=== PATIENT | female | born 1960 | race Caucasian/White ===

== ENCOUNTER 2017-01-16 09:45 | Inpatient (IN) | payer OTHER ==
[~2017-01-16] VITALS: Ht 160 cm; Wt 68.2 kg
[2017-01-16] VITALS (13 sets, daily range): BP systolic 138–181; BP diastolic 67–110; PULSE 78–123; RESP 16–32; TEMP 98–98.7; O2SAT 92–99
[2017-01-16] MEDS ORDERED: IOHEXOL 350 MG/ML 10 ML VIAL (for RAD DIAG) IVCONTRAST ONE (09:46)
[2017-01-16] MEDS ORDERED: ALPR.25 PO (10:05)
[2017-01-16] MEDS ORDERED: PROZ20CA11 PO (10:05)
[2017-01-16] MEDS ORDERED: SODIUM CHLORIDE 0.9% FLUSH 10 ML FLUSH IVF PRN (10:45)
[2017-01-16 11:10] LABS: AUTOMATED NEUTROPHIL # 10.7 TH/MM3 (1.8-7.7); BASOPHIL # 0.1 TH/MM3 (0-0.2); BASOPHIL % 0.5 % (0.0-2.0); EOSINOPHIL # 0.6 TH/MM3 (0-0.4); EOSINOPHIL % 4.8 % (0.0-4.0); HEMATOCRIT 38.1 % (35.0-46.0); HEMO FLAGS DIFF FINAL; LYMPH % 5.9 % (9.0-44.0); LYMPHOCYTE # 0.8 TH/MM3 (1.0-4.8); MEAN CELL VOLUME 83.9 FL (80.0-100.0); MEAN CORPUSCULAR HEMOGLOBIN 28.1 PG (27.0-34.0); MEAN CORPUSCULAR HGB CONC 33.4 % (32.0-36.0); MONO % 7.2 % (0.0-8.0); NEUT % 81.6 % (16.0-70.0); PLATELET COUNT 312 TH/MM3 (150-450); RED BLOOD COUNT 4.53 MIL/MM3 (4.00-5.30); RED CELL DISTRIBUTION WIDTH 12.6 % (11.6-17.2); WHITE BLOOD COUNT 13.2 TH/MM3 (4.0-11.0)
[2017-01-16 11:16] LABS: APTT (PATIENT) 27.7 SEC (24.3-30.1); PROTHROMBIN TIME - PATIENT 10.8 SEC (9.8-11.6)
[2017-01-16 11:32] LABS: ANION GAP 9 MEQ/L (5-15); AST (GOT) 14 U/L (15-37); BICARBONATE 26.3 MEQ/L (21.0-32.0); BLOOD UREA NITROGEN 9 MG/DL (7-18); CHLORIDE 103 MEQ/L (98-107); GLOMERULAR FILTRATION RATE 105 ML/MIN (>89); POTASSIUM 3.6 MEQ/L (3.5-5.1); SODIUM (NA) 138 MEQ/L (136-145)
[2017-01-16 11:37] LABS: ALKALINE PHOSPHATASE 89 U/L (45-117); ALT (GPT) 37 U/L (10-53); TOTAL BILIRUBIN ADULT 0.4 MG/DL (0.2-1.0)
--- NOTE | 2017-01-16 12:30 | RADRPT ---
EXAM DATE/TIME: 01/16/2017 11:46 [facility] COMPARISON: No previous studies available for comparison. INDICATIONS : Shortness of breath with exertion. IV CONTRAST: 71 cc Omnipaque 350 (iohexol) IV RADIATION DOSE: 5.22 CTDIvol (mGy) MEDICAL HISTORY : None SURGICAL HISTORY : None. ENCOUNTER: Initial ACUITY: 3 weeks PAIN SCALE: 0/10 LOCATION: Bilateral chest TECHNIQUE: Volumetric scanning of the chest was performed. Using automated exposure control and adjustment of t he mA and/or kV according to patient size, radiation dose was kept as low as reasonably achievable to obtain optimal diagnostic quality images. DICOM format image data is available electronically for review and comparison. Follow-up recommendations for detected pulmonary nodules are based at a minimum on nodule size and pa tient risk factors according to Fleischner Society Guidelines. FINDINGS: LUNGS: Heterogeneous, 4.5 x 5.4 x 5.7 cm mass lesion in the anteromedial aspect of the left upper hemithorax with extension to the superior perihilar region. Large left-sided effusion with complete collapse of the left lung and rightward shift of the heart and mediastinal structures. Right lung remains clear. PLEURA: Very large left-sided effusion with rightward shift of the heart and mediastinal structures. MEDIASTINUM: Heart and mediastinal structures are shifted rightward and large left-sided pleural effusion. Complet e collapse of the left lung with a heterogeneous mass lesion in the right superior hilar distribution extending into the apex of the right hemithorax.. AXILLAE: Within normal limits. No lymphadenopathy. SKELETAL: Within normal limits for patient age. MISCELLANEOUS: The visualized upper abdominal organs demonstrate no acute abnormality. CONCLUSION: 1. Large left pleural effusion would be amenable to percutaneous drainage. Recommend leaving a drain and send fluid for cell count as the lesion in the left lung apex is concerning for a malignant proce ss. 2. 4.5 x 5.4 x 5.7 cm heterogeneous soft tissue density in the anteromedial aspect of the left lung a pex concerning for malignancy. 3. Resulting dextroposition of the heart and mediastinal structures due to the large left effusion. R ight lung is clear. Nahun Frank MD on January 16, 2017 at 12:20 Board Certified Radiologist. This report was verified electronically.
[2017-01-16] MEDS ORDERED: LORazepam 0.5 MG TAB PO ONE (13:00)
--- NOTE | 2017-01-16 13:19 | PD ---
HPI Chief Complaint: Respiratory Symptoms Time Seen by Provider: 10:36 Travel History International Travel<30 days: No Contact w/Intl Traveler<30days: No Traveled to known affect area: No History of Present Illness HPI Patient is a 56 year old female who comes in from urgent care due to SOB. She says she has been feeling short of breath for the past 3 weeks. She says it started with laryngitis and she continues to feel short of breath. She says she feels some chest tightness and occasionally has some pain on her left side. She says she thought she was feeling better this morning, but then started gasping for breath on the way to [facility]. She denies leg swelling or pain. She denies any recent weight loss or night sweats. She has no history of smoking. [facility] Past Medical History Anxiety: Yes Influenza Vaccination: No ?: Not Menopausal: Yes Past Surgical History Oral Surgery: Yes Social History Alcohol Use: No Tobacco Use: No Substance Use: No Allergies-Medications (Allergen,Severity, Reaction): Coded Allergies: No Known Allergies (Unverified , 01/16/17) Reported Meds & Prescriptions Reported Meds & Active Scripts Active Reported Xanax (Alprazolam) 0.25 Mg Tab 0.25 Mg PO Q4H PRN Prozac (Fluoxetine HCl) 20 Mg Cap 20 Mg PO DAILY Review of Systems Except as stated in HPI: all other systems reviewed are Neg General / Constitutional: No: Fever, Chills HENT: No: Headaches, Lightheadedness Cardiovascular: Positive: Chest Pain or Discomfort Respiratory: Positive: Cough, Shortness of Breath Gastrointestinal: No: Nausea, Vomiting Musculoskeletal: No: Myalgias, Edema Skin: No Rash, No Change in Pigmentation Neurologic: No: Weakness, Dizziness Physical Exam Narrative GENERAL: Awake and alert, in no acute distress. SKIN: Focused skin assessment warm/dry. HEAD: Atraumatic. Normocephalic. EYES: Pupils equal and round. No scleral icterus. No injection or drainage. ENT: No nasal bleeding or discharge. Mucous membranes pink and moist. NECK: Trachea midline. No JVD. CARDIOVASCULAR: Tachycardia. No murmur appreciated. RESPIRATORY: No accessory muscle use. Near absent breath sounds on the left. GASTROINTESTINAL: Abdomen soft, non-tender, nondistended. Hepatic and splenic margins not palpable. MUSCULOSKELETAL: No obvious deformities. No clubbing. No cyanosis. No edema. NEUROLOGICAL: Awake and alert. No obvious cranial nerve deficits. Motor grossly within normal limits. Normal speech. PSYCHIATRIC: Appropriate mood and affect; insight and judgment normal. Data Data Last Documented VS Vital Signs Date Time Temp Pulse Resp B/P (MAP) Pulse Ox O2 Delivery O2 Flow Rate FiO2 01/16/17 12:59 117 20 178/96 (123) 96 Nasal Cannula 2.00 01/16/17 09:55 98.3 Orders Orders Complete Blood Count With Diff (01/16/17 10:42) Comprehensive Metabolic Panel (01/16/17 10:42) B-Type Natriuretic Peptide (01/16/17 10:42) Act Partial Throm Time (Ptt) (01/16/17 10:42) Prothrombin Time / Inr (Pt) (01/16/17 10:42) Troponin I (01/16/17 10:42) Iv Access Insert/Monitor (01/16/17 10:42) Ecg Monitoring (01/16/17 10:42) Oximetry (01/16/17 10:42) Oxygen Administration (01/16/17 10:42) Sodium Chloride 0.9% Flush (Ns Flush) (01/16/17 10:45) Ct Thorax/ Chest W Iv Contrast (01/16/17 ) Iohexol 350 Inj (Omnipaque 350 Inj) (01/16/17 09:46) Electrocardiogram (01/16/17 09:59) Lorazepam (Ativan) (01/16/17 13:00) Labs Laboratory Tests Test 01/16/17 10:47 White Blood Count 13.2 TH/MM3 Red Blood Count 4.53 MIL/MM3 Hemoglobin 12.7 GM/DL Hematocrit 38.1 % Mean Corpuscular Volume 83.9 FL Mean Corpuscular Hemoglobin 28.1 PG Mean Corpuscular Hemoglobin Concent 33.4 % Red Cell Distribution Width 12.6 % Platelet Count 312 TH/MM3 Mean Platelet Volume 7.5 FL Neutrophils (%) (Auto) 81.6 % Lymphocytes (%) (Auto) 5.9 % Monocytes (%) (Auto) 7.2 % Eosinophils (%) (Auto) 4.8 % Basophils (%) (Auto) 0.5 % Neutrophils # (Auto) 10.7 TH/MM3 Lymphocytes # (Auto) 0.8 TH/MM3 Monocytes # (Auto) 0.9 TH/MM3 Eosinophils # (Auto) 0.6 TH/MM3 Basophils # (Auto) 0.1 TH/MM3 CBC Comment DIFF FINAL Differential Comment Prothrombin Time 10.8 SEC Prothromb Time International Ratio 1.0 RATIO Activated Partial Thromboplast Time 27.7 SEC Blood Urea Nitrogen 9 MG/DL Creatinine 0.59 MG/DL Random Glucose 133 MG/DL Total Protein 7.6 GM/DL Albumin 3.4 GM/DL Calcium Level 9.0 MG/DL Alkaline Phosphatase 89 U/L Aspartate Amino Transf (AST/SGOT) 14 U/L Alanine Aminotransferase (ALT/SGPT) 37 U/L Total Bilirubin 0.4 MG/DL Sodium Level 138 MEQ/L Potassium Level 3.6 MEQ/L Chloride Level 103 MEQ/L Carbon Dioxide Level 26.3 MEQ/L Anion Gap 9 MEQ/L Estimat Glomerular Filtration Rate 105 ML/MIN Troponin I LESS THAN 0.02 NG/ML B-Type Natriuretic Peptide 24 PG/ML MDM Medical Decision Making Medical Screen Exam Complete: Yes Emergency Medical Condition: Yes Interpretation(s) ECg shows sinus tachycardia at 119. No ST elevation or depression Differential Diagnosis Pneumonia versus pleural effusion versus pneumothorax Narrative Course Patient is a 56-year-old female comes in complaining of shortness of breath. Exam shows near absent breath sounds on the left. IV established, labs sent. Labs show slight elevation in white blood cell count. CT of the chest ordered shows large pleural effusion on the left with a lung mass. Patient informed of these results. She was given Ativan due to nerves. She is also placed on oxygen for comfort. Patient's oxygen saturation remained in the high 90s on room air. The oxygen did help her feel little bit better. She'll be admitted for further management. Diagnosis Primary Impression: Lung mass Additional Impression: Pleural effusion Admitting Information Admitting Physician Requests: Admit Shama Aparicio MD Jan 16, 2017 13:19
[2017-01-16] MEDS ORDERED: ONDANSETRON HCL 4 MG/2 ML VIAL IVP PRN (14:00)
[2017-01-16] MEDS ORDERED: NALOXONE HCL 0.4 MG/ML AMP IV PUSH PRN (14:00)
[2017-01-16] MEDS ORDERED: SODIUM CHLORIDE 0.9% FLUSH 10 ML FLUSH IV FLUSH PRN (14:00)
[2017-01-16] MEDS ORDERED: ACETAMINOPHEN/HYDROcodone 325 MG/5 MG TAB PO PRN (14:15)
[2017-01-16] MEDS ORDERED: MORPHINE SULFATE 4 MG/ML INJ IV PUSH PRN ×2 (14:15)
[2017-01-16] MEDS ORDERED: ACETAMINOPHEN/HYDROcodone 325 MG/7.5 MG TAB PO PRN (14:15)
--- NOTE | 2017-01-16 14:29 | HHI.HP ---
[facility] mAe Vizcarra MD Admission Diagnosis lung mass, pleural effusion Diagnoses: Chief Complaint: Short of breath Travel History International Travel<30 Days: No Contact w/Intl Traveler <30 Da: No Traveled to Known Affected Are: No History of Present Illness 56 years old female presented to the ED complaining of worsening short of breath over the last 2-3 weeks, patient stated she had sore throat with what it looks like bronchitis about 2 weeks ago which got better however she continued to have short of breath," I feel I'm on a treadmill all the time " Patient denied any history of chronic smoking, she smoked 2 packs in her whole life when she was 19 years old, she mentioned occasional night sweat, but she denied weight loss on the opposite she put on some weight, however patient and her they mentioned he started on a newly diet with more vegetables and less meat, she mentioned loose stool recently but she blinked it to her new diet. No phlegm production, no hemoptysis. In ED CT of the chest showed large left pleural effusion with left apical large mass very suspicious for malignancy, also patient had a blood pressure of 180/ 90 and a heart rate in the 120, she was very anxious she was given a dose of benzodiazepine which helped her, she seems to have Xanax every 4 hours at home Review of Systems All systems reviewed and was positive for what is mentioned in history of present illness otherwise negative Past Family Social History Past Medical History Anxiety Allergies: Coded Allergies: No Known Allergies (Unverified , 01/16/17) Family History Her aunts and uncles had history of cancer, one of her paternal aunt had lung cancer she did not know if she was a smoker Social History Patient smoked 2 pack in her life when she was 19 years old denied alcohol or illicit drug abuse Physical Exam Vital Signs Vital Signs Date Time Temp Pulse Resp B/P (MAP) Pulse Ox O2 Delivery O2 Flow Rate FiO2 01/16/17 12:59 117 20 178/96 (123) 96 Nasal Cannula 2.00 01/16/17 11:33 118 16 174/93 (120) 99 Nasal Cannula 2.00 01/16/17 11:30 99 Nasal Cannula 2.00 01/16/17 10:01 118 26 170/102 (124) 97 Room Air 01/16/17 09:55 98.3 121 32 170/102 (124) 97 01/16/17 09:46 98.7 123 18 153/75 (101) 96 Room Air Physical Exam GENERAL: This is a well-nourished, well-developed patient, in no apparent distress. SKIN: No rashes, warm and dry HEAD: Atraumatic. Normocephalic. EYES: Pupils equal round and reactive. Extraocular motions intact. No scleral icterus. ENT: Nose without bleeding, or drainage, Airway patent. NECK: Trachea midline. Supple CARDIOVASCULAR: Regular tachycardic without murmurs, gallops, or rubs. RESPIRATORY: No breath sounds on the left side with decreased tactile fremitus GASTROINTESTINAL: Abdomen soft, non-tender, nondistended. Positive bowel sounds MUSCULOSKELETAL: Extremities without clubbing, cyanosis, or edema. Pedal pulses appreciated NEUROLOGICAL: Awake and alert. Moves all extremity. Normal speech.no focal neurological deficit Laboratory Laboratory Tests Test 01/16/17 10:47 White Blood Count 13.2 Red Blood Count 4.53 Hemoglobin 12.7 Hematocrit 38.1 Mean Corpuscular Volume 83.9 Mean Corpuscular Hemoglobin 28.1 Mean Corpuscular Hemoglobin Concent 33.4 Red Cell Distribution Width 12.6 Platelet Count 312 Mean Platelet Volume 7.5 Neutrophils (%) (Auto) 81.6 Lymphocytes (%) (Auto) 5.9 Monocytes (%) (Auto) 7.2 Eosinophils (%) (Auto) 4.8 Basophils (%) (Auto) 0.5 Neutrophils # (Auto) 10.7 Lymphocytes # (Auto) 0.8 Monocytes # (Auto) 0.9 Eosinophils # (Auto) 0.6 Basophils # (Auto) 0.1 CBC Comment DIFF FINAL Differential Comment Prothrombin Time 10.8 Prothromb Time International Ratio 1.0 Activated Partial Thromboplast Time 27.7 Blood Urea Nitrogen 9 Creatinine 0.59 Random Glucose 133 Total Protein 7.6 Albumin 3.4 Calcium Level 9.0 Alkaline Phosphatase 89 Aspartate Amino Transf (AST/SGOT) 14 Alanine Aminotransferase (ALT/SGPT) 37 Total Bilirubin 0.4 Sodium Level 138 Potassium Level 3.6 Chloride Level 103 Carbon Dioxide Level 26.3 Anion Gap 9 Estimat Glomerular Filtration Rate 105 Troponin I LESS THAN 0.02 B-Type Natriuretic Peptide 24 Result Diagram: 01/16/17 1047 01/16/17 1047 Imaging Last Impressions Chest CT 01/16/17 0000 Signed Impressions: Service Date/Time: January 11:46 - CONCLUSION: 1. Large left pleural effusion would be amenable to percutaneous drainage. Recommend leaving a drain and send fluid for cell count as the lesion in the left lung apex is concerning for a malignant process. 2. 4.5 x 5.4 x 5.7 cm heterogeneous soft tissue density in the anteromedial aspect of the left lung apex concerning for malignancy. 3. Resulting dextroposition of the heart and mediastinal structures due to the large left effusion. Right lung is clear. MD Andrade Arteaga VTE Risk Assessment Andrade VTE Risk Assessment: Mod/High Risk (score >= 2) Caprini Risk Assessment Model Point Value = 1 Point Value = 2 Point Value = 3 Point Value = 5 Age 41-60 Minor surgery BMI > 25 kg/m2 Swollen legs Varicose veins or History of unexplained or recurrent spontaneous Oral contraceptives or hormone replacement Sepsis (< 1 month) Serious lung disease, including pneumonia (< 1 month) Abnormal pulmonary function Acute myocardial infarction Congestive heart failure (< 1 month) History of inflammatory bowel disease Medical patient at bed rest Age 61-74 Arthroscopic surgery Major open surgery (> 45 min) Laparoscopic surgery (> 45 min) Malignancy Confined to bed (> 72 hours) Immobilizing plaster cast Central venous access Age >= 75 History of VTE Family history of VTE Factor V Leiden Prothrombin [id number] Lupus anticoagulant Anticardiolipin antibodies Elevated serum homocysteine Heparin-induced thrombocytopenia Other congenital or acquired thrombophilia Stroke (< 1 month) Elective arthroplasty Hip, pelvis, or leg fracture Acute spinal cord injury (< 1 month) Prophylaxis Regimen Total Risk Factor Score Risk Level Prophylaxis Regimen 0-1 Low Early ambulation 2 Moderate Order ONE of the following: *Sequential Compression Device (SCD) *Heparin 5000 units SQ BID 3-4 Higher Order ONE of the following medications: *Heparin 5000 units SQ TID *Enoxaparin/Lovenox 40 mg SQ daily (WT < 150 kg, CrCl > 30 mL/min) *Enoxaparin/Lovenox 30 mg SQ daily (WT < 150 kg, CrCl > 10-29 mL/min) *Enoxaparin/Lovenox 30 mg SQ BID (WT < 150 kg, CrCl > 30 mL/min) AND/OR *Sequential Compression Device (SCD) 5 or more Highest Order ONE of the following medications: *Heparin 5000 units SQ TID (Preferred with Epidurals) *Enoxaparin/Lovenox 40 mg SQ daily (WT < 150 kg, CrCl > 30 mL/min) *Enoxaparin/Lovenox 30 mg SQ daily (WT < 150 kg, CrCl > 10-29 mL/min) *Enoxaparin/Lovenox 30 mg SQ BID (WT < 150 kg, CrCl > 30 mL/min) AND *Sequential Compression Device (SCD) Assessment and Plan Assessment and Plan 56 years old female came with Symptomatic dyspnea due to left apical mass and large pleural effusion Leukocytosis with left shift possibly due to recent URI Hypertension with tachycardia, in part possibly due to anxiety DVT prophylaxis Plan: O2, admit to ICU for close monitoring Consult pulmonary Consult invasive radiology for left thoracentesis and possible need for temporary Drainer Clonidine and Vasotec when necessary for high blood pressure I will resume her home Xanax to avoid withdrawal To start Lovenox for DVT prophylaxis tomorrow after thoracentesis Discussed Condition With ED physician, patient and her Marguerite Poon MD Jan 16, 2017 14:29
[2017-01-16] MEDS ORDERED: ENALAPRILAT 1.25 MG/ML VIAL IV PUSH PRN (14:30)
[2017-01-16] MEDS ORDERED: cloNIDine HCL 0.1 MG TAB PO PRN (14:30)
[2017-01-16] MEDS ORDERED: LIDOCAINE HCL 1% 50 ML VIAL ONE (19:59)
[2017-01-16] MEDS: RESP: ALBUTEROL 2.5 MG/IPRATROPIUM 0.5 MG NEB (SCH) NEB (20:27)
[2017-01-16 20:42] LABS: BLOOD GAS BASE EXCESS 3.5 mmol/L (-2-2); BLOOD GAS CARBOXYHEMOGLOBIN 1.4 % (0-4); BLOOD GAS HCO3 27 mmol/L (22-26); BLOOD GAS METHEMOGLOBIN 0.6 % (0-2); BLOOD GAS O2 HGB SATURATION 91 % (90-100); BLOOD GAS OXYGEN CONTENT 16.3 Vol % (12.0-20.0); BLOOD GAS PCO2 38 mmHg (38-42); BLOOD GAS PO2 63 mmHG (61-120); BLOOD GAS TOTAL HGB 12.7 G/DL (12.0-16.0); CRITICAL VALUE NO; TEMP CORR TO 98.6
[2017-01-16 20:43] LABS: DRAW SITE RT RADIAL; LITER FLOW 2.5 L/M; NUMBER OF ARTERIAL PUNCTURES 1; OXYGEN DEVICE NASAL CANNULA; STAT NO; ULNAR PULSE PRESENT
[2017-01-16] MEDS ORDERED: HEPARIN SODIUM - IV 2,000 UNITS/2 ML VIAL OTHER ONE (20:45)
--- NOTE | 2017-01-16 20:47 | RADRPT ---
EXAM DATE/TIME: 01/16/2017 20:18 [facility] COMPARISON: CT THORAX W CONTRAST, January 16, 2017, 11:46. INDICATIONS : Post thoracentesis. MEDICAL HISTORY : None. SURGICAL HISTORY : None. ENCOUNTER: Initial ACUITY: 1 day PAIN SCORE: 0/10 LOCATION: Left chest FINDINGS: There is a moderate to large left pleural effusion. There is a mass in the superior-medial left lung. The right lung is clear. A pneumothorax is not seen. CONCLUSION: Moderate to large left pleural effusion and a left upper lung mass more fully described in the CT of the chest report. Anup Anthony MD on January 16, 2017 at 20:43 Board Certified Radiologist. This report was verified electronically.
--- NOTE | 2017-01-16 21:35 | MB ---
cc: Beckie TAMAYO M.D. DATE OF CONSULTATION 01/16/17 REASON FOR CONSULTATION Pleural effusion and lung mass HISTORY OF PRESENT ILLNESS This is a 56-year-old lady who presented to the emergency room with progressive shortness of breath, difficulty in lying down, and a history of sore throat with cough. It started [id number] weeks ago. The patient could not catch her breath and thus was seen in the walk-in center where a chest x-ray demonstrated a large left pleural effusion and she thus was sent to the ER and now admitted. A CT chest was done which showed a large left effusion as well as a left apical lung mass suspicious for malignancy. The patient was also hypertensive and she is now admitted and started on oxygen at three liters. The patient had been on some Xanax for anxiety. PAST HISTORY Anxiety attacks, but no significant surgery or medical illness. Denies lung disease in the past. ALLERGIES None listed. FAMILY HISTORY Significant for lung cancer in one aunt. HABITS The patient smoked very briefly when she was 19 years old but she has only been exposed to secondhand smoke from her parents. No significant alcohol. Lives with her locally. REVIEW OF SYSTEMS The patient has had weight gain. She has shortness of breath and hoarseness. Denies abdominal pains. No nausea, vomiting, no urinary symptoms. No leg or calf muscle pains. She has no joint pains or skin lesions. PHYSICAL EXAMINATION GENERAL: This is an averagely built middle-aged white female who is alert, pale and mildly dyspneic, sitting upright. VITAL SIGNS: Blood pressure 170/80, pulse 110, respirations 24, temperature 98.2. HEENT: Head normocephalic. Pupils are reactive. Tongue moist. Throat is mildly injected. Ears no inflammation. NECK: No bruits or thyroid enlargement or lymphadenopathy. CHEST: Decreased breath sounds over the left mid and lower chest and occasional wheezes throughout both lung chapa. A few crackles heard at the bases. HEART: Sounds are irregular S1 and S2. No definite murmur. No S3. ABDOMEN: Soft, protuberant. No masses. No organomegaly. Bowel sounds are active. EXTREMITIES: No lesions or edema. NEUROLOGIC: Reflexes are 1+ with no gross motor deficits. Cranial nerves grossly intact. RECTAL: Exam is deferred. SKIN: No lesions. IMPRESSION 1. Large left pleural effusion with atelectasis in left lung. 2. Left upper lobe lung mass, rule out malignancy 3. Anxiety. PLAN The patient will need a thoracentesis. The risks, potential complications including pneumothorax, bleeding, respiratory failure were all explained to her and she is in agreement. We will hold the Lovenox at this time. The patient may also need a CT-guided needle biopsy of the lung mass. Oxygen supplementation at two liters nasal cannula and bedside PFT will be obtained. Follow up chest x-ray to be done in the a.m. and nebulized albuterol solution given t.i.d. and p.r.n. Thank you, Dr. Everett, for this consultation. MD BAUTISTA Cramer/ /7:46 PM /9:27 PM
[2017-01-16] MEDS: SODIUM CHLORIDE 0.9% FLUSH 10 ML FLUSH IV FLUSH SCH (22:57)
[2017-01-16 23:36] LABS: TOTAL PROTEIN,PLEURAL FLUID 4.1 GM/DL
[2017-01-17] VITALS (9 sets, daily range): BP systolic 126–143; BP diastolic 63–96; PULSE 88–119; RESP 16–20; TEMP 98–99.3; O2SAT 92–96
[2017-01-17 01:10] LABS: PLEURAL FLUID LYMPHS 72 %
[2017-01-17] MEDS: RESP: ALBUTEROL 2.5 MG/IPRATROPIUM 0.5 MG NEB (SCH) NEB ×4 (07:37→19:51)
[2017-01-17 07:46] LABS: AUTOMATED NEUTROPHIL # 9.2 TH/MM3 (1.8-7.7); BASOPHIL # 0.1 TH/MM3 (0-0.2); BASOPHIL % 0.6 % (0.0-2.0); EOSINOPHIL # 0.8 TH/MM3 (0-0.4); EOSINOPHIL % 6.7 % (0.0-4.0); HEMATOCRIT 34.3 % (35.0-46.0); HEMO FLAGS DIFF FINAL; LYMPH % 8.1 % (9.0-44.0); MEAN CELL VOLUME 82.9 FL (80.0-100.0); MEAN CORPUSCULAR HEMOGLOBIN 28.1 PG (27.0-34.0); MEAN CORPUSCULAR HGB CONC 33.9 % (32.0-36.0); MONO % 7.1 % (0.0-8.0); NEUT % 77.5 % (16.0-70.0); PLATELET COUNT 269 TH/MM3 (150-450); RED BLOOD COUNT 4.14 MIL/MM3 (4.00-5.30); RED CELL DISTRIBUTION WIDTH 12.6 % (11.6-17.2); WHITE BLOOD COUNT 11.8 TH/MM3 (4.0-11.0)
[2017-01-17 08:07] LABS: BICARBONATE 28.9 MEQ/L (21.0-32.0); POTASSIUM 3.6 MEQ/L (3.5-5.1)
[2017-01-17] MEDS: SODIUM CHLORIDE 0.9% FLUSH 10 ML FLUSH IV FLUSH SCH ×2 (10:03→21:00)
--- NOTE | 2017-01-17 12:57 | HHI.PR ---
Subjective Remarks Feels better. CXR improved effusion. Needs biopsy of mass and Chest tube. Objective Vital Signs Date Time Temp Pulse Resp B/P (MAP) Pulse Ox O2 Delivery O2 Flow Rate FiO2 01/17/17 10:42 99.3 88 18 134/63 (86) 94 01/17/17 08:00 Nasal Cannula 2.00 01/17/17 07:42 98.0 88 20 134/70 (91) 96 01/17/17 07:39 93 Nasal Cannula 2.00 01/17/17 04:43 98.3 101 18 126/75 (92) 92 01/17/17 00:29 92 Nasal Cannula 3.00 01/16/17 23:54 98.6 105 18 138/72 (94) 92 01/16/17 20:30 94 Nasal Cannula 2.50 01/16/17 20:03 115 16 141/67 (91) 95 01/16/17 19:50 121 18 146/110 (122) 97 01/16/17 19:50 95 Nasal Cannula 2.00 01/16/17 18:00 98.0 78 20 144/68 (93) 96 01/16/17 17:38 154/68 (96) 01/16/17 17:21 96 Nasal Cannula 2.00 01/16/17 16:15 01/16/17 15:36 108 24 144/83 (103) 98 Nasal Cannula 2.00 01/16/17 14:12 116 22 181/78 (112) 97 Nasal Cannula 2.00 01/16/17 12:59 117 20 178/96 (123) 96 Nasal Cannula 2.00 I/O 01/16/17 01/16/17 01/16/17 01/17/17 01/17/17 01/17/17 07:00 15:00 23:00 07:00 15:00 23:00 Intake Total 2250 ml Balance 2250 ml Intake Oral 250 ml Other 2000 ml # Voids 2 1 Result Diagram: 01/17/1761901/17/17619 Objective Remarks GENERAL: This is an averagely built middle-aged white female who is alert, pale and mildly dyspneic, sitting upright. HEENT: Head normocephalic. Pupils are reactive. Tongue moist. Throat is mildly injected. Ears no inflammation. NECK: No bruits or thyroid enlargement or lymphadenopathy. CHEST: Decreased breath sounds over the left mid and lower chest and occasional wheezes over both lung chapa. A few crackles heard at the bases. HEART: Sounds are irregular S1 and S2. No definite murmur. No S3. ABDOMEN: Soft, protuberant. No masses. No organomegaly. Bowel sounds are active. EXTREMITIES: No lesions or edema. NEUROLOGIC: Reflexes are 1+ with no gross motor deficits. Cranial nerves grossly intact. RECTAL: Exam is deferred. SKIN: No lesions. Assessment and Plan Assessment and Plan IMPRESSION 1. Large left pleural effusion with atelectasis in left lung. 2. Left upper lobe lung mass, rule out malignancy 3. Anxiety. Plan ; 1. Will get CT guided biopsy of lung mass and chest catheter for fluid 2. Continue O2 and nebs . 3. Oncology Evaluation. 4. PFT with Broncho. 5. CBC,BMP in am Beckie Sahu MD Jan 17, 2017 12:57
--- NOTE | 2017-01-17 16:02 | HHI.PR ---
Subjective Remarks Patient seems to be happy today, feeling much better after the thoracentesis Repeated chest x-ray still showing pleural effusion but less than before Discussed with Dr. Barnes he want to do CT-guided biopsy by of discharge I discussed that with the patient and her family today in the room at the bedside she is in agreement with Objective Vitals Vital Signs Date Time Temp Pulse Resp B/P (MAP) Pulse Ox O2 Delivery O2 Flow Rate FiO2 01/17/17 15:44 98.3 110 16 143/96 (112) 93 01/17/17 10:42 99.3 88 18 134/63 (86) 94 01/17/17 08:00 Nasal Cannula 2.00 01/17/17 07:42 98.0 88 20 134/70 (91) 96 01/17/17 07:39 93 Nasal Cannula 2.00 01/17/17 04:43 98.3 101 18 126/75 (92) 92 01/17/17 00:29 92 Nasal Cannula 3.00 01/16/17 23:54 98.6 105 18 138/72 (94) 92 01/16/17 20:30 94 Nasal Cannula 2.50 01/16/17 20:03 115 16 141/67 (91) 95 01/16/17 19:50 121 18 146/110 (122) 97 01/16/17 19:50 95 Nasal Cannula 2.00 01/16/17 18:00 98.0 78 20 144/68 (93) 96 01/16/17 17:38 154/68 (96) 01/16/17 17:21 96 Nasal Cannula 2.00 01/16/17 16:15 I/O 01/16/17 01/16/17 01/16/17 01/17/17 01/17/17 01/17/17 07:00 15:00 23:00 07:00 15:00 23:00 Intake Total 2250 ml Balance 2250 ml Intake Oral 250 ml Other 2000 ml # Voids 2 1 Result Diagram: 01/17/1761901/17/17619 Objective Remarks GENERAL: This is a well-nourished, well-developed patient, in no apparent distress. SKIN: No rashes, warm and dry HEAD: Atraumatic. Normocephalic. EYES: Pupils equal round and reactive. Extraocular motions intact. No scleral icterus. ENT: Nose without bleeding, or drainage, Airway patent. NECK: Trachea midline. Supple CARDIOVASCULAR: Regular rate and rhythm without murmurs, gallops, or rubs. RESPIRATORY: Decreased breath sounds on the left lung GASTROINTESTINAL: Abdomen soft, non-tender, nondistended. Positive bowel sounds MUSCULOSKELETAL: Extremities without clubbing, cyanosis, or edema. Pedal pulses appreciated NEUROLOGICAL: Awake and alert. Moves all extremity. Normal speech.no focal neurological deficit A/P Assessment and Plan GENERAL: This is a well-nourished, well-developed patient, in no apparent distress. SKIN: No rashes, warm and dry HEAD: Atraumatic. Normocephalic. EYES: Pupils equal round and reactive. Extraocular motions intact. No scleral icterus. ENT: Nose without bleeding, or drainage, Airway patent. NECK: Trachea midline. Supple CARDIOVASCULAR: Regular tachycardic without murmurs, gallops, or rubs. RESPIRATORY: No breath sounds on the left side with decreased tactile fremitus GASTROINTESTINAL: Abdomen soft, non-tender, nondistended. Positive bowel sounds MUSCULOSKELETAL: Extremities without clubbing, cyanosis, or edema. Pedal pulses appreciated NEUROLOGICAL: Awake and alert. Moves all extremity. Normal speech.no focal neurological deficit Laboratory Laboratory Tests Test 01/16/17 10:47 White Blood Count 13.2 Red Blood Count 4.53 Hemoglobin 12.7 Hematocrit 38.1 Mean Corpuscular Volume 83.9 Mean Corpuscular Hemoglobin 28.1 Mean Corpuscular Hemoglobin Concent 33.4 Red Cell Distribution Width 12.6 Platelet Count 312 Mean Platelet Volume 7.5 Neutrophils (%) (Auto) 81.6 Lymphocytes (%) (Auto) 5.9 Monocytes (%) (Auto) 7.2 Eosinophils (%) (Auto) 4.8 Basophils (%) (Auto) 0.5 Neutrophils # (Auto) 10.7 Lymphocytes # (Auto) 0.8 Monocytes # (Auto) 0.9 Eosinophils # (Auto) 0.6 Basophils # (Auto) 0.1 CBC Comment DIFF FINAL Differential Comment Prothrombin Time 10.8 Prothromb Time International Ratio 1.0 Activated Partial Thromboplast Time 27.7 Blood Urea Nitrogen 9 Creatinine 0.59 Random Glucose 133 Total Protein 7.6 Albumin 3.4 Calcium Level 9.0 Alkaline Phosphatase 89 Aspartate Amino Transf (AST/SGOT) 14 Alanine Aminotransferase (ALT/SGPT) 37 Total Bilirubin 0.4 Sodium Level 138 Potassium Level 3.6 Chloride Level 103 Carbon Dioxide Level 26.3 Anion Gap 9 Estimat Glomerular Filtration Rate 105 Troponin I LESS THAN 0.02 B-Type Natriuretic Peptide 24 Result Diagram: 01/16/17 1047 01/16/17 1047 [Image 1] Imaging Last Impressions Chest CT 01/16/17 0000 Signed Impressions: Service Date/Time: January 11:46 - CONCLUSION: 1. Large left pleural effusion would be amenable to percutaneous drainage. Recommend leaving a drain and send fluid for cell count as the lesion in the left lung apex is concerning for a malignant process. 2. 4.5 x 5.4 x 5.7 cm heterogeneous soft tissue density in the anteromedial aspect of the left lung apex concerning for malignancy. 3. Resulting dextroposition of the heart and mediastinal structures due to the large left effusion. Right lung is clear. Nahun Frank MD Septic Shock Reassessment Septic Shock Reassessment Caprini VTE Risk Assessment Caprini VTE Risk Assessment Caprini VTE Risk Assessment: Mod/High Risk (score >= 2) Caprini Risk Assessment Model Point Value = 1 Point Value = 2 Point Value = 3 Point Value = 5 Age 41-60 Minor surgery BMI > 25 kg/m2 Swollen legs Varicose veins or History of unexplained or recurrent spontaneous Oral contraceptives or hormone replacement Sepsis (< 1 month) Serious lung disease, including pneumonia (< 1 month) Abnormal pulmonary function Acute myocardial infarction Congestive heart failure (< 1 month) History of inflammatory bowel disease Medical patient at bed rest Age 61-74 Arthroscopic surgery Major open surgery (> 45 min) Laparoscopic surgery (> 45 min) Malignancy Confined to bed (> 72 hours) Immobilizing plaster cast Central venous access Age >= 75 History of VTE Family history of VTE Factor V Leiden Prothrombin [id number] Lupus anticoagulant Anticardiolipin antibodies Elevated serum homocysteine Heparin-induced thrombocytopenia Other congenital or acquired thrombophilia Stroke (< 1 month) Elective arthroplasty Hip, pelvis, or leg fracture Acute spinal cord injury (< 1 month) Prophylaxis Regimen Total Risk Factor Score Risk Level Prophylaxis Regimen 0-1 Low Early ambulation 2 Moderate Order ONE of the following: *Sequential Compression Device (SCD) *Heparin 5000 units SQ BID 3-4 Higher Order ONE of the following medications: *Heparin 5000 units SQ TID *Enoxaparin/Lovenox 40 mg SQ daily (WT < 150 kg, CrCl > 30 mL/min) *Enoxaparin/Lovenox 30 mg SQ daily (WT < 150 kg, CrCl > 10-29 mL/min) *Enoxaparin/Lovenox 30 mg SQ BID (WT < 150 kg, CrCl > 30 mL/min) AND/OR *Sequential Compression Device (SCD) 5 or more Highest Order ONE of the following medications: *Heparin 5000 units SQ TID (Preferred with Epidurals) *Enoxaparin/Lovenox 40 mg SQ daily (WT < 150 kg, CrCl > 30 mL/min) *Enoxaparin/Lovenox 30 mg SQ daily (WT < 150 kg, CrCl > 10-29 mL/min) *Enoxaparin/Lovenox 30 mg SQ BID (WT < 150 kg, CrCl > 30 mL/min) AND *Sequential Compression Device (SCD) Assessment and Plan Assessment and Plan Assessment and Plan 56 years old female came with Symptomatic dyspnea due to left apical mass and large pleural effusion Leukocytosis with left shift possibly due to recent URI Hypertension with tachycardia, in part possibly due to anxiety DVT prophylaxis Plan: Appreciate pulmonary consultation status post thoracentesis 01/16, repeated chest x-ray with still pleural effusion, however patient had clinical improvement, plan for CT guided biopsy in a.m. Clonidine and Vasotec when necessary for high blood pressure resume her home Xanax to avoid withdrawal Hold Lovenox for now until done with procedure Discussed with patient and her family Marguerite Poon MD Jan 17, 2017 16:02
--- NOTE | 2017-01-17 16:16 | EKG ---
Date Performed: 01/16/2017 Time Performed: 09:59:38 PTAGE: 56 years EKG: SINUS TACHYCARDIA WITH SHORT OK INTERVAL NONSPECIFIC T-WAVE ABNORMALITY ABNORMAL RHYTHM ECG NO PREVIOUS TRACING DOCTOR: Danielito Alarcon Interpretating Date/Time 01/17/2017 16:15:19
--- NOTE | 2017-01-17 16:29 | MR ---
cc: ERIN SAHU DATE: 01/16/2017. PROCEDURE PERFORMED: Left thoracentesis. PREOPERATIVE DIAGNOSIS: Left pleural effusion. POSTOPERATIVE DIAGNOSIS: Left pleural effusion. ANESTHESIA: 1% Xylocaine local. SURGEON: Erin Sahu MD. DESCRIPTION OF THE PROCEDURE IN DETAIL AND FINDINGS: The patient's left posterior back was prepped with chlorhexidine solution following which sterile drapes were applied. 1% Xylocaine was then injected into the intercostal space in the posterior axillary line after which a small incision was made with a scalpel blade. Following this, a 14-gauge catheter was inserted into the pleural space. This was connected to a vacuum bottle and approximately 2100 cc of serosanguineous fluid was aspirated at which time the flow stopped. The patient tolerated the procedure well. A post thoracentesis chest x-ray will be obtained. Erin Sahu MD JREENA/BHARAT /8:20 PM /4:28 PM
[2017-01-17] MEDS ORDERED: ENOXAPARIN SODIUM 40 MG/0.4 ML SYRINGE SQ SCH (20:00)
[2017-01-17] MEDS: ALPRAZolam 0.25 MG TAB PO PRN (23:44)
[2017-01-18] VITALS (11 sets, daily range): BP systolic 118–129; BP diastolic 62–83; PULSE 79–112; RESP 16–24; TEMP 97.3–98.3; O2SAT 92–97
[2017-01-18] MEDS: RESP: ALBUTEROL 2.5 MG/IPRATROPIUM 0.5 MG NEB (SCH) NEB ×4 (07:43→21:09)
[2017-01-18] MEDS: SODIUM CHLORIDE 0.9% FLUSH 10 ML FLUSH IV FLUSH SCH ×2 (10:47→19:53)
--- NOTE | 2017-01-18 13:04 | HHI.PR ---
Subjective Remarks Patient reports her breathing is better. She is ambulating. Overall feeling better. Objective Vitals Vital Signs Date Time Temp Pulse Resp B/P (MAP) Pulse Ox O2 Delivery O2 Flow Rate FiO2 01/18/17 12:14 97.3 102 24 125/69 (87) 96 01/18/17 08:44 97.5 95 22 127/72 (90) 96 01/18/17 07:43 92 21 01/18/17 04:31 97.4 110 16 129/83 (98) 93 01/18/17 04:00 84 01/18/17 00:16 97.5 96 17 123/83 (96) 92 01/18/17 00:00 102 01/17/17 20:51 98.3 119 18 129/69 (89) 94 01/17/17 20:30 94 Nasal Cannula 3.00 01/17/17 20:00 108 01/17/17 19:52 94 Nasal Cannula 3.00 01/17/17 15:44 98.3 110 16 143/96 (112) 93 I/O 01/17/17 01/17/17 01/17/17 01/18/17 01/18/17 01/18/17 07:00 15:00 23:00 07:00 15:00 23:00 Intake Total 2250 ml Balance 2250 ml Intake Oral 250 ml Other 2000 ml # Voids 2 1 Result Diagram: 01/17/1761901/17/17619 Objective Remarks GENERAL: No acute distress CARDIOVASCULAR: Regular rate and rhythm. RESPIRATORY: No accessory muscle use. Clear to auscultation. Diminished breath sounds left base GASTROINTESTINAL: Abdomen soft, non-tender, nondistended. MUSCULOSKELETAL: Extremities without clubbing, cyanosis, or edema. No obvious deformities. NEUROLOGICAL: Awake and alert. Normal speech. PSYCHIATRIC: Appropriate mood and affect; insight and judgment normal. Procedures Thoracentesis A/P Assessment and Plan 56 years old female came with Symptomatic dyspnea due to left apical mass and large pleural effusion Leukocytosis with left shift possibly due to recent URI Hypertension with tachycardia, in part possibly due to anxiety Appreciate pulmonary consultation status post thoracentesis 01/16, repeated chest x-ray with still pleural effusion, however patient had clinical improvement, plan for CT guided biopsy and drain on Friday Clonidine and Vasotec when necessary for high blood pressure resume her home Xanax to avoid withdrawal Hold Lovenox for now until done with procedure Discussed with patient and her family at bedside Braden Calloway MD Jan 18, 2017 13:04
[2017-01-19] VITALS (10 sets, daily range): BP systolic 116–152; BP diastolic 71–76; PULSE 74–105; RESP 17–18; TEMP 97.2–98.1; O2SAT 93–97
[2017-01-19] MEDS: RESP: ALBUTEROL 2.5 MG/IPRATROPIUM 0.5 MG NEB (SCH) NEB ×4 (08:14→20:32)
[2017-01-19] MEDS: SODIUM CHLORIDE 0.9% FLUSH 10 ML FLUSH IV FLUSH SCH ×2 (08:33→20:24)
[2017-01-19] MEDS: ALPRAZolam 0.25 MG TAB PO PRN ×2 (09:22→23:32)
--- NOTE | 2017-01-19 15:52 | HHI.PR ---
Subjective Remarks Patient reports she is feeling ok today. On 2 L NC. Objective Vitals Vital Signs Date Time Temp Pulse Resp B/P (MAP) Pulse Ox O2 Delivery O2 Flow Rate FiO2 01/19/17 12:00 98.1 86 17 132/75 (94) 95 01/19/17 08:15 97 01/19/17 08:00 97.5 93 18 135/76 (95) 93 01/19/17 04:00 97.7 88 18 137/73 (94) 96 01/19/17 00:32 97.4 74 18 152/71 (98) 94 01/18/17 21:11 97 Nasal Cannula 2.00 01/18/17 20:20 112 01/18/17 19:30 97.7 79 18 120/76 (91) 92 01/18/17 16:25 98.3 101 24 118/62 (80) 96 I/O 01/18/17 01/18/17 01/18/17 01/19/17 01/19/17 01/19/17 07:00 15:00 23:00 07:00 15:00 23:00 Intake Total 360 ml 360 ml Balance 360 ml 360 ml Intake Oral 360 ml 360 ml # Voids 3 2 # Bowel Movements 0 1 Result Diagram: 01/17/1761901/17/17619 Objective Remarks GENERAL: No acute distress CARDIOVASCULAR: Regular rate and rhythm. RESPIRATORY: No accessory muscle use. Clear to auscultation. Diminished breath sounds left base GASTROINTESTINAL: Abdomen soft, non-tender, nondistended. MUSCULOSKELETAL: Extremities without clubbing, cyanosis, or edema. No obvious deformities. NEUROLOGICAL: Awake and alert. Normal speech. PSYCHIATRIC: Appropriate mood and affect; insight and judgment normal. Procedures Thoracentesis A/P Assessment and Plan 56 years old female came with Symptomatic dyspnea due to left apical mass and large pleural effusion Leukocytosis with left shift possibly due to recent URI Hypertension with tachycardia, in part possibly due to anxiety Appreciate pulmonary consultation status post thoracentesis 01/16, repeated chest x-ray with still pleural effusion, however patient had clinical improvement, plan for CT guided biopsy and drain tomorrow. Clonidine and Vasotec when necessary for high blood pressure resume her home Xanax to avoid withdrawal Hold Lovenox for now until done with procedure Discussed with patient and her family at bedside Braden Calloway MD Jan 19, 2017 15:52
[2017-01-20] VITALS (11 sets, daily range): BP systolic 102–139; BP diastolic 56–81; PULSE 78–98; RESP 16–20; TEMP 96.3–98.6; O2SAT 94–97
[2017-01-20] MEDS: RESP: ALBUTEROL 2.5 MG/IPRATROPIUM 0.5 MG NEB (SCH) NEB ×3 (07:43→16:00)
[2017-01-20] MEDS: SODIUM CHLORIDE 0.9% FLUSH 10 ML FLUSH IV FLUSH SCH ×2 (08:31→21:19)
--- NOTE | 2017-01-20 09:29 | HHI.PR ---
Subjective Remarks Patient reports she is feeling okay today. Stable on nasal cannula. Objective Vitals Vital Signs Date Time Temp Pulse Resp B/P (MAP) Pulse Ox O2 Delivery O2 Flow Rate FiO2 01/20/17 08:32 Nasal Cannula 3.00 01/20/17 07:48 96.3 92 16 139/78 (98) 94 01/20/17 03:42 96.7 89 17 129/81 (97) 95 01/19/17 23:27 97.2 86 17 136/73 (94) 96 01/19/17 20:33 94 01/19/17 20:15 101 01/19/17 19:00 98.1 105 18 116/75 (89) 95 01/19/17 16:00 98.1 80 18 131/72 (91) 95 01/19/17 12:00 98.1 86 17 132/75 (94) 95 I/O 01/19/17 01/19/17 01/19/17 01/20/17 01/20/17 01/20/17 07:00 15:00 23:00 07:00 15:00 23:00 Intake Total 360 ml 720 ml 480 ml Balance 360 ml 720 ml 480 ml Intake Oral 360 ml 720 ml 480 ml # Voids 2 4 4 1 # Bowel Movements 1 1 0 Result Diagram: 01/17/1761901/17/17619 Objective Remarks GENERAL: No acute distress CARDIOVASCULAR: Regular rate and rhythm. RESPIRATORY: No accessory muscle use. Clear to auscultation. Diminished breath sounds left base GASTROINTESTINAL: Abdomen soft, non-tender, nondistended. MUSCULOSKELETAL: Extremities without clubbing, cyanosis, or edema. No obvious deformities. NEUROLOGICAL: Awake and alert. Normal speech. PSYCHIATRIC: Appropriate mood and affect; insight and judgment normal. Procedures Thoracentesis A/P Assessment and Plan 56 years old female came with Symptomatic dyspnea due to left apical mass and large pleural effusion Leukocytosis with left shift possibly due to recent URI Hypertension with tachycardia, in part possibly due to anxiety Appreciate pulmonary consultation status post thoracentesis 01/16, repeated chest x-ray with still pleural effusion, however patient had clinical improvement, plan for CT guided biopsy and drain placement today. Clonidine and Vasotec when necessary for high blood pressure Continue her home Xanax to avoid withdrawal Hold Lovenox for now until done with procedure Discussed with patient and her family at bedside Discharge Planning Pending CT-guided biopsy and clearance from pulmonology. Probably DC in 1-2 days. Braden Calloway MD Jan 20, 2017 09:29
[2017-01-20] MEDS ORDERED: MIDAZOLAM HCL 2 MG/2 ML VIAL ONE (13:26)
[2017-01-20] MEDS ORDERED: LIDOCAINE 1%/EPINEPHrine 1:100,000 SOLN 20 ML VIAL ONE (13:41)
--- NOTE | 2017-01-20 15:09 | PD.RAD ---
Post CT Procedure Prog Note Pre Procedure Diagnosis: (1) Lung mass (2) Pleural effusion Post Procedure Diagnosis: (1) Lung mass (2) Pleural effusion Procedure Date: Jan 20, 2017 Supervising Radiologist: Soham Chaney Anesthesia: Conscious Sedation Plan of Activity Patient to Unit: Nursing Unit Patient Condition: Good See PACS Report for procedural detail/treatment Soham Chaney MD Jan 20, 2017 15:09
--- NOTE | 2017-01-20 15:41 | RADRPT ---
EXAM DATE/TIME: 01/20/2017 14:17 [facility] COMPARISON: No previous studies available for comparison. INDICATIONS : Left lung mass SEDATION TIME: 30 minutes BIOPSY SITE: Left lung MEDICATION(S): 1.) 4 mg midazolam (Versed) IV 2.) 200 mcg fentanyl (Sublimaze) IV DEVICE(S): 1.) 17 gauge introducer 2.) 18 gauge Temno core biopsy needle MEDICAL HISTORY : None. SURGICAL HISTORY : None. ENCOUNTER: Initial ACUITY: 1 day PAIN SCORE: 0/10 LOCATION: Left chest A total of four core specimen(s) were obtained and sent to the laboratory for pathologic evaluation. PROCEDURE: 1. CT guided lung biopsy. 2. Conscious sedation with continuous EKG and oximetry monitoring. 3. EKG and oximetry remained stable throughout the procedure. Prior to the procedure informed consent was obtained. Any appropriate prior imaging studies were rev iewed. Using automated exposure control and adjustment of the mA and/or kV according to patient size, radiation dose was kept as low as reasonably achievable to obtain optimal diagnostic quality images. DICOM format image data is available electronically for review and comparison. The site was prepped in a sterile fashion. Full sterile technique was used, including cap, mask, peggy rile gloves and gown and a large sterile sheet. Hand hygiene and 2% chlorhexidine and/or betadine/al cohol prep was utilized per protocol for cutaneous antisepsis. The skin and subcutaneous tissues wer e infiltrated with local anesthetic solution. With CT guidance the previously identified target was localized. Biopsy was performed using the presc ribed needle as above. In total, four 18 gauge core biopsy were obtained. Adequate hemostasis was ob tained with compression at the puncture site. Follow-up CT scan reveals no pneumothorax. Conscious sedation was performed with the prescribed dosages and duration as above in the presence of an independent trained radiology nurse to assist in the monitoring of the patient. EKG and oximetry remained stable throughout the procedure. The patient tolerated the procedure well and there were no complications. The patient was sent to Radiology Outpatient Unit in stable condition. CONCLUSION: 1. Uncomplicated CT guided 18 gauge core biopsies of left upper lobe lung mass. Soham Chaney MD on January 20, 2017 at 15:38 Board Certified Radiologist. This report was verified electronically.
--- NOTE | 2017-01-20 15:42 | RADRPT ---
EXAM DATE/TIME: 01/20/2017 14:17 INDICATIONS : Large recurrent symptomatic suspected malignant pleural effusion. SEDATION TIME: 1.) 4 mg midazolam (Versed) IV 2.) 200 mcg fentanyl (Sublimaze) IV DEVICE(S): 1.) 16 Fr Skater Total volume of 725 cc of cloudy, red fluid was removed. MEDICAL HISTORY : None. SURGICAL HISTORY : None. ENCOUNTER: Initial ACUITY: 1 day PAIN SCORE: 0/10 LOCATION: Left chest PROCEDURE: 1. CT guided Left thoracentesis with chest tube placement. 2. Conscious sedation with continuous EKG and oximetry monitoring. 3. EKG and oximetry remained stable throughout the procedure. The site was prepped in sterile fashion. Full sterile technique was used, including cap, mask, steri le gloves and gown and a large sterile sheet. Hand hygiene and 2% chlorhexidine and/or betadine/alco hol prep was utilized per protocol for cutaneous antisepsis. The skin and subcutaneous tissues were infiltrated with local anesthetic solution. Using automated exposure control and adjustment of the m A and/or kV according to patient size, radiation dose was kept as low as reasonably achievable to obt ain optimal diagnostic quality images. DICOM format image data is available electronically for revie w and comparison. Under CT guidance a 16 Emirati skater catheter was placed in the inferior left pleural space. 750 mL o f serosanguineous fluid were gently aspirated out of the chest. Chest tube was inserted. Post proced ural scan show reduction in the amount of fluid with no evidence of pneumothorax. The patient tolerated the procedure well and there were no complications. EKG and oximetry remained s table throughout the procedure. The patient was sent to recovery in stable condition. CONCLUSION: Uncomplicated CT-guided placement of 16 Emirati pigtail chest tube for treatment of symptomatic recurr ent suspected malignant pleural effusion. Soham Chaney MD on January 20, 2017 at 15:39 Board Certified Radiologist. This report was verified electronically.
--- NOTE | 2017-01-20 18:58 | HHI.PR ---
Subjective Remarks Feels better. CXR improved effusion. Had biopsy of lung mass and Chest tube.on left . Seems in better spirits. Objective Vital Signs Date Time Temp Pulse Resp B/P (MAP) Pulse Ox O2 Delivery O2 Flow Rate FiO2 01/20/17 16:40 86 20 115/62 (79) 94 01/20/17 16:10 78 16 112/56 (74) 94 01/20/17 16:00 96.3 98 18 119/56 (77) 96 01/20/17 15:40 81 18 104/62 (76) 95 01/20/17 15:25 98.6 89 18 102/64 (77) 95 01/20/17 15:20 93 01/20/17 12:00 97.3 92 18 131/79 (96) 97 01/20/17 08:32 Nasal Cannula 3.00 01/20/17 07:48 96.3 92 16 139/78 (98) 94 01/20/17 03:42 96.7 89 17 129/81 (97) 95 01/19/17 23:27 97.2 86 17 136/73 (94) 96 01/19/17 20:33 94 01/19/17 20:15 101 01/19/17 19:00 98.1 105 18 116/75 (89) 95 I/O 01/19/17 01/19/17 01/19/17 01/20/17 01/20/17 01/20/17 07:00 15:00 23:00 07:00 15:00 23:00 Intake Total 360 ml 720 ml 480 ml Output Total 975 ml Balance 360 ml 720 ml 480 ml -975 ml Intake Oral 360 ml 720 ml 480 ml Output Chest Tube Drainage Total 975 ml # Voids 2 4 4 1 4 # Bowel Movements 1 1 0 1 Result Diagram: 01/17/1761901/17/17619 Objective Remarks GENERAL: This is an averagely built middle-aged white female who is alert, pale and mildly dyspneic, sitting upright. HEENT: Head normocephalic. Pupils are reactive. Tongue moist. Throat is clear. Ears no inflammation. NECK: No bruits or thyroid enlargement or lymphadenopathy. CHEST: Decreased breath sounds over the left mid and lower chest and occasional wheezes over both lung chapa. HEART: Sounds are irregular S1 and S2. No definite murmur. No S3. ABDOMEN: Soft, protuberant. No masses. No organomegaly. Bowel sounds are active. EXTREMITIES: No lesions or edema. NEUROLOGIC: Reflexes are 1+ with no gross motor deficits. Cranial nerves grossly intact. RECTAL: Exam is deferred. SKIN: No lesions. Assessment and Plan Assessment and Plan IMPRESSION 1. Large left pleural effusion with atelectasis in left lung. 2. Left upper lobe lung mass, rule out malignancy 3. Anxiety. Plan ; 1. Will get Chest Xray in am 2. Continue O2 and nebs . 3. Oncology Evaluation. 4. PFT with Broncho. 5. CBC,BMP in am 6. Add levaquin 500 mg daily X 7 Beckie Sahu MD Jan 20, 2017 18:58
[2017-01-21] VITALS (8 sets, daily range): BP systolic 107–139; BP diastolic 55–70; PULSE 76–100; RESP 16–18; TEMP 95.9–98.7; O2SAT 92–97
--- NOTE | 2017-01-21 06:31 | RADRPT ---
EXAM DATE/TIME: 01/21/2017 05:47 [facility] COMPARISON: CT THORACENTESIS WITH INSERTION, LEFT, January 20, 2017, 14:17. CHEST SINGLE AP, January 16, 2017, 20:18. INDICATIONS : Short of breath, evaluate left chest tube and pneumothorax MEDICAL HISTORY : pleural effusion SURGICAL HISTORY : thoracentesis ENCOUNTER: Subsequent ACUITY: 2 days PAIN SCORE: 0/10 LOCATION: Left chest FINDINGS: Medial left base. Moderate left pleural effusion persists, appears to have some considerable loculati on laterally. There is persistent left midlung and basilar consolidation, slightly improved. Left sup erhilar masslike area again seen. Right lung remains clear. No pneumothorax. Heart size stable, within normal limits. CONCLUSION: A left base chest tube is now present. Only slightly decreased left pleural effusion, appears to have some loculation laterally. No pneumothorax demonstrated. Anup Serrano MD on January 21, 2017 at 6:27 Board Certified Radiologist. This report was verified electronically.
--- NOTE | 2017-01-21 08:43 | PD.PN.STU ---
Subjective Remarks Patient states that she feels much improved today. Some soreness yesterday after placement of chest tube but only slight soreness with movement now. Shortness of breath much improved. No problems post-CT guided biopsy of lung nodule yesterday. Patient states she continues to do incentive spirometry at bedside with improvement. Objective Vitals Vital Signs Date Time Temp Pulse Resp B/P (MAP) Pulse Ox O2 Delivery O2 Flow Rate FiO2 01/21/17 04:20 98.0 86 16 121/65 (83) 94 01/21/17 00:20 97.7 85 16 136/62 (86) 97 01/20/17 20:15 96.3 98 16 113/67 (82) 95 01/20/17 20:12 96 Nasal Cannula 2.00 01/20/17 19:36 Nasal Cannula 2.00 01/20/17 16:40 86 20 115/62 (79) 94 01/20/17 16:10 78 16 112/56 (74) 94 01/20/17 16:00 96.3 98 18 119/56 (77) 96 01/20/17 15:40 81 18 104/62 (76) 95 01/20/17 15:25 98.6 89 18 102/64 (77) 95 01/20/17 15:20 93 01/20/17 12:00 97.3 92 18 131/79 (96) 97 01/20/17 08:32 Nasal Cannula 3.00 I/O 01/20/17 01/20/17 01/20/17 01/21/17 01/21/17 01/21/17 07:00 15:00 23:00 07:00 15:00 23:00 Intake Total 480 ml 360 ml 240 ml Output Total 975 ml 160 ml Balance 480 ml -615 ml 80 ml Intake Oral 480 ml 360 ml 240 ml Output Chest Tube Drainage Total 975 ml 160 ml # Voids 1 4 1 1 # Bowel Movements 0 1 0 0 Result Diagram: 01/17/1761901/17/17619 Imaging Last 24 hours Impressions Chest X-Ray 01/21/17 0000 Signed Impressions: Service Date/Time: Saturday, January 21, 2017 05:47 - CONCLUSION: A left base chest tube is now present. Only slightly decreased left pleural effusion, appears to have some loculation laterally. No pneumothorax demonstrated. Anup Serrano MD Chest Tube Insertion 01/20/17 1333 Signed Impressions: Service Date/Time: Friday, January 20, 2017 14:17 - CONCLUSION: Uncomplicated CT-guided placement of 16 [place] pigtail chest tube for treatment of symptomatic recurrent suspected malignant pleural effusion. Soham Chaney MD Lung Biopsy CT 01/20/17 1329 Signed Impressions: Service Date/Time: Friday, January 20, 2017 14:17 - CONCLUSION: 1. Uncomplicated CT guided 18 gauge core biopsies of left upper lobe lung mass. Soham Chaney MD Objective Remarks GENERAL: 56 year old female sitting up in bed, pleasant, smiling, in no acute distress. Chest tube in place in left inferior lateral chest, draining serosanguinous fluid. SKIN: Warm and dry. HEAD: Normocephalic. EYES: No scleral icterus. No injection or drainage. NECK: Supple, trachea midline. No JVD or lymphadenopathy. CARDIOVASCULAR: Regular rate and rhythm without murmurs, gallops, or rubs. RESPIRATORY: Breath sounds present bilaterally, decreased but audible on the left lung base. No crackles or wheezes. No accessory muscle use. GASTROINTESTINAL: Abdomen soft, non-tender, nondistended. MUSCULOSKELETAL: No cyanosis, or edema. BACK: Nontender without obvious deformity. Medications and IVs Current Medications Sodium Chloride (NS Flush) 2 ml UNSCH PRN IVF FLUSH AFTER USING IV ACCESS; Start 01/16/17 at 10:45; Stop 01/16/17 at 14:00; Status DC Iohexol (Omnipaque 350 Inj) 71 ml STK-MED ONCE IVCONTRAST Last administered on 01/16/17 09:46; Start 01/16/17 at 09:46; Stop 01/16/17 at 12:14; Status DC Lorazepam (Ativan) 0.5 mg ONCE ONCE PO Last administered on 01/16/17 12:59; Start 01/16/17 at 13:00; Stop 01/16/17 at 13:01; Status DC Sodium Chloride (NS Flush) 2 ml UNSCH PRN IV FLUSH FLUSH AFTER USING IV ACCESS ; Start 01/16/17 at 14:00 Sodium Chloride (NS Flush) 2 ml BID IV FLUSH Last administered on 01/20/17 21 :19; Start 01/16/17 at 21:00 Ondansetron HCl (Zofran Inj) 4 mg Q6H PRN IVP NAUSEA OR VOMITING; Start at 14:00 Enoxaparin Sodium (Lovenox Inj) 40 mg Q24H SQ ; Start 01/17/17 at 20:00; Stop 01/17/17 at 20:00; Status DC Naloxone HCl (Narcan Inj) 0.4 mg UNSCH PRN IV PUSH SEE LABEL COMMENTS; Start 01/16/17 at 14:00 Acetaminophen/ Hydrocodone Bitart ([place] 7.5-325 Mg) 1 tab Q4H PRN PO pain 3-5 ; Start 01/16/17 at 14:15 Acetaminophen/ Hydrocodone Bitart ([place] 5-325 Mg) 1 tab Q4H PRN PO pain 6-10 Last administered on 01/20/17 17:06; Start 01/16/17 at 14:15 Morphine Sulfate (Morphine Inj) 1 mg Q4H PRN IV PUSH pain 3-5; Start 01/16/17 at 14:15 Morphine Sulfate (Morphine Inj) 2 mg Q4H PRN IV PUSH pain 6-10 Last administered on 01/16/17 20:16; Start 01/16/17 at 14:15 Clonidine (Catapres) 0.1 mg Q6H PRN PO bp>160/90; Start 01/16/17 at 14:30 Enalaprilat (Vasotec Inj) 1.25 mg Q6H PRN IV PUSH bp>160/90 Last administered on 01/16/17 14:42; Start 01/16/17 at 14:30 Alprazolam (Xanax) 0.25 mg Q8H PRN PO anxiety Last administered on 01/19/17 23:32; Start 01/16/17 at 14:30 Albuterol/ Ipratropium (Duoneb Neb) 1 ampule QID NEB NEB Last administered on 01/19/17 20:32; Start 01/16/17 at 20:00; Stop 01/20/17 at 19:59; Status DC Lidocaine HCl (Xylocaine 1% Inj (50 ml)) 50 ml STK-MED ONCE .ROUTE ; Start at 19:59; Stop 01/16/17 at 20:00; Status DC Heparin Sodium (Porcine) (Heparin Inj) 2,000 units NOW ONCE OTHER Last administered on 01/16/17 20:45; Start 01/16/17 at 20:45; Stop 01/16/17 at 20 :46; Status DC Fentanyl Citrate (fentaNYL INJ) 200 mcg STK-MED ONCE .ROUTE Last administered on 01/20/17 14:15; Start 01/20/17 at 13:26; Stop 01/20/17 at 13:27; Status DC Midazolam HCl (Versed Inj) 4 mg STK-MED ONCE .ROUTE Last administered on 14:15; Start 01/20/17 at 13:26; Stop 01/20/17 at 13:27; Status DC Lidocaine/ Epinephrine (Xylocaine-Epi 1%-1:100,000 Inj) 20 ml STK-MED ONCE .ROUTE ; Start 01/20/17 at 13:41; Stop 01/20/17 at 13:42; Status DC Levofloxacin (Levaquin) 500 mg DAILY PO ; Start 01/21/17 at 09:00 A/P Assessment and Plan 56 year old female post chest tube placement and CT-guided biopsy of lung nodule yesterday. Left pleural effusion -Clinical status much improved from admission. No acute dyspnea. -CXR 01/20 shows pleural effusion only slightly decreased from previous imaging. -Continue to follow with pulmonology. Left apical lung nodule -CT guided biopsy yesterday. Awaiting path results. Clonidine and Vasotec when necessary for high blood pressure Continue her home Xanax to avoid withdrawal Consider adding back Lovenox for DVT prophylaxis with procedures over Discussed with patient and her at bedside Tru Gomez Jan 21, 2017 08:43
[2017-01-21] MEDS: LEVOFLOXACIN 500 MG TAB PO SCH (09:57)
[2017-01-21] MEDS: SODIUM CHLORIDE 0.9% FLUSH 10 ML FLUSH IV FLUSH SCH ×2 (10:00→21:00)
--- NOTE | 2017-01-21 10:13 | HHI.PR ---
Subjective Remarks Patient reports feeling ok today. S/P chest tube placement yesterday. Chest tube output >1100 CC, serosanguineous. Objective Vitals Vital Signs Date Time Temp Pulse Resp B/P (MAP) Pulse Ox O2 Delivery O2 Flow Rate FiO2 01/21/17 08:00 98.6 76 18 118/70 (86) 92 01/21/17 04:20 98.0 86 16 121/65 (83) 94 01/21/17 00:20 97.7 85 16 136/62 (86) 97 01/20/17 20:15 96.3 98 16 113/67 (82) 95 01/20/17 20:12 96 Nasal Cannula 2.00 01/20/17 19:36 Nasal Cannula 2.00 01/20/17 16:40 86 20 115/62 (79) 94 01/20/17 16:10 78 16 112/56 (74) 94 01/20/17 16:00 96.3 98 18 119/56 (77) 96 01/20/17 15:40 81 18 104/62 (76) 95 01/20/17 15:25 98.6 89 18 102/64 (77) 95 01/20/17 15:20 93 01/20/17 12:00 97.3 92 18 131/79 (96) 97 I/O 01/20/17 01/20/17 01/20/17 01/21/17 01/21/17 01/21/17 06:59 14:59 22:59 06:59 14:59 22:59 Intake Total 480 ml 360 ml 240 ml Output Total 975 ml 160 ml Balance 480 ml -615 ml 80 ml Intake Oral 480 ml 360 ml 240 ml Output Chest Tube Drainage Total 975 ml 160 ml # Voids 1 5 1 # Bowel Movements 0 1 0 Result Diagram: 01/17/1761901/17/17619 Objective Remarks GENERAL: No acute distress CARDIOVASCULAR: Regular rate and rhythm. RESPIRATORY: No accessory muscle use. Clear to auscultation. Diminished breath sounds left base. Chest tube in place on suction. No air leak GASTROINTESTINAL: Abdomen soft, non-tender, nondistended. MUSCULOSKELETAL: Extremities without clubbing, cyanosis, or edema. No obvious deformities. NEUROLOGICAL: Awake and alert. Normal speech. PSYCHIATRIC: Appropriate mood and affect; insight and judgment normal. Procedures Thoracentesis A/P Assessment and Plan 56 years old female came with Symptomatic dyspnea due to left apical mass and large pleural effusion Leukocytosis with left shift possibly due to recent URI Hypertension with tachycardia, in part possibly due to anxiety Appreciate pulmonary consultation status post thoracentesis 01/16, repeated chest x-ray with still pleural effusion, Patient underwent CT of the biopsy and chest tube placement on 01/20/17. Still having significant output from the chest tube. Clonidine and Vasotec when necessary for high blood pressure Continue her home Xanax to avoid withdrawal Hold Lovenox for now until done with procedure Discussed with patient and her at bedside Discharge Planning Pending clinical improvement. Status post CT-guided biopsy and chest tube placement. Still significant output from the chest. Pulmonology following. Braden Calloway MD Jan 21, 2017 10:13
--- NOTE | 2017-01-21 12:46 | HHI.PR ---
Subjective Remarks Feels better. CXR improved effusion. Had biopsy of lung mass and Chest tube.on left . The path reports pending and may suggest Malignancy. Objective Vital Signs Date Time Temp Pulse Resp B/P (MAP) Pulse Ox O2 Delivery O2 Flow Rate FiO2 01/21/17 12:41 94 21 01/21/17 08:00 98.6 76 18 118/70 (86) 92 01/21/17 04:20 98.0 86 16 121/65 (83) 94 01/21/17 00:20 97.7 85 16 136/62 (86) 97 01/20/17 20:15 96.3 98 16 113/67 (82) 95 01/20/17 20:12 96 Nasal Cannula 2.00 01/20/17 19:36 Nasal Cannula 2.00 01/20/17 16:40 86 20 115/62 (79) 94 01/20/17 16:10 78 16 112/56 (74) 94 01/20/17 16:00 96.3 98 18 119/56 (77) 96 01/20/17 15:40 81 18 104/62 (76) 95 01/20/17 15:25 98.6 89 18 102/64 (77) 95 01/20/17 15:20 93 I/O 01/20/17 01/20/17 01/20/17 01/21/17 01/21/17 01/21/17 07:00 15:00 23:00 07:00 15:00 23:00 Intake Total 480 ml 360 ml 240 ml Output Total 975 ml 160 ml Balance 480 ml -615 ml 80 ml Intake Oral 480 ml 360 ml 240 ml Output Chest Tube Drainage Total 975 ml 160 ml # Voids 1 4 1 1 # Bowel Movements 0 1 0 0 Result Diagram: 01/17/1720 01/17/17 0620 Objective Remarks GENERAL: This is an averagely built middle-aged white female who is alert, pale and not dyspneic, sitting upright. HEENT: Head normocephalic. Pupils are reactive. Tongue moist. Throat is clear. NECK: No bruits or thyroid enlargement or lymphadenopathy. CHEST: Decreased breath sounds over the left mid and lower chest . HEART: Sounds are irregular S1 and S2. No definite murmur. No S3. ABDOMEN: Soft, protuberant. No masses. No organomegaly. Bowel sounds are active. EXTREMITIES: No lesions or edema. NEUROLOGIC: Reflexes are 1+ with no gross motor deficits. Cranial nerves grossly intact. RECTAL: Exam is deferred. SKIN: No lesions. Assessment and Plan Assessment and Plan IMPRESSION 1. Large left pleural effusion with atelectasis in left lung. 2. Left upper lobe lung mass, rule out malignancy 3. Anxiety. Plan ; 1. Will get Chest X ray in am 2. Continue O2 and nebs . 3. Oncology Evaluation. 4. May Need pleurodesis if fluid drains persistently 5. CBC,BMP in am 6. levaquin 500 mg daily X 7 Beckie Sahu MD Jan 21, 2017 12:46
[2017-01-21] MEDS: FLUoxetine HCL 20 MG CAP PO SCH (15:39)
[2017-01-21] MEDS: ALPRAZolam 0.25 MG TAB PO PRN (18:08)
--- NOTE | 2017-01-21 22:52 | MB ---
cc: CHECO GABRIEL MD DATE OF CONSULTATION: 01/21/2017 REASON FOR CONSULTATION: A 56-year-old female with a left lung mass and large left pleural effusion. PATIENT PROFILE The patient is a 56-year white female who is x1. She was born [place] and has lived in [place] for 20 years. She has one son age 24. 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 Her is retired. He had worked for a warehouse as a spring assembler supervisor. The patient does not and has never smoked. She does not drink alcohol. HISTORY OF PRESENT ILLNESS The patient is a 56-year-old female who has enjoyed excellent health. In the past she had a minor elevation of cholesterol and has struggled with anxiety, particularly regarding seeing medical personal. She was well until four weeks ago when she noted hoarseness. She then developed a cough and shortness of breath which was progressive to the point that she felt that she was gasping for air. She went to the emergency room. A chest x-ray on 01/16/2017 showed a moderate to large left pleural effusion and left upper lung mass. This was followed by a CT scan of the thorax on 01/16/2017 showing a heterogeneous 4.5 x 5.4 x 5.7 cm mass lesion in the anterior medial aspect of the left upper hemithorax with extension to the superior perihilar region. There is a large left-sided effusion with complete collapse of the left lung with shift of the heart and mediastinal structures towards the right. The right lung was clear. The patient had a thoracentesis on 01/16/2017 and the pleural fluid was negative for malignant cells. On 01/20/2017 the patient underwent chest tube placement with removal of 725 cc of fluids. At the same time the patient had a needle biopsy of the left lung with an 18-gauge core biopsy. At the same time she had a chest tube in placed. Her most recent chest x-ray is dated 01/21/2017 and shows the presence of the chest tube and only a slightly decreased left pleural effusion with some loculation laterally. Her breathing is better. The patient has been well except for the increasing shortness of breath over the past four weeks. There has been no weight loss. She has had mild discomfort in the anterior chest during the past several weeks. She has had no headaches, focal weakness or bone pain. No fever, night sweats or chills. PAST SURGICAL HISTORY Oral surgery with extraction of a tooth. PAST MEDICAL HISTORY 1. Elevated cholesterol. 2. Chronic anxiety. In June 2016 the patient started Prozac 20 mg a day. MEDICATIONS 1. Prozac 20 mg a day. 2. Xanax 0.25 milligrams p.o. p.r.n. ALLERGIES: No true allergies. The patient had nausea and vomiting with Tramadol. FAMILY HISTORY: Mother age 57 of a staphylococcal infection which occurred in association with cardiac surgery. Father is living. The patient has a brother and sister who are living. There is no family history of cancer. REVIEW OF SYSTEMS Constitutional: There has been no change in general health except for the shortness of breath. Vision: She has glasses. 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 Cardiovascular: Sensation of chest discomfort primarily left side with exertional shortness of breath. Respiratory: Short of breath. GI: No melena, hematochezia, hematemesis or weight loss. : Last menstrual period four years ago. Musculoskeletal: No bone pain. Skin: No unusual problems. Neurologic: No headaches, focal weakness. LABORATORY STUDIES: Hemoglobin 11.6, white count 11,000, platelets 269,000. Differential unremarkable. Lytes, BUN, creatinine, liver function tests unremarkable. PHYSICAL EXAMINATION: The physical exam reveals a pleasant female. She has a left chest tube in place. She does not appear ill. VITAL SIGNS: Blood pressure is 110/60, respiratory rate 17, pulse 90 afebrile. O2 sat 95%. Head: Normocephalic. Sclerae and conjunctivae are normal. Oropharynx unremarkable. Breasts: Without masses. There is no cervical, supraclavicular, axillary or inguinal adenopathy. Heart: Regular rhythm. Lungs: The left lung reveals decreased breath sounds three-quarters of the way up, the right lung is clear. Left chest tube in place. Abdomen: Without splenomegaly, masses or tenderness. Extremities: No edema. Musculoskeletal: No bone pain. Neurologic: No weakness. Cognition, affect normal. Skin: Normal. ASSESSMENT The patient is a 56-year-old female with a large left pleural effusion and a 5.7 cm mass in the left upper hemithorax. This is most consistent with a diagnosis of lung cancer. The patient is a nonsmoker and therefore one must consider other possibilities such as lymphoma. Nonsmokers do develop lung cancer and this is usually an adenocarcinoma that often contains a mutation such as ALK or EGFR. RECOMMENDATIONS 1. Await path report. 2. Once the path report is available and the chest tube is out, the patient will require further staging. 3. I cannot make recommendations regarding treatment until the pathology has returned. She may also require molecular studies if this turns out to be a lung cancer. The situation was discussed with the patient and . I reviewed with both of them the CT scan showing them the images of the mass in the lung and the large left pleural effusion. MD ROGER Vargas/ENIO /10:23 PM /10:40 PM LATASHA
[2017-01-22] VITALS (8 sets, daily range): BP systolic 113–148; BP diastolic 56–72; PULSE 74–104; RESP 16–18; TEMP 96.7–97.7; O2SAT 94–98
[2017-01-22 05:33] LABS: HEMATOCRIT 39.8 % (35.0-46.0); MEAN CELL VOLUME 82.6 FL (80.0-100.0); MEAN CORPUSCULAR HEMOGLOBIN 27.6 PG (27.0-34.0); MEAN CORPUSCULAR HGB CONC 33.4 % (32.0-36.0); PLATELET COUNT 297 TH/MM3 (150-450); RED BLOOD COUNT 4.81 MIL/MM3 (4.00-5.30); REVIEW FLAG FINAL; WHITE BLOOD COUNT 11.4 TH/MM3 (4.0-11.0)
--- NOTE | 2017-01-22 06:52 | RADRPT ---
EXAM DATE/TIME: 01/22/2017 06:33 [facility] COMPARISON: CHEST EXPIRATION ONLY, January 21, 2017, 5:47. INDICATIONS : Pleural effusion. Left side chest tube. MEDICAL HISTORY : None. SURGICAL HISTORY : None. ENCOUNTER: Initial ACUITY: 3 days PAIN SCORE: 0/10 LOCATION: Left chest FINDINGS: Moderate size and partly loculated left pleural effusion again noted. Chest tube remains in place at the base. There is left mid and lower lung consolidation again seen. No pneumothorax. Right lung remains clear. Stable, normal heart size. CONCLUSION: No significant change consolidation and moderate pleural effusion on the left. Left chest tube remain s in place. No pneumothorax. nAup Serrano MD on January 22, 2017 at 6:50 Board Certified Radiologist. This report was verified electronically.
[2017-01-22] MEDS: LEVOFLOXACIN 500 MG TAB PO SCH (08:05)
[2017-01-22] MEDS: FLUoxetine HCL 20 MG CAP PO SCH (08:05)
[2017-01-22] MEDS: SODIUM CHLORIDE 0.9% FLUSH 10 ML FLUSH IV FLUSH SCH ×2 (08:06→20:18)
--- NOTE | 2017-01-22 08:46 | PD.PN.STU ---
Subjective Remarks Patient states she is still feeling good despite having discussed probable lung cancer diagnosis with oncology and pulmonology. Still awaiting path report. Patient states she has been up walking the halls with no shortness of breath. Continues to do incentive spirometry at bedside. Continues on O2 nasal canula intermittently. Chest tube in place with intermittent suction, shows level of drainage only slightly increased from yesterday: ~1300 mL total. Objective Vitals Vital Signs Date Time Temp Pulse Resp B/P (MAP) Pulse Ox O2 Delivery O2 Flow Rate FiO2 01/22/17 07:58 96.7 74 18 113/56 (75) 95 01/22/17 04:20 96.8 81 16 113/65 (81) 95 01/22/17 00:25 97.5 81 16 115/65 (82) 98 01/21/17 21:40 96 01/21/17 21:00 85 01/21/17 21:00 95 Nasal Cannula 2.00 01/21/17 19:30 98.7 100 17 107/55 (72) 95 01/21/17 15:09 95.9 99 18 139/57 (84) 96 01/21/17 12:41 94 21 I/O 01/21/17 01/21/17 01/21/17 01/22/17 01/22/17 01/22/17 07:00 15:00 23:00 07:00 15:00 23:00 Intake Total 240 ml 600 ml 480 ml 240 ml Output Total 160 ml 50 ml 30 ml Balance 80 ml 600 ml 430 ml 210 ml Intake Oral 240 ml 600 ml 480 ml 240 ml Output Chest Tube Drainage Total 160 ml 50 ml 30 ml # Voids 1 3 2 1 # Bowel Movements 0 1 0 0 Result Diagram: 01/22/17 0421 Other Results Laboratory Tests Test 01/22/17 04:21 White Blood Count 11.4 TH/MM3 Red Blood Count 4.81 MIL/MM3 Hemoglobin 13.3 GM/DL Hematocrit 39.8 % Mean Corpuscular Volume 82.6 FL Mean Corpuscular Hemoglobin 27.6 PG Mean Corpuscular Hemoglobin Concent 33.4 % Red Cell Distribution Width 13.0 % Platelet Count 297 TH/MM3 Mean Platelet Volume 7.3 FL Lactate Dehydrogenase 180 U/L Carcinoembryonic Antigen 1.0 NG/ML Imaging Last 24 hours Impressions Chest X-Ray 01/22/17 0600 Signed Impressions: Service Date/Time: Sunday, January 22, 2017 06:33 - CONCLUSION: No significant change consolidation and moderate pleural effusion on the left. Left chest tube remains in place. No pneumothorax. Anup Serrano MD Objective Remarks GENERAL: 56 year old female sitting up in bed, pleasant, smiling, in no acute distress. Chest tube in place in left inferior lateral chest, draining serosanguinous fluid. SKIN: Warm and dry. HEAD: Normocephalic. EYES: No scleral icterus. No injection or drainage. NECK: Supple, trachea midline. No JVD or lymphadenopathy. CARDIOVASCULAR: Regular rate and rhythm without murmurs, gallops, or rubs. RESPIRATORY: Breath sounds present bilaterally, decreased but audible over the left lung base. No crackles or wheezes. No accessory muscle use. On O2 nasal canula. GASTROINTESTINAL: Abdomen soft, non-tender, nondistended. MUSCULOSKELETAL: No cyanosis, or edema. BACK: Nontender without obvious deformity. Medications and IVs Current Medications Sodium Chloride (NS Flush) 2 ml UNSCH PRN IVF FLUSH AFTER USING IV ACCESS; Start 01/16/17 at 10:45; Stop 01/16/17 at 14:00; Status DC Iohexol (Omnipaque 350 Inj) 71 ml STK-MED ONCE IVCONTRAST Last administered on 01/16/17 09:46; Start 01/16/17 at 09:46; Stop 01/16/17 at 12:14; Status DC Lorazepam (Ativan) 0.5 mg ONCE ONCE PO Last administered on 01/16/17 12:59; Start 01/16/17 at 13:00; Stop 01/16/17 at 13:01; Status DC Sodium Chloride (NS Flush) 2 ml UNSCH PRN IV FLUSH FLUSH AFTER USING IV ACCESS ; Start 01/16/17 at 14:00 Sodium Chloride (NS Flush) 2 ml BID IV FLUSH Last administered on 01/22/17 08 :06; Start 01/16/17 at 21:00 Ondansetron HCl (Zofran Inj) 4 mg Q6H PRN IVP NAUSEA OR VOMITING; Start at 14:00 Enoxaparin Sodium (Lovenox Inj) 40 mg Q24H SQ ; Start 01/17/17 at 20:00; Stop 01/17/17 at 20:00; Status DC Naloxone HCl (Narcan Inj) 0.4 mg UNSCH PRN IV PUSH SEE LABEL COMMENTS; Start 01/16/17 at 14:00 Acetaminophen/ Hydrocodone Bitart ([place] 7.5-325 Mg) 1 tab Q4H PRN PO pain 3-5 ; Start 01/16/17 at 14:15 Acetaminophen/ Hydrocodone Bitart ([place] 5-325 Mg) 1 tab Q4H PRN PO pain 6-10 Last administered on 01/20/17 17:06; Start 01/16/17 at 14:15 Morphine Sulfate (Morphine Inj) 1 mg Q4H PRN IV PUSH pain 3-5; Start 01/16/17 at 14:15 Morphine Sulfate (Morphine Inj) 2 mg Q4H PRN IV PUSH pain 6-10 Last administered on 01/16/17 20:16; Start 01/16/17 at 14:15 Clonidine (Catapres) 0.1 mg Q6H PRN PO bp>160/90; Start 01/16/17 at 14:30 Enalaprilat (Vasotec Inj) 1.25 mg Q6H PRN IV PUSH bp>160/90 Last administered on 01/16/17 14:42; Start 01/16/17 at 14:30 Alprazolam (Xanax) 0.25 mg Q8H PRN PO anxiety Last administered on 01/21/17 18:08; Start 01/16/17 at 14:30 Albuterol/ Ipratropium (Duoneb Neb) 1 ampule QID NEB NEB Last administered on 01/19/17 20:32; Start 01/16/17 at 20:00; Stop 01/20/17 at 19:59; Status DC Lidocaine HCl (Xylocaine 1% Inj (50 ml)) 50 ml STK-MED ONCE .ROUTE ; Start at 19:59; Stop 01/16/17 at 20:00; Status DC Heparin Sodium (Porcine) (Heparin Inj) 2,000 units NOW ONCE OTHER Last administered on 01/16/17 20:45; Start 01/16/17 at 20:45; Stop 01/16/17 at 20 :46; Status DC Fentanyl Citrate (fentaNYL INJ) 200 mcg STK-MED ONCE .ROUTE Last administered on 01/20/17 14:15; Start 01/20/17 at 13:26; Stop 01/20/17 at 13:27; Status DC Midazolam HCl (Versed Inj) 4 mg STK-MED ONCE .ROUTE Last administered on 14:15; Start 01/20/17 at 13:26; Stop 01/20/17 at 13:27; Status DC Lidocaine/ Epinephrine (Xylocaine-Epi 1%-1:100,000 Inj) 20 ml STK-MED ONCE .ROUTE ; Start 01/20/17 at 13:41; Stop 01/20/17 at 13:42; Status DC Levofloxacin (Levaquin) 500 mg DAILY PO Last administered on 01/22/17 08:05; Start 01/21/17 at 09:00 Fluoxetine HCl (PROzac) 20 mg DAILY PO Last administered on 01/22/17 08:05; Start 01/21/17 at 11:15 A/P Assessment and Plan 56 year old female 2 days s/p chest tube placement and CT-guided biopsy of lung nodule. Left pleural effusion -Clinical status much improved from admission. No acute dyspnea. -CXR 01/22 shows pleural effusion consistent in size with 01/21. D/w patient and . -Continue to follow with pulmonology. Left apical lung nodule -CT guided biopsy 2 days ago. Awaiting path results. -Following with oncology. Clonidine and Vasotec when necessary for high blood pressure Continue her home Xanax to avoid withdrawal along with home Xanax Encourage continued ambulation for DVT prophylaxis Discussed with patient and her at bedside Tru Gomez Jan 22, 2017 08:46
--- NOTE | 2017-01-22 08:57 | HHI.PR ---
Subjective Remarks Chest tube draining much less. 80 cc over the past 24 hrs. Patient reports she is feeling great. On room air. Ambulating well. Objective Vitals Vital Signs Date Time Temp Pulse Resp B/P (MAP) Pulse Ox O2 Delivery O2 Flow Rate FiO2 01/22/17 07:58 96.7 74 18 113/56 (75) 95 01/22/17 04:20 96.8 81 16 113/65 (81) 95 01/22/17 00:25 97.5 81 16 115/65 (82) 98 01/21/17 21:40 96 01/21/17 21:00 85 01/21/17 21:00 95 Nasal Cannula 2.00 01/21/17 19:30 98.7 100 17 107/55 (72) 95 01/21/17 15:09 95.9 99 18 139/57 (84) 96 01/21/17 12:41 94 21 I/O 01/21/17 01/21/17 01/21/17 01/22/17 01/22/17 01/22/17 07:00 15:00 23:00 07:00 15:00 23:00 Intake Total 240 ml 600 ml 480 ml 240 ml Output Total 160 ml 50 ml 30 ml Balance 80 ml 600 ml 430 ml 210 ml Intake Oral 240 ml 600 ml 480 ml 240 ml Output Chest Tube Drainage Total 160 ml 50 ml 30 ml # Voids 1 3 2 1 # Bowel Movements 0 1 0 0 Result Diagram: 01/22/17 0421 Objective Remarks GENERAL: No acute distress CARDIOVASCULAR: Regular rate and rhythm. RESPIRATORY: No accessory muscle use. Clear to auscultation. Diminished breath sounds left base. Chest tube in place. No air leak GASTROINTESTINAL: Abdomen soft, non-tender, nondistended. MUSCULOSKELETAL: Extremities without clubbing, cyanosis, or edema. No obvious deformities. NEUROLOGICAL: Awake and alert. Normal speech. PSYCHIATRIC: Appropriate mood and affect; insight and judgment normal. Procedures Thoracentesis A/P Assessment and Plan 56 years old female who presented to the hospital with significant dyspnea. Patient found to have a left apical lung mass and a large pleural effusion. Left lung mass/pleural effusion: - Appreciate pulmonary consultation status post thoracentesis 01/16, repeated chest x-ray with still pleural effusion, Patient underwent CT of the biopsy and chest tube placement on 01/20/17. Chest tube output significantly less. On Suction. Will dw Pulmonology. - Pathology pending - Appreciate Oncology Dr. Lobo following. Further plans based on Pathology. Anxiety Continue her home Xanax and Prozac Discussed with patient and her at bedside Discharge Planning Pending further discussion with Pulmonology about the chest tube. If tube will stay for drainage, patient will benefit from teaching on how to drain. Braden Calloway MD Jan 22, 2017 08:57
--- NOTE | 2017-01-22 12:38 | HHI.PR ---
Subjective Remarks Feels better. CXR improved effusion. Chest tube drains less. Had biopsy of lung mass and Chest tube.on left . The path reports pending and may suggest Malignancy. Objective Vital Signs Date Time Temp Pulse Resp B/P (MAP) Pulse Ox O2 Delivery O2 Flow Rate FiO2 01/22/17 07:58 96.7 74 18 113/56 (75) 95 01/22/17 04:20 96.8 81 16 113/65 (81) 95 01/22/17 00:25 97.5 81 16 115/65 (82) 98 01/21/17 21:40 96 01/21/17 21:00 85 01/21/17 21:00 95 Nasal Cannula 2.00 01/21/17 19:30 98.7 100 17 107/55 (72) 95 01/21/17 15:09 95.9 99 18 139/57 (84) 96 01/21/17 12:41 94 21 I/O 01/21/17 01/21/17 01/21/17 01/22/17 01/22/17 01/22/17 07:00 15:00 23:00 07:00 15:00 23:00 Intake Total 240 ml 600 ml 480 ml 240 ml Output Total 160 ml 50 ml 30 ml Balance 80 ml 600 ml 430 ml 210 ml Intake Oral 240 ml 600 ml 480 ml 240 ml Output Chest Tube Drainage Total 160 ml 50 ml 30 ml # Voids 1 3 2 1 # Bowel Movements 0 1 0 0 Result Diagram: 01/22/17 0421 Objective Remarks GENERAL: This is an averagely built middle-aged white female who is alert, pale and not dyspneic, sitting upright. HEENT: Head normocephalic. Pupils are reactive. Tongue moist. Throat is clear. NECK: No bruits or thyroid enlargement or lymphadenopathy. CHEST: Decreased breath sounds over the left mid and lower chest .Occ Wheeze. HEART: Sounds are irregular S1 and S2. No definite murmur. No S3. ABDOMEN: Soft, protuberant. No masses. No organomegaly. Bowel sounds are active. EXTREMITIES: No lesions or edema. NEUROLOGIC: Reflexes are 1+ with no gross motor deficits. Cranial nerves grossly intact. RECTAL: Exam is deferred. SKIN: No lesions. Assessment and Plan Assessment and Plan IMPRESSION 1. Large left pleural effusion with atelectasis in left lung. 2. Left upper lobe lung mass, rule out malignancy 3. Anxiety. Plan ; 1. CXR in am 2. Continue O2 and nebs . 3. Oncology Evaluation. 4. Cont Chest tube drainage 5. CBC, in am 6. levaquin 500 mg daily X 5 Beckie Sahu MD Jan 22, 2017 12:37
[2017-01-23] VITALS (9 sets, daily range): BP systolic 114–141; BP diastolic 55–72; PULSE 74–97; RESP 18; TEMP 96.5–98.9; O2SAT 93–98
[2017-01-23 06:13] LABS: AUTOMATED NEUTROPHIL # 8.6 TH/MM3 (1.8-7.7); BASOPHIL # 0.1 TH/MM3 (0-0.2); BASOPHIL % 0.5 % (0.0-2.0); EOSINOPHIL # 1.2 TH/MM3 (0-0.4); HEMATOCRIT 40.5 % (35.0-46.0); HEMO FLAGS DIFF FINAL; LYMPH % 9.6 % (9.0-44.0); LYMPHOCYTE # 1.1 TH/MM3 (1.0-4.8); MEAN CORPUSCULAR HEMOGLOBIN 26.7 PG (27.0-34.0); MEAN CORPUSCULAR HGB CONC 32.6 % (32.0-36.0); MONO % 7.5 % (0.0-8.0); NEUT % 72.4 % (16.0-70.0); PLATELET COUNT 306 TH/MM3 (150-450); RED BLOOD COUNT 4.94 MIL/MM3 (4.00-5.30); RED CELL DISTRIBUTION WIDTH 12.9 % (11.6-17.2); WHITE BLOOD COUNT 11.8 TH/MM3 (4.0-11.0)
[2017-01-23] MEDS: SODIUM CHLORIDE 0.9% FLUSH 10 ML FLUSH IV FLUSH SCH ×2 (08:10→20:25)
[2017-01-23] MEDS: LEVOFLOXACIN 500 MG TAB PO SCH (08:10)
[2017-01-23] MEDS: FLUoxetine HCL 20 MG CAP PO SCH (08:10)
--- NOTE | 2017-01-23 09:41 | HHI.PR ---
Subjective Remarks Patient is anxious regarding pathology report. She wants to know about the next step. Doing well from respiratory standpoint. Chest tube drained about 190 over the past 24 hrs. Objective Vitals Vital Signs Date Time Temp Pulse Resp B/P (MAP) Pulse Ox O2 Delivery O2 Flow Rate FiO2 01/23/17 08:18 97 01/23/17 08:18 Room Air 01/23/17 04:18 97.6 74 18 123/72 (89) 95 01/22/17 23:35 96.9 89 18 123/71 (88) 95 01/22/17 20:10 96 01/22/17 20:00 96.7 100 18 125/72 (89) 94 01/22/17 16:00 97.7 96 18 148/60 (89) 95 01/22/17 12:00 96.8 104 18 113/64 (80) 96 01/22/17 12:00 96 I/O 01/22/17 01/22/17 01/22/17 01/23/17 01/23/17 01/23/17 07:00 15:00 23:00 07:00 15:00 23:00 Intake Total 240 ml 720 ml 360 ml 360 ml Output Total 30 ml 90 ml 50 ml 50 ml Balance 210 ml 630 ml 310 ml 310 ml Intake Oral 240 ml 720 ml 360 ml 360 ml Output Chest Tube Drainage Total 30 ml 90 ml 50 ml 50 ml # Voids 1 2 3 1 # Bowel Movements 0 1 1 0 1 Result Diagram: 01/23/17 0510 Objective Remarks GENERAL: No acute distress CARDIOVASCULAR: Regular rate and rhythm. RESPIRATORY: No accessory muscle use. Clear to auscultation. Diminished breath sounds left base. Chest tube in place. No air leak GASTROINTESTINAL: Abdomen soft, non-tender, nondistended. MUSCULOSKELETAL: Extremities without clubbing, cyanosis, or edema. No obvious deformities. NEUROLOGICAL: Awake and alert. Normal speech. PSYCHIATRIC: Appropriate mood and affect; insight and judgment normal. Procedures Thoracentesis A/P Assessment and Plan 56 years old female who presented to the hospital with significant dyspnea. Patient found to have a left apical lung mass and a large pleural effusion. She is status post biopsy and chest tube placement. Biopsy consistent with adenocarcinoma. She still has a chest tube in place. Pulmonology following. Can be discharged once cleared by Pulmonology/oncology. Left lung mass/pleural effusion: - Appreciate pulmonary consultation status post thoracentesis 01/16, repeated chest x-ray with still pleural effusion, Patient underwent CT of the biopsy and chest tube placement on 01/20/17. Chest tube output significantly less. On Suction. Will dw Pulmonology. 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 Discussed pathology findings with the patient. - Appreciate Oncology Dr. Lobo following. Further plans per Oncology. Patient anxious for the next step of treatment. - On Levaquin per pulmonology. Anxiety Continue her home Xanax and Prozac Discussed with patient and her at bedside Discharge Planning Pending further further plans from Pulmonology about the chest tube. If tube will stay for drainage, patient will benefit from teaching on how to drain. ?[facility] Braden Calloway MD Jan 23, 2017 09:41
--- NOTE | 2017-01-23 11:02 | PD.ONC.PN ---
Subjective Subjective Remarks patient frightened Objective Data Date Time Temp Pulse Resp B/P (MAP) Pulse Ox O2 Delivery O2 Flow Rate FiO2 01/23/17 08:57 96 21 01/23/17 08:18 97 01/23/17 08:18 Room Air 01/23/17 08:00 98.4 80 18 138/62 (87) 95 01/23/17 04:18 97.6 74 18 123/72 (89) 95 01/22/17 23:35 96.9 89 18 123/71 (88) 95 01/22/17 20:10 96 01/22/17 20:00 96.7 100 18 125/72 (89) 94 01/22/17 16:00 97.7 96 18 148/60 (89) 95 01/22/17 12:00 96.8 104 18 113/64 (80) 96 01/22/17 12:00 96 01/23/17 01/23/17 01/23/17 07:00 15:00 23:00 Intake Total 360 ml Output Total 50 ml Balance 310 ml Result Diagram: 01/23/17 0510 Laboratory Results Laboratory Tests Test 01/23/17 05:10 White Blood Count 11.8 TH/MM3 Red Blood Count 4.94 MIL/MM3 Hemoglobin 13.2 GM/DL Hematocrit 40.5 % Mean Corpuscular Volume 82.0 FL Mean Corpuscular Hemoglobin 26.7 PG Mean Corpuscular Hemoglobin Concent 32.6 % Red Cell Distribution Width 12.9 % Platelet Count 306 TH/MM3 Mean Platelet Volume 6.9 FL Neutrophils (%) (Auto) 72.4 % Lymphocytes (%) (Auto) 9.6 % Monocytes (%) (Auto) 7.5 % Eosinophils (%) (Auto) 10.0 % Basophils (%) (Auto) 0.5 % Neutrophils # (Auto) 8.6 TH/MM3 Lymphocytes # (Auto) 1.1 TH/MM3 Monocytes # (Auto) 0.9 TH/MM3 Eosinophils # (Auto) 1.2 TH/MM3 Basophils # (Auto) 0.1 TH/MM3 CBC Comment DIFF FINAL Differential Comment Administered Medications Medications (Trade) Dose Ordered Sig/Alicia Route PRN Reason Start Time Stop Time Status Last Admin Dose Admin Sodium Chloride (NS Flush) 2 ml BID IV FLUSH 01/16/17 21:00 01/23/17 08:10 Acetaminophen/ Hydrocodone Bitart ([place] 5-325 Mg) 1 tab Q4H PRN PO pain 6-10 01/16/17 14:15 01/20/17 17:06 Morphine Sulfate (Morphine Inj) 2 mg Q4H PRN IV PUSH pain 6-10 01/16/17 14:15 01/16/17 20:16 Enalaprilat (Vasotec Inj) 1.25 mg Q6H PRN IV PUSH bp>160/90 01/16/17 14:30 01/16/17 14:42 Alprazolam (Xanax) 0.25 mg Q8H PRN PO anxiety 01/16/17 14:30 01/21/17 18:08 Levofloxacin (Levaquin) 500 mg DAILY PO 01/21/17 09:00 01/23/17 08:10 Fluoxetine HCl (PROzac) 20 mg DAILY PO 01/21/17 11:15 01/23/17 08:10 Objective Remarks GENERAL: Well-nourished, well-developed patient. SKIN: Warm and dry. HEAD: Normocephalic. EYES: No scleral icterus. No injection or drainage. NECK: Supple, trachea midline. No JVD or lymphadenopathy. LYMPHATIC: No adenopathy. CARDIOVASCULAR: Regular rate and rhythm without murmurs. RESPIRATORY: decreased sounds left lung GASTROINTESTINAL: Abdomen soft, non-tender, nondistended. EXTREMITIES: No cyanosis, or edema. MUSCULOSKELETAL: Adequate muscle tone. NEUROLOGICAL: No obvious focal deficit. Awake, alert, and oriented x3. PSYCHIATRIC: anxious and frightened but moving forward Assessment/Plan Assessment 1: working diagnosis is adenocarcinoma of the lung in non smoker with locally advanced/unresectable disease based on effusion even if no malignant cells in fluid from thoracentesis. 2: I reviewed the path report with patient and and showed them current chest film showing little filter changer past few days with significant fluid in left pleural space which appears loculated Plan 1: consult thoracic surgery. Would consider pleuroscopy to eliminate adhesions involving lung and chest wall allowing for successful drainage of fluid followed by sclerosis to prevent recurrence. At same time would like additional tissue to make sure we have adequate tissue for molecular studies. 2: TREATMENT- if PDL1 50% or greater- immune therapy. If there is a target such as EGFR will treat exploiting driver manager mutation. If no mutation and PDL low probably chemotherapy and avastin. It will take approximately 10 days to have results which will determine the direction of treatment 3: complete staging- MRI brain and CT abd and Pelvis. Danielito Lobo MD Jan 23, 2017 11:02
[2017-01-23] MEDS ORDERED: DIATRIZOATE MEGLUM/DIATRIZOATE SOD 9 ML CUP PO ONE (11:15)
[2017-01-23] MEDS: ALPRAZolam 0.25 MG TAB PO PRN (11:59)
[2017-01-23] MEDS ORDERED: IOHEXOL 350 MG/ML 10 ML VIAL (for RAD DIAG) IVCONTRAST ONE (15:37)
--- NOTE | 2017-01-23 15:42 | RADRPT ---
EXAM DATE/TIME: 01/23/2017 15:28 [facility] COMPARISON: No previous studies available for comparison. INDICATIONS : Evaluate for metastasis. IV CONTRAST: 100 cc Omnipaque 350 (iohexol) IV ORAL CONTRAST: Prescribed oral contrast ingested. RADIATION DOSE: 13.68 CTDIvol (mGy) MEDICAL HISTORY : Carcinoma, lung. SURGICAL HISTORY : None. ENCOUNTER: Initial ACUITY: 1 day PAIN SCALE: 0/10 LOCATION: Bilateral abdomen TECHNIQUE: Volumetric scanning of the abdomen and pelvis was performed. Using automated exposure control and ad justment of the mA and/or kV according to patient size, radiation dose was kept as low as reasonably achievable to obtain optimal diagnostic quality images. DICOM format image data is available electro nically for review and comparison. FINDINGS: There is a multiloculated left-sided pleural effusion of moderate size left basilar atelectasis. Left -sided pigtail drainage catheter present in the left pleural space. Right lung bases clear. No acute findings in the liver, spleen, adrenals, kidneys or pancreas. Gallstones present in the gall bladder. No biliary ductal dilatation. No adenopathy in the abdomen or pelvis. No pelvic masses. No acute bony abnormalities. CONCLUSION: 1. Negative for metastatic disease to the abdomen and pelvis. 2. Multiloculated moderate sized left pleural effusion with small caliber left pigtail catheter prese nt in the left pleural space. 3. Gallstones Abisai Dickson MD on January 23, 2017 at 15:36 Board Certified Radiologist. This report was verified electronically.
[2017-01-24] VITALS (8 sets, daily range): BP systolic 94–112; BP diastolic 54–70; PULSE 84–112; RESP 17–18; TEMP 97.1–97.8; O2SAT 94–95
--- NOTE | 2017-01-24 08:13 | HHI.PR ---
Subjective Remarks Pt tells me she is scared and anxious about her condition, wishes she could go home. No pain at this time, no nausea or vomiting. Has been ambulating down the halls. Will be getting her MRI today. denies any SOB Objective Vitals Vital Signs Date Time Temp Pulse Resp B/P (MAP) Pulse Ox O2 Delivery O2 Flow Rate FiO2 01/24/17 07:59 97.5 98 18 112/60 (77) 94 01/24/17 03:15 97.1 84 17 110/54 (72) 94 01/23/17 23:15 98.9 91 18 114/56 (75) 93 01/23/17 20:00 96 01/23/17 19:07 98.0 97 18 115/57 (76) 93 01/23/17 16:00 97.2 93 18 117/55 (75) 94 01/23/17 12:00 96.5 90 18 141/67 (91) 98 01/23/17 08:57 96 21 01/23/17 08:18 97 01/23/17 08:18 Room Air I/O 01/23/17 01/23/17 01/23/17 01/24/17 01/24/17 01/24/17 07:00 15:00 23:00 07:00 15:00 23:00 Intake Total 360 ml 650 ml 480 ml 360 ml Output Total 50 ml 90 ml 100 ml 10 ml Balance 310 ml 560 ml 380 ml 350 ml Intake Oral 360 ml 650 ml 480 ml 360 ml Output Chest Tube Drainage Total 50 ml 90 ml 100 ml 10 ml # Voids 1 5 6 1 # Bowel Movements 0 1 1 1 Result Diagram: 01/23/17 0510 Imaging Last Impressions Abdomen/Pelvis CT 01/23/17 0000 Signed Impressions: Service Date/Time: January 15:28 - CONCLUSION: 1. Negative for metastatic disease to the abdomen and pelvis. 2. Multiloculated moderate sized left pleural effusion with small caliber left pigtail catheter present in the left pleural space. 3. Gallstones Abisai Dickson MD Chest X-Ray 01/22/17 0600 Signed Impressions: Service Date/Time: Sunday, January 22, 2017 06:33 - CONCLUSION: No significant change consolidation and moderate pleural effusion on the left. Left chest tube remains in place. No pneumothorax. Anup Serrano MD Chest Tube Insertion 01/20/17 1333 Signed Impressions: Service Date/Time: Friday, January 20, 2017 14:17 - CONCLUSION: Uncomplicated CT-guided placement of 16 [place] pigtail chest tube for treatment of symptomatic recurrent suspected malignant pleural effusion. Soham Chaney MD Lung Biopsy CT 01/20/17 1329 Signed Impressions: Service Date/Time: Friday, January 20, 2017 14:17 - CONCLUSION: 1. Uncomplicated CT guided 18 gauge core biopsies of left upper lobe lung mass. Soham Chaney MD Chest CT 01/16/17 0000 Signed Impressions: Service Date/Time: January 11:46 - CONCLUSION: 1. Large left pleural effusion would be amenable to percutaneous drainage. Recommend leaving a drain and send fluid for cell count as the lesion in the left lung apex is concerning for a malignant process. 2. 4.5 x 5.4 x 5.7 cm heterogeneous soft tissue density in the anteromedial aspect of the left lung apex concerning for malignancy. 3. Resulting dextroposition of the heart and mediastinal structures due to the large left effusion. Right lung is clear. Nahun Frank MD Objective Remarks GENERAL: No acute distress CARDIOVASCULAR: Regular rate and rhythm. RESPIRATORY: No accessory muscle use. Clear to auscultation. Diminished breath sounds left base. Chest tube in place. No air leak GASTROINTESTINAL: Abdomen soft, non-tender, nondistended. MUSCULOSKELETAL: Extremities without edema. No obvious deformities. NEUROLOGICAL: Awake and alert. Normal speech. PSYCHIATRIC: Appropriate mood and affect; appears scared but smile at me. Procedures Thoracentesis A/P Assessment and Plan 56 years old female who presented to the hospital with significant dyspnea. Patient found to have a left apical lung mass and a large pleural effusion. She is status post biopsy and chest tube placement. Biopsy consistent with adenocarcinoma. She still has a chest tube in place. Pulmonology following. Can be discharged once cleared by Pulmonology/oncology. Left lung mass/pleural effusion: - Appreciate pulmonary consultation status post thoracentesis 01/16, repeated chest x-ray with still pleural effusion, Patient underwent biopsy and chest tube placement on 01/20/17. 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 - Appreciate Oncology Dr. Lobo following. Further plans per Oncology. Patient anxious for the next step of treatment. scheduled for MRI brain today. CT abd/ pelvic neg for metastasis - On Levaquin per pulmonology. Anxiety Continue her home Xanax and Prozac Discussed with patient and her at bedside Discharge Planning Pending further further plans from Pulmonology and oncology. Odessa Wolfe MD Jan 24, 2017 08:13
[2017-01-24] MEDS: FLUoxetine HCL 20 MG CAP PO SCH (08:50)
[2017-01-24] MEDS: ALPRAZolam 0.25 MG TAB PO PRN (08:50)
[2017-01-24] MEDS: SODIUM CHLORIDE 0.9% FLUSH 10 ML FLUSH IV FLUSH SCH ×2 (08:50→21:00)
[2017-01-24] MEDS: LEVOFLOXACIN 500 MG TAB PO SCH (08:52)
[2017-01-24] MEDS ORDERED: GADODIAMIDE PF 287 MG/ML 5 ML VIAL (for RAD MRI) IVCONTRAST ONE (09:36)
--- NOTE | 2017-01-24 10:07 | RADRPT ---
EXAM DATE/TIME: 01/24/2017 09:23 [facility] COMPARISON: No previous studies available for comparison. INDICATIONS : Metastatic disease. CONTRAST: 14 cc Omniscan (gadodiamide) IV MEDICAL HISTORY : Carcinoma, lung. SURGICAL HISTORY : None. ENCOUNTER: Initial ACUITY: 1 day PAIN SCORE: 0/10 LOCATION: cranial TECHNIQUE: Multiplanar, multisequence MRI of the brain was performed both prior to and following the administrat ion of paramagnetic contrast. FINDINGS: CEREBRUM: The ventricles are normal for age. No evidence of midline shift, mass lesion, hemorrhage or acute in farction. No extraaxial fluid collections are seen. The pituitary gland and suprasellar cistern are normal in configuration. WHITE MATTER: No significant signal abnormalities are seen in the white matter. POSTERIOR FOSSA: The cerebellum and brainstem are intact. The 4th ventricle is midline. The cerebellopontine angle is unremarkable. The cerebellar tonsils are normal in position. DIFFUSION IMAGING: No focal areas of restricted diffusion are seen. No evidence of acute infarction. EXTRACRANIAL: The visualized portions of the orbits and paranasal sinuses are unremarkable. POST-CONTRAST: No abnormal areas of parenchymal or dural enhancement. No evidence of blood-brain barrier breakdown. CONCLUSION: No acute disease. In particular, no MRI evidence to suggest metastatic disease to the brain. Seamus Candelaria Jr., MD on January 24, 2017 at 9:58 Board Certified Radiologist. This report was verified electronically.
--- NOTE | 2017-01-24 13:11 | PD.ONC.PN ---
Subjective Subjective Remarks feeling better and no sob. minimal chest tube drainage. Objective Data Date Time Temp Pulse Resp B/P (MAP) Pulse Ox O2 Delivery O2 Flow Rate FiO2 01/24/17 12:00 97.3 93 18 110/70 (83) 94 01/24/17 07:59 97.5 98 18 112/60 (77) 94 01/24/17 03:15 97.1 84 17 110/54 (72) 94 01/23/17 23:15 98.9 91 18 114/56 (75) 93 01/23/17 20:00 96 01/23/17 19:07 98.0 97 18 115/57 (76) 93 01/23/17 16:00 97.2 93 18 117/55 (75) 94 01/24/17 01/24/17 01/24/17 07:00 15:00 23:00 Intake Total 360 ml Output Total 10 ml Balance 350 ml Result Diagram: 01/23/17 0510 Imaging Studies Last 24 hours Impressions Brain MRI 01/24/17 0000 Signed Impressions: Service Date/Time: Tuesday, January 24, 2017 09:23 - CONCLUSION: No acute disease. In particular, no MRI evidence to suggest metastatic disease to the brain. Seamus Candelaria Jr., MD Administered Medications Medications (Trade) Dose Ordered Sig/Alicia Route PRN Reason Start Time Stop Time Status Last Admin Dose Admin Sodium Chloride (NS Flush) 2 ml BID IV FLUSH 01/16/17 21:00 01/24/17 08:50 Acetaminophen/ Hydrocodone Bitart ([place] 5-325 Mg) 1 tab Q4H PRN PO pain 3-5 01/16/17 14:15 01/20/17 17:06 Morphine Sulfate (Morphine Inj) 2 mg Q4H PRN IV PUSH pain 6-10 01/16/17 14:15 01/16/17 20:16 Enalaprilat (Vasotec Inj) 1.25 mg Q6H PRN IV PUSH bp>160/90 01/16/17 14:30 01/16/17 14:42 Alprazolam (Xanax) 0.25 mg Q8H PRN PO anxiety 01/16/17 14:30 01/24/17 08:50 Levofloxacin (Levaquin) 500 mg DAILY PO 01/21/17 09:00 01/24/17 08:52 Fluoxetine HCl (PROzac) 20 mg DAILY PO 01/21/17 11:15 01/24/17 08:50 Objective Remarks GENERAL: Well-nourished, well-developed patient. SKIN: Warm and dry. HEAD: Normocephalic. EYES: No scleral icterus. No injection or drainage. NECK: Supple, trachea midline. No JVD or lymphadenopathy. LYMPHATIC: No adenopathy. CARDIOVASCULAR: Regular rate and rhythm without murmurs. RESPIRATORY: decreased sounds left base. GASTROINTESTINAL: Abdomen soft, non-tender, nondistended. EXTREMITIES: No cyanosis, or edema. MUSCULOSKELETAL: Adequate muscle tone. NEUROLOGICAL: No obvious focal deficit. Awake, alert, and oriented x3. PSYCHIATRIC: Appropriate mood and affect; insight and judgment normal. Assessment/Plan Assessment 1: working diagnosis is adenocarcinoma of the lung in non smoker with locally advanced/unresectable disease based on effusion even if no malignant cells in fluid from thoracentesis. 2: CT of abd and pelvis and MRI of brain shows no metastatatic disease. 3: minimal drainage from chest tube and do not anticipate it will improve. Plan 1: consult placed with thoracic surgery. Would consider pleuroscopy to eliminate adhesions involving lung and chest wall allowing for successful drainage of fluid followed by sclerosis to prevent recurrence. At same time would like additional tissue to make sure we have adequate tissue for molecular studies. 2: TREATMENT- if PDL1 50% or greater- immune therapy. If there is a target such as EGFR will treat exploiting airport driver mutation. If no mutation and PDL low probably chemotherapy and avastin. It will take approximately 10 days to have results which will determine the direction of treatment 3: staging complete and will choose treatment once molecular tests back. 4: patient's son in room and reviewed care plan with him. I will be back Friday and nothing further I can do at present until tests back. Danielito Lobo MD Jan 24, 2017 13:11
[2017-01-25] VITALS (10 sets, daily range): BP systolic 104–122; BP diastolic 55–75; PULSE 71–112; RESP 18; TEMP 95.5–97.3; O2SAT 94–97
[2017-01-25 03:55] LABS: AUTOMATED NEUTROPHIL # 7.8 TH/MM3 (1.8-7.7); BASOPHIL # 0.1 TH/MM3 (0-0.2); BASOPHIL % 0.8 % (0.0-2.0); EOSINOPHIL # 1.1 TH/MM3 (0-0.4); EOSINOPHIL % 9.7 % (0.0-4.0); HEMATOCRIT 38.3 % (35.0-46.0); HEMO FLAGS DIFF FINAL; LYMPH % 12.5 % (9.0-44.0); LYMPHOCYTE # 1.4 TH/MM3 (1.0-4.8); MEAN CELL VOLUME 81.7 FL (80.0-100.0); MEAN CORPUSCULAR HEMOGLOBIN 26.7 PG (27.0-34.0); MEAN CORPUSCULAR HGB CONC 32.7 % (32.0-36.0); MONO % 8.2 % (0.0-8.0); NEUT % 68.8 % (16.0-70.0); PLATELET COUNT 264 TH/MM3 (150-450); RED BLOOD COUNT 4.69 MIL/MM3 (4.00-5.30); RED CELL DISTRIBUTION WIDTH 12.9 % (11.6-17.2); WHITE BLOOD COUNT 11.3 TH/MM3 (4.0-11.0)
[2017-01-25 04:13] LABS: BICARBONATE 26.7 MEQ/L (21.0-32.0); MAGNESIUM 2.4 MG/DL (1.5-2.5); POTASSIUM 4.3 MEQ/L (3.5-5.1)
--- NOTE | 2017-01-25 08:28 | HHI.PR ---
Subjective Remarks Feels much better today, less anxious. no nausea or vomiting. Has been ambulating w no difficulty. No SOB Objective Vitals Vital Signs Date Time Temp Pulse Resp B/P (MAP) Pulse Ox O2 Delivery O2 Flow Rate FiO2 01/25/17 07:54 96.7 80 18 112/69 (83) 97 01/25/17 04:13 96.9 71 18 110/55 (73) 96 01/25/17 00:19 96.6 74 18 110/62 (78) 96 01/24/17 23:15 95 01/24/17 20:14 97.8 93 18 106/64 (78) 95 01/24/17 15:53 97.6 86 18 94/66 (75) 95 01/24/17 12:00 97.3 93 18 110/70 (83) 94 I/O 01/24/17 01/24/17 01/24/17 01/25/17 01/25/17 01/25/17 06:59 14:59 22:59 06:59 14:59 22:59 Intake Total 360 ml 720 ml Output Total 10 ml 240 ml Balance 350 ml 720 ml -240 ml Intake Oral 360 ml 720 ml Output Chest Tube Drainage Total 10 ml 240 ml # Voids 1 2 3 2 # Bowel Movements 1 1 0 Result Diagram: 01/25/17 0317 01/25/17 0317 Imaging Last Impressions Brain MRI 01/24/17 0000 Signed Impressions: Service Date/Time: Tuesday, January 24, 2017 09:23 - CONCLUSION: No acute disease. In particular, no MRI evidence to suggest metastatic disease to the brain. Seamus Candelaria Jr., MD Abdomen/Pelvis CT 01/23/17 0000 Signed Impressions: Service Date/Time: January 15:28 - CONCLUSION: 1. Negative for metastatic disease to the abdomen and pelvis. 2. Multiloculated moderate sized left pleural effusion with small caliber left pigtail catheter present in the left pleural space. 3. Gallstones Abisai Dickson MD Chest X-Ray 01/22/17 0600 Signed Impressions: Service Date/Time: Sunday, January 22, 2017 06:33 - CONCLUSION: No significant change consolidation and moderate pleural effusion on the left. Left chest tube remains in place. No pneumothorax. Anup Serrano MD Chest Tube Insertion 01/20/17 1333 Signed Impressions: Service Date/Time: Friday, January 20, 2017 14:17 - CONCLUSION: Uncomplicated CT-guided placement of 16 Romanian pigtail chest tube for treatment of symptomatic recurrent suspected malignant pleural effusion. Soham Chaney MD Lung Biopsy CT 01/20/17 1329 Signed Impressions: Service Date/Time: Friday, January 20, 2017 14:17 - CONCLUSION: 1. Uncomplicated CT guided 18 gauge core biopsies of left upper lobe lung mass. Soham Chaney MD Chest CT 01/16/17 0000 Signed Impressions: Service Date/Time: January 11:46 - CONCLUSION: 1. Large left pleural effusion would be amenable to percutaneous drainage. Recommend leaving a drain and send fluid for cell count as the lesion in the left lung apex is concerning for a malignant process. 2. 4.5 x 5.4 x 5.7 cm heterogeneous soft tissue density in the anteromedial aspect of the left lung apex concerning for malignancy. 3. Resulting dextroposition of the heart and mediastinal structures due to the large left effusion. Right lung is clear. Nahun Frank MD Objective Remarks GENERAL: sitting up more comfortable in bed CARDIOVASCULAR: Regular rate and rhythm. RESPIRATORY: No accessory muscle use. Clear to auscultation. Diminished breath sounds left base. Chest tube in place. GASTROINTESTINAL: Abdomen soft, non-tender, nondistended. MUSCULOSKELETAL: Extremities without edema. No obvious deformities. NEUROLOGICAL: Awake and alert. Normal speech. PSYCHIATRIC: Appropriate mood and affect; smiling today Procedures Thoracentesis A/P Assessment and Plan 56 years old female who presented to the hospital with significant dyspnea. Patient found to have a left apical lung mass and a large pleural effusion. She is status post biopsy and chest tube placement. Biopsy consistent with adenocarcinoma. She still has a chest tube in place. Pulmonology following. Can be discharged once cleared by Pulmonology/oncology. Left lung mass/pleural effusion: - Appreciate pulmonary consultation status post thoracentesis 01/16, repeated chest x-ray with still pleural effusion, Patient underwent biopsy and chest tube placement on 01/20/17. 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 - Appreciate Oncology Dr. Lobo following. Further plans per Oncology. Patient anxious for the next step of treatment. CT abd/pelvic and MRI brain neg for metastasis - On Levaquin per pulmonology. Anxiety Continue her home Xanax and Prozac Discussed with patient and her at bedside Discharge Planning Pending further further plans from Pulmonology and oncology. CT sx consult pending. Odessa Wolfe MD Jan 25, 2017 08:28
[2017-01-25] MEDS: FLUoxetine HCL 20 MG CAP PO SCH (09:01)
[2017-01-25] MEDS: LEVOFLOXACIN 500 MG TAB PO SCH (09:01)
[2017-01-25] MEDS: SODIUM CHLORIDE 0.9% FLUSH 10 ML FLUSH IV FLUSH SCH ×2 (09:03→19:12)
[2017-01-25] MEDS: ALPRAZolam 0.25 MG TAB PO PRN (10:44)
--- NOTE | 2017-01-25 12:33 | MB ---
cc: CHECO LOBO MD, SOHIT K. MD DATE OF CONSULTATION: 01/25/[address] Lobo. REASON FOR CONSULTATION Loculated pleural effusion. HISTORY OF PRESENT ILLNESS Ms. Ratliff is a very pleasant 56-year-old female who was admitted to the hospital approximately a week ago with presenting complaints of hoarseness, cough and shortness of breath necessitating supplemental oxygen therapy. Further workup following admission including a chest x-ray and a subsequent chest CT demonstrated a large left pleural effusion with a heterogeneous left apical lung mass. The patient has undergone a percutaneous chest drain placement as well as percutaneous biopsy of the left upper lobe lung mass which is consistent with an adenocarcinoma. The chest tube has drained fluid initially but now the drainage has considerably subsided. However, on chest x-ray she continues to have significant pleural effusion which appears to be loculated. I am now being consulted for further therapy regarding her chest findings. At the present time, she is on room air and not complaining of any shortness of breath and is able to ambulate without any difficulties. PAST MEDICAL HISTORY Significant for - 1. Cholesterolemia. 2. Chronic anxiety. PAST SURGICAL HISTORY Remarkable for tooth extraction, otherwise fairly noncontributory. ALLERGIES THE PATIENT PORTS ALLERGY TO TRAMADOL. MEDICATIONS Admission medications include - 1. Prozac. 2. Xanax. FAMILY HISTORY Remarkable for premature coronary artery disease in the mother with no other identifiable pulmonary disease. There is no history of lung cancer. SOCIAL HISTORY She denies any history of smoking, alcohol use or illicit drug use. REVIEW OF SYSTEMS Review of systems is as above. All other parameters are negative. PHYSICAL EXAMINATION VITAL SIGNS: Today she is 167 inches tall, weighs 69.8 kilos. Blood pressure is 112/69 with a heart rate of 80 which is regular, respiratory rate is 18 and she is afebrile. HEENT: Normocephalic, atraumatic. Pupils are reactive. Extraocular muscles intact. NECK: No cervical lymphadenopathy, carotid bruits or JVD. CARDIOVASCULAR: Regular rate and rhythm. Normal S1 and S2 without gallops, rubs or murmurs. LUNGS: Clear to auscultation bilaterally with good air exchange. There are slightly decreased breath sounds in the left base, otherwise fairly good air exchange bilaterally. She does have a small caliber left chest tube drain in place which is draining serous fluid. ABDOMEN: Soft, nontender, nondistended. Normoactive bowel sounds. No hepatosplenomegaly. EXTREMITIES: Bilateral lower extremity pulses are intact without cyanosis, clubbing or edema. NEUROLOGIC: Neurologically intact with no focal deficit. IMPRESSION 1. Newly diagnosed left upper lobe lung cancer - Adenocarcinoma. 2. Anxiety disorder 3. Pulmonary insufficiency. PLAN The clinical, radiographic and CT findings were discussed in detail with the patient and her today. At this point, given the fact that the chest tube is not draining any significant amount and with continued radiographic evidence of retained loculated fluid collections, I have recommended that we can proceed with a left thoracoscopic approach in efforts to drain the loculated effusions. It was also relayed that if in fact this represents underlying empyema with loculations it will necessitate us making a bigger incision and doing a mini-thoracotomy in efforts to decorticate the lung and allow it to fully expand. In regards to the upper lobe lung mass, even though she is on room air her PFTs are very poor with an FEV-1 of 0.82 liters. This will preclude any further lung resection. We may be able to get additional core biopsy depending upon how scarred the lung is. I will also repeat the PFTs to see to see if there is any significant difference since the effusion has been drained. She is very anxious and very apprehensive about the information provided to her, and wishes to discuss it further with her prior to agreeing to proceed with the proposed operation. I will revisit with her tomorrow and proceed according to the decision she makes. Thank you for allowing me to participate in the care of this patient. Shiela CASTILLO /11:28 AM /12:02 PM LATASHA
[2017-01-26] VITALS (9 sets, daily range): BP systolic 88–148; BP diastolic 59–85; PULSE 64–95; RESP 17–18; TEMP 96.3–98.6; O2SAT 94–98
--- NOTE | 2017-01-26 09:01 | HHI.PR ---
Subjective Remarks Pt anxious about doing surgery. Still thinking about it. Denies any pain, nausea or vomiting. Has been ambulating down the halls and working on her breathing. Objective Vitals Vital Signs Date Time Temp Pulse Resp B/P (MAP) Pulse Ox O2 Delivery O2 Flow Rate FiO2 01/26/17 07:12 96.9 80 18 120/68 (85) 96 01/26/17 04:53 97.1 80 18 125/65 (85) 95 01/26/17 00:00 96.3 95 18 125/68 (87) 96 01/25/17 20:12 80 01/25/17 20:11 97.3 80 18 122/57 (78) 94 01/25/17 17:50 96 21 01/25/17 17:10 112 01/25/17 16:00 95.8 90 18 104/75 (85) 96 01/25/17 12:00 95.5 97 18 106/70 (82) 97 01/25/17 09:08 97 21 I/O 01/25/17 01/25/17 01/25/17 01/26/17 01/26/17 01/26/17 07:00 15:00 23:00 07:00 15:00 23:00 Intake Total 720 ml Output Total 240 ml 320 ml 50 ml 30 ml Balance -240 ml 400 ml -50 ml -30 ml Intake Oral 720 ml Output Chest Tube Drainage Total 240 ml 320 ml 50 ml 30 ml # Voids 2 3 3 # Bowel Movements 1 0 Result Diagram: 01/25/177 01/25/17 0317 Imaging Last Impressions Brain MRI 01/24/17 0000 Signed Impressions: Service Date/Time: Tuesday, January 24, 2017 09:23 - CONCLUSION: No acute disease. In particular, no MRI evidence to suggest metastatic disease to the brain. Seamus Candelaria Jr., MD Abdomen/Pelvis CT 01/23/17 0000 Signed Impressions: Service Date/Time: January 15:28 - CONCLUSION: 1. Negative for metastatic disease to the abdomen and pelvis. 2. Multiloculated moderate sized left pleural effusion with small caliber left pigtail catheter present in the left pleural space. 3. Gallstones Abisai Dickson MD Chest X-Ray 01/22/17 0600 Signed Impressions: Service Date/Time: Sunday, January 22, 2017 06:33 - CONCLUSION: No significant change consolidation and moderate pleural effusion on the left. Left chest tube remains in place. No pneumothorax. Anup Serrano MD Chest Tube Insertion 01/20/17 1333 Signed Impressions: Service Date/Time: Friday, January 20, 2017 14:17 - CONCLUSION: Uncomplicated CT-guided placement of 16 Thai pigtail chest tube for treatment of symptomatic recurrent suspected malignant pleural effusion. Soham Chaney MD Lung Biopsy CT 01/20/17 1329 Signed Impressions: Service Date/Time: Friday, January 20, 2017 14:17 - CONCLUSION: 1. Uncomplicated CT guided 18 gauge core biopsies of left upper lobe lung mass. Soham Chaney MD Chest CT 01/16/17 0000 Signed Impressions: Service Date/Time: January 11:46 - CONCLUSION: 1. Large left pleural effusion would be amenable to percutaneous drainage. Recommend leaving a drain and send fluid for cell count as the lesion in the left lung apex is concerning for a malignant process. 2. 4.5 x 5.4 x 5.7 cm heterogeneous soft tissue density in the anteromedial aspect of the left lung apex concerning for malignancy. 3. Resulting dextroposition of the heart and mediastinal structures due to the large left effusion. Right lung is clear. Nahun Frank MD Objective Remarks GENERAL: sitting up more comfortable in bed CARDIOVASCULAR: Regular rate and rhythm. RESPIRATORY: No accessory muscle use. Clear to auscultation. Diminished breath sounds left base. Chest tube in place. GASTROINTESTINAL: Abdomen soft, non-tender, nondistended. MUSCULOSKELETAL: Extremities without edema. No obvious deformities. NEUROLOGICAL: Awake and alert. Normal speech. PSYCHIATRIC: appears a bit more anxious today Procedures Thoracentesis A/P Assessment and Plan 56 years old female who presented to the hospital with significant dyspnea. Patient found to have a left apical lung mass and a large pleural effusion. She is status post biopsy and chest tube placement. Biopsy consistent with adenocarcinoma. She still has a chest tube in place. Pulmonology following. Can be discharged once cleared by Pulmonology/oncology. Left lung mass/pleural effusion: - Appreciate pulmonary consultation status post thoracentesis 01/16, repeated chest x-ray with still pleural effusion, Patient underwent biopsy and chest tube placement on 01/20/17. 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 - Appreciate Oncology Dr. Lobo following. Further plans per Oncology. Patient anxious for the next step of treatment. CT abd/pelvic and MRI brain neg for metastasis - On Levaquin per pulmonology. - CT sx did evaluate the patient and recommend surgery. Pt is very worried and still thinking about it but will make a decision later today. Anxiety Continue her home Xanax and Prozac Discussed with patient and her at bedside Discharge Planning Pending further further plans from Pulmonology and oncology. CT sx will speak to patient again today Odessa Wolfe MD Jan 26, 2017 09:01
[2017-01-26] MEDS: ALPRAZolam 0.25 MG TAB PO PRN (09:23)
[2017-01-26] MEDS: FLUoxetine HCL 20 MG CAP PO SCH (09:24)
[2017-01-26] MEDS: SODIUM CHLORIDE 0.9% FLUSH 10 ML FLUSH IV FLUSH SCH ×2 (09:24→21:00)
[2017-01-26] MEDS: LEVOFLOXACIN 500 MG TAB PO SCH (09:24)
[2017-01-26] MEDS ORDERED: CALCIUM CARBONATE 500 MG CHEWABLE TAB PO PRN (11:15)
[2017-01-27] VITALS (7 sets, daily range): BP systolic 97–129; BP diastolic 53–93; PULSE 68–101; RESP 16–18; TEMP 96.1–99.9; O2SAT 94–97
[2017-01-27 07:16] LABS: BASOPHIL # 0.1 TH/MM3 (0-0.2); BASOPHIL % 0.8 % (0.0-2.0); EOSINOPHIL # 1.2 TH/MM3 (0-0.4); EOSINOPHIL % 9.8 % (0.0-4.0); HEMATOCRIT 39.5 % (35.0-46.0); HEMO FLAGS DIFF FINAL; LYMPH % 10.6 % (9.0-44.0); LYMPHOCYTE # 1.3 TH/MM3 (1.0-4.8); MEAN CELL VOLUME 81.7 FL (80.0-100.0); MEAN CORPUSCULAR HEMOGLOBIN 27.5 PG (27.0-34.0); MEAN CORPUSCULAR HGB CONC 33.7 % (32.0-36.0); MONO % 7.3 % (0.0-8.0); NEUT % 71.5 % (16.0-70.0); PLATELET COUNT 292 TH/MM3 (150-450); RED BLOOD COUNT 4.83 MIL/MM3 (4.00-5.30); RED CELL DISTRIBUTION WIDTH 13.2 % (11.6-17.2); WHITE BLOOD COUNT 12.6 TH/MM3 (4.0-11.0)
[2017-01-27] MEDS: LEVOFLOXACIN 500 MG TAB PO SCH (08:37)
[2017-01-27] MEDS: FLUoxetine HCL 20 MG CAP PO SCH (08:37)
[2017-01-27] MEDS: SODIUM CHLORIDE 0.9% FLUSH 10 ML FLUSH IV FLUSH SCH ×2 (08:37→21:03)
--- NOTE | 2017-01-27 08:43 | HHI.PR ---
Subjective Remarks this is a pleasant 56 y/o Female admitted to the hospital due to hoarseness, cough and SOB, given supplemental oxygen therapy, Chest CT demonstrated a large left pleural effusion with a heterogeneous left apical lung mass. The patient has undergone a percutaneous chest drain placement as well as percutaneous biopsy of the left upper lobe lung mass which is consistent with an adenocarcinoma. Status post Chest tube and her drainage has subsided, loculated pleural effusion as per Cardiothoracic doctor of dental surgery, seen in her bedroom in the presence of her , no complaint, awaiting recommendations by adolescent specialist and Cardiothoracic surgery for probable procedure. Objective Vital Signs Date Time Temp Pulse Resp B/P (MAP) Pulse Ox O2 Delivery O2 Flow Rate FiO2 01/27/17 07:12 68 01/27/17 03:41 96.7 87 17 129/72 (91) 95 01/26/17 23:03 98.2 64 17 148/85 (106) 95 01/26/17 20:00 88 01/26/17 19:47 98.6 87 18 113/59 (77) 94 01/26/17 17:02 82 01/26/17 16:00 97.1 90 18 88/62 (71) 98 01/26/17 12:00 96.9 88 18 97/60 (72) 96 I/O 01/26/17 01/26/17 01/26/17 01/27/17 01/27/17 01/27/17 07:00 15:00 23:00 07:00 15:00 23:00 Intake Total 720 ml 720 ml 360 ml Output Total 30 ml 50 ml 70 ml Balance -30 ml 670 ml 720 ml 290 ml Intake Oral 720 ml 720 ml 360 ml Output Chest Tube Drainage Total 30 ml 50 ml 70 ml # Voids 3 2 4 1 # Bowel Movements 0 2 1 0 Result Diagram: 01/27/17 0614 01/25/17 0317 Imaging Last Impressions Brain MRI 01/24/17 0000 Signed Impressions: Service Date/Time: Tuesday, January 24, 2017 09:23 - CONCLUSION: No acute disease. In particular, no MRI evidence to suggest metastatic disease to the brain. Seamus Candelaria Jr., MD Abdomen/Pelvis CT 01/23/17 0000 Signed Impressions: Service Date/Time: January 15:28 - CONCLUSION: 1. Negative for metastatic disease to the abdomen and pelvis. 2. Multiloculated moderate sized left pleural effusion with small caliber left pigtail catheter present in the left pleural space. 3. Gallstones Abisai Dickson MD Chest X-Ray 01/22/17 0600 Signed Impressions: Service Date/Time: Sunday, January 22, 2017 06:33 - CONCLUSION: No significant change consolidation and moderate pleural effusion on the left. Left chest tube remains in place. No pneumothorax. Anup Serrano MD Chest Tube Insertion 01/20/17 1333 Signed Impressions: Service Date/Time: Friday, January 20, 2017 14:17 - CONCLUSION: Uncomplicated CT-guided placement of 16 Thai pigtail chest tube for treatment of symptomatic recurrent suspected malignant pleural effusion. Soham Chaney MD Lung Biopsy CT 01/20/17 1329 Signed Impressions: Service Date/Time: Friday, January 20, 2017 14:17 - CONCLUSION: 1. Uncomplicated CT guided 18 gauge core biopsies of left upper lobe lung mass. Soham Chaney MD Chest CT 01/16/17 0000 Signed Impressions: Service Date/Time: January 11:46 - CONCLUSION: 1. Large left pleural effusion would be amenable to percutaneous drainage. Recommend leaving a drain and send fluid for cell count as the lesion in the left lung apex is concerning for a malignant process. 2. 4.5 x 5.4 x 5.7 cm heterogeneous soft tissue density in the anteromedial aspect of the left lung apex concerning for malignancy. 3. Resulting dextroposition of the heart and mediastinal structures due to the large left effusion. Right lung is clear. Nahun Frank MD Procedures Thoracentesis Other Results Laboratory Tests Test 01/16/17 10:47 01/16/17 20:21 01/16/17 20:30 01/22/17 04:21 Prothrombin Time 10.8 SEC Prothromb Time International Ratio 1.0 RATIO Activated Partial Thromboplast Time 27.7 SEC Blood Urea Nitrogen 9 MG/DL Creatinine 0.59 MG/DL Random Glucose 133 MG/DL Total Protein 7.6 GM/DL Albumin 3.4 GM/DL Calcium Level 9.0 MG/DL Alkaline Phosphatase 89 U/L Aspartate Amino Transf (AST/SGOT) 14 U/L Alanine Aminotransferase (ALT/SGPT) 37 U/L Total Bilirubin 0.4 MG/DL Sodium Level 138 MEQ/L Potassium Level 3.6 MEQ/L Chloride Level 103 MEQ/L Carbon Dioxide Level 26.3 MEQ/L Troponin I LESS THAN 0.02 NG/ML B-Type Natriuretic Peptide 24 PG/ML Body Fluid Amylase Source PLEURAL Body Fluid Amylase 12 U/L Pleural Fluid pH 8.0 Pleural Fluid WBC 1495 /MM3 Pleural Fluid RBC 9150 /MM3 Pleural Fluid Neutrophils 4 % Pleural Fluid Lymphocytes 72 % Pleural Fluid Monocytes 2 % Pleural Fluid Eosinophils 22 % Pleural Fluid Total Protein 4.1 GM/DL Pleural Fluid Albumin 2.5 G/DL Pleural Fluid LDH 373 U/L Pleural Fluid Glucose 126 MG/DL Blood Gas Puncture Site RT RADIAL Blood Gas Patient Temperature 98.6 Blood Gas HCO3 27 mmol/L Blood Gas Base Excess 3.5 mmol/L Blood Gas Oxygen Saturation 91 % Arterial Blood pH 7.47 Arterial Blood Partial Pressure CO2 38 mmHg Arterial Blood Partial Pressure O2 63 mmHG Arterial Blood Oxygen Content 16.3 Vol % Arterial Blood Carboxyhemoglobin 1.4 % Arterial Blood Methemoglobin 0.6 % Blood Gas Hemoglobin 12.7 G/DL Oxygen Delivery Device NASAL CANNULA Blood Gas Liter Flow 2.5 L/M Lactate Dehydrogenase 180 U/L Carcinoembryonic Antigen 1.0 NG/ML Test 01/25/17 03:17 01/27/17 06:14 Blood Urea Nitrogen 11 MG/DL Creatinine 0.56 MG/DL Random Glucose 115 MG/DL Calcium Level 8.5 MG/DL Magnesium Level 2.4 MG/DL Sodium Level 138 MEQ/L Potassium Level 4.3 MEQ/L Chloride Level 104 MEQ/L Carbon Dioxide Level 26.7 MEQ/L Anion Gap 7 MEQ/L Estimat Glomerular Filtration Rate 112 ML/MIN White Blood Count 12.6 TH/MM3 Red Blood Count 4.83 MIL/MM3 Hemoglobin 13.3 GM/DL Hematocrit 39.5 % Mean Corpuscular Volume 81.7 FL Mean Corpuscular Hemoglobin 27.5 PG Mean Corpuscular Hemoglobin Concent 33.7 % Red Cell Distribution Width 13.2 % Platelet Count 292 TH/MM3 Mean Platelet Volume 7.4 FL Neutrophils (%) (Auto) 71.5 % Lymphocytes (%) (Auto) 10.6 % Monocytes (%) (Auto) 7.3 % Eosinophils (%) (Auto) 9.8 % Basophils (%) (Auto) 0.8 % Neutrophils # (Auto) 9.0 TH/MM3 Lymphocytes # (Auto) 1.3 TH/MM3 Monocytes # (Auto) 0.9 TH/MM3 Eosinophils # (Auto) 1.2 TH/MM3 Basophils # (Auto) 0.1 TH/MM3 CBC Comment DIFF FINAL Differential Comment Objective Remarks GENERAL: No acute distress. CARDIOVASCULAR: Regular rate and rhythm. RESPIRATORY: No accessory muscle use. Clear to auscultation. Diminished breath sounds left base. Left Chest tube in place. GASTROINTESTINAL: Abdomen soft, non-tender, nondistended. MUSCULOSKELETAL: Extremities without edema. No obvious deformities. NEUROLOGICAL: Awake and alert. Normal speech. PSYCHIATRIC: appears a bit more anxious today Medications and IVs Current Medications Medications (Trade) Dose Ordered Sig/Alicia Route Start Time Stop Time Status Last Admin (NS Flush) 2 ml UNSCH PRN IV FLUSH 01/16/17 14:00 (NS Flush) 2 ml BID IV FLUSH 01/16/17 21:00 01/27/17 08:37 (Zofran Inj) 4 mg Q6H PRN IVP 01/16/17 14:00 (Narcan Inj) 0.4 mg UNSCH PRN IV PUSH 01/16/17 14:00 ([place] 7.5-325 Mg) 1 tab Q4H PRN PO 01/16/17 14:15 ([place] 5-325 Mg) 1 tab Q4H PRN PO 01/16/17 14:15 01/20/17 17:06 (Morphine Inj) 1 mg Q4H PRN IV PUSH 01/16/17 14:15 (Morphine Inj) 2 mg Q4H PRN IV PUSH 01/16/17 14:15 01/16/17 20:16 (Catapres) 0.1 mg Q6H PRN PO 01/16/17 14:30 (Vasotec Inj) 1.25 mg Q6H PRN IV PUSH 01/16/17 14:30 01/16/17 14:42 (Xanax) 0.25 mg Q8H PRN PO 01/16/17 14:30 01/26/17 09:23 (Levaquin) 500 mg DAILY PO 01/21/17 09:00 01/27/17 08:37 (PROzac) 20 mg DAILY PO 01/21/17 11:15 01/27/17 08:37 (Tums Chew) 500 mg Q6H PRN PO 01/26/17 11:15 A/P Assessment and Plan 56 years old female who presented to the hospital with significant dyspnea. Patient found to have a left apical lung mass and a large pleural effusion. She is status post biopsy and chest tube placement. Biopsy consistent with adenocarcinoma. She still has a chest tube in place. Pulmonology following. Can be discharged once cleared by Pulmonology/oncology. Left lung mass/pleural effusion: - Appreciate pulmonary consultation status post thoracentesis 01/16, repeated chest x-ray with still pleural effusion, Patient underwent biopsy and chest tube placement on 01/20/17. 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 - Appreciate Oncology Dr. Lobo following. Further plans per Oncology. Patient anxious for the next step of treatment. CT abd/pelvic and MRI brain neg for metastasis - On Levaquin per pulmonology. - CT sx did evaluate the patient not amenable for surgery at this time, but may need VATS decortication. Anxiety Continue her home Xanax and Prozac Discharge Planning Once cleared by specialists. Tray Moe MD Jan 27, 2017 08:43
--- NOTE | 2017-01-27 10:43 | RSPPFT ---
DATE OF PROCEDURE: 01/17/17 COMMENTS: Spirometry demonstrates an FEV1 of 0.8 at 34% of predicted, FVC of 1.1 at 37%, FEF 25-75 is 23%. Post-bronchodilator study demonstrated improvements in the FVC. Lung volumes were not completed. Flow volume loops suggest a restrictive pattern. IMPRESSION: 1. Moderately severe restrictive disease. 2. Additional moderate obstructive disease. 3. Significant response to use of bronchodilator indicating some reversibility.
--- NOTE | 2017-01-27 11:30 | RADRPT ---
EXAM DATE/TIME: 01/27/2017 10:47 [facility] COMPARISON: CT ABDOMEN & PELVIS W CONTRAST, January 23, 2017, 15:28. CHEST SINGLE AP, January 22, 2017, 6:33. INDICATIONS : Shortness of breath. MEDICAL HISTORY : None. SURGICAL HISTORY : None. ENCOUNTER: Subsequent ACUITY: 2 weeks PAIN SCORE: 3/10 LOCATION: Left upper chest FINDINGS: A single portable frontal view the chest shows a loculated effusion involving the left hemithorax. A Mitchell style drainage catheter seen within this collection. The collection has increased in size from t he prior study. There is a focal area of consolidation involving the medial left apex which is more p ronounced on the prior study. Right lung is clear. Heart is normal in size. No pneumothorax. CONCLUSION: 1. Enlarging loculated left effusion despite drainage catheter. 2. Developing consolidation involving the medial left lung apex. Seamus Candelaria Jr., MD on January 27, 2017 at 11:26 Board Certified Radiologist. This report was verified electronically.
--- NOTE | 2017-01-27 16:26 | PD.CAR.PN ---
CVT Progress Note Subjective/Hospital Course: 56-year-old female who was admitted to the hospital approximately a week ago with presenting complaints of hoarseness,cough and shortness of breath necessitating supplemental oxygen therapy. Further workup following admission including a chest x-ray and a subsequent chest CT demonstrated a large left pleural effusion with a heterogeneous left apical lung mass. The patient has undergone a percutaneous chest drain placement as well as percutaneous biopsy of the left upper lobe lung mass which is consistent with an adenocarcinoma. The chest tube has drained fluid initially but now the drainage has considerably subsided. However, on chest x-ray she continues to have significant pleural effusion which appears to be loculated. We were consulted for further therapy regarding her chest findings. PAST MEDICAL HISTORY Significant for - 1. Cholesterolemia. 2. Chronic anxiety. 01/27 CXR noted: Enlarging loculated left effusion despite drainage catheter, Developing consolidation involving the medial left lung apex. very anxious , but agrees for surgery on wed Left VATS, possible thoracotomy, lung BX decortication Objective: GENERAL: SKIN: Warm and dry. HEAD: Normocephalic. EYES: No scleral icterus. No injection or drainage. NECK: Supple, trachea midline. No JVD or lymphadenopathy. CARDIOVASCULAR: Regular rate and rhythm without murmurs, gallops, or rubs. RESPIRATORY: Breath sounds equal bilaterally. No accessory muscle use. diminished left lower lobe, chest tube in place no air leak GASTROINTESTINAL: Abdomen soft, non-tender, nondistended. MUSCULOSKELETAL: No cyanosis, or edema. BACK: Nontender without obvious deformity. No CVA tenderness. Vital Signs Date Time Temp Pulse Resp B/P (MAP) Pulse Ox O2 Delivery O2 Flow Rate FiO2 01/27/17 12:00 97.6 81 18 101/74 (83) 94 01/27/17 08:00 98.4 83 18 104/65 (78) 95 01/27/17 07:12 68 01/27/17 03:41 96.7 87 17 129/72 (91) 95 01/26/17 23:03 98.2 64 17 148/85 (106) 95 01/26/17 20:00 88 01/26/17 19:47 98.6 87 18 113/59 (77) 94 01/26/17 17:02 82 Labs: Laboratory Tests Test 01/27/17 06:14 White Blood Count 12.6 TH/MM3 (4.0-11.0) Red Blood Count 4.83 MIL/MM3 (4.00-5.30) Hemoglobin 13.3 GM/DL (11.6-15.3) Hematocrit 39.5 % (35.0-46.0) Mean Corpuscular Volume 81.7 FL (80.0-100.0) Mean Corpuscular Hemoglobin 27.5 PG (27.0-34.0) Mean Corpuscular Hemoglobin Concent 33.7 % (32.0-36.0) Red Cell Distribution Width 13.2 % (11.6-17.2) Platelet Count 292 TH/MM3 (150-450) Mean Platelet Volume 7.4 FL (7.0-11.0) Neutrophils (%) (Auto) 71.5 % (16.0-70.0) Lymphocytes (%) (Auto) 10.6 % (9.0-44.0) Monocytes (%) (Auto) 7.3 % (0.0-8.0) Eosinophils (%) (Auto) 9.8 % (0.0-4.0) Basophils (%) (Auto) 0.8 % (0.0-2.0) Neutrophils # (Auto) 9.0 TH/MM3 (1.8-7.7) Lymphocytes # (Auto) 1.3 TH/MM3 (1.0-4.8) Monocytes # (Auto) 0.9 TH/MM3 (0-0.9) Eosinophils # (Auto) 1.2 TH/MM3 (0-0.4) Basophils # (Auto) 0.1 TH/MM3 (0-0.2) CBC Comment DIFF FINAL Differential Comment Result Diagram: 01/27/17 0614 01/25/17 0317 (1) Lung cancer Plan: + invasive poorly differentiated NSC adenocarcinoma, no mets to Brain or abdomen/ pelvis Dr Lobo following (2) Pleural effusion (3) Lung mass Whitney Steven Jan 27, 2017 16:26
[2017-01-27] MEDS ORDERED: SODIUM CHLORIDE 0.9% FLUSH 10 ML FLUSH IV FLUSH PRN (16:30)
[2017-01-27] MEDS ORDERED: CEFAZOLIN INJ 500 MG in SODIUM CHLORIDE 0.9% IRR BTL 500 ML IRRIGATION SCH (16:30)
[2017-01-27] MEDS ORDERED: ceFAZolin 2 GM PREMIX 50 ML IV SCH (16:30)
[2017-01-27] MEDS ORDERED: CHLORHEXIDINE GLUCONATE 4% SOLN 120 ML BTL TOPICAL SCH (16:30)
--- NOTE | 2017-01-27 19:01 | HHI.PR ---
Subjective Remarks Alert and has no SOB at rest. CXR improved effusion. Chest tube drains less. Biopsy suggests Non Small cell CA. Will go for Vats pleurodesis Objective Vital Signs Date Time Temp Pulse Resp B/P (MAP) Pulse Ox O2 Delivery O2 Flow Rate FiO2 01/27/17 16:00 98.2 79 18 98/65 (76) 96 01/27/17 12:00 97.6 81 18 101/74 (83) 94 01/27/17 08:00 98.4 83 18 104/65 (78) 95 01/27/17 07:12 68 01/27/17 03:41 96.7 87 17 129/72 (91) 95 01/26/17 23:03 98.2 64 17 148/85 (106) 95 01/26/17 20:00 88 01/26/17 19:47 98.6 87 18 113/59 (77) 94 I/O 01/26/17 01/26/17 01/26/17 01/27/17 01/27/17 01/27/17 07:00 15:00 23:00 07:00 15:00 23:00 Intake Total 720 ml 720 ml 360 ml 650 ml Output Total 30 ml 50 ml 70 ml 10 ml Balance -30 ml 670 ml 720 ml 290 ml 640 ml Intake Oral 720 ml 720 ml 360 ml 650 ml Output Chest Tube Drainage Total 30 ml 50 ml 70 ml 10 ml # Voids 3 2 4 1 4 # Bowel Movements 0 2 1 0 0 Result Diagram: 01/27/17 0614 01/25/17 0317 Procedures Thoracentesis Objective Remarks GENERAL: This is an averagely built middle-aged white female who is alert, pale and not dyspneic. HEENT: Head normocephalic. Pupils are reactive. Tongue moist. Throat is clear. NECK: No bruits or thyroid enlargement or lymphadenopathy. CHEST: Decreased breath sounds over the left mid and lower chest . HEART: Sounds are irregular S1 and S2. No definite murmur. No S3. ABDOMEN: Soft, protuberant. No masses. No organomegaly. Bowel sounds are active. EXTREMITIES: No lesions or edema. NEUROLOGIC: Reflexes are 1+ with no gross motor deficits. Cranial nerves grossly intact. RECTAL: Exam is deferred. SKIN: No lesions. Assessment and Plan Assessment and Plan IMPRESSION 1. Large left pleural effusion with atelectasis in left lung. 2. Left upper lobe lung mass, rule out malignancy 3. Anxiety. Plan ; 1. CXR in am 2. O2 2 L prn. 3. Surgical evaluation for Pleural decortication 4. Cont Chest tube drainage 5. CBC, BMP in am 6. Chemo per DR Collins. Beckie Sahu MD Jan 27, 2017 19:01
[2017-01-27 19:16] LABS: BACTERIA, URINE MOD /hpf; BLOOD, URINE TRACE (NEG); COMMENT (UR) CULTURE INDICATED; CULTURE IF INDICATED CULTURE INDICATED; GLUCOSE,URINE NEG (NEG); HYALINE CAST, URINE 3 /lpf (RARE); KETONE, URINE TRACE mg/dL (NEG); MUCUS URINE MANY /lpf (OCC); NITRITE,URINE NEG (NEG); SQUAMOUS EPITHELIAL CELL URINE 11 /hpf (0-5); TRANSITIONAL EPI CELLS, URINE 1 /hpf; URINE COLOR YELLOW (YELLW/STRAW)
[2017-01-27] MEDS ORDERED: SODIUM CHLORIDE 0.9% FLUSH 10 ML FLUSH IV FLUSH SCH (21:00)
[2017-01-28] VITALS (7 sets, daily range): BP systolic 98–134; BP diastolic 49–63; PULSE 78–92; RESP 16–18; TEMP 96.1–98.9; O2SAT 94–97
--- NOTE | 2017-01-28 08:16 | HHI.PR ---
Subjective Remarks this is a pleasant 56 y/o Female admitted to the hospital due to hoarseness, cough and SOB, given supplemental oxygen therapy, Chest CT demonstrated a large left pleural effusion with a heterogeneous left apical lung mass. The patient has undergone a percutaneous chest drain placement as well as percutaneous biopsy of the left upper lobe lung mass which is consistent with an adenocarcinoma. Status post Chest tube and her drainage has subsided, loculated pleural effusion as per Cardiothoracic computer systems support specialist, seen in her bedroom in the presence of her , no complaint, awaiting recommendations by housing development specialist and Cardiothoracic surgery for probable procedure. 01/28: Seen by Cardiothoracic surgery, the patient has new CXR with enlarging loculated left effusion despite drainage catheter Developing consolidation involving the medial left lung apex, accepted Left VATS with possible thoracotomy, lung biopsy decortication. for 01/29/17. Objective Vital Signs Date Time Temp Pulse Resp B/P (MAP) Pulse Ox O2 Delivery O2 Flow Rate FiO2 01/28/17 07:44 97.1 81 18 134/63 (86) 97 01/28/17 07:23 78 01/28/17 07:22 Room Air 01/28/17 04:00 97.6 81 16 119/56 (77) 96 01/28/17 00:00 98.4 82 17 98/49 (65) 97 01/27/17 19:45 101 01/27/17 19:00 96.1 99 16 105/93 (97) 97 01/27/17 16:00 98.2 79 18 98/65 (76) 96 01/27/17 12:00 97.6 81 18 101/74 (83) 94 I/O 01/27/17 01/27/17 01/27/17 01/28/17 01/28/17 01/28/17 07:00 15:00 23:00 07:00 15:00 23:00 Intake Total 360 ml 650 ml 480 ml 480 ml Output Total 70 ml 10 ml 650 ml 10 ml Balance 290 ml 640 ml -170 ml 470 ml Intake Oral 360 ml 650 ml 480 ml 480 ml Output Urine Total 600 ml Chest Tube Drainage Total 70 ml 10 ml 50 ml 10 ml # Voids 1 4 3 # Bowel Movements 0 0 0 0 Result Diagram: 01/27/17 0614 01/25/17 0317 Imaging Last Impressions Chest X-Ray 01/27/17 0000 Signed Impressions: Service Date/Time: Friday, January 27, 2017 10:47 - CONCLUSION: 1. Enlarging loculated left effusion despite drainage catheter. 2. Developing consolidation involving the medial left lung apex. Seamus Candelaria Jr., MD Brain MRI 01/24/17 0000 Signed Impressions: Service Date/Time: Tuesday, January 24, 2017 09:23 - CONCLUSION: No acute disease. In particular, no MRI evidence to suggest metastatic disease to the brain. Seamus Candelaria Jr., MD Abdomen/Pelvis CT 01/23/17 0000 Signed Impressions: Service Date/Time: January 15:28 - CONCLUSION: 1. Negative for metastatic disease to the abdomen and pelvis. 2. Multiloculated moderate sized left pleural effusion with small caliber left pigtail catheter present in the left pleural space. 3. Gallstones Abisai Dickson MD Chest Tube Insertion 01/20/17 1333 Signed Impressions: Service Date/Time: Friday, January 20, 2017 14:17 - CONCLUSION: Uncomplicated CT-guided placement of 16 [place] pigtail chest tube for treatment of symptomatic recurrent suspected malignant pleural effusion. Soham Chaney MD Lung Biopsy CT 01/20/17 1329 Signed Impressions: Service Date/Time: Friday, January 20, 2017 14:17 - CONCLUSION: 1. Uncomplicated CT guided 18 gauge core biopsies of left upper lobe lung mass. Soham Chaney MD Chest CT 01/16/17 0000 Signed Impressions: Service Date/Time: January 11:46 - CONCLUSION: 1. Large left pleural effusion would be amenable to percutaneous drainage. Recommend leaving a drain and send fluid for cell count as the lesion in the left lung apex is concerning for a malignant process. 2. 4.5 x 5.4 x 5.7 cm heterogeneous soft tissue density in the anteromedial aspect of the left lung apex concerning for malignancy. 3. Resulting dextroposition of the heart and mediastinal structures due to the large left effusion. Right lung is clear. Nahun Frank MD Procedures Thoracentesis left chest tube placement Other Results Laboratory Tests Test 01/16/17 10:47 01/16/17 20:21 01/16/17 20:30 01/22/17 04:21 Prothrombin Time 10.8 SEC Prothromb Time International Ratio 1.0 RATIO Activated Partial Thromboplast Time 27.7 SEC Blood Urea Nitrogen 9 MG/DL Creatinine 0.59 MG/DL Random Glucose 133 MG/DL Total Protein 7.6 GM/DL Albumin 3.4 GM/DL Calcium Level 9.0 MG/DL Alkaline Phosphatase 89 U/L Aspartate Amino Transf (AST/SGOT) 14 U/L Alanine Aminotransferase (ALT/SGPT) 37 U/L Total Bilirubin 0.4 MG/DL Sodium Level 138 MEQ/L Potassium Level 3.6 MEQ/L Chloride Level 103 MEQ/L Carbon Dioxide Level 26.3 MEQ/L Troponin I LESS THAN 0.02 NG/ML B-Type Natriuretic Peptide 24 PG/ML Body Fluid Amylase Source PLEURAL Body Fluid Amylase 12 U/L Pleural Fluid pH 8.0 Pleural Fluid WBC 1495 /MM3 Pleural Fluid RBC 9150 /MM3 Pleural Fluid Neutrophils 4 % Pleural Fluid Lymphocytes 72 % Pleural Fluid Monocytes 2 % Pleural Fluid Eosinophils 22 % Pleural Fluid Total Protein 4.1 GM/DL Pleural Fluid Albumin 2.5 G/DL Pleural Fluid LDH 373 U/L Pleural Fluid Glucose 126 MG/DL Blood Gas Puncture Site RT RADIAL Blood Gas Patient Temperature 98.6 Blood Gas HCO3 27 mmol/L Blood Gas Base Excess 3.5 mmol/L Blood Gas Oxygen Saturation 91 % Arterial Blood pH 7.47 Arterial Blood Partial Pressure CO2 38 mmHg Arterial Blood Partial Pressure O2 63 mmHG Arterial Blood Oxygen Content 16.3 Vol % Arterial Blood Carboxyhemoglobin 1.4 % Arterial Blood Methemoglobin 0.6 % Blood Gas Hemoglobin 12.7 G/DL Oxygen Delivery Device NASAL CANNULA Blood Gas Liter Flow 2.5 L/M Lactate Dehydrogenase 180 U/L Carcinoembryonic Antigen 1.0 NG/ML Test 01/25/17 03:17 01/27/17 06:14 01/27/17 17:15 01/27/17 18:15 Blood Urea Nitrogen 11 MG/DL Creatinine 0.56 MG/DL Random Glucose 115 MG/DL Calcium Level 8.5 MG/DL Magnesium Level 2.4 MG/DL Sodium Level 138 MEQ/L Potassium Level 4.3 MEQ/L Chloride Level 104 MEQ/L Carbon Dioxide Level 26.7 MEQ/L Anion Gap 7 MEQ/L Estimat Glomerular Filtration Rate 112 ML/MIN White Blood Count 12.6 TH/MM3 Red Blood Count 4.83 MIL/MM3 Hemoglobin 13.3 GM/DL Hematocrit 39.5 % Mean Corpuscular Volume 81.7 FL Mean Corpuscular Hemoglobin 27.5 PG Mean Corpuscular Hemoglobin Concent 33.7 % Red Cell Distribution Width 13.2 % Platelet Count 292 TH/MM3 Mean Platelet Volume 7.4 FL Neutrophils (%) (Auto) 71.5 % Lymphocytes (%) (Auto) 10.6 % Monocytes (%) (Auto) 7.3 % Eosinophils (%) (Auto) 9.8 % Basophils (%) (Auto) 0.8 % Neutrophils # (Auto) 9.0 TH/MM3 Lymphocytes # (Auto) 1.3 TH/MM3 Monocytes # (Auto) 0.9 TH/MM3 Eosinophils # (Auto) 1.2 TH/MM3 Basophils # (Auto) 0.1 TH/MM3 CBC Comment DIFF FINAL Differential Comment Nasal Screen MRSA (PCR) MRSA NOT DETECTED Urine Color YELLOW Urine Turbidity HAZY Urine pH 6.0 Urine Specific [place] 1.021 Urine Protein 30 mg/dL Urine Glucose (UA) NEG mg/dL Urine Ketones TRACE mg/dL Urine Occult Blood TRACE Urine Nitrite NEG Urine Bilirubin NEG Urine Urobilinogen LESS THAN 2.0 MG/DL Urine Leukocyte Esterase LARGE Urine RBC 4 /hpf Urine WBC 78 /hpf Urine Squamous Epithelial Cells 11 /hpf Urine Transitional Epithelial Cells 1 /hpf Urine Bacteria MOD /hpf Urine Hyaline Casts 3 /lpf Urine Mucus MANY /lpf Microscopic Urinalysis Comment CULTURE INDICATED Objective Remarks GENERAL: No acute distress. CARDIOVASCULAR: Regular rate and rhythm. RESPIRATORY: No accessory muscle use. Clear to auscultation. Diminished breath sounds left base. Left Chest tube in place. GASTROINTESTINAL: Abdomen soft, non-tender, nondistended. MUSCULOSKELETAL: Extremities without edema. No obvious deformities. NEUROLOGICAL: Awake and alert. Normal speech. PSYCHIATRIC: appears a bit more anxious today Medications and IVs Current Medications Medications (Trade) Dose Ordered Sig/Alicia Route Start Time Stop Time Status Last Admin (NS Flush) 2 ml UNSCH PRN IV FLUSH 01/16/17 14:00 (NS Flush) 2 ml BID IV FLUSH 01/16/17 21:00 01/27/17 08:37 (Zofran Inj) 4 mg Q6H PRN IVP 01/16/17 14:00 (Narcan Inj) 0.4 mg UNSCH PRN IV PUSH 01/16/17 14:00 ([place] 7.5-325 Mg) 1 tab Q4H PRN PO 01/16/17 14:15 ([place] 5-325 Mg) 1 tab Q4H PRN PO 01/16/17 14:15 01/20/17 17:06 (Morphine Inj) 1 mg Q4H PRN IV PUSH 01/16/17 14:15 (Morphine Inj) 2 mg Q4H PRN IV PUSH 01/16/17 14:15 01/16/17 20:16 (Catapres) 0.1 mg Q6H PRN PO 01/16/17 14:30 (Vasotec Inj) 1.25 mg Q6H PRN IV PUSH 01/16/17 14:30 01/16/17 14:42 (Xanax) 0.25 mg Q8H PRN PO 01/16/17 14:30 01/26/17 09:23 (PROzac) 20 mg DAILY PO 01/21/17 11:15 01/27/17 08:37 (Tums Chew) 500 mg Q6H PRN PO 01/26/17 11:15 Cefazolin Sodium 500 mg/Sodium Chloride 505 ml @ 0 mls/hr CLINICAL DATA ASSOCIATE IRRIGATION 01/27/17 16:30 02/03/17 16:29 Cefazolin Sodium/ Dextrose 50 ml @ 150 mls/hr CLINICAL DATA ASSOCIATE IV 01/27/17 16:30 02/03/17 16:29 (Hibiclens 4% Top Soln) 1 applic CLINICAL DATA ASSOCIATE TOPICAL 01/27/17 16:30 02/03/17 16:29 A/P Assessment and Plan 56 years old female who presented to the hospital with significant dyspnea. Patient found to have a left apical lung mass and a large pleural effusion. She is status post biopsy and chest tube placement. Biopsy consistent with adenocarcinoma. She still has a chest tube in place. Pulmonology following. Can be discharged once cleared by Pulmonology/oncology. Left lung mass/pleural effusion: - Appreciate pulmonary consultation status post thoracentesis 01/16, repeated chest x-ray with still pleural effusion, Patient underwent biopsy and chest tube placement on 01/20/17. 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 - Appreciate Oncology Dr. Lobo following. Further plans per Oncology. Patient anxious for the next step of treatment. CT abd/pelvic and MRI brain neg for metastasis - On Levaquin per pulmonology. - CT sx did evaluate the patient not amenable for surgery at this time, but may need VATS decortication. probable for tomorrow 01/29/17 Anxiety Continue her home Xanax and Prozac DVT prophylaxis SCDs. awaiting for probable procedure for tomorrow. Discharge Planning Once cleared by specialists. Tray Moe MD Jan 28, 2017 08:15
[2017-01-28] MEDS: ALPRAZolam 0.25 MG TAB PO PRN ×2 (09:02→22:53)
[2017-01-28] MEDS: FLUoxetine HCL 20 MG CAP PO SCH (09:03)
[2017-01-28] MEDS: SODIUM CHLORIDE 0.9% FLUSH 10 ML FLUSH IV FLUSH SCH ×2 (09:13→22:53)
--- NOTE | 2017-01-28 18:14 | HHI.PR ---
Subjective Remarks Alert and seems comfortable. Will go for Vats thoracotomy and pleurodesis . Biopsy suggests Non Small cell CA. Objective Vital Signs Date Time Temp Pulse Resp B/P (MAP) Pulse Ox O2 Delivery O2 Flow Rate FiO2 01/28/17 16:11 98.9 92 18 113/56 (75) 94 01/28/17 11:51 96.1 90 18 133/57 (82) 95 01/28/17 07:44 97.1 81 18 134/63 (86) 97 01/28/17 07:23 78 01/28/17 07:22 Room Air 01/28/17 04:00 97.6 81 16 119/56 (77) 96 01/28/17 00:00 98.4 82 17 98/49 (65) 97 01/27/17 19:45 101 01/27/17 19:00 96.1 99 16 105/93 (97) 97 I/O 01/27/17 01/27/17 01/27/17 01/28/17 01/28/17 01/28/17 07:00 15:00 23:00 07:00 15:00 23:00 Intake Total 360 ml 650 ml 480 ml 480 ml 900 ml Output Total 70 ml 10 ml 650 ml 10 ml 40 ml Balance 290 ml 640 ml -170 ml 470 ml 860 ml Intake Oral 360 ml 650 ml 480 ml 480 ml 900 ml Output Urine Total 600 ml Chest Tube Drainage Total 70 ml 10 ml 50 ml 10 ml 40 ml # Voids 1 4 3 4 # Bowel Movements 0 0 0 0 1 Result Diagram: 01/27/1714 01/25/17 0317 Procedures Thoracentesis left chest tube placement Objective Remarks GENERAL: This is an averagely built middle-aged white female who is alert, pale and not dyspneic. HEENT: Head normocephalic. Pupils are reactive. Tongue moist. Throat is clear. NECK: No bruits or thyroid enlargement or lymphadenopathy. CHEST: Decreased breath sounds over the left mid and lower chest . Occ wheeze heard. HEART: Sounds are irregular S1 and S2. No definite murmur. No S3. ABDOMEN: Soft, protuberant. No masses. No organomegaly. Bowel sounds are active. EXTREMITIES: No lesions or edema. NEUROLOGIC: Reflexes are 1+ with no gross motor deficits. Cranial nerves grossly intact. RECTAL: Exam is deferred. SKIN: No lesions. Assessment and Plan Assessment and Plan IMPRESSION 1. Large left pleural effusion with atelectasis in left lung. 2. Left upper lobe lung mass, rule out malignancy 3. Anxiety. Plan : 1. For Vats thoracotomy in am 2. O2 2 L prn. 3. Leave chest tube to Drain. 4. CBC , Coag profile. 5. CBC,BMP carlos 6. IS at bedside q3h. Beckie Sahu MD Jan 28, 2017 18:14
--- NOTE | 2017-01-28 18:27 | PD.CAR.PN ---
CVT Progress Note Subjective/Hospital Course: 56-year-old female who was admitted to the hospital approximately a week ago with presenting complaints of hoarseness,cough and shortness of breath necessitating supplemental oxygen therapy. Further workup following admission including a chest x-ray and a subsequent chest CT demonstrated a large left pleural effusion with a heterogeneous left apical lung mass. The patient has undergone a percutaneous chest drain placement as well as percutaneous biopsy of the left upper lobe lung mass which is consistent with an adenocarcinoma. The chest tube has drained fluid initially but now the drainage has considerably subsided. However, on chest x-ray she continues to have significant pleural effusion which appears to be loculated. We were consulted for further therapy regarding her chest findings. PAST MEDICAL HISTORY Significant for - 1. Cholesterolemia. 2. Chronic anxiety. 01/27 CXR noted: Enlarging loculated left effusion despite drainage catheter, Developing consolidation involving the medial left lung apex. very anxious , but agrees for surgery on wed Left VATS, possible thoracotomy, lung BX decortication 01/28 on room air chest tube in place for surgery in am Objective: GENERAL: SKIN: Warm and dry. HEAD: Normocephalic. EYES: No scleral icterus. No injection or drainage. NECK: Supple, trachea midline. No JVD or lymphadenopathy. CARDIOVASCULAR: Regular rate and rhythm without murmurs, gallops, or rubs. RESPIRATORY: Breath sounds equal bilaterally. No accessory muscle use. left chest tube in place, no air leak GASTROINTESTINAL: Abdomen soft, non-tender, nondistended. MUSCULOSKELETAL: No cyanosis, or edema. BACK: Nontender without obvious deformity. No CVA tenderness. Vital Signs Date Time Temp Pulse Resp B/P (MAP) Pulse Ox O2 Delivery O2 Flow Rate FiO2 01/28/17 16:11 98.9 92 18 113/56 (75) 94 01/28/17 11:51 96.1 90 18 133/57 (82) 95 01/28/17 07:44 97.1 81 18 134/63 (86) 97 01/28/17 07:23 78 01/28/17 07:22 Room Air 01/28/17 04:00 97.6 81 16 119/56 (77) 96 01/28/17 00:00 98.4 82 17 98/49 (65) 97 01/27/17 19:45 101 01/27/17 19:00 96.1 99 16 105/93 97 97 Result Diagram: 01/27/17 0614 01/25/17 0317 (1) Lung cancer Plan: + invasive poorly differentiated NSC adenocarcinoma, no mets to Brain or abdomen/ pelvis Dr Lobo following for surgery in am (2) Pleural effusion (3) Lung mass Whitney Steven Jan 28, 2017 18:27
[2017-01-28] MEDS ORDERED: INSULIN HUMAN REGULAR 1,000 UNITS/10 ML VIAL SQ PRN (21:30)
[2017-01-28] MEDS ORDERED: LACTATED RINGER'S 1000 ML IV PRN (21:30)
[2017-01-28] MEDS ORDERED: CHLORHEXIDINE GLUCONATE 2 % 1 PACK (2 CLOTHS) TOPICAL PRN (21:30)
[2017-01-28] MEDS ORDERED: SODIUM CHLORID 0.9% 500 ML IV PRN (21:30)
[2017-01-28] MEDS ORDERED: METOPROLOL TARTRATE 25 MG TAB PO PRN (21:30)
[2017-01-28] MEDS ORDERED: POVIDONE IODINE 5% (ANTISEPSIS KIT) 4 APPLICATIONS EACH NARE PRN (21:30)
--- NOTE | 2017-01-28 22:05 | PD.ONC.PN ---
Subjective Subjective Remarks relaxed and not sob in spite of large effusion. Objective Data Date Time Temp Pulse Resp B/P (MAP) Pulse Ox O2 Delivery O2 Flow Rate FiO2 01/28/17 19:39 98.2 90 16 121/55 (77) 96 01/28/17 16:11 98.9 92 18 113/56 (75) 94 01/28/17 11:51 96.1 90 18 133/57 (82) 95 01/28/17 07:44 97.1 81 18 134/63 (86) 97 01/28/17 07:23 78 01/28/17 07:22 Room Air 01/28/17 04:00 97.6 81 16 119/56 (77) 96 01/28/17 00:00 98.4 82 17 98/49 (65) 97 01/28/17 01/28/17 01/28/17 07:00 15:00 23:00 Intake Total 480 ml 900 ml Output Total 10 ml 40 ml Balance 470 ml 860 ml Result Diagram: 01/27/1714 01/25/17316 Culture Results Microbiology Date/Time Source Procedure Growth Status 01/27/17 18:15 Urine Clean Catch Urine Culture - Preliminary IMMATURE GROWTH - REINCUBATE Resulted Administered Medications Medications (Trade) Dose Ordered Sig/Alicia Route PRN Reason Start Time Stop Time Status Last Admin Dose Admin Sodium Chloride (NS Flush) 2 ml BID IV FLUSH 01/16/17 21:00 01/28/17 09:13 Acetaminophen/ Hydrocodone Bitart ([place] 5-325 Mg) 1 tab Q4H PRN PO pain 3-5 01/16/17 14:15 01/20/17 17:06 Morphine Sulfate (Morphine Inj) 2 mg Q4H PRN IV PUSH pain 6-10 01/16/17 14:15 01/16/17 20:16 Enalaprilat (Vasotec Inj) 1.25 mg Q6H PRN IV PUSH bp>160/90 01/16/17 14:30 01/16/17 14:42 Alprazolam (Xanax) 0.25 mg Q8H PRN PO anxiety 01/16/17 14:30 01/28/17 09:02 Fluoxetine HCl (PROzac) 20 mg DAILY PO 01/21/17 11:15 01/28/17 09:03 Objective Remarks GENERAL: Well-nourished, well-developed patient. SKIN: Warm and dry. HEAD: Normocephalic. EYES: No scleral icterus. No injection or drainage. NECK: Supple, trachea midline. No JVD or lymphadenopathy. LYMPHATIC: No adenopathy. CARDIOVASCULAR: Regular rate and rhythm without murmurs. RESPIRATORY: Breath sounds decreased left lung GASTROINTESTINAL: Abdomen soft, non-tender, nondistended. EXTREMITIES: No cyanosis, or edema. MUSCULOSKELETAL: Adequate muscle tone. NEUROLOGICAL: No obvious focal deficit. Awake, alert, and oriented x3. PSYCHIATRIC: Appropriate mood and affect; insight and judgment normal. Assessment/Plan Assessment 1: working diagnosis is adenocarcinoma of the lung in non smoker with locally advanced/unresectable disease based on effusion even if no malignant cells in fluid from thoracentesis. 2: left pleural effusion larger. Plan 1: pleuroscopy tomorrow to eliminate adhesions involving lung and chest wall allowing for successful drainage of fluid followed by sclerosis to prevent recurrence. At same time would like additional tissue to make sure we have adequate tissue for molecular studies. 2: TREATMENT- if PDL1 50% or greater- immune therapy. 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 If no mutation and PDL low probably chemotherapy and avastin. It will take approximately 10 days to have results which will determine the direction of treatment 3: staging complete and will choose treatment once molecular tests back. 4: again discussed future treatment based on molecular studies and have added JAVI to the list. I am glad she is going ahead with thoracoscopy as effusion is large and this is the best chance she will have of reexpanding lung . Danielito Lobo MD Jan 28, 2017 22:05
[2017-01-29] VITALS (13 sets, daily range): BP systolic 90–134; BP diastolic 52–61; PULSE 70–92; RESP 14–17; TEMP 96.7–98.1; O2SAT 93–97
[2017-01-29] MEDS: SODIUM CHLORIDE 0.9% FLUSH 10 ML FLUSH IV FLUSH SCH ×2 (07:18→22:09)
[2017-01-29] MEDS: FLUoxetine HCL 20 MG CAP PO SCH (07:18)
[2017-01-29] MEDS ORDERED: BUPIVACAINE LIPOSO PF 1.3% INJ 20 ML, DEXAMETHASONE INJ 4 MG, MORPHINE INJ 8 MG in SODI... IRRIGATION SCH (07:45)
--- NOTE | 2017-01-29 09:08 | HHI.PR ---
Subjective Remarks this is a pleasant 56 y/o Female admitted to the hospital due to hoarseness, cough and SOB, given supplemental oxygen therapy, Chest CT demonstrated a large left pleural effusion with a heterogeneous left apical lung mass. The patient has undergone a percutaneous chest drain placement as well as percutaneous biopsy of the left upper lobe lung mass which is consistent with an adenocarcinoma. Status post Chest tube and her drainage has subsided, loculated pleural effusion as per Cardiothoracic recreation specialist, seen in her bedroom in the presence of her , no complaint, awaiting recommendations by running specialist and Cardiothoracic surgery for probable procedure. 01/28: Seen by Cardiothoracic surgery, the patient has new CXR with enlarging loculated left effusion despite drainage catheter Developing consolidation involving the medial left lung apex, accepted Left VATS with possible thoracotomy, lung biopsy decortication. for 01/29/17. 01/29: Patient somnolent seen in PACU she will be transferred to another unit on he fourth floor at this time, stable will repeat the Urinalysis the past one was abnormal and the patient was receiving Levofloxacin when that one was taken, no Nausea, vomit or diarrhea status post VATS procedure, Drainage of loculated pleural cavities, Left posterolateral Mini Thoracotomy, Decortication of the Lung Biopsies of Diaphragmatic and chest wasll lesions, Intercostal Nerve Block as per Doctor Shiela Sahni. Objective Vital Signs Date Time Temp Pulse Resp B/P (MAP) Pulse Ox O2 Delivery O2 Flow Rate FiO2 01/29/17 06:33 Room Air 01/29/17 04:15 96.7 85 16 134/58 (83) 95 01/29/17 01:15 97.1 78 16 112/58 (76) 93 01/28/17 19:39 98.2 90 16 121/55 (77) 96 01/28/17 16:11 98.9 92 18 113/56 (75) 94 01/28/17 11:51 96.1 90 18 133/57 (82) 95 I/O 01/28/17 01/28/17 01/28/17 01/29/17 01/29/17 01/29/17 07:00 15:00 23:00 07:00 15:00 23:00 Intake Total 480 ml 900 ml 480 ml 0 ml Output Total 10 ml 40 ml Balance 470 ml 860 ml 480 ml 0 ml Intake Oral 480 ml 900 ml 480 ml 0 ml Chest Tube Drainage Total 10 ml 40 ml # Voids 3 4 2 1 # Bowel Movements 0 1 0 0 Result Diagram: 01/27/17 0614 01/25/17 0317 Imaging Last Impressions Chest X-Ray 01/27/17 0000 Signed Impressions: Service Date/Time: Friday, January 27, 2017 10:47 - CONCLUSION: 1. Enlarging loculated left effusion despite drainage catheter. 2. Developing consolidation involving the medial left lung apex. Seamus Candelaria Jr., MD Brain MRI 01/24/17 0000 Signed Impressions: Service Date/Time: Tuesday, January 24, 2017 09:23 - CONCLUSION: No acute disease. In particular, no MRI evidence to suggest metastatic disease to the brain. Seamus Candelaria Jr., MD Abdomen/Pelvis CT 01/23/17 0000 Signed Impressions: Service Date/Time: January 15:28 - CONCLUSION: 1. Negative for metastatic disease to the abdomen and pelvis. 2. Multiloculated moderate sized left pleural effusion with small caliber left pigtail catheter present in the left pleural space. 3. Gallstones Abisai Dickson MD Chest Tube Insertion 01/20/17 1333 Signed Impressions: Service Date/Time: Friday, January 20, 2017 14:17 - CONCLUSION: Uncomplicated CT-guided placement of 16 [place] pigtail chest tube for treatment of symptomatic recurrent suspected malignant pleural effusion. Soham Chaney MD Lung Biopsy CT 01/20/17 1329 Signed Impressions: Service Date/Time: Friday, January 20, 2017 14:17 - CONCLUSION: 1. Uncomplicated CT guided 18 gauge core biopsies of left upper lobe lung mass. Soham Chnaey MD Chest CT 01/16/17 0000 Signed Impressions: Service Date/Time: January 11:46 - CONCLUSION: 1. Large left pleural effusion would be amenable to percutaneous drainage. Recommend leaving a drain and send fluid for cell count as the lesion in the left lung apex is concerning for a malignant process. 2. 4.5 x 5.4 x 5.7 cm heterogeneous soft tissue density in the anteromedial aspect of the left lung apex concerning for malignancy. 3. Resulting dextroposition of the heart and mediastinal structures due to the large left effusion. Right lung is clear. Nahun Frank MD Procedures Thoracentesis left chest tube placement 01/29/17 status post VATS procedure, Drainage of loculated pleural cavities, Left posterolateral Mini Thoracotomy, Decortication of the Lung Biopsies of Diaphragmatic and chest wasll lesions, Intercostal Nerve Block as per Doctor Shiela Sahni. Other Results Laboratory Tests Test 01/16/17 10:47 01/16/17 20:21 01/16/17 20:30 01/22/17 04:21 Prothrombin Time 10.8 SEC Prothromb Time International Ratio 1.0 RATIO Activated Partial Thromboplast Time 27.7 SEC Blood Urea Nitrogen 9 MG/DL Creatinine 0.59 MG/DL Random Glucose 133 MG/DL Total Protein 7.6 GM/DL Albumin 3.4 GM/DL Calcium Level 9.0 MG/DL Alkaline Phosphatase 89 U/L Aspartate Amino Transf (AST/SGOT) 14 U/L Alanine Aminotransferase (ALT/SGPT) 37 U/L Total Bilirubin 0.4 MG/DL Sodium Level 138 MEQ/L Potassium Level 3.6 MEQ/L Chloride Level 103 MEQ/L Carbon Dioxide Level 26.3 MEQ/L Troponin I LESS THAN 0.02 NG/ML B-Type Natriuretic Peptide 24 PG/ML Body Fluid Amylase Source PLEURAL Body Fluid Amylase 12 U/L Pleural Fluid pH 8.0 Pleural Fluid WBC 1495 /MM3 Pleural Fluid RBC 9150 /MM3 Pleural Fluid Neutrophils 4 % Pleural Fluid Lymphocytes 72 % Pleural Fluid Monocytes 2 % Pleural Fluid Eosinophils 22 % Pleural Fluid Total Protein 4.1 GM/DL Pleural Fluid Albumin 2.5 G/DL Pleural Fluid LDH 373 U/L Pleural Fluid Glucose 126 MG/DL Blood Gas Puncture Site RT RADIAL Blood Gas Patient Temperature 98.6 Blood Gas HCO3 27 mmol/L Blood Gas Base Excess 3.5 mmol/L Blood Gas Oxygen Saturation 91 % Arterial Blood pH 7.47 Arterial Blood Partial Pressure CO2 38 mmHg Arterial Blood Partial Pressure O2 63 mmHG Arterial Blood Oxygen Content 16.3 Vol % Arterial Blood Carboxyhemoglobin 1.4 % Arterial Blood Methemoglobin 0.6 % Blood Gas Hemoglobin 12.7 G/DL Oxygen Delivery Device NASAL CANNULA Blood Gas Liter Flow 2.5 L/M Lactate Dehydrogenase 180 U/L Carcinoembryonic Antigen 1.0 NG/ML Test 01/25/17 03:17 01/27/17 06:14 01/27/17 17:15 01/27/17 18:15 Blood Urea Nitrogen 11 MG/DL Creatinine 0.56 MG/DL Random Glucose 115 MG/DL Calcium Level 8.5 MG/DL Magnesium Level 2.4 MG/DL Sodium Level 138 MEQ/L Potassium Level 4.3 MEQ/L Chloride Level 104 MEQ/L Carbon Dioxide Level 26.7 MEQ/L Anion Gap 7 MEQ/L Estimat Glomerular Filtration Rate 112 ML/MIN White Blood Count 12.6 TH/MM3 Red Blood Count 4.83 MIL/MM3 Hemoglobin 13.3 GM/DL Hematocrit 39.5 % Mean Corpuscular Volume 81.7 FL Mean Corpuscular Hemoglobin 27.5 PG Mean Corpuscular Hemoglobin Concent 33.7 % Red Cell Distribution Width 13.2 % Platelet Count 292 TH/MM3 Mean Platelet Volume 7.4 FL Neutrophils (%) (Auto) 71.5 % Lymphocytes (%) (Auto) 10.6 % Monocytes (%) (Auto) 7.3 % Eosinophils (%) (Auto) 9.8 % Basophils (%) (Auto) 0.8 % Neutrophils # (Auto) 9.0 TH/MM3 Lymphocytes # (Auto) 1.3 TH/MM3 Monocytes # (Auto) 0.9 TH/MM3 Eosinophils # (Auto) 1.2 TH/MM3 Basophils # (Auto) 0.1 TH/MM3 CBC Comment DIFF FINAL Differential Comment Nasal Screen MRSA (PCR) MRSA NOT DETECTED Urine Color YELLOW Urine Turbidity HAZY Urine pH 6.0 Urine Specific [place] 1.021 Urine Protein 30 mg/dL Urine Glucose (UA) NEG mg/dL Urine Ketones TRACE mg/dL Urine Occult Blood TRACE Urine Nitrite NEG Urine Bilirubin NEG Urine Urobilinogen LESS THAN 2.0 MG/DL Urine Leukocyte Esterase LARGE Urine RBC 4 /hpf Urine WBC 78 /hpf Urine Squamous Epithelial Cells 11 /hpf Urine Transitional Epithelial Cells 1 /hpf Urine Bacteria MOD /hpf Urine Hyaline Casts 3 /lpf Urine Mucus MANY /lpf Microscopic Urinalysis Comment CULTURE INDICATED Objective Remarks GENERAL: No acute distress, Somnolent. CARDIOVASCULAR: Regular rate and rhythm. RESPIRATORY: No accessory muscle use. Clear to auscultation. Diminished breath sounds left base. GASTROINTESTINAL: Abdomen soft, non-tender, nondistended. MUSCULOSKELETAL: Extremities without edema. No obvious deformities. NEUROLOGICAL: Awake and alert. Normal speech. PSYCHIATRIC: unable to evaluate at this time. Medications and IVs Current Medications Medications (Trade) Dose Ordered Sig/Alicia Route Start Time Stop Time Status Last Admin (NS Flush) 2 ml UNSCH PRN IV FLUSH 01/16/17 14:00 (NS Flush) 2 ml BID IV FLUSH 01/16/17 21:00 01/28/17 22:53 (Zofran Inj) 4 mg Q6H PRN IVP 01/16/17 14:00 (Narcan Inj) 0.4 mg UNSCH PRN IV PUSH 01/16/17 14:00 (Goldsmith 7.5-325 Mg) 1 tab Q4H PRN PO 01/16/17 14:15 (Goldsmith 5-325 Mg) 1 tab Q4H PRN PO 01/16/17 14:15 01/20/17 17:06 (Morphine Inj) 1 mg Q4H PRN IV PUSH 01/16/17 14:15 (Morphine Inj) 2 mg Q4H PRN IV PUSH 01/16/17 14:15 01/16/17 20:16 (Catapres) 0.1 mg Q6H PRN PO 01/16/17 14:30 (Vasotec Inj) 1.25 mg Q6H PRN IV PUSH 01/16/17 14:30 01/16/17 14:42 (Xanax) 0.25 mg Q8H PRN PO 01/16/17 14:30 01/28/17 22:53 (PROzac) 20 mg DAILY PO 01/21/17 11:15 01/28/17 09:03 (Tums Chew) 500 mg Q6H PRN PO 01/26/17 11:15 Cefazolin Sodium 500 mg/Sodium Chloride 505 ml @ 0 mls/hr BUTTER WRAPPER IRRIGATION 01/27/17 16:30 02/03/17 16:29 Cefazolin Sodium/ Dextrose 50 ml @ 150 mls/hr BUTTER WRAPPER IV 01/27/17 16:30 02/03/17 16:29 01/29/17 06:59 (Hibiclens 4% Top Soln) 1 applic BUTTER WRAPPER TOPICAL 01/27/17 16:30 02/03/17 16:29 01/29/17 05:30 Lactated Ringer's 1,000 ml @ 30 mls/hr Q24H PRN IV 01/28/17 21:30 01/31/17 21:29 01/29/17 06:50 Sodium Chloride 500 ml @ 30 mls/hr [id number] PRN IV 01/28/17 21:30 01/31/17 21:29 (Lopressor) 25 mg BUTTER WRAPPER PRN PO 01/28/17 21:30 01/31/17 21:29 (Betadine 5% Antisepsis Kit) 1 applic BUTTER WRAPPER PRN EACH NARE 01/28/17 21:30 01/31/17 21:29 (Chlorhexidine 2% Cloth) 3 pack BUTTER WRAPPER PRN TOPICAL 01/28/17 21:30 01/31/17 21:29 (NovoLIN R INJ) See Protocol Table ... BUTTER WRAPPER PRN SQ 01/28/17 21:30 01/31/17 21:29 Bupivacaine Liposome 20 ml/ Dexamethasone Sodium Phosphate 4 mg/Morphine Sulfate 8 mg/ Sodium Chloride 42 ml @ 84 mls/hr UNSCH IRRIGATION 01/29/17 07:45 01/29/17 13:45 A/P Assessment and Plan 56 years old female who presented to the hospital with significant dyspnea. Patient found to have a left apical lung mass and a large pleural effusion. She is status post biopsy and chest tube placement. Biopsy consistent with adenocarcinoma. She still has a chest tube in place. Pulmonology following. Can be discharged once cleared by Pulmonology/oncology. Left lung mass/pleural effusion: - status post thoracentesis 01/16, repeated chest x-ray with still pleural effusion, Patient underwent biopsy and chest tube placement on 01/20/17. 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 - CT abd/pelvic and MRI brain neg for metastasis, now off Levaquin. running specialist following, - CT Surgery performed 01/29/17 status post VATS procedure, Drainage of loculated pleural cavities, Left posterolateral Mini Thoracotomy, Decortication of the Lung Biopsies of Diaphragmatic and chest wasll lesions, Intercostal Nerve Block as per Doctor Shiela Sahni. Anxiety Continue her home Xanax and Prozac Urinalysis demonstrated probable UTI the patient was receiving Levaquin, will repeat the UA, patient asymptomatic. DVT prophylaxis SCDs. status post Surgery. Discharge Planning Once cleared by specialists. Tray Moe MD Jan 29, 2017 09:08
[2017-01-29] MEDS ORDERED: ceFAZolin INJ 1,000 MG VIAL IV ONE (10:52)
[2017-01-29] MEDS ORDERED: SODIUM CHLORIDE 0.9% FLUSH 10 ML FLUSH IV FLUSH PRN (11:30)
[2017-01-29] MEDS ORDERED: Post-op Orders (for Pharmacy) MISC OTHER ONE (11:30)
[2017-01-29] MEDS ORDERED: RESP: ALBUTEROL 2.5 MG/3 ML NEB (PRN) NEB (11:30)
[2017-01-29] MEDS ORDERED: MORPHINE SULFATE 30 MG/30 ML PCA IV SCH (11:30)
[2017-01-29] MEDS ORDERED: ONDANSETRON HCL 4 MG/2 ML VIAL IV PUSH PRN (11:30)
[2017-01-29] MEDS ORDERED: NALOXONE HCL 0.4 MG/ML AMP IV PUSH PRN (11:30)
[2017-01-29] MEDS ORDERED: MAGNESIUM HYDROXIDE SUSP 30 ML CUP PO PRN (11:30)
[2017-01-29] MEDS ORDERED: DO NOT ADM ANY ANTICOAGULANT DRUGS PRN (11:53)
[2017-01-29] MEDS ORDERED: *morphine SULFATE 8 MG/ML PERIprocedure ONLY ONE ×2 (11:57→12:03)
[2017-01-29] MEDS ORDERED: *ONDANSETRON 4 MG VIAL PERIprocedural Use ONLY ONE ×2 (12:03→12:06)
[2017-01-29] MEDS: LACTATED RINGER'S 1000 ML INJ 1,000 ML IV SCH (12:11)
[2017-01-29] MEDS: ACETAMINOPHEN 1000 MG/100 ML 100 ML IV SCH ×2 (12:30→18:05)
--- NOTE | 2017-01-29 12:33 | RADRPT ---
EXAM DATE/TIME: 01/29/2017 12:15 [facility] COMPARISON: CT NEEDLE BIOPSY LUNG, LEFT, January 20, 2017, 14:17. CHEST SINGLE AP, January 27, 2017, 10:47. INDICATIONS : Post left thoracotomy. MEDICAL HISTORY : Carcinoma, lung. SURGICAL HISTORY : Left thoracotomy. ENCOUNTER: Subsequent ACUITY: 1 day PAIN SCORE: 9/10 LOCATION: Left chest FINDINGS: Compared to the earlier chest radiograph a left basilar thoracostomy tube has been removed and replac ed with a large bore thoracostomy tube. Moderate to large left pleural effusion has been evacuated. T here is incomplete reexpansion of the lung with a loculated pneumothorax in the left mid lung and bas e. Left paramediastinal mass is noted. Right lung remains clear. CONCLUSION: Status post replacement of left-sided thoracostomy tube resulting in evacuation of left pleural fluid but incomplete reexpansion the left lung. Left basilar loculated pneumothorax. Left upper lobe paramediastinal mass again noted. Melchor Walls MD on January 29, 2017 at 12:28 Board Certified Radiologist. This report was verified electronically.
[2017-01-29] MEDS: KETOROLAC TROMETHAMINE 30 MG/ML (IVP) VIAL IV PUSH SCH ×2 (12:35→18:35)
--- NOTE | 2017-01-29 12:46 | PD.OP ---
cc: Shiela Sahni MD; Danielito Lobo MD Operative Report Date of Surgery: Jan 29, 2017 Preoperative Diagnosis: Postoperative Diagnosis: Procedure: 1. Left Video Assisted Thoracoscopy (VATS) 2. Drainage of Loculated Pleural Cavities 3. Left Posterolateral Mini-Thoracotomy 4. Decortication of Left Lung 5. Biopsies of Diaphragmatic and Chest Wall Lesions 6. Intercostal Nerve Block Surgeon: Shiela Sahni Web Content Specialist(s): Rebel Maldonado Operation and Findings: PREOPERATIVE DIAGNOSIS 1. Left Lung Cancer 2. Loculated Effusion 3. Pulmonary Insufficiency POSTOPERATIVE DIAGNOSIS 1. Left Lung Cancer 2. Loculated Effusion 3. Pulmonary Insufficiency 4. Chest Wall and Diaphragmatic Tumor Seeding 5. Empyema PROCEDURES 1. Left Video Assisted Thoracoscopy (VATS) 2. Drainage of Loculated Pleural Cavities 3. Left Posterolateral Mini-Thoracotomy 4. Decortication of Left Lung 5. Biopsies of Diaphragmatic and Chest Wall Lesions 6. Intercostal Nerve Block SURGEON Shiela Sahni MD RELATIONSHIP COUNSELOR Anup Maldonado RNTFA ANESTHESIA General endotracheal. ACADEMIC RECORDS SPECIALIST LESA Andrade MD OPERATIVE TIME Please see record. COMPLICATIONS None. INDICATION FOR PROCEDURE The patient is a 56 yo young lady with newly diagnosed left lung cancer and associated loculate pleural effusions, presenting for left thoracotomy and decortication. DESCRIPTION OF PROCEDURE The patient was brought to the operating suite and placed in supine position. Following satisfactory induction of general double-lumen endotracheal anesthesia , the patient was placed in the right lateral decubitus position. The left chest and surrounding area was then prepped and draped in the usual sterile fashion. A 1 cm incision was made in the 8th ICS, posterior axillary line and the camera inserted. Multiple loculated fluid cavities were identified. These were drained and fluid sent for histological analysis. Exploration at this time revealed a dense peel around the entire left lung with additional multiple lesions on the diaphragmatic surface as well as the chest wall. The decision was made to convert to a mini-thoracotomy to effectively decorticate the lung. A standard posterolateral mini-thoracotomy was performed and the pleural space was entered. Again, exploration of the chest revealed a very thick and densely adherent rind of empyema on the left lung. The diaphragmatic lesion was biopsied and sent for frozen section analysis. This was consistent with a poorly differentiated malignancy. Additional biopsies were obtained of this as well as the chest wall lesions and sent for permanent analysis. Circumferential decortication was performed. The specimen was sent for histological and microbiological analysis. It was very thick and very densely organized. Copious irrigation with antibiotic solution was performed. At this point the closure was undertaken. One 32-Romansh chest tubes were placed. Intercostal nerve block was performed at the level of the incision and 3 rib spaces above and below using Exparel with Decadron solution. The pericostal space was approximated with interrupted #1 Vicryl sutures in a pericostal fashion. The serratus fascia and Latissimus dorsi were closed with running 0-Vicryl and the remaining wounds closed with 3-0, and 4-0 Monocryl. The patient tolerated the procedure well and postoperatively went to the PACU in stable condition. Shiela Sahni MD Jan 29, 2017 12:46
[2017-01-29] MEDS ORDERED: LACTATED RINGER'S 1000 ML INJ 250 ML IV ONE (13:30)
[2017-01-29] MEDS: PCA - TOTAL MG MORPHINE DELIVERED PER SHIFT SCH ×2 (14:00→22:00)
[2017-01-29] MEDS: RESP: ALBUTEROL 2.5 MG/3 ML NEB (SCH) NEB ×2 (15:53→21:04)
--- NOTE | 2017-01-29 17:14 | HHI.PR ---
Subjective Remarks Went for vats thoracotomy and Biopsies of lesions on left diaphragm and pleural decortication. Biopsy suggests Non Small cell CA. On O2 3 L. Sleepy. Objective Vital Signs Date Time Temp Pulse Resp B/P (MAP) Pulse Ox O2 Delivery O2 Flow Rate FiO2 01/29/17 16:00 86 01/29/17 15:53 95 Nasal Cannula 2.00 01/29/17 15:00 98.1 79 17 107/52 (70) 95 01/29/17 15:00 87 01/29/17 14:00 17 01/29/17 14:00 17 01/29/17 13:45 86 17 106/61 (76) 94 01/29/17 12:30 20 01/29/17 06:33 Room Air 01/29/17 04:15 96.7 85 16 134/58 (83) 95 01/29/17 01:15 97.1 78 16 112/58 (76) 93 01/28/17 19:39 98.2 90 16 121/55 (77) 96 I/O 01/28/17 01/28/17 01/28/17 01/29/17 01/29/17 01/29/17 07:00 15:00 23:00 07:00 15:00 23:00 Intake Total 480 ml 900 ml 480 ml 0 ml 2500 ml Output Total 10 ml 40 ml 300 ml Balance 470 ml 860 ml 480 ml 0 ml 2200 ml Intake Oral 480 ml 900 ml 480 ml 0 ml Other 2500 ml Output Urine Total 300 ml Chest Tube Drainage Total 10 ml 40 ml # Voids 3 4 2 1 # Bowel Movements 0 1 0 0 Result Diagram: 01/27/17 0614 01/25/17 0317 Procedures Thoracentesis left chest tube placement 01/29/17 status post VATS procedure, Drainage of loculated pleural cavities, Left posterolateral Mini Thoracotomy, Decortication of the Lung Biopsies of Diaphragmatic and chest wasll lesions, Intercostal Nerve Block as per Doctor Shiela Sahni. Objective Remarks GENERAL: This is an averagely built middle-aged white female who is alert, pale. HEENT: Head normocephalic. Pupils are reactive. Tongue moist. Throat is clear. NECK: No bruits or thyroid enlargement or lymphadenopathy. CHEST: Decreased breath sounds over the left mid and lower chest . Occ wheeze heard. HEART: Sounds are irregular S1 and S2. No definite murmur. No S3. ABDOMEN: Soft, protuberant. No masses. No organomegaly. Bowel sounds are active. EXTREMITIES: No lesions or edema. NEUROLOGIC: Reflexes are 1+ with no gross motor deficits. RECTAL: Exam is deferred. SKIN: No lesions. Assessment and Plan Assessment and Plan IMPRESSION 1. Large left pleural effusion with atelectasis in left lung. 2. Left upper lobe lung mass, rule out malignancy 3. Anxiety. Plan : 1. IS q2h at bedside. 2. O2 2 L prn. 3. Leave chest tube to Drain. 4. Pain control with morphine prn 5. CBC,BMP, CXR in am 6. Duoneb nebs tid prn. Beckie Sahu MD Jan 29, 2017 17:14
[2017-01-29] MEDS ORDERED: DOCUSATE CALCIUM 240 MG CAP PO SCH (21:00)
--- NOTE | 2017-01-29 21:23 | PD.ONC.PN ---
Subjective Subjective Remarks patient remains cheerful even after learning that we were unable to expand the lung. no sob and minimal chest discomfort Objective Data Date Time Temp Pulse Resp B/P (MAP) Pulse Ox O2 Delivery O2 Flow Rate FiO2 01/29/17 20:21 16 01/29/17 18:35 16 01/29/17 18:00 76 01/29/17 17:00 81 01/29/17 16:00 86 01/29/17 15:53 95 Nasal Cannula 2.00 01/29/17 15:00 98.1 79 17 107/52 (70) 95 01/29/17 15:00 87 01/29/17 14:00 17 01/29/17 13:45 86 17 106/61 (76) 94 01/29/17 13:30 98.2 87 21 118/57 (77) 97 Nasal Cannula 3 01/29/17 13:15 82 16 109/54 (72) 96 Nasal Cannula 3 01/29/17 13:00 82 16 107/55 (72) 96 Nasal Cannula 3 01/29/17 12:45 73 16 101/58 (72) 95 Nasal Cannula 3 01/29/17 12:30 20 01/29/17 12:30 79 20 101/55 (70) 97 Nasal Cannula 3 01/29/17 12:20 80 24 97/54 (68) 98 Nasal Cannula 3 84/58 (67) 01/29/17 12:15 80 24 97/54 (68) 98 Nasal Cannula 3 84/58 (67) 01/29/17 12:12 82 17 99/54 (69) 97 83/60 (68) 01/29/17 12:05 78 24 94/56 (69) 98 69/59 (62) 01/29/17 12:00 82 22 107/62 (77) 98 Nasal Cannula 3 01/29/17 11:55 98.1 87 18 105/65 (78) 98 Nasal Cannula 3 01/29/17 06:33 Room Air 01/29/17 04:15 96.7 85 16 134/58 (83) 95 01/29/17 01:15 97.1 78 16 112/58 (76) 93 01/29/17 01/29/17 01/29/17 06:59 14:59 22:59 Intake Total 0 ml 2890 ml 935 ml Output Total 410 ml 345 ml Balance 0 ml 2480 ml 590 ml Result Diagram: 01/27/17 0614 01/25/17 0317 Culture Results Microbiology Date/Time Source Procedure Growth Status 01/27/17 18:15 Urine Clean Catch Urine Culture - Final 50-100,000 CFU/ML MIXED GRAM POSITIVE... Complete 01/29/17 11:10 Wound Lung Fungal Smear Pending Received 01/29/17 11:10 Wound Lung Fungal Culture Pending Received 01/29/17 11:10 Wound Lung Acid Fast Stain Pending Received 01/29/17 11:10 Wound Lung Mycobacterial Culture Pending Received 01/29/17 11:10 Wound Lung Gram Stain Pending Received 01/29/17 11:10 Wound Lung Wound Culture Pending Received Imaging Studies Last 24 hours Impressions Chest X-Ray 01/29/17 0000 Signed Impressions: Service Date/Time: Friday, January 29, 2017 12:15 - CONCLUSION: Status post replacement of left-sided thoracostomy tube resulting in evacuation of left pleural fluid but incomplete reexpansion the left lung. Left basilar loculated pneumothorax. Left upper lobe paramediastinal mass again noted. Melchor Walls MD Administered Medications Medications (Trade) Dose Ordered Sig/Alicia Route PRN Reason Start Time Stop Time Status Last Admin Dose Admin Enalaprilat (Vasotec Inj) 1.25 mg Q6H PRN IV PUSH bp>160/90 01/16/17 14:30 01/16/17 14:42 Alprazolam (Xanax) 0.25 mg Q8H PRN PO anxiety 01/16/17 14:30 01/28/17 22:53 Fluoxetine HCl (PROzac) 20 mg DAILY PO 01/21/17 11:15 01/28/17 09:03 Cefazolin Sodium 500 mg/Sodium Chloride 505 ml @ 0 mls/hr UMBRELLA CUTTER IRRIGATION 01/27/17 16:30 02/03/17 16:29 01/29/17 11:22 Cefazolin Sodium/ Dextrose 50 ml @ 150 mls/hr UMBRELLA CUTTER IV 01/27/17 16:30 02/03/17 16:29 01/29/17 06:59 Chlorhexidine Gluconate (Hibiclens 4% Top Soln) 1 applic UMBRELLA CUTTER TOPICAL 01/27/17 16:30 02/03/17 16:29 01/29/17 05:30 Lactated Ringer's 1,000 ml @ 30 mls/hr Q24H PRN IV SEE LABEL COMMENTS 01/28/17 21:30 01/31/17 21:29 01/29/17 06:50 Albuterol Sulfate (Albuterol Neb) 2.5 mg Q6HR NEB NEB 01/29/17 16:00 01/29/17 21:04 Cefazolin Sodium 1000 mg/Sodium Chloride 100 ml @ 200 mls/hr Q8H IV 01/29/17 18:00 01/30/17 10:29 01/29/17 17:42 Acetaminophen 100 ml @ 400 mls/hr Q6H IV 01/29/17 13:00 01/30/17 07:14 01/29/17 12:30 Ketorolac Tromethamine (Toradol Inj) 15 mg Q6H IV PUSH 01/29/17 13:00 01/30/17 07:01 01/29/17 18:35 Morphine Sulfate (Morphine 1 Mg/ ml FREIGHT TALLIER) 30 mg UNSCH IV 01/29/17 11:30 01/29/17 12:30 FREIGHT TALLIER Dosage Infused (Pha) 1 Q8HR .XX 01/29/17 14:00 01/29/17 14:00 Lactated Ringer's 1,000 ml @ 30 mls/hr Q24H IV 01/29/17 14:00 01/29/17 12:11 Objective Remarks GENERAL: Well-nourished, well-developed patient. SKIN: Warm and dry. HEAD: Normocephalic. EYES: No scleral icterus. No injection or drainage. NECK: Supple, trachea midline. No JVD or lymphadenopathy. LYMPHATIC: No adenopathy. CARDIOVASCULAR: Regular rate and rhythm without murmurs. RESPIRATORY: decreased sounds left lung with small amount of bloody drainage from chest tube. GASTROINTESTINAL: Abdomen soft, non-tender, nondistended. EXTREMITIES: No cyanosis, or edema. MUSCULOSKELETAL: Adequate muscle tone. NEUROLOGICAL: No obvious focal deficit. Awake, alert, and oriented x3. PSYCHIATRIC: Appropriate mood and affect; insight and judgment normal. Assessment/Plan Assessment 1: adenocarcinoma of lung. Plan 1: met with family- son and in room and discussed why we could not reexpand the lung. We now have adequate tissue for molecular studies and will begin treatment once the molecular tests are back. She can go home once the chest tube is out and she is ambulatory as treatment will be as outpatient and hopefully can be initiated in a week. Danielito Lobo MD Jan 29, 2017 21:23
[2017-01-29] MEDS: PANTOPRAZOLE SOD 40 MG DELAYED RELEASE TAB PO SCH (22:09)
[2017-01-30] VITALS (28 sets, daily range): BP systolic 94–113; BP diastolic 50–64; PULSE 62–114; RESP 16–18; TEMP 97.9–98.3; O2SAT 93–99
[2017-01-30] MEDS: KETOROLAC TROMETHAMINE 30 MG/ML (IVP) VIAL IV PUSH SCH ×2 (01:56→06:24)
[2017-01-30] MEDS: RESP: ALBUTEROL 2.5 MG/3 ML NEB (SCH) NEB ×4 (03:48→21:22)
[2017-01-30 05:57] LABS: AUTOMATED NEUTROPHIL # 14.8 TH/MM3 (1.8-7.7); BASOPHIL % 0.3 % (0.0-2.0); EOSINOPHIL # 0.3 TH/MM3 (0-0.4); EOSINOPHIL % 1.8 % (0.0-4.0); HEMATOCRIT 37.2 % (35.0-46.0); HEMO FLAGS DIFF FINAL; LYMPH % 6.1 % (9.0-44.0); LYMPHOCYTE # 1.1 TH/MM3 (1.0-4.8); MEAN CELL VOLUME 81.4 FL (80.0-100.0); MEAN CORPUSCULAR HEMOGLOBIN 26.7 PG (27.0-34.0); MEAN CORPUSCULAR HGB CONC 32.8 % (32.0-36.0); MONO % 6.3 % (0.0-8.0); NEUT % 85.5 % (16.0-70.0); PLATELET COUNT 268 TH/MM3 (150-450); RED BLOOD COUNT 4.57 MIL/MM3 (4.00-5.30); RED CELL DISTRIBUTION WIDTH 13.1 % (11.6-17.2); WHITE BLOOD COUNT 17.4 TH/MM3 (4.0-11.0)
[2017-01-30] MEDS: PCA - TOTAL MG MORPHINE DELIVERED PER SHIFT SCH ×3 (06:00→22:00)
[2017-01-30 06:25] LABS: BICARBONATE 27.8 MEQ/L (21.0-32.0); POTASSIUM 3.8 MEQ/L (3.5-5.1)
[2017-01-30] MEDS: ACETAMINOPHEN 1000 MG/100 ML 100 ML IV SCH (06:27)
--- NOTE | 2017-01-30 08:07 | HHI.PR ---
Subjective Remarks this is a pleasant 56 y/o Female admitted to the hospital due to hoarseness, cough and SOB, given supplemental oxygen therapy, Chest CT demonstrated a large left pleural effusion with a heterogeneous left apical lung mass. The patient has undergone a percutaneous chest drain placement as well as percutaneous biopsy of the left upper lobe lung mass which is consistent with an adenocarcinoma. Status post Chest tube and her drainage has subsided, loculated pleural effusion as per Cardiothoracic inventory control specialist, seen in her bedroom in the presence of her , no complaint, awaiting recommendations by air pollution specialist and Cardiothoracic surgery for probable procedure. 01/28: Seen by Cardiothoracic surgery, the patient has new CXR with enlarging loculated left effusion despite drainage catheter Developing consolidation involving the medial left lung apex, accepted Left VATS with possible thoracotomy, lung biopsy decortication. for 01/29/17. 01/29: Patient somnolent seen in PACU she will be transferred to another unit on he fourth floor at this time, stable will repeat the Urinalysis the past one was abnormal and the patient was receiving Levofloxacin when that one was taken, status post VATS procedure, Drainage of loculated pleural cavities, Left posterolateral Mini Thoracotomy, Decortication of the Lung Biopsies of Diaphragmatic and chest wall lesions, Intercostal Nerve Block as per Doctor Shiela Sahni. 01/30: Seen in her bedroom in the presence of her , no complaint, no nausea, vomit or diarrhea, left chest tube draining Objective Vital Signs Date Time Temp Pulse Resp B/P (MAP) Pulse Ox O2 Delivery O2 Flow Rate FiO2 01/30/17 07:52 17 01/30/17 07:30 98.0 79 17 109/55 (73) 98 01/30/17 07:30 98 Nasal Cannula 2.00 01/30/17 07:15 76 01/30/17 06:00 80 01/30/17 06:00 18 01/30/17 06:00 18 01/30/17 05:06 75 01/30/17 04:00 77 01/30/17 03:52 98 Nasal Cannula 2.00 01/30/17 03:05 62 01/30/17 03:00 97.9 84 16 113/64 (80) 95 01/30/17 03:00 95 Nasal Cannula 2.00 21 01/30/17 02:00 62 01/30/17 01:00 62 01/30/17 00:00 70 01/29/17 23:00 97.8 78 14 90/53 (65) 97 01/29/17 23:00 97 Nasal Cannula 2.00 01/29/17 23:00 70 01/29/17 22:00 70 01/29/17 22:00 16 01/29/17 22:00 16 01/29/17 21:00 74 01/29/17 20:00 82 01/29/17 19:00 92 01/29/17 19:00 97 Nasal Cannula 2.00 01/29/17 19:00 97.9 86 16 100/56 (71) 97 Arterial Line 01/29/17 18:35 16 01/29/17 18:00 76 01/29/17 17:00 81 01/29/17 16:00 86 01/29/17 15:53 95 Nasal Cannula 2.00 01/29/17 15:00 98.1 79 17 107/52 (70) 95 01/29/17 15:00 87 01/29/17 14:00 17 01/29/17 13:45 86 17 106/61 (76) 94 01/29/17 13:30 98.2 87 21 118/57 (77) 97 Nasal Cannula 3 01/29/17 13:15 82 16 109/54 (72) 96 Nasal Cannula 3 01/29/17 13:00 82 16 107/55 (72) 96 Nasal Cannula 3 01/29/17 12:45 73 16 101/58 (72) 95 Nasal Cannula 3 01/29/17 12:30 20 01/29/17 12:30 79 20 101/55 (70) 97 Nasal Cannula 3 01/29/17 12:20 80 24 97/54 (68) 98 Nasal Cannula 3 84/58 (67) 01/29/17 12:15 80 24 97/54 (68) 98 Nasal Cannula 3 84/58 (67) 01/29/17 12:12 82 17 99/54 (69) 97 83/60 (68) 01/29/17 12:05 78 24 94/56 (69) 98 69/59 (62) 01/29/17 12:00 82 22 107/62 (77) 98 Nasal Cannula 3 01/29/17 11:55 98.1 87 18 105/65 (78) 98 Nasal Cannula 3 I/O 01/29/17 01/29/17 01/29/17 01/30/17 01/30/17 01/30/17 07:00 15:00 23:00 07:00 15:00 23:00 Intake Total 0 ml 2890 ml 935 ml 897 ml Output Total 410 ml 345 ml 1415 ml Balance 0 ml 2480 ml 590 ml -518 ml Intake Oral 0 ml 0 ml 480 ml 480 ml IV Total 390 ml 455 ml 417 ml Other 2500 ml Output Urine Total 400 ml 225 ml 1085 ml Chest Tube Drainage Total 10 ml 120 ml 330 ml # Voids 1 # Bowel Movements 0 Result Diagram: 01/30/17 0522 01/30/17 0522 Imaging Last Impressions Chest X-Ray 01/29/17 0000 Signed Impressions: Service Date/Time: Sunday, January 29, 2017 12:15 - CONCLUSION: Status post replacement of left-sided thoracostomy tube resulting in evacuation of left pleural fluid but incomplete reexpansion the left lung. Left basilar loculated pneumothorax. Left upper lobe paramediastinal mass again noted. Melchor Walls MD Brain MRI 01/24/17 0000 Signed Impressions: Service Date/Time: Tuesday, January 24, 2017 09:23 - CONCLUSION: No acute disease. In particular, no MRI evidence to suggest metastatic disease to the brain. Seamus Candelaria Jr., MD Abdomen/Pelvis CT 01/23/17 0000 Signed Impressions: Service Date/Time: January 15:28 - CONCLUSION: 1. Negative for metastatic disease to the abdomen and pelvis. 2. Multiloculated moderate sized left pleural effusion with small caliber left pigtail catheter present in the left pleural space. 3. Gallstones Abisai Dickson MD Chest Tube Insertion 01/20/17 1333 Signed Impressions: Service Date/Time: Friday, January 20, 2017 14:17 - CONCLUSION: Uncomplicated CT-guided placement of 16 Hungarian pigtail chest tube for treatment of symptomatic recurrent suspected malignant pleural effusion. Soham Chaney MD Lung Biopsy CT 01/20/17 1329 Signed Impressions: Service Date/Time: Friday, January 20, 2017 14:17 - CONCLUSION: 1. Uncomplicated CT guided 18 gauge core biopsies of left upper lobe lung mass. Soham Chaney MD Chest CT 01/16/17 0000 Signed Impressions: Service Date/Time: January 11:46 - CONCLUSION: 1. Large left pleural effusion would be amenable to percutaneous drainage. Recommend leaving a drain and send fluid for cell count as the lesion in the left lung apex is concerning for a malignant process. 2. 4.5 x 5.4 x 5.7 cm heterogeneous soft tissue density in the anteromedial aspect of the left lung apex concerning for malignancy. 3. Resulting dextroposition of the heart and mediastinal structures due to the large left effusion. Right lung is clear. Nahun Frank MD Procedures Thoracentesis left chest tube placement 01/29/17 status post VATS procedure, Drainage of loculated pleural cavities, Left posterolateral Mini Thoracotomy, Decortication of the Lung Biopsies of Diaphragmatic and chest wasll lesions, Intercostal Nerve Block as per Doctor Shiela Sahni. Other Results Laboratory Tests Test 01/16/17 10:47 01/16/17 20:21 01/16/17 20:30 01/22/17 04:21 Prothrombin Time 10.8 SEC Prothromb Time International Ratio 1.0 RATIO Activated Partial Thromboplast Time 27.7 SEC Blood Urea Nitrogen 9 MG/DL Creatinine 0.59 MG/DL Random Glucose 133 MG/DL Total Protein 7.6 GM/DL Albumin 3.4 GM/DL Calcium Level 9.0 MG/DL Alkaline Phosphatase 89 U/L Aspartate Amino Transf (AST/SGOT) 14 U/L Alanine Aminotransferase (ALT/SGPT) 37 U/L Total Bilirubin 0.4 MG/DL Sodium Level 138 MEQ/L Potassium Level 3.6 MEQ/L Chloride Level 103 MEQ/L Carbon Dioxide Level 26.3 MEQ/L Troponin I LESS THAN 0.02 NG/ML B-Type Natriuretic Peptide 24 PG/ML Body Fluid Amylase Source PLEURAL Body Fluid Amylase 12 U/L Pleural Fluid pH 8.0 Pleural Fluid WBC 1495 /MM3 Pleural Fluid RBC 9150 /MM3 Pleural Fluid Neutrophils 4 % Pleural Fluid Lymphocytes 72 % Pleural Fluid Monocytes 2 % Pleural Fluid Eosinophils 22 % Pleural Fluid Total Protein 4.1 GM/DL Pleural Fluid Albumin 2.5 G/DL Pleural Fluid LDH 373 U/L Pleural Fluid Glucose 126 MG/DL Blood Gas Puncture Site RT RADIAL Blood Gas Patient Temperature 98.6 Blood Gas HCO3 27 mmol/L Blood Gas Base Excess 3.5 mmol/L Blood Gas Oxygen Saturation 91 % Arterial Blood pH 7.47 Arterial Blood Partial Pressure CO2 38 mmHg Arterial Blood Partial Pressure O2 63 mmHG Arterial Blood Oxygen Content 16.3 Vol % Arterial Blood Carboxyhemoglobin 1.4 % Arterial Blood Methemoglobin 0.6 % Blood Gas Hemoglobin 12.7 G/DL Oxygen Delivery Device NASAL CANNULA Blood Gas Liter Flow 2.5 L/M Lactate Dehydrogenase 180 U/L Carcinoembryonic Antigen 1.0 NG/ML Test 01/25/17 03:17 01/27/17 17:15 01/27/17 18:15 01/30/17 05:22 Blood Urea Nitrogen 11 MG/DL 6 MG/DL Creatinine 0.56 MG/DL 0.51 MG/DL Random Glucose 115 MG/DL 129 MG/DL Calcium Level 8.5 MG/DL 8.6 MG/DL Magnesium Level 2.4 MG/DL Sodium Level 138 MEQ/L 139 MEQ/L Potassium Level 4.3 MEQ/L 3.8 MEQ/L Chloride Level 104 MEQ/L 104 MEQ/L Carbon Dioxide Level 26.7 MEQ/L 27.8 MEQ/L Nasal Screen MRSA (PCR) MRSA NOT DETECTED Urine Color YELLOW Urine Turbidity HAZY Urine pH 6.0 Urine Specific [place] 1.021 Urine Protein 30 mg/dL Urine Glucose (UA) NEG mg/dL Urine Ketones TRACE mg/dL Urine Occult Blood TRACE Urine Nitrite NEG Urine Bilirubin NEG Urine Urobilinogen LESS THAN 2.0 MG/DL Urine Leukocyte Esterase LARGE Urine RBC 4 /hpf Urine WBC 78 /hpf Urine Squamous Epithelial Cells 11 /hpf Urine Transitional Epithelial Cells 1 /hpf Urine Bacteria MOD /hpf Urine Hyaline Casts 3 /lpf Urine Mucus MANY /lpf Microscopic Urinalysis Comment CULTURE INDICATED White Blood Count 17.4 TH/MM3 Red Blood Count 4.57 MIL/MM3 Hemoglobin 12.2 GM/DL Hematocrit 37.2 % Mean Corpuscular Volume 81.4 FL Mean Corpuscular Hemoglobin 26.7 PG Mean Corpuscular Hemoglobin Concent 32.8 % Red Cell Distribution Width 13.1 % Platelet Count 268 TH/MM3 Mean Platelet Volume 7.3 FL Neutrophils (%) (Auto) 85.5 % Lymphocytes (%) (Auto) 6.1 % Monocytes (%) (Auto) 6.3 % Eosinophils (%) (Auto) 1.8 % Basophils (%) (Auto) 0.3 % Neutrophils # (Auto) 14.8 TH/MM3 Lymphocytes # (Auto) 1.1 TH/MM3 Monocytes # (Auto) 1.1 TH/MM3 Eosinophils # (Auto) 0.3 TH/MM3 Basophils # (Auto) 0.0 TH/MM3 CBC Comment DIFF FINAL Differential Comment Anion Gap 7 MEQ/L Estimat Glomerular Filtration Rate 124 ML/MIN Objective Remarks GENERAL: No acute distress, Somnolent. CARDIOVASCULAR: Regular rate and rhythm. RESPIRATORY: No accessory muscle use. Clear to auscultation. Diminished breath sounds left base. GASTROINTESTINAL: Abdomen soft, non-tender, nondistended. MUSCULOSKELETAL: Extremities without edema. No obvious deformities. NEUROLOGICAL: Awake and alert. Normal speech. PSYCHIATRIC: unable to evaluate at this time. Medications and IVs Current Medications Medications (Trade) Dose Ordered Sig/Alicia Route Start Time Stop Time Status Last Admin (Catapres) 0.1 mg Q6H PRN PO 01/16/17 14:30 (Vasotec Inj) 1.25 mg Q6H PRN IV PUSH 01/16/17 14:30 01/16/17 14:42 (Xanax) 0.25 mg Q8H PRN PO 01/16/17 14:30 01/28/17 22:53 (PROzac) 20 mg DAILY PO 01/21/17 11:15 01/28/17 09:03 (Tums Chew) 500 mg Q6H PRN PO 01/26/17 11:15 (Albuterol Neb) 2.5 mg Q6HR NEB NEB 01/29/17 16:00 01/30/17 03:48 (Albuterol Neb) 2.5 mg Q2HR NEB PRN NEB 01/29/17 11:30 (NS Flush) 2 ml BID IV FLUSH 01/29/17 21:00 01/29/17 22:09 (NS Flush) 2 ml UNSCH PRN IV FLUSH 01/29/17 11:30 Cefazolin Sodium 1000 mg/Sodium Chloride 100 ml @ 200 mls/hr Q8H IV 01/29/17 18:00 01/30/17 10:29 01/30/17 01:56 (Protonix) 40 mg HS PO 01/29/17 21:00 01/29/17 22:09 (Zofran Inj) 4 mg Q6H PRN IV PUSH 01/29/17 11:30 (Surfak) 240 mg HS PO 01/29/17 21:00 01/29/17 22:09 (Milk Of Magnesia Liq) 30 ml DAILY PRN PO 01/29/17 11:30 (Tylenol) 650 mg Q4H PRN PO 01/29/17 11:30 (Percocet 5-325 Mg) 1 tab Q3H PRN PO 01/29/17 11:30 (Narcan Inj) 0.4 mg UNSCH PRN IV PUSH 01/29/17 11:30 (Morphine 1 Mg/ ml ORACLE DBA) 30 mg UNSCH IV 01/29/17 11:30 01/29/17 12:30 ORACLE DBA Dosage Infused (Pha) 1 Q8HR .XX 01/29/17 14:00 01/30/17 06:00 Miscellaneous Information ALL NURSING DEPARTME... UNSCH PRN .XX 01/29/17 11:53 01/30/17 11:52 Lactated Ringer's 1,000 ml @ 30 mls/hr Q24H IV 01/29/17 14:00 01/29/17 12:11 A/P Assessment and Plan 56 years old female who presented to the hospital with significant dyspnea. Patient found to have a left apical lung mass and a large pleural effusion. She is status post biopsy and chest tube placement. Biopsy consistent with adenocarcinoma. She still has a chest tube in place. Pulmonology following. Can be discharged once cleared by Pulmonology/oncology. Left lung mass/pleural effusion: - status post thoracentesis 01/16, repeated chest x-ray with still pleural effusion, Patient underwent biopsy and chest tube placement on 01/20/17. 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 - CT abd/pelvic and MRI brain neg for metastasis, now off Levaquin. air pollution specialist following, - CT Surgery performed 01/29/17 status post VATS procedure, Drainage of loculated pleural cavities, Left posterolateral Mini Thoracotomy, Decortication of the Lung Biopsies of Diaphragmatic and chest wall lesions, Intercostal Nerve Block as per Doctor Shiela Sahni. Left chest tube draining serosanguineous fluid. awaiting final by Cardiothoracic surgery and Oncology to discharge. Anxiety Continue her home Xanax and Prozac Urinalysis demonstrated probable UTI the patient was receiving Levaquin, will repeat the UA, patient asymptomatic. DVT prophylaxis SCDs. Discharge Planning Once cleared by specialists. Tray Moe MD Jan 30, 2017 08:07
[2017-01-30] MEDS: SODIUM CHLORIDE 0.9% FLUSH 10 ML FLUSH IV FLUSH SCH ×2 (09:00→20:31)
[2017-01-30] MEDS: FLUoxetine HCL 20 MG CAP PO SCH (10:03)
[2017-01-30] MEDS: DOCUSATE SODIUM 100 MG CAP PO SCH ×2 (11:04→20:31)
[2017-01-30] MEDS: POLYETHYLENE GLYCOL 17 GM PKG PO SCH (11:04)
[2017-01-30] MEDS: ACETAMINOPHEN 325 MG TAB PO PRN ×2 (11:17→16:29)
[2017-01-30] MEDS: LACTATED RINGER'S 1000 ML INJ 1,000 ML IV SCH (14:14)
--- NOTE | 2017-01-30 16:36 | PD.CAR.PN ---
CVT Progress Note Subjective/Hospital Course: 56-year-old female who was admitted to the hospital approximately a week ago with presenting complaints of hoarseness,cough and shortness of breath necessitating supplemental oxygen therapy. Further workup following admission including a chest x-ray and a subsequent chest CT demonstrated a large left pleural effusion with a heterogeneous left apical lung mass. The patient has undergone a percutaneous chest drain placement as well as percutaneous biopsy of the left upper lobe lung mass which is consistent with an adenocarcinoma. The chest tube has drained fluid initially but now the drainage has considerably subsided. However, on chest x-ray she continues to have significant pleural effusion which appears to be loculated. We were consulted for further therapy regarding her chest findings. PAST MEDICAL HISTORY Significant for - 1. Cholesterolemia. 2. Chronic anxiety. 01/27 CXR noted: Enlarging loculated left effusion despite drainage catheter, Developing consolidation involving the medial left lung apex. very anxious , but agrees for surgery on wed Left VATS, possible thoracotomy, lung BX decortication 01/28 on room air chest tube in place for surgery in am 01/29 surgery : 1. 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 ezpap initial path noted : INVASIVE POORLY DIFFERENTIATED NON-SMALL CELL CARCINOMA WITH IMMUNOHISTOCHEMICAL FEATURES MOST CONSISTENT WITH ADENOCARCINOMA TYPE OF LUNG PRIMARY IN NEEDLE CORE BIOPSIES, CLINICALLY LEFT LUNG / Dr Lobo following Objective: GENERAL: SKIN: Warm and dry.dressing in place left posterolateral chest wall , HEAD: Normocephalic. EYES: No scleral icterus. No injection or drainage. NECK: Supple, trachea midline. No JVD or lymphadenopathy. CARDIOVASCULAR: Regular rate and rhythm without murmurs, gallops, or rubs. RESPIRATORY: diminished left lower lobe, chest tube to wall suction , + air leak GASTROINTESTINAL: Abdomen soft, non-tender, nondistended. MUSCULOSKELETAL: No cyanosis, or edema. BACK: Nontender without obvious deformity. No CVA tenderness. Vital Signs Date Time Temp Pulse Resp B/P (MAP) Pulse Ox O2 Delivery O2 Flow Rate FiO2 01/30/17 16:00 87 01/30/17 15:35 95 21 01/30/17 15:00 93 11/30/17 15:00 98.1 75 17 102/52 (69) 95 01/30/17 15:00 95 Room Air 01/30/17 14:00 17 01/30/17 14:00 78 01/30/17 14:00 17 01/30/17 13:00 76 01/30/17 12:25 18 01/30/17 12:00 82 01/30/17 11:00 93 01/30/17 11:00 98.3 80 17 103/55 (71) 95 01/30/17 11:00 95 Room Air 01/30/17 10:00 96 01/30/17 09:00 114 01/30/17 08:19 99 01/30/17 08:00 76 01/30/17 07:52 17 01/30/17 07:30 98.0 79 17 109/55 (73) 98 01/30/17 07:30 98 Nasal Cannula 2.00 01/30/17 07:15 76 01/30/17 06:00 80 01/30/17 06:00 18 01/30/17 06:00 18 01/30/17 05:06 75 01/30/17 04:00 77 01/30/17 03:52 98 Nasal Cannula 2.00 01/30/17 03:05 62 01/30/17 03:00 97.9 84 16 113/64 (80) 95 01/30/17 03:00 95 Nasal Cannula 2.00 21 01/30/17 02:00 62 01/30/17 01:00 62 01/30/17 00:00 70 01/29/17 23:00 97.8 78 14 90/53 (65) 97 01/29/17 23:00 97 Nasal Cannula 2.00 01/29/17 23:00 70 01/29/17 22:00 70 01/29/17 22:00 16 01/29/17 22:00 16 01/29/17 21:00 74 01/29/17 20:00 82 01/29/17 19:00 92 01/29/17 19:00 97 Nasal Cannula 2.00 01/29/17 19:00 97.9 86 16 100/56 (71) 97 Arterial Line 01/29/17 18:35 16 01/29/17 18:00 76 01/29/17 17:00 81 Labs: Laboratory Tests Test 01/30/17 05:22 White Blood Count 17.4 TH/MM3 (4.0-11.0) Red Blood Count 4.57 MIL/MM3 (4.00-5.30) Hemoglobin 12.2 GM/DL (11.6-15.3) Hematocrit 37.2 % (35.0-46.0) Mean Corpuscular Volume 81.4 FL (80.0-100.0) Mean Corpuscular Hemoglobin 26.7 PG (27.0-34.0) Mean Corpuscular Hemoglobin Concent 32.8 % (32.0-36.0) Red Cell Distribution Width 13.1 % (11.6-17.2) Platelet Count 268 TH/MM3 (150-450) Mean Platelet Volume 7.3 FL (7.0-11.0) Neutrophils (%) (Auto) 85.5 % (16.0-70.0) Lymphocytes (%) (Auto) 6.1 % (9.0-44.0) Monocytes (%) (Auto) 6.3 % (0.0-8.0) Eosinophils (%) (Auto) 1.8 % (0.0-4.0) Basophils (%) (Auto) 0.3 % (0.0-2.0) Neutrophils # (Auto) 14.8 TH/MM3 (1.8-7.7) Lymphocytes # (Auto) 1.1 TH/MM3 (1.0-4.8) Monocytes # (Auto) 1.1 TH/MM3 (0-0.9) Eosinophils # (Auto) 0.3 TH/MM3 (0-0.4) Basophils # (Auto) 0.0 TH/MM3 (0-0.2) CBC Comment DIFF FINAL Differential Comment Blood Urea Nitrogen 6 MG/DL (7-18) Creatinine 0.51 MG/DL (0.50-1.00) Random Glucose 129 MG/DL (74-106) Calcium Level 8.6 MG/DL (8.5-10.1) Sodium Level 139 MEQ/L (136-145) Potassium Level 3.8 MEQ/L (3.5-5.1) Chloride Level 104 MEQ/L (98-107) Carbon Dioxide Level 27.8 MEQ/L (21.0-32.0) Anion Gap 7 MEQ/L (5-15) Estimat Glomerular Filtration Rate 124 ML/MIN (>89) Result Diagram: 01/30/1752101/30/17521 (1) Lung cancer Plan: + invasive poorly differentiated NSC adenocarcinoma, no mets to Brain or abdomen/ pelvis Dr Lobo following for surgery in am (2) Pleural effusion (3) Lung mass (4) Left Video Assisted Thoracoscopy (VATS) Plan: pain control, pulm toileting nebs Whitney Silva Jan 30, 2017 16:36
--- NOTE | 2017-01-30 16:39 | HHI.FF ---
Face to Face Verification Diagnosis: (1) Pleural effusion (2) Lung mass (3) Lung cancer (4) Left Video Assisted Thoracoscopy (VATS) Home Health Nursing Order: Signs/symptoms of disease process Medication education-adverse effect Wound care and dressing changes Nursing assessment with vital signs Home Health Aide Instructions: Thoracic Surgery patients Mandatory frequency Assess and evaluation, 2-3 x a week for one week Initial visit 1. Review post chest surgery instructions chest precautions, Activity, Elastic hose, Incision care, Driving, Incentive spirometry, Smoking, Grants , Work and other) 2. Need Betadine to paint incision 3. Medication reconciliation 4. Importance of follow up care/ check on appointments 5. Make calendar record temperature daily 6. When to call Home nurse, review instructions, phone list 7. Incentive Spirometry, demonstration Visit 1- Begin discharge instruction for patient family and/ or caregiver using teach back method- 1. Signs and symptoms of infection 2. Disease characteristics 3. Medicines and side effects 4. Foods and nutrition/ appetite 5. Infection control/ hand washing/ hygiene Visit 2- Continue teaching 1. Discharge instructions- include additional information on smoking cessation , Visit 3- Continue teaching- 1. Cough and deep breathing, incision monitoring. For any questions please call : / [facility] Incentive spirometry Q1 hr x 10, while awake, also use acapella device hourly whole awake chest wall Precautions: NO pushing or pulling, ( pt must use chest pillow to support chest with all activities and with coughing Daily incision care: ok to shower daily, no tub bath. Wash all incisions with liquid dial soap, clean wash cloth to each site, rinse and pat dry. Observe for any signs of infection, such as drainage which is dark yellow, elizabeth, green or foul smelling. Immediately report to the surgeon any drainage from the chest incision, or legs, and for any abnormal drainage from the chest tube sites. Notify surgeon if any temp >101.5 degrees F. When specialty dressing removed/ or if you do not have one, continue to shower daily as above, then rinse and pat incision dry and paint with betadine daily x 5 days. Allow steri strips to fall off if you have any. Avoid lotions, creams, salves, oils, etc. for the first month F/U appointment: as per [facility] instructions: PCP in 2 weeks, CV surgeon 2 weeks, Caramel Candy Maker Helper 3-4 weeks For any questions regarding incisions/ dressing / meds / post op care or above Symptoms, Friday 8am-5pm Heart & Vascular Surgery Office ( Dr. Sahni & Dr. Sethi), After Hours / Nights (5pm -8am) Weekends and Holidays Please call [facility] ([facility]) Charge Nurse I have seen patient Laurie Ratliff on 01/30/17. My clinical findings support the need for the requested home health care services because: Deconditioned w/ increased weakness I certify that my clinical findings support that this patient is homebound because: Post-op weakness Whitney Steven Jan 30, 2017 16:39
[2017-01-30] MEDS: PANTOPRAZOLE SOD 40 MG DELAYED RELEASE TAB PO SCH (20:31)
[2017-01-30] MEDS: oxyCODONE/ACETAMINOPHEN 5 MG/325 MG TAB PO PRN (20:35)
[2017-01-31] VITALS (24 sets, daily range): BP systolic 83–126; BP diastolic 49–58; PULSE 68–92; RESP 17–19; TEMP 98.1–98.2; O2SAT 94–96
[2017-01-31] MEDS: RESP: ALBUTEROL 2.5 MG/3 ML NEB (SCH) NEB ×4 (03:25→21:34)
[2017-01-31] MEDS: PCA - TOTAL MG MORPHINE DELIVERED PER SHIFT SCH ×3 (06:00→22:00)
--- NOTE | 2017-01-31 06:03 | RADRPT ---
EXAM DATE/TIME: 01/31/2017 05:10 [facility] COMPARISON: CHEST SINGLE AP, January 27, 2017, 10:47. CHEST SINGLE AP, January 29, 2017, 12:15. INDICATIONS : Chest tube removal- Evaluate for pneumothorax MEDICAL HISTORY : Carcinoma, lung. SURGICAL HISTORY : Left thoracotomy ENCOUNTER: Subsequent ACUITY: 1 week PAIN SCORE: 7/10 LOCATION: Bilateral chest FINDINGS: Portable AP view of the chest demonstrates a normal-sized cardiac silhouette. A left chest tube remai ns present and there is air in the left pleural space with airspace opacity and pleural thickening. T he opacity at the left lung apex is stable. Right lung demonstrates no abnormality. CONCLUSION: Stable chest x-ray with left chest tube present and persistent left pleural air, pleural thickening, and left lung airspace opacity. Anup Rodriguez MD on January 31, 2017 at 6:01 Board Certified Radiologist. This report was verified electronically.
[2017-01-31] MEDS: POLYETHYLENE GLYCOL 17 GM PKG PO SCH (08:14)
[2017-01-31] MEDS: oxyCODONE/ACETAMINOPHEN 5 MG/325 MG TAB PO PRN ×5 (08:15→22:08)
[2017-01-31] MEDS: FLUoxetine HCL 20 MG CAP PO SCH (08:15)
[2017-01-31] MEDS: DOCUSATE SODIUM 100 MG CAP PO SCH ×2 (08:15→21:01)
[2017-01-31] MEDS: SODIUM CHLORIDE 0.9% FLUSH 10 ML FLUSH IV FLUSH SCH ×2 (08:17→21:00)
--- NOTE | 2017-01-31 10:16 | PD.ONC.PN ---
Subjective Subjective Remarks Afebrile Has some left-sided pain around the chest tube insertion; worse since last night Anxious to know when treatment will start Still with positive attitude Objective Data Date Time Temp Pulse Resp B/P (MAP) Pulse Ox O2 Delivery O2 Flow Rate FiO2 01/31/17 10:00 83 01/31/17 09:17 17 01/31/17 09:00 85 01/31/17 08:00 78 01/31/17 07:15 95 Room Air 01/31/17 07:15 73 01/31/17 07:15 98.2 88 19 118/58 (78) 95 01/31/17 06:00 18 01/31/17 06:00 76 01/31/17 06:00 18 01/31/17 05:00 78 01/31/17 04:00 80 01/31/17 03:00 97 Room Air 01/31/17 03:00 73 01/31/17 03:00 98.2 84 18 106/55 (72) 95 01/31/17 02:00 79 01/31/17 01:00 68 01/31/17 00:00 74 01/30/17 23:00 98.3 80 18 96/50 (65) 93 01/30/17 23:00 86 01/30/17 23:00 95 Room Air 01/30/17 22:00 76 01/30/17 22:00 18 01/30/17 22:00 18 01/30/17 21:00 76 01/30/17 20:00 97.9 79 18 94/55 (68) 95 01/30/17 20:00 80 01/30/17 20:00 Room Air 01/30/17 19:00 77 01/30/17 18:00 92 01/30/17 18:00 17 01/30/17 16:00 87 01/30/17 15:35 95 21 01/30/17 15:00 93 01/30/17 15:00 98.1 75 17 102/52 (69) 95 01/30/17 15:00 95 Room Air 01/30/17 14:00 17 01/30/17 14:00 78 01/30/17 14:00 17 01/30/17 13:00 76 01/30/17 12:00 82 01/30/17 11:00 93 01/30/17 11:00 98.3 80 17 103/55 (71) 95 01/30/17 11:00 95 Room Air 01/31/17 01/31/17 01/31/17 07:00 15:00 23:00 Intake Total 770 ml Output Total 990 ml Balance -220 ml Result Diagram: 01/30/17 0501/30/17 05 Culture Results Microbiology Date/Time Source Procedure Growth Status 01/29/17 11:10 Wound Lung Fungal Smear - Final NO FUNGAL ELEMENTS SEEN. Resulted 01/29/17 11:10 Wound Lung Fungal Culture Pending Resulted 01/29/17 11:10 Wound Lung Acid Fast Stain - Final NO ACID FAST BACILLI SEEN Resulted 01/29/17 11:10 Wound Lung Mycobacterial Culture Pending Resulted 01/29/17 11:10 Wound Lung Gram Stain - Final Resulted 01/29/17 11:10 Wound Lung Wound Culture - Preliminary NO GROWTH IN 48 HOURS. Resulted Imaging Studies Last 24 hours Impressions Chest X-Ray 01/31/17 0600 Signed Impressions: Service Date/Time: Tuesday, January 31, 2017 05:10 - CONCLUSION: Stable chest x-ray with left chest tube present and persistent left pleural air, pleural thickening, and left lung airspace opacity. Anup Rodriguez MD Administered Medications Medications (Trade) Dose Ordered Sig/Alicia Route PRN Reason Start Time Stop Time Status Last Admin Dose Admin Enalaprilat (Vasotec Inj) 1.25 mg Q6H PRN IV PUSH bp>160/90 01/16/17 14:30 01/16/17 14:42 Alprazolam (Xanax) 0.25 mg Q8H PRN PO anxiety 01/16/17 14:30 01/28/17 22:53 Fluoxetine HCl (PROzac) 20 mg DAILY PO 01/21/17 11:15 01/31/17 08:15 Albuterol Sulfate (Albuterol Neb) 2.5 mg Q6HR NEB NEB 01/29/17 16:00 01/31/17 03:25 Sodium Chloride (NS Flush) 2 ml BID IV FLUSH 01/29/17 21:00 01/31/17 08:17 Pantoprazole Sodium (Protonix) 40 mg HS PO 01/29/17 21:00 01/30/17 20:31 Acetaminophen (Tylenol) 650 mg Q4H PRN PO TEMPERATURE > 101 F 01/29/17 11:30 01/30/17 16:29 Oxycodone/ Acetaminophen (Percocet 5-325 Mg) 1 tab Q3H PRN PO PAIN SCALE 3 TO 5 01/29/17 11:30 01/31/17 08:15 Morphine Sulfate (Morphine 1 Mg/ ml OUTREACH ASSOCIATE) 30 mg UNSCH IV 01/29/17 11:30 01/29/17 12:30 OUTREACH ASSOCIATE Dosage Infused (Pha) 1 Q8HR .XX 01/29/17 14:00 01/31/17 06:00 Lactated Ringer's 1,000 ml @ 30 mls/hr Q24H IV 01/29/17 14:00 01/30/17 14:14 Docusate Sodium (Colace) 100 mg BID PO 01/30/17 10:30 01/31/17 08:15 Polyethylene Glycol (Miralax) 17 gm DAILY PO 01/30/17 10:30 01/31/17 08:14 Objective Remarks GENERAL: Pleasant older female, resting in bed holding pillow to L chest. SKIN: Warm and dry. Chest tube inserted to left scapular area. Moderate amount of serous drainage noted in collection device. HEAD: Normocephalic. EYES: No injection or drainage. NECK: Supple, trachea midline. No JVD or lymphadenopathy. CARDIOVASCULAR: Regular rate and rhythm without murmurs. RESPIRATORY: A few crackles in the left lung base GASTROINTESTINAL: Abdomen soft, non-tender, nondistended. EXTREMITIES: No cyanosis, or edema. MUSCULOSKELETAL: Adequate muscle tone. NEUROLOGICAL: No obvious focal deficit. Awake, alert, and oriented x3. Assessment/Plan Assessment 1: adenocarcinoma of lung. Plan 1. Pathology was called and it was discussed that we have added ROS to the molecular testing. Unfortunately this takes some time and we are at a standstill in treatment until we have these results. 2. Pt was encouraged that we are waiting on this because it means the difference between chemotherapy or possibly a pill that she can take at home. We will be closely following for the results of the molecular studies and will give appropriate treatment as soon as we have some definitive answers. Attending Statement The exam, history, and the medical decision-making described in the above note were completed with the assistance of the mid-level provider. I reviewed and agree with the findings presented. I attest that I had a [id number] encounter with the patient on the same day, and personally performed and documented my assessment and findings in the medical record. Spoke with pathology and they have sent material to reference lab for test and once back will initiate treatment . Once tube is out she can go home and can follow as outpatient. Sally Lewis Jan 31, 2017 10:16 Danielito Lobo MD Jan 31, 2017 18:49
--- NOTE | 2017-01-31 13:08 | HHI.PR ---
Subjective Remarks Went for vats thoracotomy and Biopsies of lesions on left diaphragm and pleural decortication. Biopsy suggests Non Small cell CA.She has some pain in chest and On [employer] . On O2 3 L. Sleepy. Objective Vital Signs Date Time Temp Pulse Resp B/P (MAP) Pulse Ox O2 Delivery O2 Flow Rate FiO2 01/31/17 12:32 19 01/31/17 12:00 76 01/31/17 11:00 98.2 82 18 100/58 (72) 94 01/31/17 11:00 80 01/31/17 11:00 94 Room Air 01/31/17 10:00 83 01/31/17 09:00 85 01/31/17 08:00 78 01/31/17 07:15 95 Room Air 01/31/17 07:15 73 01/31/17 07:15 98.2 88 19 118/58 (78) 95 01/31/17 06:00 18 01/31/17 06:00 76 01/31/17 06:00 18 01/31/17 05:00 78 01/31/17 04:00 80 01/31/17 03:00 97 Room Air 01/31/17 03:00 73 01/31/17 03:00 98.2 84 18 106/55 (72) 95 01/31/17 02:00 79 01/31/17 01:00 68 01/31/17 00:00 74 01/30/17 23:00 98.3 80 18 96/50 (65) 93 01/30/17 23:00 86 01/30/17 23:00 95 Room Air 01/30/17 22:00 76 01/30/17 22:00 18 01/30/17 22:00 18 01/30/17 21:00 76 01/30/17 20:00 97.9 79 18 94/55 (68) 95 01/30/17 20:00 80 01/30/17 20:00 Room Air 01/30/17 19:00 77 01/30/17 18:00 92 01/30/17 18:00 17 01/30/17 16:00 87 01/30/17 15:35 95 21 01/30/17 15:00 93 01/30/17 15:00 98.1 75 17 102/52 (69) 95 11/30/17 15:00 95 Room Air 01/30/17 14:00 17 01/30/17 14:00 78 01/30/17 14:00 17 I/O 01/30/17 01/30/17 01/30/17 01/31/17 01/31/17 01/31/17 07:00 15:00 23:00 07:00 15:00 23:00 Intake Total 897 ml 100 ml 840 ml 770 ml Output Total 1415 ml 925 ml 990 ml Balance -518 ml 100 ml -85 ml -220 ml Intake Oral 480 ml 720 ml 400 ml IV Total 417 ml 100 ml 120 ml 370 ml Output Urine Total 1085 ml 625 ml 800 ml Chest Tube Drainage Total 330 ml 300 ml 190 ml # Bowel Movements 0 Result Diagram: 01/30/1752101/30/17521 Procedures Thoracentesis left chest tube placement 01/29/17 status post VATS procedure, Drainage of loculated pleural cavities, Left posterolateral Mini Thoracotomy, Decortication of the Lung Biopsies of Diaphragmatic and chest wasll lesions, Intercostal Nerve Block as per Doctor Shiela Sahni. Objective Remarks GENERAL: This is an averagely built middle-aged white female who is alert, pale. HEENT: Head normocephalic. Pupils are reactive. Tongue moist. Throat is clear. NECK: No bruits or thyroid enlargement or lymphadenopathy. CHEST: Decreased breath sounds over the left mid and lower chest . HEART: Sounds are irregular S1 and S2. No definite murmur. No S3. ABDOMEN: Soft, protuberant. No masses. No organomegaly. Bowel sounds are active. EXTREMITIES: No lesions or edema. NEUROLOGIC: Reflexes are 1+ with no gross motor deficits. RECTAL: Exam is deferred. SKIN: No lesions. Assessment and Plan Assessment and Plan IMPRESSION 1. Large left pleural effusion with atelectasis in left lung. 2. Left upper lobe lung mass, rule out malignancy 3. Anxiety. Plan : 1. Morphine 3 mg q4 h PRN for pain 2. O2 2 L prn. 3. Leave chest tube to Drain. 4. CXR in am 5. Ambulate with help 6. IS at bedside q3h. Beckie Sahu MD Jan 31, 2017 13:08
[2017-01-31] MEDS: LACTATED RINGER'S 1000 ML INJ 1,000 ML IV SCH (14:18)
--- NOTE | 2017-01-31 15:42 | HHI.PR ---
Subjective Remarks this is a pleasant 56 y/o Female admitted to the hospital due to hoarseness, cough and SOB, given supplemental oxygen therapy, Chest CT demonstrated a large left pleural effusion with a heterogeneous left apical lung mass. The patient has undergone a percutaneous chest drain placement as well as percutaneous biopsy of the left upper lobe lung mass which is consistent with an adenocarcinoma. Status post Chest tube and her drainage has subsided, loculated pleural effusion as per Cardiothoracic inventory specialist manager, seen in her bedroom in the presence of her , no complaint, awaiting recommendations by geological specialist and Cardiothoracic surgery for probable procedure. 01/28: Seen by Cardiothoracic surgery, the patient has new CXR with enlarging loculated left effusion despite drainage catheter Developing consolidation involving the medial left lung apex, accepted Left VATS with possible thoracotomy, lung biopsy decortication. for 01/29/17. 01/29: Patient somnolent seen in PACU she will be transferred to another unit on he fourth floor at this time, stable will repeat the Urinalysis the past one was abnormal and the patient was receiving Levofloxacin when that one was taken, status post VATS procedure, Drainage of loculated pleural cavities, Left posterolateral Mini Thoracotomy, Decortication of the Lung Biopsies of Diaphragmatic and chest wall lesions, Intercostal Nerve Block as per Doctor Shiela Sahni. 01/30: Seen in her bedroom in the presence of her , no complaint, no nausea, vomit or diarrhea, left chest tube draining 01/31: Stable in her bedroom in the presence of her and her respiratory therapy, no complaint, chest tube draining. No nausea, vomit or diarrhea. Objective Vital Signs Date Time Temp Pulse Resp B/P (MAP) Pulse Ox O2 Delivery O2 Flow Rate FiO2 01/31/17 15:23 16 01/31/17 15:00 96 Room Air 01/31/17 15:00 84 01/31/17 15:00 79 17 98/49 (65) 96 01/31/17 14:24 17 01/31/17 14:00 78 01/31/17 14:00 16 01/31/17 13:00 76 01/31/17 12:00 76 01/31/17 11:00 98.2 82 18 100/58 (72) 94 01/31/17 11:00 80 01/31/17 11:00 94 Room Air 01/31/17 10:00 83 01/31/17 09:00 85 01/31/17 08:00 78 01/31/17 07:15 95 Room Air 01/31/17 07:15 73 01/31/17 07:15 98.2 88 19 118/58 (78) 95 01/31/17 06:00 18 01/31/17 06:00 76 01/31/17 06:00 18 01/31/17 05:00 78 01/31/17 04:00 80 01/31/17 03:00 97 Room Air 01/31/17 03:00 73 01/31/17 03:00 98.2 84 18 106/55 (72) 95 01/31/17 02:00 79 01/31/17 01:00 68 01/31/17 00:00 74 01/30/17 23:00 98.3 80 18 96/50 (65) 93 01/30/17 23:00 86 01/30/17 23:00 95 Room Air 01/30/17 22:00 76 01/30/17 22:00 18 01/30/17 22:00 18 01/30/17 21:00 76 01/30/17 20:00 97.9 79 18 94/55 (68) 95 01/30/17 20:00 80 01/30/17 20:00 Room Air 01/30/17 19:00 77 01/30/17 18:00 92 01/30/17 18:00 17 01/30/17 16:00 87 I/O 01/30/17 01/30/17 01/30/17 01/31/17 01/31/17 01/31/17 07:00 15:00 23:00 07:00 15:00 23:00 Intake Total 897 ml 100 ml 840 ml 770 ml 222 ml Output Total 1415 ml 925 ml 990 ml Balance -518 ml 100 ml -85 ml -220 ml 222 ml Intake Oral 480 ml 720 ml 400 ml IV Total 417 ml 100 ml 120 ml 370 ml 222 ml Output Urine Total 1085 ml 625 ml 800 ml Chest Tube Drainage Total 330 ml 300 ml 190 ml # Bowel Movements 0 Result Diagram: 01/30/1752101/30/17521 Imaging Last Impressions Chest X-Ray 12/1/17 0600 Signed Impressions: Service Date/Time: Tuesday, January 31, 2017 05:10 - CONCLUSION: Stable chest x-ray with left chest tube present and persistent left pleural air, pleural thickening, and left lung airspace opacity. Anup Rodriguez MD Brain MRI 01/24/17 0000 Signed Impressions: Service Date/Time: Tuesday, January 24, 2017 09:23 - CONCLUSION: No acute disease. In particular, no MRI evidence to suggest metastatic disease to the brain. Seamus Candelaria Jr., MD Abdomen/Pelvis CT 01/23/17 0000 Signed Impressions: Service Date/Time: January 15:28 - CONCLUSION: 1. Negative for metastatic disease to the abdomen and pelvis. 2. Multiloculated moderate sized left pleural effusion with small caliber left pigtail catheter present in the left pleural space. 3. Gallstones Abisai Dickson MD Chest Tube Insertion 01/20/17 1333 Signed Impressions: Service Date/Time: Friday, January 20, 2017 14:17 - CONCLUSION: Uncomplicated CT-guided placement of 16 Indonesian pigtail chest tube for treatment of symptomatic recurrent suspected malignant pleural effusion. Soham Chaney MD Lung Biopsy CT 01/20/17 1329 Signed Impressions: Service Date/Time: Friday, January 20, 2017 14:17 - CONCLUSION: 1. Uncomplicated CT guided 18 gauge core biopsies of left upper lobe lung mass. Soham Chaney MD Chest CT 01/16/17 0000 Signed Impressions: Service Date/Time: January 11:46 - CONCLUSION: 1. Large left pleural effusion would be amenable to percutaneous drainage. Recommend leaving a drain and send fluid for cell count as the lesion in the left lung apex is concerning for a malignant process. 2. 4.5 x 5.4 x 5.7 cm heterogeneous soft tissue density in the anteromedial aspect of the left lung apex concerning for malignancy. 3. Resulting dextroposition of the heart and mediastinal structures due to the large left effusion. Right lung is clear. Nahun Frank MD Procedures Thoracentesis left chest tube placement 01/29/17 status post VATS procedure, Drainage of loculated pleural cavities, Left posterolateral Mini Thoracotomy, Decortication of the Lung Biopsies of Diaphragmatic and chest wasll lesions, Intercostal Nerve Block as per Doctor Shiela Sahni. Other Results Laboratory Tests Test 01/16/17 10:47 01/16/17 20:21 01/16/17 20:30 01/22/17 04:21 Prothrombin Time 10.8 SEC Prothromb Time International Ratio 1.0 RATIO Activated Partial Thromboplast Time 27.7 SEC Blood Urea Nitrogen 9 MG/DL Creatinine 0.59 MG/DL Random Glucose 133 MG/DL Total Protein 7.6 GM/DL Albumin 3.4 GM/DL Calcium Level 9.0 MG/DL Alkaline Phosphatase 89 U/L Aspartate Amino Transf (AST/SGOT) 14 U/L Alanine Aminotransferase (ALT/SGPT) 37 U/L Total Bilirubin 0.4 MG/DL Sodium Level 138 MEQ/L Potassium Level 3.6 MEQ/L Chloride Level 103 MEQ/L Carbon Dioxide Level 26.3 MEQ/L Troponin I LESS THAN 0.02 NG/ML B-Type Natriuretic Peptide 24 PG/ML Body Fluid Amylase Source PLEURAL Body Fluid Amylase 12 U/L Pleural Fluid pH 8.0 Pleural Fluid WBC 1495 /MM3 Pleural Fluid RBC 9150 /MM3 Pleural Fluid Neutrophils 4 % Pleural Fluid Lymphocytes 72 % Pleural Fluid Monocytes 2 % Pleural Fluid Eosinophils 22 % Pleural Fluid Total Protein 4.1 GM/DL Pleural Fluid Albumin 2.5 G/DL Pleural Fluid LDH 373 U/L Pleural Fluid Glucose 126 MG/DL Blood Gas Puncture Site RT RADIAL Blood Gas Patient Temperature 98.6 Blood Gas HCO3 27 mmol/L Blood Gas Base Excess 3.5 mmol/L Blood Gas Oxygen Saturation 91 % Arterial Blood pH 7.47 Arterial Blood Partial Pressure CO2 38 mmHg Arterial Blood Partial Pressure O2 63 mmHG Arterial Blood Oxygen Content 16.3 Vol % Arterial Blood Carboxyhemoglobin 1.4 % Arterial Blood Methemoglobin 0.6 % Blood Gas Hemoglobin 12.7 G/DL Oxygen Delivery Device NASAL CANNULA Blood Gas Liter Flow 2.5 L/M Lactate Dehydrogenase 180 U/L Carcinoembryonic Antigen 1.0 NG/ML Test 01/25/17 03:17 01/27/17 17:15 01/27/17 18:15 01/30/17 05:22 Blood Urea Nitrogen 11 MG/DL 6 MG/DL Creatinine 0.56 MG/DL 0.51 MG/DL Random Glucose 115 MG/DL 129 MG/DL Calcium Level 8.5 MG/DL 8.6 MG/DL Magnesium Level 2.4 MG/DL Sodium Level 138 MEQ/L 139 MEQ/L Potassium Level 4.3 MEQ/L 3.8 MEQ/L Chloride Level 104 MEQ/L 104 MEQ/L Carbon Dioxide Level 26.7 MEQ/L 27.8 MEQ/L Nasal Screen MRSA (PCR) MRSA NOT DETECTED Urine Color YELLOW Urine Turbidity HAZY Urine pH 6.0 Urine Specific [place] 1.021 Urine Protein 30 mg/dL Urine Glucose (UA) NEG mg/dL Urine Ketones TRACE mg/dL Urine Occult Blood TRACE Urine Nitrite NEG Urine Bilirubin NEG Urine Urobilinogen LESS THAN 2.0 MG/DL Urine Leukocyte Esterase LARGE Urine RBC 4 /hpf Urine WBC 78 /hpf Urine Squamous Epithelial Cells 11 /hpf Urine Transitional Epithelial Cells 1 /hpf Urine Bacteria MOD /hpf Urine Hyaline Casts 3 /lpf Urine Mucus MANY /lpf Microscopic Urinalysis Comment CULTURE INDICATED White Blood Count 17.4 TH/MM3 Red Blood Count 4.57 MIL/MM3 Hemoglobin 12.2 GM/DL Hematocrit 37.2 % Mean Corpuscular Volume 81.4 FL Mean Corpuscular Hemoglobin 26.7 PG Mean Corpuscular Hemoglobin Concent 32.8 % Red Cell Distribution Width 13.1 % Platelet Count 268 TH/MM3 Mean Platelet Volume 7.3 FL Neutrophils (%) (Auto) 85.5 % Lymphocytes (%) (Auto) 6.1 % Monocytes (%) (Auto) 6.3 % Eosinophils (%) (Auto) 1.8 % Basophils (%) (Auto) 0.3 % Neutrophils # (Auto) 14.8 TH/MM3 Lymphocytes # (Auto) 1.1 TH/MM3 Monocytes # (Auto) 1.1 TH/MM3 Eosinophils # (Auto) 0.3 TH/MM3 Basophils # (Auto) 0.0 TH/MM3 CBC Comment DIFF FINAL Differential Comment Anion Gap 7 MEQ/L Estimat Glomerular Filtration Rate 124 ML/MIN Objective Remarks GENERAL: No acute distress, Somnolent. CARDIOVASCULAR: Regular rate and rhythm. RESPIRATORY: No accessory muscle use. Clear to auscultation. Diminished breath sounds left base. Left chest tube in place. GASTROINTESTINAL: Abdomen soft, non-tender, nondistended. MUSCULOSKELETAL: Extremities without edema. No obvious deformities. NEUROLOGICAL: Awake and alert. Normal speech. PSYCHIATRIC: unable to evaluate at this time. Medications and IVs Current Medications Medications (Trade) Dose Ordered Sig/Alicia Route Start Time Stop Time Status Last Admin (Catapres) 0.1 mg Q6H PRN PO 01/16/17 14:30 (Vasotec Inj) 1.25 mg Q6H PRN IV PUSH 01/16/17 14:30 01/16/17 14:42 (Xanax) 0.25 mg Q8H PRN PO 01/16/17 14:30 01/28/17 22:53 (PROzac) 20 mg DAILY PO 01/21/17 11:15 01/31/17 08:15 (Tums Chew) 500 mg Q6H PRN PO 01/26/17 11:15 (Albuterol Neb) 2.5 mg Q6HR NEB NEB 01/29/17 16:00 01/31/17 03:25 (Albuterol Neb) 2.5 mg Q2HR NEB PRN NEB 01/29/17 11:30 (NS Flush) 2 ml BID IV FLUSH 01/29/17 21:00 01/31/17 08:17 (NS Flush) 2 ml UNSCH PRN IV FLUSH 01/29/17 11:30 (Protonix) 40 mg HS PO 01/29/17 21:00 01/30/17 20:31 (Zofran Inj) 4 mg Q6H PRN IV PUSH 01/29/17 11:30 (Milk Of Magnesia Liq) 30 ml DAILY PRN PO 01/29/17 11:30 (Tylenol) 650 mg Q4H PRN PO 01/29/17 11:30 01/30/17 16:29 (Percocet 5-325 Mg) 1 tab Q3H PRN PO 01/29/17 11:30 01/31/17 14:16 (Narcan Inj) 0.4 mg UNSCH PRN IV PUSH 01/29/17 11:30 (Morphine 1 Mg/ ml ASSISTANT FOREMAN) 30 mg UNSCH IV 01/29/17 11:30 01/29/17 12:30 ASSISTANT FOREMAN Dosage Infused (Pha) 1 Q8HR .XX 01/29/17 14:00 01/31/17 14:00 Lactated Ringer's 1,000 ml @ 30 mls/hr Q24H IV 01/29/17 14:00 01/31/17 14:18 (Colace) 100 mg BID PO 01/30/17 10:30 01/31/17 08:15 (Miralax) 17 gm DAILY PO 01/30/17 10:30 01/31/17 08:14 A/P Assessment and Plan 56 years old female who presented to the hospital with significant dyspnea. Patient found to have a left apical lung mass and a large pleural effusion. She is status post biopsy and chest tube placement. Biopsy consistent with adenocarcinoma. She still has a chest tube in place. Pulmonology following. Can be discharged once cleared by Pulmonology/oncology. Left lung mass/pleural effusion: - status post thoracentesis 01/16, repeated chest x-ray with still pleural effusion, Patient underwent biopsy and chest tube placement on 01/20/17. 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 - CT abd/pelvic and MRI brain neg for metastasis, now off Levaquin. geological specialist following, - CT Surgery performed 01/29/17 status post VATS procedure, Drainage of loculated pleural cavities, Left posterolateral Mini Thoracotomy, Decortication of the Lung Biopsies of Diaphragmatic and chest wall lesions, Intercostal Nerve Block as per Doctor Shiela Sahni. Left chest tube draining serosanguineous fluid. awaiting final by Cardiothoracic surgery and Oncology to discharge. Anxiety Continue her home Xanax and Prozac Urinalysis demonstrated probable UTI the patient was receiving Levaquin, will repeat the UA, patient asymptomatic. DVT prophylaxis SCDs. Discharge Planning Once cleared by specialists. Tray Moe MD Jan 31, 2017 15:42
--- NOTE | 2017-01-31 15:50 | PD.CAR.PN ---
CVT Progress Note Subjective/Hospital Course: 56-year-old female who was admitted to the hospital approximately a week ago with presenting complaints of hoarseness,cough and shortness of breath necessitating supplemental oxygen therapy. Further workup following admission including a chest x-ray and a subsequent chest CT demonstrated a large left pleural effusion with a heterogeneous left apical lung mass. The patient has undergone a percutaneous chest drain placement as well as percutaneous biopsy of the left upper lobe lung mass which is consistent with an adenocarcinoma. The chest tube has drained fluid initially but now the drainage has considerably subsided. However, on chest x-ray she continues to have significant pleural effusion which appears to be loculated. We were consulted for further therapy regarding her chest findings. PAST MEDICAL HISTORY Significant for - 1. Cholesterolemia. 2. Chronic anxiety. 01/27 CXR noted: Enlarging loculated left effusion despite drainage catheter, Developing consolidation involving the medial left lung apex. very anxious , but agrees for surgery on wed Left VATS, possible thoracotomy, lung BX decortication 01/28 on room air chest tube in place for surgery in am 01/29 surgery : 1. 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 ezpap initial path noted : INVASIVE POORLY DIFFERENTIATED NON-SMALL CELL CARCINOMA WITH IMMUNOHISTOCHEMICAL FEATURES MOST CONSISTENT WITH ADENOCARCINOMA TYPE OF LUNG PRIMARY IN NEEDLE CORE BIOPSIES, CLINICALLY LEFT LUNG / Dr Lobo following 01/31 still has air leak path noted pain controlled PT/OOB Objective: GENERAL: SKIN: Warm and dry. incision intact to left posterior lateral chest HEAD: Normocephalic. EYES: No scleral icterus. No injection or drainage. NECK: Supple, trachea midline. No JVD or lymphadenopathy. CARDIOVASCULAR: Regular rate and rhythm without murmurs, gallops, or rubs. RESPIRATORY: Breath sounds equal bilaterally. No accessory muscle use. chest tube in place + 4 air leak GASTROINTESTINAL: Abdomen soft, non-tender, nondistended. MUSCULOSKELETAL: No cyanosis, or edema. BACK: Nontender without obvious deformity. No CVA tenderness. Vital Signs Date Time Temp Pulse Resp B/P (MAP) Pulse Ox O2 Delivery O2 Flow Rate FiO2 01/31/17 15:23 16 01/31/17 15:00 96 Room Air 01/31/17 15:00 84 01/31/17 15:00 79 17 98/49 (65) 96 01/31/17 14:24 17 01/31/17 14:00 78 01/31/17 14:00 16 01/31/17 13:00 76 01/31/17 12:00 76 01/31/17 11:00 98.2 82 18 100/58 (72) 94 01/31/17 11:00 80 01/31/17 11:00 94 Room Air 01/31/17 10:00 83 01/31/17 09:00 85 01/31/17 08:00 78 01/31/17 07:15 95 Room Air 01/31/17 07:15 73 01/31/17 07:15 98.2 88 19 118/58 (78) 95 01/31/17 06:00 18 01/31/17 06:00 76 01/31/17 06:00 18 01/31/17 05:00 78 01/31/17 04:00 80 01/31/17 03:00 97 Room Air 01/31/17 03:00 73 01/31/17 03:00 98.2 84 18 106/55 (72) 95 01/31/17 02:00 79 01/31/17 01:00 68 01/31/17 00:00 74 01/30/17 23:00 98.3 80 18 96/50 (65) 93 01/30/17 23:00 86 01/30/17 23:00 95 Room Air 01/30/17 22:00 76 01/30/17 22:00 18 01/30/17 22:00 18 01/30/17 21:00 76 01/30/17 20:00 97.9 79 18 94/55 (68) 95 01/30/17 20:00 80 01/30/17 20:00 Room Air 01/30/17 19:00 77 01/30/17 18:00 92 01/30/17 18:00 17 01/30/17 16:00 87 Result Diagram: 01/30/17 0522 01/30/17 0522 Telemetry: NSR (1) Lung cancer Plan: + invasive poorly differentiated NSC adenocarcinoma, no mets to Brain or abdomen/ pelvis Dr Lobo following Path High grade NSC carcinoma / BX + diaphragm, left chest wall, left pleural peel (2) Pleural effusion (3) Lung mass (4) Left Video Assisted Thoracoscopy (VATS) Plan: pain control, pulm toileting nebs Whitney Silva Jan 31, 2017 15:50
[2017-01-31] MEDS: PANTOPRAZOLE SOD 40 MG DELAYED RELEASE TAB PO SCH (21:01)
[2017-02-01] VITALS (29 sets, daily range): BP systolic 104–121; BP diastolic 53–59; PULSE 70–96; RESP 16–20; TEMP 98.1–98.4; O2SAT 93–96
[2017-02-01] MEDS: oxyCODONE/ACETAMINOPHEN 5 MG/325 MG TAB PO PRN ×4 (03:33→20:58)
[2017-02-01] MEDS: RESP: ALBUTEROL 2.5 MG/3 ML NEB (SCH) NEB ×4 (03:37→21:03)
[2017-02-01] MEDS: PCA - TOTAL MG MORPHINE DELIVERED PER SHIFT SCH ×3 (06:00→22:00)
--- NOTE | 2017-02-01 08:08 | HHI.PR ---
Subjective Remarks this is a pleasant 56 y/o Female admitted to the hospital due to hoarseness, cough and SOB, given supplemental oxygen therapy, Chest CT demonstrated a large left pleural effusion with a heterogeneous left apical lung mass. The patient has undergone a percutaneous chest drain placement as well as percutaneous biopsy of the left upper lobe lung mass which is consistent with an adenocarcinoma. Status post Chest tube and her drainage has subsided, loculated pleural effusion as per Cardiothoracic network desktop support specialist, seen in her bedroom in the presence of her , no complaint, awaiting recommendations by computer network support specialist and Cardiothoracic surgery for probable procedure. 01/28: Seen by Cardiothoracic surgery, the patient has new CXR with enlarging loculated left effusion despite drainage catheter Developing consolidation involving the medial left lung apex, accepted Left VATS with possible thoracotomy, lung biopsy decortication. for 01/29/17. 01/29: Patient somnolent seen in PACU she will be transferred to another unit on he fourth floor at this time, stable will repeat the Urinalysis the past one was abnormal and the patient was receiving Levofloxacin when that one was taken, status post VATS procedure, Drainage of loculated pleural cavities, Left posterolateral Mini Thoracotomy, Decortication of the Lung Biopsies of Diaphragmatic and chest wall lesions, Intercostal Nerve Block as per Doctor Shiela Sahni. 01/30: Seen in her bedroom in the presence of her , no complaint, no nausea, vomit or diarrhea, left chest tube draining 01/31: Stable in her bedroom in the presence of her and her respiratory therapy, no complaint, chest tube draining. 02/01: Discussed with patient and her in the room, also nurse Mr. Wallace continue draining serosanguineous fluid not yet removed Chest tube, clean surgical wound with some Hematoma, but clean not warm to palpation, no nausea, vomit or diarrhea. Objective Vital Signs Date Time Temp Pulse Resp B/P (MAP) Pulse Ox O2 Delivery O2 Flow Rate FiO2 02/01/17 07:01 80 02/01/17 06:00 70 02/01/17 06:00 18 02/01/17 06:00 18 02/01/17 05:00 90 02/01/17 04:00 80 02/01/17 03:00 73 02/01/17 03:00 95 Room Air 02/01/17 03:00 98.4 90 18 110/57 (74) 93 02/01/17 02:00 74 02/01/17 01:00 84 02/01/17 00:00 76 01/31/17 23:00 96 Room Air 01/31/17 23:00 98.1 84 18 126/57 (80) 94 01/31/17 23:00 85 01/31/17 22:00 18 01/31/17 22:00 92 01/31/17 22:00 18 01/31/17 21:00 70 01/31/17 20:00 98.1 71 18 83/52 (62) 94 01/31/17 20:00 89 01/31/17 20:00 76 01/31/17 20:00 96 Room Air 01/31/17 18:00 72 01/31/17 17:00 81 01/31/17 16:00 81 01/31/17 15:23 16 01/31/17 15:00 96 Room Air 01/31/17 15:00 84 01/31/17 15:00 79 17 98/49 (65) 96 01/31/17 14:24 17 01/31/17 14:00 78 01/31/17 14:00 16 01/31/17 13:00 76 01/31/17 12:00 76 01/31/17 11:00 98.2 82 18 100/58 (72) 94 01/31/17 11:00 80 01/31/17 11:00 94 Room Air 01/31/17 10:00 83 01/31/17 09:00 85 I/O 01/31/17 01/31/17 01/31/17 02/01/17 02/01/17 02/01/17 07:00 15:00 23:00 07:00 15:00 23:00 Intake Total 770 ml 222 ml 1160 ml 480 ml Output Total 990 ml 920 ml 1180 ml Balance -220 ml 222 ml 240 ml -700 ml Intake Oral 400 ml 960 ml 480 ml IV Total 370 ml 222 ml 200 ml Output Urine Total 800 ml 600 ml 950 ml Chest Tube Drainage Total 190 ml 320 ml 230 ml # Bowel Movements 0 0 Result Diagram: 01/30/1752101/30/17521 Imaging Last Impressions Chest X-Ray 01/31/17 0600 Signed Impressions: Service Date/Time: Tuesday, January 31, 2017 05:10 - CONCLUSION: Stable chest x-ray with left chest tube present and persistent left pleural air, pleural thickening, and left lung airspace opacity. Anup Rodriguez MD Brain MRI 01/24/17 0000 Signed Impressions: Service Date/Time: Tuesday, January 24, 2017 09:23 - CONCLUSION: No acute disease. In particular, no MRI evidence to suggest metastatic disease to the brain. Seamus Candelaria Jr., MD Abdomen/Pelvis CT 01/23/17 0000 Signed Impressions: Service Date/Time: January 15:28 - CONCLUSION: 1. Negative for metastatic disease to the abdomen and pelvis. 2. Multiloculated moderate sized left pleural effusion with small caliber left pigtail catheter present in the left pleural space. 3. Gallstones Abisai Dickson MD Chest Tube Insertion 01/20/17 1333 Signed Impressions: Service Date/Time: Friday, January 20, 2017 14:17 - CONCLUSION: Uncomplicated CT-guided placement of 16 Hungarian pigtail chest tube for treatment of symptomatic recurrent suspected malignant pleural effusion. Soham Chaney MD Lung Biopsy CT 01/20/17 1329 Signed Impressions: Service Date/Time: Friday, January 20, 2017 14:17 - CONCLUSION: 1. Uncomplicated CT guided 18 gauge core biopsies of left upper lobe lung mass. Soham Chaney MD Chest CT 01/16/17 0000 Signed Impressions: Service Date/Time: January 11:46 - CONCLUSION: 1. Large left pleural effusion would be amenable to percutaneous drainage. Recommend leaving a drain and send fluid for cell count as the lesion in the left lung apex is concerning for a malignant process. 2. 4.5 x 5.4 x 5.7 cm heterogeneous soft tissue density in the anteromedial aspect of the left lung apex concerning for malignancy. 3. Resulting dextroposition of the heart and mediastinal structures due to the large left effusion. Right lung is clear. Nahun Frank MD Procedures Thoracentesis left chest tube placement 01/29/17 status post VATS procedure, Drainage of loculated pleural cavities, Left posterolateral Mini Thoracotomy, Decortication of the Lung Biopsies of Diaphragmatic and chest wasll lesions, Intercostal Nerve Block as per Doctor Shiela Sahni. Other Results Laboratory Tests Test 01/16/17 10:47 01/16/17 20:21 01/16/17 20:30 01/22/17 04:21 Prothrombin Time 10.8 SEC Prothromb Time International Ratio 1.0 RATIO Activated Partial Thromboplast Time 27.7 SEC Blood Urea Nitrogen 9 MG/DL Creatinine 0.59 MG/DL Random Glucose 133 MG/DL Total Protein 7.6 GM/DL Albumin 3.4 GM/DL Calcium Level 9.0 MG/DL Alkaline Phosphatase 89 U/L Aspartate Amino Transf (AST/SGOT) 14 U/L Alanine Aminotransferase (ALT/SGPT) 37 U/L Total Bilirubin 0.4 MG/DL Sodium Level 138 MEQ/L Potassium Level 3.6 MEQ/L Chloride Level 103 MEQ/L Carbon Dioxide Level 26.3 MEQ/L Troponin I LESS THAN 0.02 NG/ML B-Type Natriuretic Peptide 24 PG/ML Body Fluid Amylase Source PLEURAL Body Fluid Amylase 12 U/L Pleural Fluid pH 8.0 Pleural Fluid WBC 1495 /MM3 Pleural Fluid RBC 9150 /MM3 Pleural Fluid Neutrophils 4 % Pleural Fluid Lymphocytes 72 % Pleural Fluid Monocytes 2 % Pleural Fluid Eosinophils 22 % Pleural Fluid Total Protein 4.1 GM/DL Pleural Fluid Albumin 2.5 G/DL Pleural Fluid LDH 373 U/L Pleural Fluid Glucose 126 MG/DL Blood Gas Puncture Site RT RADIAL Blood Gas Patient Temperature 98.6 Blood Gas HCO3 27 mmol/L Blood Gas Base Excess 3.5 mmol/L Blood Gas Oxygen Saturation 91 % Arterial Blood pH 7.47 Arterial Blood Partial Pressure CO2 38 mmHg Arterial Blood Partial Pressure O2 63 mmHG Arterial Blood Oxygen Content 16.3 Vol % Arterial Blood Carboxyhemoglobin 1.4 % Arterial Blood Methemoglobin 0.6 % Blood Gas Hemoglobin 12.7 G/DL Oxygen Delivery Device NASAL CANNULA Blood Gas Liter Flow 2.5 L/M Lactate Dehydrogenase 180 U/L Carcinoembryonic Antigen 1.0 NG/ML Test 01/25/17 03:17 01/27/17 17:15 01/27/17 18:15 01/30/17 05:22 Blood Urea Nitrogen 11 MG/DL 6 MG/DL Creatinine 0.56 MG/DL 0.51 MG/DL Random Glucose 115 MG/DL 129 MG/DL Calcium Level 8.5 MG/DL 8.6 MG/DL Magnesium Level 2.4 MG/DL Sodium Level 138 MEQ/L 139 MEQ/L Potassium Level 4.3 MEQ/L 3.8 MEQ/L Chloride Level 104 MEQ/L 104 MEQ/L Carbon Dioxide Level 26.7 MEQ/L 27.8 MEQ/L Nasal Screen MRSA (PCR) MRSA NOT DETECTED Urine Color YELLOW Urine Turbidity HAZY Urine pH 6.0 Urine Specific [place] 1.021 Urine Protein 30 mg/dL Urine Glucose (UA) NEG mg/dL Urine Ketones TRACE mg/dL Urine Occult Blood TRACE Urine Nitrite NEG Urine Bilirubin NEG Urine Urobilinogen LESS THAN 2.0 MG/DL Urine Leukocyte Esterase LARGE Urine RBC 4 /hpf Urine WBC 78 /hpf Urine Squamous Epithelial Cells 11 /hpf Urine Transitional Epithelial Cells 1 /hpf Urine Bacteria MOD /hpf Urine Hyaline Casts 3 /lpf Urine Mucus MANY /lpf Microscopic Urinalysis Comment CULTURE INDICATED White Blood Count 17.4 TH/MM3 Red Blood Count 4.57 MIL/MM3 Hemoglobin 12.2 GM/DL Hematocrit 37.2 % Mean Corpuscular Volume 81.4 FL Mean Corpuscular Hemoglobin 26.7 PG Mean Corpuscular Hemoglobin Concent 32.8 % Red Cell Distribution Width 13.1 % Platelet Count 268 TH/MM3 Mean Platelet Volume 7.3 FL Neutrophils (%) (Auto) 85.5 % Lymphocytes (%) (Auto) 6.1 % Monocytes (%) (Auto) 6.3 % Eosinophils (%) (Auto) 1.8 % Basophils (%) (Auto) 0.3 % Neutrophils # (Auto) 14.8 TH/MM3 Lymphocytes # (Auto) 1.1 TH/MM3 Monocytes # (Auto) 1.1 TH/MM3 Eosinophils # (Auto) 0.3 TH/MM3 Basophils # (Auto) 0.0 TH/MM3 CBC Comment DIFF FINAL Differential Comment Anion Gap 7 MEQ/L Estimat Glomerular Filtration Rate 124 ML/MIN Objective Remarks GENERAL: No acute distress, Somnolent. CARDIOVASCULAR: Regular rate and rhythm. RESPIRATORY: No accessory muscle use. Clear to auscultation. Diminished breath sounds left base. Left chest tube in place. hematoma on the surgical site. GASTROINTESTINAL: Abdomen soft, non-tender, nondistended. MUSCULOSKELETAL: Extremities without edema. No obvious deformities. NEUROLOGICAL: Awake and alert. Normal speech. PSYCHIATRIC: unable to evaluate at this time. Medications and IVs Current Medications Medications (Trade) Dose Ordered Sig/Alicia Route Start Time Stop Time Status Last Admin (Catapres) 0.1 mg Q6H PRN PO 01/16/17 14:30 (Vasotec Inj) 1.25 mg Q6H PRN IV PUSH 01/16/17 14:30 01/16/17 14:42 (Xanax) 0.25 mg Q8H PRN PO 01/16/17 14:30 01/28/17 22:53 (PROzac) 20 mg DAILY PO 01/21/17 11:15 01/31/17 08:15 (Tums Chew) 500 mg Q6H PRN PO 01/26/17 11:15 (Albuterol Neb) 2.5 mg Q6HR NEB NEB 01/29/17 16:00 02/01/17 03:37 (Albuterol Neb) 2.5 mg Q2HR NEB PRN NEB 01/29/17 11:30 (NS Flush) 2 ml BID IV FLUSH 01/29/17 21:00 01/31/17 08:17 (NS Flush) 2 ml UNSCH PRN IV FLUSH 01/29/17 11:30 (Protonix) 40 mg HS PO 01/29/17 21:00 01/31/17 21:01 (Zofran Inj) 4 mg Q6H PRN IV PUSH 01/29/17 11:30 (Milk Of Magnesia Liq) 30 ml DAILY PRN PO 01/29/17 11:30 (Tylenol) 650 mg Q4H PRN PO 01/29/17 11:30 01/30/17 16:29 (Percocet 5-325 Mg) 1 tab Q3H PRN PO 01/29/17 11:30 02/01/17 03:33 (Narcan Inj) 0.4 mg UNSCH PRN IV PUSH 01/29/17 11:30 (Morphine 1 Mg/ ml CARBON PASTE MIXER OPERATOR) 30 mg UNSCH IV 01/29/17 11:30 01/29/17 12:30 CARBON PASTE MIXER OPERATOR Dosage Infused (Pha) 1 Q8HR .XX 01/29/17 14:00 02/01/17 06:00 Lactated Ringer's 1,000 ml @ 30 mls/hr Q24H IV 01/29/17 14:00 01/31/17 14:18 (Colace) 100 mg BID PO 01/30/17 10:30 12/1/17 21:01 (Miralax) 17 gm DAILY PO 01/30/17 10:30 01/31/17 08:14 A/P Assessment and Plan 56 years old female who presented to the hospital with significant dyspnea. Patient found to have a left apical lung mass and a large pleural effusion. She is status post biopsy and chest tube placement. Biopsy consistent with adenocarcinoma. She still has a chest tube in place. Pulmonology following. Can be discharged once cleared by Pulmonology/oncology. Left lung mass/pleural effusion: - status post thoracentesis 01/16, repeated chest x-ray with still pleural effusion, Patient underwent biopsy and chest tube placement on 01/20/17. 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 - CT abd/pelvic and MRI brain neg for metastasis, now off Levaquin. computer network support specialist following, - CT Surgery performed 01/29/17 status post VATS procedure, Drainage of loculated pleural cavities, Left posterolateral Mini Thoracotomy, Decortication of the Lung Biopsies of Diaphragmatic and chest wall lesions, Intercostal Nerve Block as per Doctor Shiela Sahni. Left chest tube draining serosanguineous fluid. awaiting final by Cardiothoracic surgery and Oncology to discharge. Anxiety Continue her home Xanax and Prozac Urinalysis demonstrated probable UTI the patient was receiving Levaquin, patient asymptomatic. DVT prophylaxis SCDs. Discharge Planning Once cleared by specialists. Tray Moe MD Feb 01, 2017 08:08
[2017-02-01] MEDS: SODIUM CHLORIDE 0.9% FLUSH 10 ML FLUSH IV FLUSH SCH ×2 (08:36→20:56)
[2017-02-01] MEDS: POLYETHYLENE GLYCOL 17 GM PKG PO SCH (08:40)
[2017-02-01] MEDS: DOCUSATE SODIUM 100 MG CAP PO SCH ×2 (08:40→20:56)
[2017-02-01] MEDS: FLUoxetine HCL 20 MG CAP PO SCH (08:40)
--- NOTE | 2017-02-01 11:56 | PD.CAR.PN ---
CVT Progress Note Subjective/Hospital Course: 56-year-old female who was admitted to the hospital approximately a week ago with presenting complaints of hoarseness,cough and shortness of breath necessitating supplemental oxygen therapy. Further workup following admission including a chest x-ray and a subsequent chest CT demonstrated a large left pleural effusion with a heterogeneous left apical lung mass. The patient has undergone a percutaneous chest drain placement as well as percutaneous biopsy of the left upper lobe lung mass which is consistent with an adenocarcinoma. The chest tube has drained fluid initially but now the drainage has considerably subsided. However, on chest x-ray she continues to have significant pleural effusion which appears to be loculated. We were consulted for further therapy regarding her chest findings. PAST MEDICAL HISTORY Significant for - 1. Cholesterolemia. 2. Chronic anxiety. 01/27 CXR noted: Enlarging loculated left effusion despite drainage catheter, Developing consolidation involving the medial left lung apex. very anxious , but agrees for surgery on wed Left VATS, possible thoracotomy, lung BX decortication 01/28 on room air chest tube in place for surgery in am 01/29 surgery : 1. 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 ezpap initial path noted : INVASIVE POORLY DIFFERENTIATED NON-SMALL CELL CARCINOMA WITH IMMUNOHISTOCHEMICAL FEATURES MOST CONSISTENT WITH ADENOCARCINOMA TYPE OF LUNG PRIMARY IN NEEDLE CORE BIOPSIES, CLINICALLY LEFT LUNG / Dr Lobo following 01/31 still has air leak path noted pain controlled PT/OOB 02/01/17 No complaints, very small air leak Objective: Vital Signs Date Time Temp Pulse Resp B/P (MAP) Pulse Ox O2 Delivery O2 Flow Rate FiO2 02/01/17 11:30 98.2 78 20 104/57 (73) 95 02/01/17 11:30 95 Room Air 02/01/17 08:30 95 Room Air 02/01/17 08:30 98.1 82 20 108/54 (72) 95 02/01/17 08:24 95 21 02/01/17 07:01 80 02/01/17 06:00 70 02/01/17 06:00 18 02/01/17 06:00 18 02/01/17 05:00 90 02/01/17 04:00 80 02/01/17 03:00 73 02/01/17 03:00 95 Room Air 02/01/17 03:00 98.4 90 18 110/57 (74) 93 02/01/17 02:00 74 02/01/17 01:00 84 02/01/17 00:00 76 01/31/17 23:00 96 Room Air 01/31/17 23:00 98.1 84 18 126/57 (80) 94 01/31/17 23:00 85 01/31/17 22:00 18 01/31/17 22:00 92 01/31/17 22:00 18 01/31/17 21:00 70 01/31/17 20:00 98.1 71 18 83/52 (62) 94 01/31/17 20:00 89 01/31/17 20:00 76 01/31/17 20:00 96 Room Air 01/31/17 18:00 72 01/31/17 17:00 81 01/31/17 16:00 81 01/31/17 15:23 16 01/31/17 15:00 96 Room Air 01/31/17 15:00 84 01/31/17 15:00 79 17 98/49 (65) 96 01/31/17 14:24 17 01/31/17 14:00 78 01/31/17 14:00 16 01/31/17 13:00 76 01/31/17 12:00 76 Result Diagram: 01/30/1752101/30/17 05 Cardiovascular: RRR Telemetry: NSR Pulmonary: CTA GI/: NABS, NT Incision: dry and intact CT: 550ml/24hrs small air leak Plan: continue chest tube to water seal Encourage ambulation, PO intake Stim BM (1) Lung cancer Plan: + invasive poorly differentiated NSC adenocarcinoma, no mets to Brain or abdomen/ pelvis Dr Lobo following Path High grade NSC carcinoma / BX + diaphragm, left chest wall, left pleural peel (2) Pleural effusion (3) Lung mass (4) Left Video Assisted Thoracoscopy (VATS) Plan: pain control, pulm toileting nebs Dede Campos MD Feb 01, 2017 11:56
[2017-02-01] MEDS: LACTATED RINGER'S 1000 ML INJ 1,000 ML IV SCH (15:56)
[2017-02-01] MEDS: PANTOPRAZOLE SOD 40 MG DELAYED RELEASE TAB PO SCH (20:56)
[2017-02-02] VITALS (27 sets, daily range): BP systolic 85–117; BP diastolic 51–64; PULSE 60–102; RESP 14–20; TEMP 97.5–98.4; O2SAT 94–97
[2017-02-02] MEDS: RESP: ALBUTEROL 2.5 MG/3 ML NEB (SCH) NEB ×3 (04:42→16:00)
[2017-02-02] MEDS: PCA - TOTAL MG MORPHINE DELIVERED PER SHIFT SCH (06:00)
--- NOTE | 2017-02-02 08:23 | HHI.PR ---
Subjective Remarks this is a pleasant 56 y/o Female admitted to the hospital due to hoarseness, cough and SOB, given supplemental oxygen therapy, Chest CT demonstrated a large left pleural effusion with a heterogeneous left apical lung mass. The patient has undergone a percutaneous chest drain placement as well as percutaneous biopsy of the left upper lobe lung mass which is consistent with an adenocarcinoma. Status post Chest tube and her drainage has subsided, loculated pleural effusion as per Cardiothoracic meat specialist, seen in her bedroom in the presence of her , no complaint, awaiting recommendations by regulatory compliance specialist and Cardiothoracic surgery for probable procedure. 01/28: Seen by Cardiothoracic surgery, the patient has new CXR with enlarging loculated left effusion despite drainage catheter Developing consolidation involving the medial left lung apex, accepted Left VATS with possible thoracotomy, lung biopsy decortication. for 01/29/17. 01/29: Patient somnolent seen in PACU she will be transferred to another unit on he fourth floor at this time, stable will repeat the Urinalysis the past one was abnormal and the patient was receiving Levofloxacin when that one was taken, status post VATS procedure, Drainage of loculated pleural cavities, Left posterolateral Mini Thoracotomy, Decortication of the Lung Biopsies of Diaphragmatic and chest wall lesions, Intercostal Nerve Block as per Doctor Shiela Sahni. 01/30: Seen in her bedroom in the presence of her , no complaint, no nausea, vomit or diarrhea, left chest tube draining 01/31: Stable in her bedroom in the presence of her and her respiratory therapy, no complaint, chest tube draining. 02/01: Discussed with patient and her in the room, also nurse Mr. Wallace continue draining serosanguineous fluid not yet removed Chest tube, clean surgical wound with some Hematoma, but clean not warm to palpation. 02/02: Seen in her bedroom, no nausea, vomit or diarrhea, continue with Chest tube draining. Objective Vital Signs Date Time Temp Pulse Resp B/P (MAP) Pulse Ox O2 Delivery O2 Flow Rate FiO2 02/02/17 07:00 91 16 113/64 (80) 95 02/02/17 06:02 18 02/02/17 06:00 76 02/02/17 06:00 16 02/02/17 05:52 98.4 85 16 111/53 (72) 94 02/02/17 05:00 77 02/02/17 04:44 96 02/02/17 04:36 94 Room Air 02/02/17 04:00 78 02/02/17 03:00 77 02/02/17 00:00 95 Room Air 02/02/17 00:00 90 02/02/17 00:00 98.3 88 20 117/58 (77) 96 02/01/17 23:00 84 02/01/17 22:00 96 02/01/17 22:00 18 02/01/17 22:00 16 02/01/17 21:00 86 02/01/17 20:00 84 02/01/17 20:00 18 02/01/17 20:00 98.2 93 16 121/59 (79) 94 02/01/17 20:00 94 Room Air 02/01/17 19:00 88 02/01/17 18:01 80 02/01/17 17:00 86 02/01/17 16:01 82 02/01/17 15:15 96 Room Air 02/01/17 15:15 98.3 84 20 110/53 (72) 96 02/01/17 15:00 81 02/01/17 14:01 18 02/01/17 14:00 80 02/01/17 13:01 78 02/01/17 12:00 82 02/01/17 11:30 98.2 78 20 104/57 (73) 95 02/01/17 11:30 95 Room Air 02/01/17 11:00 78 02/01/17 10:00 88 02/01/17 09:00 82 02/01/17 08:30 95 Room Air 02/01/17 08:30 98.1 82 20 108/54 (72) 95 02/01/17 08:24 95 21 I/O 02/01/17 02/01/17 02/01/17 02/02/17 02/02/17 02/02/17 07:00 15:00 23:00 07:00 15:00 23:00 Intake Total 480 ml 942 ml 480 ml Output Total 1180 ml 1400 ml 1490 ml Balance -700 ml -458 ml -1010 ml Intake Oral 480 ml 942 ml 480 ml Output Urine Total 950 ml 1150 ml 1350 ml Chest Tube Drainage Total 230 ml 250 ml 140 ml # Voids 4 0 # Bowel Movements 0 0 0 Result Diagram: 01/30/1722 01/30/17 05 Imaging Last Impressions Chest X-Ray 01/31/17 0600 Signed Impressions: Service Date/Time: Tuesday, January 31, 2017 05:10 - CONCLUSION: Stable chest x-ray with left chest tube present and persistent left pleural air, pleural thickening, and left lung airspace opacity. Anup Rodriguez MD Brain MRI 01/24/17 0000 Signed Impressions: Service Date/Time: Tuesday, January 24, 2017 09:23 - CONCLUSION: No acute disease. In particular, no MRI evidence to suggest metastatic disease to the brain. Seamus Candelaria Jr., MD Abdomen/Pelvis CT 01/23/17 0000 Signed Impressions: Service Date/Time: January 15:28 - CONCLUSION: 1. Negative for metastatic disease to the abdomen and pelvis. 2. Multiloculated moderate sized left pleural effusion with small caliber left pigtail catheter present in the left pleural space. 3. Gallstones Abisai Dickson MD Chest Tube Insertion 01/20/17 1333 Signed Impressions: Service Date/Time: Friday, January 20, 2017 14:17 - CONCLUSION: Uncomplicated CT-guided placement of 16 Syrian pigtail chest tube for treatment of symptomatic recurrent suspected malignant pleural effusion. Soham Chaney MD Lung Biopsy CT 01/20/17 1329 Signed Impressions: Service Date/Time: Friday, January 20, 2017 14:17 - CONCLUSION: 1. Uncomplicated CT guided 18 gauge core biopsies of left upper lobe lung mass. Soham Chaney MD Chest CT 01/16/17 0000 Signed Impressions: Service Date/Time: January 11:46 - CONCLUSION: 1. Large left pleural effusion would be amenable to percutaneous drainage. Recommend leaving a drain and send fluid for cell count as the lesion in the left lung apex is concerning for a malignant process. 2. 4.5 x 5.4 x 5.7 cm heterogeneous soft tissue density in the anteromedial aspect of the left lung apex concerning for malignancy. 3. Resulting dextroposition of the heart and mediastinal structures due to the large left effusion. Right lung is clear. Nahun Frank MD Procedures Thoracentesis left chest tube placement 01/29/17 status post VATS procedure, Drainage of loculated pleural cavities, Left posterolateral Mini Thoracotomy, Decortication of the Lung Biopsies of Diaphragmatic and chest wasll lesions, Intercostal Nerve Block as per Doctor Shiela Sahni. Other Results Laboratory Tests Test 01/16/17 10:47 01/16/17 20:21 01/16/17 20:30 01/22/17 04:21 Prothrombin Time 10.8 SEC Prothromb Time International Ratio 1.0 RATIO Activated Partial Thromboplast Time 27.7 SEC Blood Urea Nitrogen 9 MG/DL Creatinine 0.59 MG/DL Random Glucose 133 MG/DL Total Protein 7.6 GM/DL Albumin 3.4 GM/DL Calcium Level 9.0 MG/DL Alkaline Phosphatase 89 U/L Aspartate Amino Transf (AST/SGOT) 14 U/L Alanine Aminotransferase (ALT/SGPT) 37 U/L Total Bilirubin 0.4 MG/DL Sodium Level 138 MEQ/L Potassium Level 3.6 MEQ/L Chloride Level 103 MEQ/L Carbon Dioxide Level 26.3 MEQ/L Troponin I LESS THAN 0.02 NG/ML B-Type Natriuretic Peptide 24 PG/ML Body Fluid Amylase Source PLEURAL Body Fluid Amylase 12 U/L Pleural Fluid pH 8.0 Pleural Fluid WBC 1495 /MM3 Pleural Fluid RBC 9150 /MM3 Pleural Fluid Neutrophils 4 % Pleural Fluid Lymphocytes 72 % Pleural Fluid Monocytes 2 % Pleural Fluid Eosinophils 22 % Pleural Fluid Total Protein 4.1 GM/DL Pleural Fluid Albumin 2.5 G/DL Pleural Fluid LDH 373 U/L Pleural Fluid Glucose 126 MG/DL Blood Gas Puncture Site RT RADIAL Blood Gas Patient Temperature 98.6 Blood Gas HCO3 27 mmol/L Blood Gas Base Excess 3.5 mmol/L Blood Gas Oxygen Saturation 91 % Arterial Blood pH 7.47 Arterial Blood Partial Pressure CO2 38 mmHg Arterial Blood Partial Pressure O2 63 mmHG Arterial Blood Oxygen Content 16.3 Vol % Arterial Blood Carboxyhemoglobin 1.4 % Arterial Blood Methemoglobin 0.6 % Blood Gas Hemoglobin 12.7 G/DL Oxygen Delivery Device NASAL CANNULA Blood Gas Liter Flow 2.5 L/M Lactate Dehydrogenase 180 U/L Carcinoembryonic Antigen 1.0 NG/ML Test 01/25/17 03:17 01/27/17 17:15 01/27/17 18:15 01/30/17 05:22 Blood Urea Nitrogen 11 MG/DL 6 MG/DL Creatinine 0.56 MG/DL 0.51 MG/DL Random Glucose 115 MG/DL 129 MG/DL Calcium Level 8.5 MG/DL 8.6 MG/DL Magnesium Level 2.4 MG/DL Sodium Level 138 MEQ/L 139 MEQ/L Potassium Level 4.3 MEQ/L 3.8 MEQ/L Chloride Level 104 MEQ/L 104 MEQ/L Carbon Dioxide Level 26.7 MEQ/L 27.8 MEQ/L Nasal Screen MRSA (PCR) MRSA NOT DETECTED Urine Color YELLOW Urine Turbidity HAZY Urine pH 6.0 Urine Specific [place] 1.021 Urine Protein 30 mg/dL Urine Glucose (UA) NEG mg/dL Urine Ketones TRACE mg/dL Urine Occult Blood TRACE Urine Nitrite NEG Urine Bilirubin NEG Urine Urobilinogen LESS THAN 2.0 MG/DL Urine Leukocyte Esterase LARGE Urine RBC 4 /hpf Urine WBC 78 /hpf Urine Squamous Epithelial Cells 11 /hpf Urine Transitional Epithelial Cells 1 /hpf Urine Bacteria MOD /hpf Urine Hyaline Casts 3 /lpf Urine Mucus MANY /lpf Microscopic Urinalysis Comment CULTURE INDICATED White Blood Count 17.4 TH/MM3 Red Blood Count 4.57 MIL/MM3 Hemoglobin 12.2 GM/DL Hematocrit 37.2 % Mean Corpuscular Volume 81.4 FL Mean Corpuscular Hemoglobin 26.7 PG Mean Corpuscular Hemoglobin Concent 32.8 % Red Cell Distribution Width 13.1 % Platelet Count 268 TH/MM3 Mean Platelet Volume 7.3 FL Neutrophils (%) (Auto) 85.5 % Lymphocytes (%) (Auto) 6.1 % Monocytes (%) (Auto) 6.3 % Eosinophils (%) (Auto) 1.8 % Basophils (%) (Auto) 0.3 % Neutrophils # (Auto) 14.8 TH/MM3 Lymphocytes # (Auto) 1.1 TH/MM3 Monocytes # (Auto) 1.1 TH/MM3 Eosinophils # (Auto) 0.3 TH/MM3 Basophils # (Auto) 0.0 TH/MM3 CBC Comment DIFF FINAL Differential Comment Anion Gap 7 MEQ/L Estimat Glomerular Filtration Rate 124 ML/MIN Objective Remarks GENERAL: No acute distress, Somnolent. CARDIOVASCULAR: Regular rate and rhythm. RESPIRATORY: No accessory muscle use. Clear to auscultation. Diminished breath sounds left base. Left chest tube in place. hematoma on the surgical site. GASTROINTESTINAL: Abdomen soft, non-tender, nondistended. MUSCULOSKELETAL: Extremities without edema. No obvious deformities. NEUROLOGICAL: Awake and alert. Normal speech. PSYCHIATRIC: unable to evaluate at this time. Medications and IVs Current Medications Medications (Trade) Dose Ordered Sig/Alicia Route Start Time Stop Time Status Last Admin (Catapres) 0.1 mg Q6H PRN PO 01/16/17 14:30 (Vasotec Inj) 1.25 mg Q6H PRN IV PUSH 01/16/17 14:30 01/16/17 14:42 (Xanax) 0.25 mg Q8H PRN PO 01/16/17 14:30 01/28/17 22:53 (PROzac) 20 mg DAILY PO 01/21/17 11:15 02/01/17 08:40 (Tums Chew) 500 mg Q6H PRN PO 01/26/17 11:15 (Albuterol Neb) 2.5 mg Q6HR NEB NEB 01/29/17 16:00 02/02/17 04:42 (Albuterol Neb) 2.5 mg Q2HR NEB PRN NEB 01/29/17 11:30 (NS Flush) 2 ml BID IV FLUSH 01/29/17 21:00 02/01/17 08:36 (NS Flush) 2 ml UNSCH PRN IV FLUSH 01/29/17 11:30 (Protonix) 40 mg HS PO 01/29/17 21:00 02/01/17 20:56 (Zofran Inj) 4 mg Q6H PRN IV PUSH 01/29/17 11:30 (Milk Of Magnesia Liq) 30 ml DAILY PRN PO 01/29/17 11:30 (Tylenol) 650 mg Q4H PRN PO 01/29/17 11:30 01/30/17 16:29 (Percocet 5-325 Mg) 1 tab Q3H PRN PO 01/29/17 11:30 02/01/17 20:58 (Narcan Inj) 0.4 mg UNSCH PRN IV PUSH 01/29/17 11:30 (Morphine 1 Mg/ ml LIBRARY AIDE) 30 mg UNSCH IV 01/29/17 11:30 01/29/17 12:30 LIBRARY AIDE Dosage Infused (Pha) 1 Q8HR .XX 01/29/17 14:00 02/02/17 06:00 Lactated Ringer's 1,000 ml @ 30 mls/hr Q24H IV 01/29/17 14:00 01/31/17 14:18 (Colace) 100 mg BID PO 01/30/17 10:30 02/01/17 20:56 (Miralax) 17 gm DAILY PO 01/30/17 10:30 02/01/17 08:40 A/P Assessment and Plan 56 years old female who presented to the hospital with significant dyspnea. Patient found to have a left apical lung mass and a large pleural effusion. She is status post biopsy and chest tube placement. Biopsy consistent with adenocarcinoma. She still has a chest tube in place. Pulmonology following. Can be discharged once cleared by Pulmonology/oncology. Left lung mass/pleural effusion: - status post thoracentesis 01/16, repeated chest x-ray with still pleural effusion, Patient underwent biopsy and chest tube placement on 01/20/17. 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 - CT abd/pelvic and MRI brain neg for metastasis, now off Levaquin. regulatory compliance specialist following, - CT Surgery performed 01/29/17 status post VATS procedure, Drainage of loculated pleural cavities, Left posterolateral Mini Thoracotomy, Decortication of the Lung Biopsies of Diaphragmatic and chest wall lesions, Intercostal Nerve Block as per Doctor Shiela Sahni. Left chest tube draining serosanguineous fluid. awaiting final by Cardiothoracic surgery and Oncology to discharge. Anxiety Continue her home Xanax and Prozac Urinalysis demonstrated probable UTI the patient was receiving Levaquin, patient asymptomatic. DVT prophylaxis SCDs. Discharge Planning Once cleared by specialists. Tray Moe MD Feb 02, 2017 08:23
--- NOTE | 2017-02-02 09:42 | PD.CAR.PN ---
CVT Progress Note CVT: POD #: 4 Subjective/Hospital Course: 56-year-old female who was admitted to the hospital approximately a week ago with presenting complaints of hoarseness,cough and shortness of breath necessitating supplemental oxygen therapy. Further workup following admission including a chest x-ray and a subsequent chest CT demonstrated a large left pleural effusion with a heterogeneous left apical lung mass. The patient has undergone a percutaneous chest drain placement as well as percutaneous biopsy of the left upper lobe lung mass which is consistent with an adenocarcinoma. The chest tube has drained fluid initially but now the drainage has considerably subsided. However, on chest x-ray she continues to have significant pleural effusion which appears to be loculated. We were consulted for further therapy regarding her chest findings. PAST MEDICAL HISTORY Significant for - 1. Cholesterolemia. 2. Chronic anxiety. 01/27 CXR noted: Enlarging loculated left effusion despite drainage catheter, Developing consolidation involving the medial left lung apex. very anxious , but agrees for surgery on wed Left VATS, possible thoracotomy, lung BX decortication 01/28 on room air chest tube in place for surgery in am 01/29 surgery : 1. Left Video Assisted Thoracoscopy (VATS), Drainage of Loculated Pleural Cavities, Left Posterolateral Mini-Thoracotomy, Decortication of Left Lung, Biopsies of Diaphragmatic and Chest Wall Lesions 01/30 on morphine [employer] pain controlled + 4 air leak in chest tube, to water seal pulm toileting nebs. ezpap initial path noted : INVASIVE POORLY DIFFERENTIATED NON-SMALL CELL CARCINOMA WITH IMMUNOHISTOCHEMICAL FEATURES MOST CONSISTENT WITH ADENOCARCINOMA TYPE OF LUNG PRIMARY IN NEEDLE CORE BIOPSIES, CLINICALLY LEFT LUNG / Dr Lobo following 01/31 still has air leak path noted pain controlled PT/OOB 02/01/17 No complaints, very small air leak 02/02/17 No complaints today. Continues with small air leak. Objective: Vital Signs Date Time Temp Pulse Resp B/P (MAP) Pulse Ox O2 Delivery O2 Flow Rate FiO2 02/02/17 09:04 96 02/02/17 07:00 91 16 113/64 (80) 95 02/02/17 06:02 18 02/02/17 06:00 76 02/02/17 06:00 16 02/02/17 05:52 98.4 85 16 111/53 (72) 94 02/02/17 05:00 77 02/02/17 04:44 96 02/02/17 04:36 94 Room Air 02/02/17 04:00 78 02/02/17 03:00 77 02/02/17 00:00 95 Room Air 02/02/17 00:00 90 02/02/17 00:00 98.3 88 20 117/58 (77) 96 02/01/17 23:00 84 02/01/17 22:00 96 02/01/17 22:00 18 02/01/17 22:00 16 02/01/17 21:00 86 02/01/17 20:00 84 02/01/17 20:00 18 02/01/17 20:00 98.2 93 16 121/59 (79) 94 02/01/17 20:00 94 Room Air 02/01/17 19:00 88 02/01/17 18:01 80 02/01/17 17:00 86 02/01/17 16:01 82 02/01/17 15:15 96 Room Air 02/01/17 15:15 98.3 84 20 110/53 (72) 96 02/01/17 15:00 81 02/01/17 14:01 18 02/01/17 14:00 80 02/01/17 13:01 78 02/01/17 12:00 82 02/01/17 11:30 98.2 78 20 104/57 (73) 95 02/01/17 11:30 95 Room Air 02/01/17 11:00 78 02/01/17 10:00 88 Result Diagram: 01/30/1752101/30/17 05 Cardiovascular: RRR Telemetry: NSR Pulmonary: CTA GI/: NABS, NT Incision: dry and intact CT: ~140ml/12 hrs, small air leak Plan: D/C [employer] CXR in AM Continue chest tube (1) Lung cancer Plan: + invasive poorly differentiated NSC adenocarcinoma, no mets to Brain or abdomen/ pelvis Dr Lobo following Path High grade NSC carcinoma / BX + diaphragm, left chest wall, left pleural peel (2) Pleural effusion (3) Lung mass (4) Left Video Assisted Thoracoscopy (VATS) Plan: pain control, pulm toileting nebs Dede Campos MD Feb 02, 2017 09:42
[2017-02-02] MEDS: DOCUSATE SODIUM 100 MG CAP PO SCH (10:12)
[2017-02-02] MEDS: FLUoxetine HCL 20 MG CAP PO SCH (10:12)
[2017-02-02] MEDS: oxyCODONE/ACETAMINOPHEN 5 MG/325 MG TAB PO PRN ×2 (10:13→19:14)
[2017-02-02] MEDS: POLYETHYLENE GLYCOL 17 GM PKG PO SCH (10:14)
[2017-02-02] MEDS: SODIUM CHLORIDE 0.9% FLUSH 10 ML FLUSH IV FLUSH SCH (10:14)
--- NOTE | 2017-02-02 16:05 | HHI.PR ---
Addendum to Inpatient Note Addendum Reason: Additional Documentation Additional Information Courtesy primary care visit: reviewed chart and discussed with patient. she is in good spirits, awaiting ability to remove chest tube and get home. She really has no other existing medical issues other than the lung cancer. She will be following with Dr. Lobo as outpatient once her test results return. Advised I am available to assist as needed--she will call when needed. Aem Clarke MD Feb 02, 2017 16:04
[2017-02-03] VITALS (22 sets, daily range): BP systolic 95–129; BP diastolic 53–86; PULSE 63–86; RESP 16–19; TEMP 97.6–98.4; O2SAT 94–98
[2017-02-03] MEDS: oxyCODONE/ACETAMINOPHEN 5 MG/325 MG TAB PO PRN ×3 (02:51→18:42)
[2017-02-03] MEDS: SODIUM CHLORIDE 0.9% FLUSH 10 ML FLUSH IV FLUSH SCH ×3 (03:07→20:24)
[2017-02-03] MEDS: PANTOPRAZOLE SOD 40 MG DELAYED RELEASE TAB PO SCH ×2 (03:07→20:24)
[2017-02-03] MEDS: DOCUSATE SODIUM 100 MG CAP PO SCH ×3 (03:07→20:24)
[2017-02-03 04:42] LABS: AUTOMATED NEUTROPHIL # 8.9 TH/MM3 (1.8-7.7); BASOPHIL # 0.1 TH/MM3 (0-0.2); BASOPHIL % 0.5 % (0.0-2.0); EOSINOPHIL # 1.5 TH/MM3 (0-0.4); HEMATOCRIT 32.5 % (35.0-46.0); HEMO FLAGS DIFF FINAL; LYMPH % 8.5 % (9.0-44.0); LYMPHOCYTE # 1.1 TH/MM3 (1.0-4.8); MEAN CELL VOLUME 81.5 FL (80.0-100.0); MEAN CORPUSCULAR HGB CONC 33.1 % (32.0-36.0); MONO % 7.7 % (0.0-8.0); NEUT % 71.3 % (16.0-70.0); PLATELET COUNT 270 TH/MM3 (150-450); RED BLOOD COUNT 3.98 MIL/MM3 (4.00-5.30); RED CELL DISTRIBUTION WIDTH 13.4 % (11.6-17.2); WHITE BLOOD COUNT 12.4 TH/MM3 (4.0-11.0)
[2017-02-03 05:05] LABS: BICARBONATE 28.6 MEQ/L (21.0-32.0); POTASSIUM 4.2 MEQ/L (3.5-5.1)
--- NOTE | 2017-02-03 05:47 | RADRPT ---
EXAM DATE/TIME: 02/03/2017 05:13 [facility] COMPARISON: CHEST SINGLE AP, January 31, 2017, 5:10. INDICATIONS : Shortness of breath, possible pneumothorax. MEDICAL HISTORY : Carcinoma, lung. SURGICAL HISTORY : Left thoracotomy ENCOUNTER: Subsequent ACUITY: 1 week PAIN SCORE: 3/10 LOCATION: Left chest FINDINGS: A single AP semierect view of the chest was obtained and again demonstrates abnormal opacity and infi ltrate in the left lung. This is more confluent at the lung base. The right lung remains clear. The h eart size is at the upper limits of normal. There are multiple overlying electrocardiogram leads. Bon y thorax is intact. The left-sided chest tube remains in place with no pneumothorax. CONCLUSION: The left lung remains opacified with increased consolidation at the left lung base. Left-sided chest tube remains in place with no pneumothorax. Kam Jerry MD on February 03, 2017 at 5:44 Board Certified Radiologist. This report was verified electronically.
--- NOTE | 2017-02-03 07:33 | HHI.PR ---
Subjective Remarks in no acute distress. no sob. pain is controlled. no fever. no other complaints. Objective Vitals Vital Signs Date Time Temp Pulse Resp B/P (MAP) Pulse Ox O2 Delivery O2 Flow Rate FiO2 02/03/17 06:00 66 02/03/17 05:00 69 02/03/17 04:03 63 02/03/17 03:47 96 Room Air 02/03/17 03:47 98.1 84 16 129/86 (100) 98 02/03/17 03:00 64 02/03/17 02:00 66 02/03/17 01:00 66 02/03/17 00:03 97.6 77 16 108/56 (73) 94 02/03/17 00:00 77 02/02/17 23:48 96 Room Air 02/02/17 23:00 68 02/02/17 22:00 68 02/02/17 21:00 84 02/02/17 20:30 94 Room Air 02/02/17 20:15 97.5 87 16 103/53 (70) 97 02/02/17 20:00 86 02/02/17 19:00 90 02/02/17 18:00 81 02/02/17 17:00 99 02/02/17 16:00 79 02/02/17 15:00 96 Room Air 02/02/17 15:00 77 16 94/51 (65) 96 02/02/17 15:00 76 02/02/17 14:00 82 02/02/17 13:00 82 02/02/17 12:00 76 02/02/17 11:35 16 02/02/17 11:00 102 02/02/17 11:00 97 Room Air 02/02/17 11:00 98.1 87 14 96/54 (68) 97 02/02/17 10:00 102 02/02/17 09:04 96 02/02/17 09:00 84 02/02/17 08:00 88 I/O 02/02/17 02/02/17 02/02/17 02/03/17 02/03/17 02/03/17 07:00 15:00 23:00 07:00 15:00 23:00 Intake Total 480 ml 720 ml 840 ml Output Total 1490 ml 1406 ml 1650 ml Balance -1010 ml -686 ml -810 ml Intake Oral 480 ml 720 ml 480 ml IV Total 360 ml Output Urine Total 1350 ml 1250 ml 1650 ml Chest Tube Drainage Total 140 ml 156 ml # Voids 0 # Bowel Movements 0 1 Result Diagram: 02/03/175 02/03/17 0425 Imaging Last Impressions Chest X-Ray 02/03/17 0600 Signed Impressions: Service Date/Time: Friday, February 03, 2017 05:13 - CONCLUSION: The left lung remains opacified with increased consolidation at the left lung base. Left- sided chest tube remains in place with no pneumothorax. Kam Jerry MD Brain MRI 01/24/17 0000 Signed Impressions: Service Date/Time: Tuesday, January 24, 2017 09:23 - CONCLUSION: No acute disease. In particular, no MRI evidence to suggest metastatic disease to the brain. Seamus Candelaria Jr., MD Abdomen/Pelvis CT 01/23/17 0000 Signed Impressions: Service Date/Time: January 15:28 - CONCLUSION: 1. Negative for metastatic disease to the abdomen and pelvis. 2. Multiloculated moderate sized left pleural effusion with small caliber left pigtail catheter present in the left pleural space. 3. Gallstones Abisai Dickson MD Chest Tube Insertion 01/20/17 1333 Signed Impressions: Service Date/Time: Friday, January 20, 2017 14:17 - CONCLUSION: Uncomplicated CT-guided placement of 16 Armenian pigtail chest tube for treatment of symptomatic recurrent suspected malignant pleural effusion. Soham Chaney MD Lung Biopsy CT 01/20/17 1329 Signed Impressions: Service Date/Time: Friday, January 20, 2017 14:17 - CONCLUSION: 1. Uncomplicated CT guided 18 gauge core biopsies of left upper lobe lung mass. Soham Chaney MD Chest CT 01/16/17 0000 Signed Impressions: Service Date/Time: January 11:46 - CONCLUSION: 1. Large left pleural effusion would be amenable to percutaneous drainage. Recommend leaving a drain and send fluid for cell count as the lesion in the left lung apex is concerning for a malignant process. 2. 4.5 x 5.4 x 5.7 cm heterogeneous soft tissue density in the anteromedial aspect of the left lung apex concerning for malignancy. 3. Resulting dextroposition of the heart and mediastinal structures due to the large left effusion. Right lung is clear. Nahun Frank MD Objective Remarks GENERAL: This is a well-nourished, well-developed patient, in no apparent distress. CARDIOVASCULAR: Regular rate and regular rhythm without murmurs, gallops, or rubs. RESPIRATORY: Clear to auscultation. Breath sounds equal bilaterally. No wheezes , rales, or rhonchi. chest tube in place. GASTROINTESTINAL: Abdomen soft, non-tender, nondistended. Normal, active bowel sounds MUSCULOSKELETAL: Extremities without clubbing, cyanosis, or edema. NEURO: Alert & Oriented x4 to person, place, time, situation. Moves all ext x4 Procedures Thoracentesis Medications and IVs Current Medications Sodium Chloride (NS Flush) 2 ml UNSCH PRN IVF FLUSH AFTER USING IV ACCESS; Start 01/16/17 at 10:45; Stop 01/16/17 at 14:00; Status DC Iohexol (Omnipaque 350 Inj) 71 ml STK-MED ONCE IVCONTRAST Last administered on 01/16/17 09:46; Start 01/16/17 at 09:46; Stop 01/16/17 at 12:14; Status DC Lorazepam (Ativan) 0.5 mg ONCE ONCE PO Last administered on 01/16/17 12:59; Start 01/16/17 at 13:00; Stop 01/16/17 at 13:01; Status DC Sodium Chloride (NS Flush) 2 ml UNSCH PRN IV FLUSH FLUSH AFTER USING IV ACCESS ; Start 01/16/17 at 14:00; Stop 01/29/17 at 13:27; Status DC Sodium Chloride (NS Flush) 2 ml BID IV FLUSH Last administered on 01/28/17 22 :53; Start 01/16/17 at 21:00; Stop 01/29/17 at 13:27; Status DC Ondansetron HCl (Zofran Inj) 4 mg Q6H PRN IVP NAUSEA OR VOMITING; Start at 14:00; Stop 01/29/17 at 13:27; Status DC Enoxaparin Sodium (Lovenox Inj) 40 mg Q24H SQ ; Start 01/17/17 at 20:00; Stop 01/17/17 at 20:00; Status DC Naloxone HCl (Narcan Inj) 0.4 mg UNSCH PRN IV PUSH SEE LABEL COMMENTS; Start 01/16/17 at 14:00; Stop 01/29/17 at 13:27; Status DC Acetaminophen/ Hydrocodone Bitart (Clyde 7.5-325 Mg) 1 tab Q4H PRN PO pain 6- 10; Start 01/16/17 at 14:15; Stop 01/29/17 at 13:27; Status DC Acetaminophen/ Hydrocodone Bitart (Clyde 5-325 Mg) 1 tab Q4H PRN PO pain 3-5 Last administered on 01/20/17 17:06; Start 01/16/17 at 14:15; Stop 01/29/17 at 13:27; Status DC Morphine Sulfate (Morphine Inj) 1 mg Q4H PRN IV PUSH pain 3-5; Start 01/16/17 at 14:15; Stop 01/29/17 at 13:27; Status DC Morphine Sulfate (Morphine Inj) 2 mg Q4H PRN IV PUSH pain 6-10 Last administered on 01/16/17 20:16; Start 01/16/17 at 14:15; Stop 01/29/17 at 13 :27; Status DC Clonidine (Catapres) 0.1 mg Q6H PRN PO bp>160/90; Start 01/16/17 at 14:30; Stop 02/02/17 at 09:39; Status DC Enalaprilat (Vasotec Inj) 1.25 mg Q6H PRN IV PUSH bp>160/90 Last administered on 01/16/17 14:42; Start 01/16/17 at 14:30; Stop 02/02/17 at 09:39; Status DC Alprazolam (Xanax) 0.25 mg Q8H PRN PO anxiety Last administered on 01/28/17 22:53; Start 01/16/17 at 14:30 Albuterol/ Ipratropium (Duoneb Neb) 1 ampule QID NEB NEB Last administered on 01/19/17 20:32; Start 01/16/17 at 20:00; Stop 01/20/17 at 19:59; Status DC Lidocaine HCl (Xylocaine 1% Inj (50 ml)) 50 ml STK-MED ONCE .ROUTE ; Start at 19:59; Stop 01/16/17 at 20:00; Status DC Heparin Sodium (Porcine) (Heparin Inj) 2,000 units NOW ONCE OTHER Last administered on 01/16/17 20:45; Start 01/16/17 at 20:45; Stop 01/16/17 at 20 :46; Status DC Fentanyl Citrate (fentaNYL INJ) 200 mcg STK-MED ONCE .ROUTE Last administered on 01/20/17 14:15; Start 01/20/17 at 13:26; Stop 01/20/17 at 13:27; Status DC Midazolam HCl (Versed Inj) 4 mg STK-MED ONCE .ROUTE Last administered on 14:15; Start 01/20/17 at 13:26; Stop 01/20/17 at 13:27; Status DC Lidocaine/ Epinephrine (Xylocaine-Epi 1%-1:100,000 Inj) 20 ml STK-MED ONCE .ROUTE ; Start 01/20/17 at 13:41; Stop 01/20/17 at 13:42; Status DC Levofloxacin (Levaquin) 500 mg DAILY PO Last administered on 01/27/17 08:37; Start 01/21/17 at 09:00; Stop 01/27/17 at 18:58; Status DC Fluoxetine HCl (PROzac) 20 mg DAILY PO Last administered on 02/02/17 10:12; Start 01/21/17 at 11:15 Diatrizoate Meglum/ Diatrizoate Sod ( Gastroview Liq) 18 ml ONCE ONCE PO Last administered on 01/23/17 11:10; Start 01/23/17 at 11:15; Stop 01/23/17 at 11:16; Status DC Iohexol (Omnipaque 350 Inj) 100 ml STK-MED ONCE IVCONTRAST Last administered on 01/23/17 15:37; Start 01/23/17 at 15:37; Stop 01/23/17 at 15:38; Status DC Gadodiamide (Omniscan Pf Inj) 14 ml STK-MED ONCE IVCONTRAST Last administered on 01/24/17 09:36; Start 01/24/17 at 09:36; Stop 01/24/17 at 09:37; Status DC Calcium Carbonate (Tums Chew) 500 mg Q6H PRN PO ACID REFLUX; Start 01/26/17 at 11:15 Sodium Chloride (NS Flush) 2 ml BID IV FLUSH ; Start 01/27/17 at 21:00; Stop 01/27/17 at 21:00; Status DC Sodium Chloride (NS Flush) 2 ml UNSCH PRN IV FLUSH FLUSH AFTER USING IV ACCESS ; Start 01/27/17 at 16:30; Stop 01/27/17 at 16:31; Status DC Cefazolin Sodium 500 mg/Sodium Chloride 505 ml @ 0 mls/hr SHIFT MANAGER IRRIGATION Last administered on 01/29/17 11:22; Start 01/27/17 at 16:30; Stop 01/30/17 at 07:49; Status DC Cefazolin Sodium/ Dextrose 50 ml @ 150 mls/hr SHIFT MANAGER IV Last administered on 01/29/17 06:59; Start 01/27/17 at 16:30; Stop 01/30/17 at 07:49; Status DC Chlorhexidine Gluconate (Hibiclens 4% Top Soln) 1 applic SHIFT MANAGER TOPICAL Last administered on 01/29/17 05:30; Start 01/27/17 at 16:30; Stop 01/30/17 at 07 :50; Status DC Lactated Ringer's 1,000 ml @ 30 mls/hr Q24H PRN IV SEE LABEL COMMENTS Last administered on 01/29/17 06:50; Start 01/28/17 at 21:30; Stop 01/30/17 at 07 :49; Status DC Sodium Chloride 500 ml @ 30 mls/hr [id number] PRN IV SEE LABEL COMMENTS; Start at 21:30; Stop 01/30/17 at 07:49; Status DC Metoprolol Tartrate (Lopressor) 25 mg SHIFT MANAGER PRN PO SEE LABEL COMMENTS; Start 01/28/17 at 21:30; Stop 01/30/17 at 07:49; Status DC Povidone Iodine (Betadine 5% Antisepsis Kit) 1 applic SHIFT MANAGER PRN EACH NARE SEE LABEL COMMENTS; Start 01/28/17 at 21:30; Stop 01/30/17 at 07:49; Status DC Chlorhexidine Gluconate (Chlorhexidine 2% Cloth) 3 pack SHIFT MANAGER PRN TOPICAL SEE LABEL COMMENTS; Start 01/28/17 at 21:30; Stop 01/30/17 at 07:49; Status DC Insulin Human Regular (NovoLIN R INJ) See Protocol Table ... SHIFT MANAGER PRN SQ SEE PROTOCOL TABLE; Start 01/28/17 at 21:30; Stop 01/30/17 at 07:49; Status DC Bupivacaine Liposome 20 ml/ Dexamethasone Sodium Phosphate 4 mg/Morphine Sulfate 8 mg/ Sodium Chloride 42 ml @ 84 mls/hr UNSCH IRRIGATION Last administered on 01/29/17 11:21; Start 01/29/17 at 07:45; Stop 01/29/17 at 13 :54; Status DC Cefazolin Sodium (Ancef Inj) 1,000 mg ONCE ONCE IV Last administered on 10:52; Start 01/29/17 at 10:52; Stop 01/29/17 at 11:24; Status DC Albuterol Sulfate (Albuterol Neb) 2.5 mg Q6HR NEB NEB Last administered on 16:00; Start 01/29/17 at 16:00; Stop 02/02/17 at 15:59; Status DC Albuterol Sulfate (Albuterol Neb) 2.5 mg Q2HR NEB PRN NEB WHEEZING; Start at 11:30 Sodium Chloride (NS Flush) 2 ml BID IV FLUSH Last administered on 02/03/17 03: 07; Start 01/29/17 at 21:00 Sodium Chloride (NS Flush) 2 ml UNSCH PRN IV FLUSH FLUSH AFTER USING IV ACCESS ; Start 01/29/17 at 11:30 Miscellaneous Information (Post-op Orders (for Pharmacy)) STAT ONCE OTHER ; Start 01/29/17 at 11:30; Stop 01/29/17 at 13:25; Status DC Cefazolin Sodium 1000 mg/Sodium Chloride 100 ml @ 200 mls/hr Q8H IV Last administered on 01/30/17 10:03; Start 01/29/17 at 18:00; Stop 01/30/17 at 10 :29; Status DC Pantoprazole Sodium (Protonix) 40 mg HS PO Last administered on 02/03/17 03:07 ; Start 01/29/17 at 21:00 Ondansetron HCl (Zofran Inj) 4 mg Q6H PRN IV PUSH NAUSEA OR VOMITING; Start at 11:30 Docusate Calcium (Surfak) 240 mg HS PO Last administered on 01/29/17 22:09; Start 01/29/17 at 21:00; Stop 01/30/17 at 10:34; Status DC Magnesium Hydroxide (Milk Of Magnesia Liq) 30 ml DAILY PRN PO MILD-MODERATE CONSTIPATION; Start 01/29/17 at 11:30 Acetaminophen (Tylenol) 650 mg Q4H PRN PO TEMPERATURE > 101 F Last administered on 01/30/17 16:29; Start 01/29/17 at 11:30 Oxycodone/ Acetaminophen (Percocet 5-325 Mg) 1 tab Q3H PRN PO PAIN SCALE 3 TO 5 Last administered on 02/03/17 02:51; Start 01/29/17 at 11:30 Acetaminophen 100 ml @ 400 mls/hr Q6H IV Last administered on 01/29/17 12:30 ; Start 01/29/17 at 13:00; Stop 01/30/17 at 07:14; Status DC Ketorolac Tromethamine (Toradol Inj) 15 mg Q6H IV PUSH Last administered on 06:24; Start 01/29/17 at 13:00; Stop 01/30/17 at 07:01; Status DC Naloxone HCl (Narcan Inj) 0.4 mg UNSCH PRN IV PUSH RESPIRATORY RATE LESS THAN 10; Start 01/29/17 at 11:30; Stop 02/02/17 at 09:39; Status DC Morphine Sulfate (Morphine 1 Mg/ ml WEED CONTROLLER) 30 mg UNSCH IV Last administered on 12:30; Start 01/29/17 at 11:30; Stop 02/02/17 at 09:39; Status DC WEED CONTROLLER Dosage Infused (Pha) 1 Q8HR .XX Last administered on 02/02/17 06:00; Start 01/29/17 at 14:00; Stop 02/02/17 at 09:39; Status DC Morphine Sulfate (*morphine INJ PERIprocedure ONLY) 8 mg STK-MED ONCE .ROUTE Last administered on 01/29/17 11:57; Start 01/29/17 at 11:57; Stop 01/29/17 at 11:58; Status DC Morphine Sulfate (*morphine INJ PERIprocedure ONLY) 8 mg STK-MED ONCE .ROUTE Last administered on 01/29/17 12:10; Start 01/29/17 at 12:03; Stop 01/29/17 at 12:04; Status DC Ondansetron HCl (*ZOFRAN INJ PERIprocedural ONLY) 4 mg STK-MED ONCE .ROUTE Last administered on 01/29/17 12:04; Start 01/29/17 at 12:03; Stop 01/29/17 at 12:04; Status DC Ondansetron HCl (*ZOFRAN INJ PERIprocedural ONLY) 4 mg STK-MED ONCE .ROUTE ; Start 01/29/17 at 12:06; Stop 01/29/17 at 12:07; Status DC Miscellaneous Information ALL NURSING DEPARTME... UNSCH PRN .XX SEE LABEL COMMENTS; Start 01/29/17 at 11:53; Stop 01/30/17 at 11:52; Status DC Lactated Ringer's 250 ml @ 0 mls/hr Q0M ONCE IV Last administered on 12:39; Start 01/29/17 at 13:30; Stop 01/29/17 at 13:31; Status DC Lactated Ringer's 1,000 ml @ 30 mls/hr Q24H IV Last administered on 01/31/17 14:18; Start 01/29/17 at 14:00 Docusate Sodium (Colace) 100 mg BID PO Last administered on 02/03/17 03:07; Start 01/30/17 at 10:30 Polyethylene Glycol (Miralax) 17 gm DAILY PO Last administered on 02/02/17 10: 14; Start 01/30/17 at 10:30 A/P Assessment and Plan A/P Left lung mass/pleural effusion: - status post thoracentesis 01/16, repeated chest x-ray with still pleural effusion, Patient underwent biopsy and chest tube placement on 01/20/17. 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 - CT abd/pelvic and MRI brain neg for metastasis, now off Levaquin. lead generation specialist following, - CT Surgery performed 01/29/17 status post VATS procedure, Drainage of loculated pleural cavities, Left posterolateral Mini Thoracotomy, Decortication of the Lung Biopsies of Diaphragmatic and chest wall lesions, Intercostal Nerve Block as per Doctor Shiela Sahni. CT surgery following. f/u with oncology as outpatient. Anxiety Continue her home Xanax and Prozac probable UTI -treated. DVT prophylaxis SCDs. Discharge Planning dc home when chest tube has been removed and cleared by CT surgery. Jamie Garcia MD Feb 03, 2017 07:33
[2017-02-03] MEDS: FLUoxetine HCL 20 MG CAP PO SCH (09:07)
[2017-02-03] MEDS: POLYETHYLENE GLYCOL 17 GM PKG PO SCH (09:07)
--- NOTE | 2017-02-03 10:16 | RSPPFT ---
DATE OF PROCEDURE: 01/28/17 COMMENTS: Spirometry with FVC of 1.6, FEV1 of 1.3, FEV1/FVC ratio at 80%. IMPRESSION: 1. Decreased flow rates. 2. No obstruction. 3. Possible airways restriction. 4. If clinically warranted, lung volumes may be helpful.
[2017-02-03] MEDS: LACTATED RINGER'S 1000 ML INJ 1,000 ML IV SCH (11:39)
--- NOTE | 2017-02-03 15:07 | PD.CAR.PN ---
CVT Progress Note Subjective/Hospital Course: 56-year-old female who was admitted to the hospital approximately a week ago with presenting complaints of hoarseness,cough and shortness of breath necessitating supplemental oxygen therapy. Further workup following admission including a chest x-ray and a subsequent chest CT demonstrated a large left pleural effusion with a heterogeneous left apical lung mass. The patient has undergone a percutaneous chest drain placement as well as percutaneous biopsy of the left upper lobe lung mass which is consistent with an adenocarcinoma. The chest tube has drained fluid initially but now the drainage has considerably subsided. However, on chest x-ray she continues to have significant pleural effusion which appears to be loculated. We were consulted for further therapy regarding her chest findings. PAST MEDICAL HISTORY Significant for - 1. Cholesterolemia. 2. Chronic anxiety. 01/27 CXR noted: Enlarging loculated left effusion despite drainage catheter, Developing consolidation involving the medial left lung apex. very anxious , but agrees for surgery on wed Left VATS, possible thoracotomy, lung BX decortication 01/28 on room air chest tube in place for surgery in am 01/29 surgery : 1. Left Video Assisted Thoracoscopy (VATS), Drainage of Loculated Pleural Cavities, Left Posterolateral Mini-Thoracotomy, Decortication of Left Lung, Biopsies of Diaphragmatic and Chest Wall Lesions 01/30 on morphine ANALYSIS LEAD pain controlled + 4 air leak in chest tube, to water seal pulm toileting nebs. ezpap initial path noted : INVASIVE POORLY DIFFERENTIATED NON-SMALL CELL CARCINOMA WITH IMMUNOHISTOCHEMICAL FEATURES MOST CONSISTENT WITH ADENOCARCINOMA TYPE OF LUNG PRIMARY IN NEEDLE CORE BIOPSIES, CLINICALLY LEFT LUNG / Dr Lobo following 01/31 still has air leak path noted pain controlled PT/OOB 02/01/17 No complaints, very small air leak 02/02/17 No complaints today. Continues with small air leak. 02/03 no further air leak noted, will keep chest tube in place for now, possible removal and dc in am on room air ANALYSIS LEAD dc , + BM Objective: GENERAL: SKIN: Warm and dry. incision intact and well approximated left posterior chest wall HEAD: Normocephalic. EYES: No scleral icterus. No injection or drainage. NECK: Supple, trachea midline. No JVD or lymphadenopathy. CARDIOVASCULAR: Regular rate and rhythm without murmurs, gallops, or rubs. RESPIRATORY: Breath sounds equal bilaterally. No accessory muscle use. diminished right lower lobe , right chest tube to water seal GASTROINTESTINAL: Abdomen soft, non-tender, nondistended. MUSCULOSKELETAL: No cyanosis, or edema. BACK: Nontender without obvious deformity. No CVA tenderness. Vital Signs Date Time Temp Pulse Resp B/P (MAP) Pulse Ox O2 Delivery O2 Flow Rate FiO2 02/03/17 12:00 97 Room Air 02/03/17 12:00 85 02/03/17 12:00 98.4 77 16 106/57 (73) 97 02/03/17 11:41 16 02/03/17 10:00 78 02/03/17 09:00 81 02/03/17 08:00 84 02/03/17 07:00 95 Room Air 02/03/17 07:00 98.0 83 16 117/60 (79) 95 02/03/17 07:00 83 02/03/17 06:00 66 02/03/17 05:00 69 02/03/17 04:03 63 02/03/17 03:47 96 Room Air 02/03/17 03:47 98.1 84 16 129/86 (100) 98 02/03/17 03:00 64 02/03/17 02:00 66 02/03/17 01:00 66 02/03/17 00:03 97.6 77 16 108/56 (73) 94 02/03/17 00:00 77 02/02/17 23:48 96 Room Air 02/02/17 23:00 68 02/02/17 22:00 68 02/02/17 21:00 84 02/02/17 20:30 94 Room Air 02/02/17 20:15 97.5 87 16 103/53 (70) 97 02/02/17 20:00 86 02/02/17 19:00 90 02/02/17 18:00 81 02/02/17 17:00 99 02/02/17 16:00 79 Labs: Laboratory Tests Test 02/03/17 04:25 White Blood Count 12.4 TH/MM3 (4.0-11.0) Red Blood Count 3.98 MIL/MM3 (4.00-5.30) Hemoglobin 10.7 GM/DL (11.6-15.3) Hematocrit 32.5 % (35.0-46.0) Mean Corpuscular Volume 81.5 FL (80.0-100.0) Mean Corpuscular Hemoglobin 27.0 PG (27.0-34.0) Mean Corpuscular Hemoglobin Concent 33.1 % (32.0-36.0) Red Cell Distribution Width 13.4 % (11.6-17.2) Platelet Count 270 TH/MM3 (150-450) Mean Platelet Volume 6.9 FL (7.0-11.0) Neutrophils (%) (Auto) 71.3 % (16.0-70.0) Lymphocytes (%) (Auto) 8.5 % (9.0-44.0) Monocytes (%) (Auto) 7.7 % (0.0-8.0) Eosinophils (%) (Auto) 12.0 % (0.0-4.0) Basophils (%) (Auto) 0.5 % (0.0-2.0) Neutrophils # (Auto) 8.9 TH/MM3 (1.8-7.7) Lymphocytes # (Auto) 1.1 TH/MM3 (1.0-4.8) Monocytes # (Auto) 1.0 TH/MM3 (0-0.9) Eosinophils # (Auto) 1.5 TH/MM3 (0-0.4) Basophils # (Auto) 0.1 TH/MM3 (0-0.2) CBC Comment DIFF FINAL Differential Comment Blood Urea Nitrogen 8 MG/DL (7-18) Creatinine 0.47 MG/DL (0.50-1.00) Random Glucose 115 MG/DL (74-106) Calcium Level 8.3 MG/DL (8.5-10.1) Sodium Level 141 MEQ/L (136-145) Potassium Level 4.2 MEQ/L (3.5-5.1) Chloride Level 105 MEQ/L (98-107) Carbon Dioxide Level 28.6 MEQ/L (21.0-32.0) Anion Gap 7 MEQ/L (5-15) Estimat Glomerular Filtration Rate 137 ML/MIN (>89) Result Diagram: 02/03/1742402/03/17424 (1) Lung cancer Plan: + invasive poorly differentiated NSC adenocarcinoma, no mets to Brain or abdomen/ pelvis Dr Lobo following Path High grade NSC carcinoma / BX + diaphragm, left chest wall, left pleural peel (2) Pleural effusion (3) Lung mass (4) Left Video Assisted Thoracoscopy (VATS) Plan: pain control, pulm toileting nebs ezpap eval for chest tube removal and dc in am Whitney Steven Feb 03, 2017 15:07
--- NOTE | 2017-02-03 18:30 | HHI.PR ---
Subjective Remarks Went for vats thoracotomy and Biopsies of lesions on left diaphragm and pleural decortication. Biopsy suggests Non Small cell CA.She is resting better now. Off o2. Objective Vital Signs Date Time Temp Pulse Resp B/P (MAP) Pulse Ox O2 Delivery O2 Flow Rate FiO2 02/03/17 16:00 96 Room Air 02/03/17 16:00 70 02/03/17 16:00 98.4 80 18 95/54 (68) 96 02/03/17 15:00 78 02/03/17 14:00 74 02/03/17 13:00 70 02/03/17 12:00 97 Room Air 02/03/17 12:00 85 02/03/17 12:00 98.4 77 16 106/57 (73) 97 02/03/17 11:41 16 02/03/17 10:00 78 02/03/17 09:00 81 02/03/17 08:00 84 02/03/17 07:00 95 Room Air 02/03/17 07:00 98.0 83 16 117/60 (79) 95 02/03/17 07:00 83 02/03/17 06:00 66 02/03/17 05:00 69 02/03/17 04:03 63 02/03/17 03:47 96 Room Air 02/03/17 03:47 98.1 84 16 129/86 (100) 98 02/03/17 03:00 64 02/03/17 02:00 66 02/03/17 01:00 66 02/03/17 00:03 97.6 77 16 108/56 (73) 94 02/03/17 00:00 77 02/02/17 23:48 96 Room Air 02/02/17 23:00 68 02/02/17 22:00 68 02/02/17 21:00 84 02/02/17 20:30 94 Room Air 02/02/17 20:15 97.5 87 16 103/53 (70) 97 02/02/17 20:00 86 02/02/17 19:00 90 I/O 02/02/17 02/02/17 02/02/17 02/03/17 02/03/17 02/03/17 07:00 15:00 23:00 07:00 15:00 23:00 Intake Total 480 ml 720 ml 840 ml 820 ml Output Total 1490 ml 1406 ml 1650 ml 160 ml 920 ml Balance -1010 ml -686 ml -810 ml -160 ml -100 ml Intake Oral 480 ml 720 ml 480 ml 820 ml IV Total 360 ml Output Urine Total 1350 ml 1250 ml 1650 ml 800 ml Chest Tube Drainage Total 140 ml 156 ml 160 ml 120 ml # Voids 0 # Bowel Movements 0 1 2 Result Diagram: 02/03/17 0425 02/03/17 0425 Procedures Thoracentesis left chest tube placement 01/29/17 status post VATS procedure, Drainage of loculated pleural cavities, Left posterolateral Mini Thoracotomy, Decortication of the Lung Biopsies of Diaphragmatic and chest wasll lesions, Intercostal Nerve Block as per Doctor Shiela Sahni. Objective Remarks GENERAL: This is an averagely built middle-aged white female who is alert, pale. HEENT: Head normocephalic. Pupils are reactive. Tongue moist. Throat is clear. NECK: No bruits or thyroid enlargement or lymphadenopathy. CHEST: Decreased breath sounds over the left mid and lower chest . Occ wheeze heard. HEART: Sounds are irregular S1 and S2. No definite murmur. No S3. ABDOMEN: Soft, protuberant. No masses. No organomegaly. Bowel sounds are active. EXTREMITIES: No lesions or edema. NEUROLOGIC: Reflexes are 1+ with no gross motor deficits. RECTAL: Exam is deferred. SKIN: No lesions. Assessment and Plan Assessment and Plan IMPRESSION 1. Large left pleural effusion with atelectasis in left lung. 2. Left upper lobe lung mass, Non Small Cell ca of lung. 3. Anxiety. Plan : 1. CBC,BMP in am 2. D/C O2 3. Chest Tube out in am if stable. 4. CXR in am 5. Ambulate with help 6. IS at bedside q3h. Beckie Sahu MD Feb 03, 2017 18:30
[2017-02-04] VITALS (15 sets, daily range): BP systolic 100–127; BP diastolic 56–69; PULSE 64–90; RESP 16–18; TEMP 97.8–98; O2SAT 97–99
[2017-02-04] MEDS: oxyCODONE/ACETAMINOPHEN 5 MG/325 MG TAB PO PRN (05:43)
[2017-02-04 05:45] LABS: AUTOMATED NEUTROPHIL # 8.9 TH/MM3 (1.8-7.7); BASOPHIL # 0.1 TH/MM3 (0-0.2); BASOPHIL % 0.4 % (0.0-2.0); EOSINOPHIL # 1.8 TH/MM3 (0-0.4); EOSINOPHIL % 14.2 % (0.0-4.0); HEMATOCRIT 34.4 % (35.0-46.0); HEMO FLAGS DIFF FINAL; LYMPHOCYTE # 1.2 TH/MM3 (1.0-4.8); MEAN CELL VOLUME 80.8 FL (80.0-100.0); MEAN CORPUSCULAR HGB CONC 33.4 % (32.0-36.0); MONO % 7.1 % (0.0-8.0); NEUT % 69.3 % (16.0-70.0); PLATELET COUNT 301 TH/MM3 (150-450); RED BLOOD COUNT 4.26 MIL/MM3 (4.00-5.30); RED CELL DISTRIBUTION WIDTH 13.3 % (11.6-17.2); WHITE BLOOD COUNT 12.9 TH/MM3 (4.0-11.0)
--- NOTE | 2017-02-04 07:42 | HHI.PR ---
Subjective Remarks in no acute distress. walking with no difficulty. stable on room air. pain is controlled. d/w the RN and no acute issues over night. Objective Vitals Vital Signs Date Time Temp Pulse Resp B/P (MAP) Pulse Ox O2 Delivery O2 Flow Rate FiO2 02/04/17 07:00 64 02/04/17 03:50 98.0 80 18 127/69 (88) 97 02/04/17 03:45 76 02/04/17 03:45 97 Room Air 02/04/17 01:59 66 02/04/17 00:00 70 02/03/17 23:30 72 02/03/17 23:30 97.9 85 17 97/53 (68) 98 02/03/17 23:30 98 Room Air 02/03/17 19:45 98 Room Air 02/03/17 19:45 98.4 86 19 99/56 (70) 98 02/03/17 19:45 79 02/03/17 18:00 76 02/03/17 17:00 70 02/03/17 16:00 96 Room Air 02/03/17 16:00 70 02/03/17 16:00 98.4 80 18 95/54 (68) 96 02/03/17 15:00 78 02/03/17 14:00 74 02/03/17 13:00 70 02/03/17 12:00 97 Room Air 02/03/17 12:00 85 02/03/17 12:00 98.4 77 16 106/57 (73) 97 02/03/17 11:41 16 02/03/17 10:00 78 02/03/17 09:00 81 02/03/17 08:00 84 I/O 02/03/17 02/03/17 02/03/17 02/04/17 02/04/17 02/04/17 07:00 15:00 23:00 07:00 15:00 23:00 Intake Total 840 ml 820 ml 480 ml Output Total 1650 ml 160 ml 920 ml 1010 ml Balance -810 ml -160 ml -100 ml -530 ml Intake Oral 480 ml 820 ml 480 ml IV Total 360 ml Output Urine Total 1650 ml 800 ml 900 ml Chest Tube Drainage Total 160 ml 120 ml 110 ml # Bowel Movements 2 1 Result Diagram: 02/04/17 0443 02/03/17 0425 Imaging Last Impressions Chest X-Ray 02/03/17 0600 Signed Impressions: Service Date/Time: Friday, February 03, 2017 05:13 - CONCLUSION: The left lung remains opacified with increased consolidation at the left lung base. Left- sided chest tube remains in place with no pneumothorax. Kam Jerry MD Brain MRI 01/24/17 0000 Signed Impressions: Service Date/Time: Tuesday, January 24, 2017 09:23 - CONCLUSION: No acute disease. In particular, no MRI evidence to suggest metastatic disease to the brain. Seamus Candelaria Jr., MD Abdomen/Pelvis CT 01/23/17 0000 Signed Impressions: Service Date/Time: January 15:28 - CONCLUSION: 1. Negative for metastatic disease to the abdomen and pelvis. 2. Multiloculated moderate sized left pleural effusion with small caliber left pigtail catheter present in the left pleural space. 3. Gallstones Abisai Dickson MD Chest Tube Insertion 01/20/17 1333 Signed Impressions: Service Date/Time: Friday, January 20, 2017 14:17 - CONCLUSION: Uncomplicated CT-guided placement of 16 [place] pigtail chest tube for treatment of symptomatic recurrent suspected malignant pleural effusion. Soham Chaney MD Lung Biopsy CT 01/20/17 1329 Signed Impressions: Service Date/Time: Friday, January 20, 2017 14:17 - CONCLUSION: 1. Uncomplicated CT guided 18 gauge core biopsies of left upper lobe lung mass. Soham Chaney MD Chest CT 01/16/17 0000 Signed Impressions: Service Date/Time: January 11:46 - CONCLUSION: 1. Large left pleural effusion would be amenable to percutaneous drainage. Recommend leaving a drain and send fluid for cell count as the lesion in the left lung apex is concerning for a malignant process. 2. 4.5 x 5.4 x 5.7 cm heterogeneous soft tissue density in the anteromedial aspect of the left lung apex concerning for malignancy. 3. Resulting dextroposition of the heart and mediastinal structures due to the large left effusion. Right lung is clear. Nahun Frank MD Objective Remarks GENERAL: This is a well-nourished, well-developed patient, in no apparent distress. CARDIOVASCULAR: Regular rate and regular rhythm without murmurs, gallops, or rubs. RESPIRATORY: Clear to auscultation. Breath sounds equal bilaterally. No wheezes , rales, or rhonchi. chest tube in place. GASTROINTESTINAL: Abdomen soft, non-tender, nondistended. Normal, active bowel sounds MUSCULOSKELETAL: Extremities without clubbing, cyanosis, or edema. NEURO: Alert & Oriented x4 to person, place, time, situation. Moves all ext x4 Procedures Thoracentesis Medications and IVs Current Medications Sodium Chloride (NS Flush) 2 ml UNSCH PRN IVF FLUSH AFTER USING IV ACCESS; Start 01/16/17 at 10:45; Stop 01/16/17 at 14:00; Status DC Iohexol (Omnipaque 350 Inj) 71 ml STK-MED ONCE IVCONTRAST Last administered on 01/16/17 09:46; Start 01/16/17 at 09:46; Stop 01/16/17 at 12:14; Status DC Lorazepam (Ativan) 0.5 mg ONCE ONCE PO Last administered on 01/16/17 12:59; Start 01/16/17 at 13:00; Stop 01/16/17 at 13:01; Status DC Sodium Chloride (NS Flush) 2 ml UNSCH PRN IV FLUSH FLUSH AFTER USING IV ACCESS ; Start 01/16/17 at 14:00; Stop 01/29/17 at 13:27; Status DC Sodium Chloride (NS Flush) 2 ml BID IV FLUSH Last administered on 01/28/17 22 :53; Start 01/16/17 at 21:00; Stop 01/29/17 at 13:27; Status DC Ondansetron HCl (Zofran Inj) 4 mg Q6H PRN IVP NAUSEA OR VOMITING; Start at 14:00; Stop 01/29/17 at 13:27; Status DC Enoxaparin Sodium (Lovenox Inj) 40 mg Q24H SQ ; Start 01/17/17 at 20:00; Stop 01/17/17 at 20:00; Status DC Naloxone HCl (Narcan Inj) 0.4 mg UNSCH PRN IV PUSH SEE LABEL COMMENTS; Start 01/16/17 at 14:00; Stop 01/29/17 at 13:27; Status DC Acetaminophen/ Hydrocodone Bitart ([place] 7.5-325 Mg) 1 tab Q4H PRN PO pain 6- 10; Start 01/16/17 at 14:15; Stop 01/29/17 at 13:27; Status DC Acetaminophen/ Hydrocodone Bitart ([place] 5-325 Mg) 1 tab Q4H PRN PO pain 3-5 Last administered on 01/20/17 17:06; Start 01/16/17 at 14:15; Stop 01/29/17 at 13:27; Status DC Morphine Sulfate (Morphine Inj) 1 mg Q4H PRN IV PUSH pain 3-5; Start 01/16/17 at 14:15; Stop 01/29/17 at 13:27; Status DC Morphine Sulfate (Morphine Inj) 2 mg Q4H PRN IV PUSH pain 6-10 Last administered on 01/16/17 20:16; Start 01/16/17 at 14:15; Stop 01/29/17 at 13 :27; Status DC Clonidine (Catapres) 0.1 mg Q6H PRN PO bp>160/90; Start 01/16/17 at 14:30; Stop 02/02/17 at 09:39; Status DC Enalaprilat (Vasotec Inj) 1.25 mg Q6H PRN IV PUSH bp>160/90 Last administered on 01/16/17 14:42; Start 01/16/17 at 14:30; Stop 02/02/17 at 09:39; Status DC Alprazolam (Xanax) 0.25 mg Q8H PRN PO anxiety Last administered on 01/28/17 22:53; Start 01/16/17 at 14:30 Albuterol/ Ipratropium (Duoneb Neb) 1 ampule QID NEB NEB Last administered on 01/19/17 20:32; Start 01/16/17 at 20:00; Stop 01/20/17 at 19:59; Status DC Lidocaine HCl (Xylocaine 1% Inj (50 ml)) 50 ml STK-MED ONCE .ROUTE ; Start at 19:59; Stop 01/16/17 at 20:00; Status DC Heparin Sodium (Porcine) (Heparin Inj) 2,000 units NOW ONCE OTHER Last administered on 01/16/17 20:45; Start 01/16/17 at 20:45; Stop 01/16/17 at 20 :46; Status DC Fentanyl Citrate (fentaNYL INJ) 200 mcg STK-MED ONCE .ROUTE Last administered on 01/20/17 14:15; Start 01/20/17 at 13:26; Stop 01/20/17 at 13:27; Status DC Midazolam HCl (Versed Inj) 4 mg STK-MED ONCE .ROUTE Last administered on 14:15; Start 01/20/17 at 13:26; Stop 01/20/17 at 13:27; Status DC Lidocaine/ Epinephrine (Xylocaine-Epi 1%-1:100,000 Inj) 20 ml STK-MED ONCE .ROUTE ; Start 01/20/17 at 13:41; Stop 01/20/17 at 13:42; Status DC Levofloxacin (Levaquin) 500 mg DAILY PO Last administered on 01/27/17 08:37; Start 01/21/17 at 09:00; Stop 01/27/17 at 18:58; Status DC Fluoxetine HCl (PROzac) 20 mg DAILY PO Last administered on 02/03/17 09:07; Start 01/21/17 at 11:15 Diatrizoate Meglum/ Diatrizoate Sod ( Gastroview Liq) 18 ml ONCE ONCE PO Last administered on 01/23/17 11:10; Start 01/23/17 at 11:15; Stop 01/23/17 at 11:16; Status DC Iohexol (Omnipaque 350 Inj) 100 ml STK-MED ONCE IVCONTRAST Last administered on 01/23/17 15:37; Start 01/23/17 at 15:37; Stop 01/23/17 at 15:38; Status DC Gadodiamide (Omniscan Pf Inj) 14 ml STK-MED ONCE IVCONTRAST Last administered on 01/24/17 09:36; Start 01/24/17 at 09:36; Stop 01/24/17 at 09:37; Status DC Calcium Carbonate (Tums Chew) 500 mg Q6H PRN PO ACID REFLUX; Start 01/26/17 at 11:15 Sodium Chloride (NS Flush) 2 ml BID IV FLUSH ; Start 01/27/17 at 21:00; Stop 01/27/17 at 21:00; Status DC Sodium Chloride (NS Flush) 2 ml UNSCH PRN IV FLUSH FLUSH AFTER USING IV ACCESS ; Start 01/27/17 at 16:30; Stop 01/27/17 at 16:31; Status DC Cefazolin Sodium 500 mg/Sodium Chloride 505 ml @ 0 mls/hr ACUTE CARE CERTIFIED NURSING ASSISTANT IRRIGATION Last administered on 01/29/17 11:22; Start 01/27/17 at 16:30; Stop 01/30/17 at 07:49; Status DC Cefazolin Sodium/ Dextrose 50 ml @ 150 mls/hr ACUTE CARE CERTIFIED NURSING ASSISTANT IV Last administered on 01/29/17 06:59; Start 01/27/17 at 16:30; Stop 01/30/17 at 07:49; Status DC Chlorhexidine Gluconate (Hibiclens 4% Top Soln) 1 applic ACUTE CARE CERTIFIED NURSING ASSISTANT TOPICAL Last administered on 01/29/17 05:30; Start 01/27/17 at 16:30; Stop 01/30/17 at 07 :50; Status DC Lactated Ringer's 1,000 ml @ 30 mls/hr Q24H PRN IV SEE LABEL COMMENTS Last administered on 01/29/17 06:50; Start 01/28/17 at 21:30; Stop 01/30/17 at 07 :49; Status DC Sodium Chloride 500 ml @ 30 mls/hr [id number] PRN IV SEE LABEL COMMENTS; Start at 21:30; Stop 01/30/17 at 07:49; Status DC Metoprolol Tartrate (Lopressor) 25 mg ACUTE CARE CERTIFIED NURSING ASSISTANT PRN PO SEE LABEL COMMENTS; Start 01/28/17 at 21:30; Stop 01/30/17 at 07:49; Status DC Povidone Iodine (Betadine 5% Antisepsis Kit) 1 applic ACUTE CARE CERTIFIED NURSING ASSISTANT PRN EACH NARE SEE LABEL COMMENTS; Start 01/28/17 at 21:30; Stop 01/30/17 at 07:49; Status DC Chlorhexidine Gluconate (Chlorhexidine 2% Cloth) 3 pack ACUTE CARE CERTIFIED NURSING ASSISTANT PRN TOPICAL SEE LABEL COMMENTS; Start 01/28/17 at 21:30; Stop 01/30/17 at 07:49; Status DC Insulin Human Regular (NovoLIN R INJ) See Protocol Table ... ACUTE CARE CERTIFIED NURSING ASSISTANT PRN SQ SEE PROTOCOL TABLE; Start 01/28/17 at 21:30; Stop 01/30/17 at 07:49; Status DC Bupivacaine Liposome 20 ml/ Dexamethasone Sodium Phosphate 4 mg/Morphine Sulfate 8 mg/ Sodium Chloride 42 ml @ 84 mls/hr UNSCH IRRIGATION Last administered on 01/29/17 11:21; Start 01/29/17 at 07:45; Stop 01/29/17 at 13 :54; Status DC Cefazolin Sodium (Ancef Inj) 1,000 mg ONCE ONCE IV Last administered on 10:52; Start 01/29/17 at 10:52; Stop 01/29/17 at 11:24; Status DC Albuterol Sulfate (Albuterol Neb) 2.5 mg Q6HR NEB NEB Last administered on 16:00; Start 01/29/17 at 16:00; Stop 02/02/17 at 15:59; Status DC Albuterol Sulfate (Albuterol Neb) 2.5 mg Q2HR NEB PRN NEB WHEEZING; Start at 11:30 Sodium Chloride (NS Flush) 2 ml BID IV FLUSH Last administered on 02/03/17 20: 24; Start 01/29/17 at 21:00 Sodium Chloride (NS Flush) 2 ml UNSCH PRN IV FLUSH FLUSH AFTER USING IV ACCESS ; Start 01/29/17 at 11:30 Miscellaneous Information (Post-op Orders (for Pharmacy)) STAT ONCE OTHER ; Start 01/29/17 at 11:30; Stop 01/29/17 at 13:25; Status DC Cefazolin Sodium 1000 mg/Sodium Chloride 100 ml @ 200 mls/hr Q8H IV Last administered on 01/30/17 10:03; Start 01/29/17 at 18:00; Stop 01/30/17 at 10 :29; Status DC Pantoprazole Sodium (Protonix) 40 mg HS PO Last administered on 02/03/17 20:24 ; Start 01/29/17 at 21:00 Ondansetron HCl (Zofran Inj) 4 mg Q6H PRN IV PUSH NAUSEA OR VOMITING; Start at 11:30 Docusate Calcium (Surfak) 240 mg HS PO Last administered on 01/29/17 22:09; Start 01/29/17 at 21:00; Stop 01/30/17 at 10:34; Status DC Magnesium Hydroxide (Milk Of Magnesia Liq) 30 ml DAILY PRN PO MILD-MODERATE CONSTIPATION; Start 01/29/17 at 11:30 Acetaminophen (Tylenol) 650 mg Q4H PRN PO TEMPERATURE > 101 F Last administered on 01/30/17 16:29; Start 01/29/17 at 11:30 Oxycodone/ Acetaminophen (Percocet 5-325 Mg) 1 tab Q3H PRN PO PAIN SCALE 3 TO 5 Last administered on 02/04/17 05:43; Start 01/29/17 at 11:30 Acetaminophen 100 ml @ 400 mls/hr Q6H IV Last administered on 01/29/17 12:30 ; Start 01/29/17 at 13:00; Stop 01/30/17 at 07:14; Status DC Ketorolac Tromethamine (Toradol Inj) 15 mg Q6H IV PUSH Last administered on 06:24; Start 01/29/17 at 13:00; Stop 01/30/17 at 07:01; Status DC Naloxone HCl (Narcan Inj) 0.4 mg UNSCH PRN IV PUSH RESPIRATORY RATE LESS THAN 10; Start 01/29/17 at 11:30; Stop 02/02/17 at 09:39; Status DC Morphine Sulfate (Morphine 1 Mg/ ml SEASONER HAND) 30 mg UNSCH IV Last administered on 12:30; Start 01/29/17 at 11:30; Stop 02/02/17 at 09:39; Status DC SEASONER HAND Dosage Infused (Pha) 1 Q8HR .XX Last administered on 02/02/17 06:00; Start 01/29/17 at 14:00; Stop 02/02/17 at 09:39; Status DC Morphine Sulfate (*morphine INJ PERIprocedure ONLY) 8 mg STK-MED ONCE .ROUTE Last administered on 01/29/17 11:57; Start 01/29/17 at 11:57; Stop 01/29/17 at 11:58; Status DC Morphine Sulfate (*morphine INJ PERIprocedure ONLY) 8 mg STK-MED ONCE .ROUTE Last administered on 01/29/17 12:10; Start 01/29/17 at 12:03; Stop 01/29/17 at 12:04; Status DC Ondansetron HCl (*ZOFRAN INJ PERIprocedural ONLY) 4 mg STK-MED ONCE .ROUTE Last administered on 01/29/17 12:04; Start 01/29/17 at 12:03; Stop 01/29/17 at 12:04; Status DC Ondansetron HCl (*ZOFRAN INJ PERIprocedural ONLY) 4 mg STK-MED ONCE .ROUTE ; Start 01/29/17 at 12:06; Stop 01/29/17 at 12:07; Status DC Miscellaneous Information ALL NURSING DEPARTME... UNSCH PRN .XX SEE LABEL COMMENTS; Start 01/29/17 at 11:53; Stop 01/30/17 at 11:52; Status DC Lactated Ringer's 250 ml @ 0 mls/hr Q0M ONCE IV Last administered on 12:39; Start 01/29/17 at 13:30; Stop 01/29/17 at 13:31; Status DC Lactated Ringer's 1,000 ml @ 30 mls/hr Q24H IV Last administered on 01/31/17 14:18; Start 01/29/17 at 14:00; Stop 02/03/17 at 20:36; Status DC Docusate Sodium (Colace) 100 mg BID PO Last administered on 02/03/17 20:24; Start 01/30/17 at 10:30 Polyethylene Glycol (Miralax) 17 gm DAILY PO Last administered on 02/03/17 09: 07; Start 01/30/17 at 10:30 A/P Assessment and Plan A/P Left lung mass/pleural effusion: - status post thoracentesis 01/16, repeated chest x-ray with still pleural effusion, Patient underwent biopsy and chest tube placement on 01/20/17. 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 - CT abd/pelvic and MRI brain neg for metastasis, now off Levaquin. transmission specialist following, - CT Surgery performed 01/29/17 status post VATS procedure, Drainage of loculated pleural cavities, Left posterolateral Mini Thoracotomy, Decortication of the Lung Biopsies of Diaphragmatic and chest wall lesions, Intercostal Nerve Block as per Doctor Shiela Sahni. CT surgery following. f/u with oncology as outpatient. Anxiety Continue her home Xanax and Prozac probable UTI -treated. DVT prophylaxis SCDs. Discharge Planning dc home when chest tube has been removed and cleared by CT surgery. f/u; pcp,pulmonary and oncology. see med list. d/w the patient and RN. Jamie Garcia MD Feb 04, 2017 07:42
[2017-02-04] MEDS: DOCUSATE SODIUM 100 MG CAP PO SCH (09:00)
[2017-02-04] MEDS: POLYETHYLENE GLYCOL 17 GM PKG PO SCH (09:00)
[2017-02-04] MEDS: FLUoxetine HCL 20 MG CAP PO SCH (09:09)
[2017-02-04] MEDS: SODIUM CHLORIDE 0.9% FLUSH 10 ML FLUSH IV FLUSH SCH (09:11)
[2017-02-04] MEDS: ACETAMINOPHEN 325 MG TAB PO PRN (11:00)
--- NOTE | 2017-02-04 12:35 | RADRPT ---
EXAM DATE/TIME: 02/04/2017 11:33 [facility] COMPARISON: CHEST SINGLE AP, February 03, 2017, 5:13. INDICATIONS : Left chest tube removal, evaluate for pneumothorax. MEDICAL HISTORY : None. SURGICAL HISTORY : Left chest tube, lung biopsy. ENCOUNTER: Subsequent ACUITY: 2 weeks PAIN SCORE: 2/10 LOCATION: Left chest FINDINGS: Interval removal of left chest drainage tube. There is persistent patchy areas of opacity and infiltr ate in the left lung, similar to prior. No evidence pneumothorax. There is loss of delineation of por tions of the left heart border and left hemidiaphragm, stable. The right lung is clear. The heart is normal in size. CONCLUSION: 1. No evidence of pneumothorax status post removal of chest drainage tube on the left side. 2. Persistent patchy areas of partially consolidative infiltrate throughout the left lung. Seamus Mcintosh MD on February 04, 2017 at 12:32 Board Certified Radiologist. This report was verified electronically.
[2017-02-04] MEDS ORDERED: ACETAMINOPHEN 325 MG TAB PO PRN (13:15)
[2017-02-04] MEDS ORDERED: OXYC1TAB63 PO (14:04)
[2017-02-04] MEDS ORDERED: DOCU1CAP39 PO (14:04)
--- NOTE | 2017-02-04 14:11 | PD.CAR.PN ---
CVT Progress Note Subjective/Hospital Course: 56-year-old female who was admitted to the hospital approximately a week ago with presenting complaints of hoarseness,cough and shortness of breath necessitating supplemental oxygen therapy. Further workup following admission including a chest x-ray and a subsequent chest CT demonstrated a large left pleural effusion with a heterogeneous left apical lung mass. The patient has undergone a percutaneous chest drain placement as well as percutaneous biopsy of the left upper lobe lung mass which is consistent with an adenocarcinoma. The chest tube has drained fluid initially but now the drainage has considerably subsided. However, on chest x-ray she continues to have significant pleural effusion which appears to be loculated. We were consulted for further therapy regarding her chest findings. PAST MEDICAL HISTORY Significant for - 1. Cholesterolemia. 2. Chronic anxiety. 01/27 CXR noted: Enlarging loculated left effusion despite drainage catheter, Developing consolidation involving the medial left lung apex. very anxious , but agrees for surgery on wed Left VATS, possible thoracotomy, lung BX decortication 01/28 on room air chest tube in place for surgery in am 01/29 surgery : 1. Left Video Assisted Thoracoscopy (VATS), Drainage of Loculated Pleural Cavities, Left Posterolateral Mini-Thoracotomy, Decortication of Left Lung, Biopsies of Diaphragmatic and Chest Wall Lesions 01/30 on morphine CHICKEN CATCHER pain controlled + 4 air leak in chest tube, to water seal pulm toileting nebs. ezpap initial path noted : INVASIVE POORLY DIFFERENTIATED NON-SMALL CELL CARCINOMA WITH IMMUNOHISTOCHEMICAL FEATURES MOST CONSISTENT WITH ADENOCARCINOMA TYPE OF LUNG PRIMARY IN NEEDLE CORE BIOPSIES, CLINICALLY LEFT LUNG / Dr Lobo following 01/31 still has air leak path noted pain controlled PT/OOB 02/01/17 No complaints, very small air leak 02/02/17 No complaints today. Continues with small air leak. 02/03 no further air leak noted, will keep chest tube in place for now, possible removal and dc in am on room air CHICKEN CATCHER dc , + BM 02/04 chest tube dc / post CXR neg for PTX stable for dc home some drainage at chest tube site will need to reinforce at home ok to remove dressing in 2 days / and shower f/u with oncology in 4 weeks Objective: GENERAL: SKIN: Warm and dry. incision intact and well approximated left postero lateral chest wall HEAD: Normocephalic. EYES: No scleral icterus. No injection or drainage. NECK: Supple, trachea midline. No JVD or lymphadenopathy. CARDIOVASCULAR: Regular rate and rhythm without murmurs, gallops, or rubs. RESPIRATORY: Breath sounds equal bilaterally. No accessory muscle use. diminished left lower base GASTROINTESTINAL: Abdomen soft, non-tender, nondistended. MUSCULOSKELETAL: No cyanosis, or edema. BACK: Nontender without obvious deformity. No CVA tenderness. Vital Signs Date Time Temp Pulse Resp B/P (MAP) Pulse Ox O2 Delivery O2 Flow Rate FiO2 02/04/17 13:17 17 02/04/17 11:22 98 Room Air 02/04/17 11:20 98.0 74 16 100/58 (72) 98 02/04/17 11:00 78 02/04/17 10:00 78 02/04/17 09:14 17 02/04/17 09:06 Room Air 02/04/17 09:05 97.8 90 17 100/56 (71) 99 02/04/17 09:00 84 02/04/17 08:00 80 02/04/17 07:00 64 02/04/17 03:50 98.0 80 18 127/69 (88) 97 02/04/17 03:45 76 02/04/17 03:45 97 Room Air 02/04/17 01:59 66 02/04/17 00:00 70 02/03/17 23:30 72 02/03/17 23:30 97.9 85 17 97/53 (68) 98 02/03/17 23:30 98 Room Air 02/03/17 19:45 98 Room Air 02/03/17 19:45 98.4 86 19 99/56 (70) 98 02/03/17 19:45 79 02/03/17 18:00 76 02/03/17 17:00 70 02/03/17 16:00 96 Room Air 02/03/17 16:00 70 02/03/17 16:00 98.4 80 18 95/54 (68) 96 02/03/17 15:00 78 Labs: Laboratory Tests Test 02/04/17 04:43 White Blood Count 12.9 TH/MM3 (4.0-11.0) Red Blood Count 4.26 MIL/MM3 (4.00-5.30) Hemoglobin 11.5 GM/DL (11.6-15.3) Hematocrit 34.4 % (35.0-46.0) Mean Corpuscular Volume 80.8 FL (80.0-100.0) Mean Corpuscular Hemoglobin 27.0 PG (27.0-34.0) Mean Corpuscular Hemoglobin Concent 33.4 % (32.0-36.0) Red Cell Distribution Width 13.3 % (11.6-17.2) Platelet Count 301 TH/MM3 (150-450) Mean Platelet Volume 7.1 FL (7.0-11.0) Neutrophils (%) (Auto) 69.3 % (16.0-70.0) Lymphocytes (%) (Auto) 9.0 % (9.0-44.0) Monocytes (%) (Auto) 7.1 % (0.0-8.0) Eosinophils (%) (Auto) 14.2 % (0.0-4.0) Basophils (%) (Auto) 0.4 % (0.0-2.0) Neutrophils # (Auto) 8.9 TH/MM3 (1.8-7.7) Lymphocytes # (Auto) 1.2 TH/MM3 (1.0-4.8) Monocytes # (Auto) 0.9 TH/MM3 (0-0.9) Eosinophils # (Auto) 1.8 TH/MM3 (0-0.4) Basophils # (Auto) 0.1 TH/MM3 (0-0.2) CBC Comment DIFF FINAL Differential Comment Result Diagram: 02/04/17 0443 02/03/17 0425 (1) Lung cancer Plan: + invasive poorly differentiated NSC adenocarcinoma, no mets to Brain or abdomen/ pelvis Dr Lobo following Path High grade NSC carcinoma / BX + diaphragm, left chest wall, left pleural peel (2) Pleural effusion (3) Lung mass (4) Left Video Assisted Thoracoscopy (VATS) Plan: pain control, pulm toileting nebs ezpap eval for chest tube removal and dc in [facility] Feb 04, 2017 14:11
--- NOTE | 2017-02-04 14:41 | HHI.DS ---
Discharge Summary Admission Date Jan 17, 2017 at 10:48 Discharge Date: Feb 04, 2017 Admitting Diagnosis lung mass, pleural effusion (1) Lung cancer ICD Code: C34.90 - Malignant neoplasm of unspecified part of unspecified bronchus or lung Diagnosis: Principal Procedures Thoracentesis Brief History - From Admission 56 years old female presented to the ED complaining of worsening short of breath over the last 2-3 weeks, patient stated she had sore throat with what it looks like bronchitis about 2 weeks ago which got better however she continued to have short of breath," I feel I'm on a treadmill all the time " Patient denied any history of chronic smoking, she smoked 2 packs in her whole life when she was 19 years old, she mentioned occasional night sweat, but she denied weight loss on the opposite she put on some weight, however patient and her they mentioned he started on a newly diet with more vegetables and less meat, she mentioned loose stool recently but she blinked it to her new diet. No phlegm production, no hemoptysis. In ED CT of the chest showed large left pleural effusion with left apical large mass very suspicious for malignancy, also patient had a blood pressure of 180/ 90 and a heart rate in the 120, she was very anxious she was given a dose of benzodiazepine which helped her, she seems to have Xanax every 4 hours at home CBC/BMP: 02/04/17 0443 02/03/17 0425 Significant Findings Laboratory Tests Test 02/03/17 04:25 02/04/17 04:43 White Blood Count 12.4 TH/MM3 (4.0-11.0) 12.9 TH/MM3 (4.0-11.0) Red Blood Count 3.98 MIL/MM3 (4.00-5.30) Hemoglobin 10.7 GM/DL (11.6-15.3) 11.5 GM/DL (11.6-15.3) Hematocrit 32.5 % (35.0-46.0) 34.4 % (35.0-46.0) Mean Platelet Volume 6.9 FL (7.0-11.0) Neutrophils (%) (Auto) 71.3 % (16.0-70.0) Lymphocytes (%) (Auto) 8.5 % (9.0-44.0) Eosinophils (%) (Auto) 12.0 % (0.0-4.0) 14.2 % (0.0-4.0) Neutrophils # (Auto) 8.9 TH/MM3 (1.8-7.7) 8.9 TH/MM3 (1.8-7.7) Monocytes # (Auto) 1.0 TH/MM3 (0-0.9) Eosinophils # (Auto) 1.5 TH/MM3 (0-0.4) 1.8 TH/MM3 (0-0.4) Creatinine 0.47 MG/DL (0.50-1.00) Random Glucose 115 MG/DL (74-106) Calcium Level 8.3 MG/DL (8.5-10.1) Imaging Last Impressions Chest X-Ray 02/04/17 1130 Signed Impressions: Service Date/Time: Saturday, February 04, 2017 11:33 - CONCLUSION: 1. No evidence of pneumothorax status post removal of chest drainage tube on the left side. 2. Persistent patchy areas of partially consolidative infiltrate throughout the left lung. Seamus Mcintosh MD Brain MRI 01/24/17 0000 Signed Impressions: Service Date/Time: Tuesday, January 24, 2017 09:23 - CONCLUSION: No acute disease. In particular, no MRI evidence to suggest metastatic disease to the brain. Seamus Candelaria Jr., MD Abdomen/Pelvis CT 01/23/17 0000 Signed Impressions: Service Date/Time: January 15:28 - CONCLUSION: 1. Negative for metastatic disease to the abdomen and pelvis. 2. Multiloculated moderate sized left pleural effusion with small caliber left pigtail catheter present in the left pleural space. 3. Gallstones Abisai Dickson MD Chest Tube Insertion 01/20/17 1333 Signed Impressions: Service Date/Time: Friday, January 20, 2017 14:17 - CONCLUSION: Uncomplicated CT-guided placement of 16 Stateless pigtail chest tube for treatment of symptomatic recurrent suspected malignant pleural effusion. Soham Chaney MD Lung Biopsy CT 01/20/17 1329 Signed Impressions: Service Date/Time: Friday, January 20, 2017 14:17 - CONCLUSION: 1. Uncomplicated CT guided 18 gauge core biopsies of left upper lobe lung mass. Soham Chaney MD Chest CT 01/16/17 0000 Signed Impressions: Service Date/Time: January 11:46 - CONCLUSION: 1. Large left pleural effusion would be amenable to percutaneous drainage. Recommend leaving a drain and send fluid for cell count as the lesion in the left lung apex is concerning for a malignant process. 2. 4.5 x 5.4 x 5.7 cm heterogeneous soft tissue density in the anteromedial aspect of the left lung apex concerning for malignancy. 3. Resulting dextroposition of the heart and mediastinal structures due to the large left effusion. Right lung is clear. Nahun Frank MD PE at Discharge GENERAL: This is a well-nourished, well-developed patient, in no apparent distress. CARDIOVASCULAR: Regular rate and regular rhythm without murmurs, gallops, or rubs. RESPIRATORY: Clear to auscultation. Breath sounds equal bilaterally. No wheezes , rales, or rhonchi. chest tube in place. GASTROINTESTINAL: Abdomen soft, non-tender, nondistended. Normal, active bowel sounds MUSCULOSKELETAL: Extremities without clubbing, cyanosis, or edema. NEURO: Alert & Oriented x4 to person, place, time, situation. Moves all ext x4 Hospital Course patient was admitted with lung mass. she underwent thoracentesis and later on biopsy of the lung mass and chest tube placement. pathology with adenocarcinoma. she was evaluated by oncology. chest tube was removed and cleared by oncology and CT surgery for discharge. she will have a follow-up with oncology as outpatient. Pt Condition on Discharge: Good Discharge Disposition: Disch w/ Home Health Serv Discharge Time: > 30 minutes Discharge Instructions DIET: Follow Instructions for: As Tolerated, No Restrictions Activities you can perform: Full Weight Bearing, Shower Only-No Bath Activities to Avoid: Strenuous Activity, Driving, Sexual Activity Other Activity Instructions: no lifting > 8 lbs or gallon of milk Follow up Referrals: Oncology/Hematology - 4 Weeks with Danielito Lobo MD PCP Follow-up - 2 Weeks with Ame Vizcarra MD Pulmonology Surgical - 2 Weeks with Whitney Steven New Medications: Docusate Sodium (Dok) 100 Mg Cap 100 MG PO DAILY for Constipation, #30 CAP 0 Refills Oxycodone HCl/Acetaminophen (Oxycodone-Acetaminophen 5-325) 5 Mg-325 Mg Tablet 1 TAB PO Q3H PRN for PAIN SCALE 3 TO 5, #40 TAB Continued Medications: Alprazolam (Xanax) 0.25 Mg Tab 0.25 MG PO Q4H PRN for ANXIETY, TAB 0 Refills Fluoxetine (Prozac) 20 Mg Cap 20 MG PO DAILY, #30 CAP 0 Refills Jamie Garcia MD Feb 04, 2017 14:41
== END 2017-02-04 15:25 | disposition home health service (06) | DRG 163 ==
LOC: NEPE 09:45 → NEDA 13:20 → INTOOBSV 13:20 → NEPHCDU 16:19 → OBSVTOIN 01-17 10:48 → N06A 01-18 19:14 → HCPC 01-29 09:29
PROVIDERS: ADMIT Hospitalist; ATTEND Internal Medicine
PROC: 0BBG3ZX Excision of Left Upper Lung Lobe, Percutaneous Approach, Diagnostic (ICD-10-PCS; 2017-01-20)
PROC: 0W9B30Z Drainage of Left Pleural Cavity with Drainage Device, Percutaneous Approach (ICD-10-PCS; 2017-01-20)
PROC: 0W9B4ZX Drainage of Left Pleural Cavity, Percutaneous Endoscopic Approach, Diagnostic (ICD-10-PCS; 2017-01-29)
PROC: 0BBP0ZX Excision of Left Pleura, Open Approach, Diagnostic (ICD-10-PCS; 2017-01-29)
PROC: 0WB80ZX Excision of Chest Wall, Open Approach, Diagnostic (ICD-10-PCS; 2017-01-29)
PROC: 3E0T3BZ Introduction of Anesthetic Agent into Peripheral Nerves and Plexi, Percutaneous Approach (ICD-10-PCS; 2017-01-29)
PROC: 0BNL0ZZ Release Left Lung, Open Approach (ICD-10-PCS; principal; 2017-01-29 07:30)
PROC: 0BBT0ZX Excision of Diaphragm, Open Approach, Diagnostic (ICD-10-PCS; 2017-01-29 07:30)
DX: C34.12 Malignant neoplasm of upper lobe, left bronchus or lung (principal); J86.9 Pyothorax without fistula; J91.8 Pleural effusion in other conditions classified elsewhere; N39.0 Urinary tract infection, site not specified; J98.11 Atelectasis; D72.829 Elevated white blood cell count, unspecified; E78.00 Pure hypercholesterolemia, unspecified; F41.9 Anxiety disorder, unspecified; Z53.32 Thoracoscopic surgical procedure converted to open procedure
CPT/HCPCS: 32405; 32557; 36600; 70553; 71010; 71260; 74177; 77012; 80048; 80053; 81001; 82042; 82150; 82378; 82805; 82945; 82948; 83615; 83735; 83880; 83986; 84157; 84484; 85025; 85027; 85610; 85730; 86850; 86900; 86901; 87015; 87070; 87086; 87102; 87116; 87176; 87205; 87206; 87641; 88305; 88331; 88341; 88342; 89051; 93005; 94010; 94060; 94150; 94640; 94664; 94667; 94668; 96374; 96375; A9579; C1729; C1769; C9290; G0378; J0131; J0690; J1100; J1644; J1885; J2250; J2270; J2405; J3010; J7120; J7613; Q9963; Q9967

== ENCOUNTER 2017-03-31 18:06 | Inpatient (IN) | payer OTHER ==
[~2017-03-31] VITALS: Ht 157.5 cm; Wt 62.2 kg
[~2017-03-31 18:06] MED LIST: ALPR.25 PO; DOCU1CAP39 PO; OXYC1TAB63 PO; PROZ20CA11 PO
[2017-03-31 18:10] VITALS: BP 148/76; PULSE 89; RESP 20; TEMP 98.6; O2SAT 95
[2017-03-31] MEDS ORDERED: OSIM80TA (18:26)
--- NOTE | 2017-03-31 18:43 | PD ---
HPI Chief Complaint: Hip Injury Time Seen by Provider: 18:24 Travel History International Travel<30 days: No Contact w/Intl Traveler<30days: No Traveled to known affect area: No History of Present Illness HPI 56-year-old female with lung cancer presents emergency department via [facility] after a turn and plant injury that occurred just prior to arrival. States that she felt a pop from her left hip and developed immediate deformity with pain. Patient states that she has has pain in the left hip along with her left wood. States the aching from her left wood has been present since discharge in January. Currently, she denies numbness or tingling to the leg. States her pain is currently controlled after morphine from [facility]. [facility] states that she received NS 1L, morphine 10mg, and zofran. Says she was diagnosed with lung CA in January after plural effusions were found on CXR. Says that she was admitted to the hospital and required chest tubes. She says she has a rash secondary to a medication that was started recently. Pt is a lifelong nonsmoker. Says she does not use O2 at home. PFSH Past Medical History Anxiety: Yes Cancer: Yes (Lung) Cardiovascular Problems: No Chemotherapy: Yes (Tagrisso) Diminished Hearing: No Genitourinary: No Musculoskeletal: No Neurologic: No Respiratory: No Tetanus Vaccination: Unknown Influenza Vaccination: No Menopausal: Yes Past Surgical History Oral Surgery: Yes (TOOTH REMOVED) Social History Alcohol Use: No Tobacco Use: No Substance Use: No Allergies-Medications (Allergen,Severity, Reaction): Coded Allergies: tramadol (Verified Adverse Reaction, Mild, Nausea/Vomiting, 03/31/17) Reported Meds & Prescriptions Reported Meds & Active Scripts Active Reported Tagrisso (Osimertinib Mesylate) 80 Mg Tablet Xanax (Alprazolam) 0.25 Mg Tab 0.25 Mg PO Q4H PRN Prozac (Fluoxetine HCl) 20 Mg Cap 20 Mg PO DAILY Review of Systems Except as stated in HPI: all other systems reviewed are Neg Physical Exam Narrative GENERAL: WD, WN in NAD SKIN: Focused skin assessment warm/dry. HEAD: Atraumatic. Normocephalic. EYES: Pupils equal and round. No scleral icterus. No injection or drainage. ENT: No nasal bleeding or discharge. Mucous membranes pink and moist. NECK: Trachea midline. No JVD. CARDIOVASCULAR: Regular rate and rhythm. No murmur appreciated. RESPIRATORY: No accessory muscle use. GASTROINTESTINAL: Abdomen soft, non-tender, nondistended. Hepatic and splenic margins not palpable. MUSCULOSKELETAL: No obvious deformities. No clubbing. No cyanosis. No edema. left hip stable, obvious deformity to left femur likely trochanter bulge, position of comfort slightly flexed position with slight external rotation. no tenderness palpation to the thigh itself. Neurovascular intact pedal pulses present. left lower extremity- appear slightly larger than right, mild TTP to calf and wood, no erythema NEUROLOGICAL: Awake and alert. No obvious cranial nerve deficits. Motor grossly within normal limits. Normal speech. PSYCHIATRIC: Appropriate mood and affect; insight and judgment normal. Data Data Last Documented VS Vital Signs Date Time Temp Pulse Resp B/P (MAP) Pulse Ox O2 Delivery O2 Flow Rate FiO2 03/31/17 21:17 89 16 129/70 (89) 96 Room Air 03/31/17 18:10 98.6 Orders Orders Chest, Single Ap (03/31/17 ) Complete Blood Count With Diff (03/31/17 18:33) Basic Metabolic Panel (Bmp) (03/31/17 18:33) Prothrombin Time / Inr (Pt) (03/31/17 18:33) Act Partial Throm Time (Ptt) (03/31/17 18:33) Hip, Uni(Ap&Lat) W Ap Pelvis (03/31/17 ) Morphine Inj (Morphine Inj) (03/31/17 18:45) Us Leg Venous Doppler (03/31/17 ) Urinary Catheter Insert/Apply (03/31/17 20:57) Admit Order (Ed Use Only) (03/31/17 21:41) Labs Laboratory Tests Test 03/31/17 19:00 White Blood Count 10.2 TH/MM3 Red Blood Count 4.87 MIL/MM3 Hemoglobin 12.0 GM/DL Hematocrit 36.3 % Mean Corpuscular Volume 74.6 FL Mean Corpuscular Hemoglobin 24.7 PG Mean Corpuscular Hemoglobin Concent 33.1 % Red Cell Distribution Width 15.4 % Platelet Count 198 TH/MM3 Mean Platelet Volume 7.3 FL Neutrophils (%) (Auto) 77.9 % Lymphocytes (%) (Auto) 7.0 % Monocytes (%) (Auto) 4.5 % Eosinophils (%) (Auto) 10.3 % Basophils (%) (Auto) 0.3 % Neutrophils # (Auto) 7.9 TH/MM3 Lymphocytes # (Auto) 0.7 TH/MM3 Monocytes # (Auto) 0.5 TH/MM3 Eosinophils # (Auto) 1.1 TH/MM3 Basophils # (Auto) 0.0 TH/MM3 CBC Comment DIFF FINAL Differential Comment Prothrombin Time 10.3 SEC Prothromb Time International Ratio 1.0 RATIO Activated Partial Thromboplast Time 22.8 SEC Blood Urea Nitrogen 15 MG/DL Creatinine 0.71 MG/DL Random Glucose 137 MG/DL Calcium Level 8.1 MG/DL Sodium Level 138 MEQ/L Potassium Level 3.9 MEQ/L Chloride Level 105 MEQ/L Carbon Dioxide Level 27.0 MEQ/L Anion Gap 6 MEQ/L Estimat Glomerular Filtration Rate 85 ML/MIN MDM Medical Decision Making Medical Screen Exam Complete: Yes Emergency Medical Condition: Yes Differential Diagnosis left leg fracture, hip dislocation, hip fracture, chronic left wood pain Narrative Course 56-year-old female presents emergency department via [facility] after a turn and plant injury that occurred just prior to arrival. States that she felt a pop from her left hip and developed immediate deformity with pain. Patient states that she has has pain in the left hip along with her left wood. States the aching from her left wood has been present since discharge in January. Currently, she denies numbness or tingling to the leg. States her pain is currently controlled after morphine from [facility]. [facility] states that she received NS 1L, morphine 10mg, and zofran. Says she was diagnosed with lung CA in January 2017 after plural effusions were found on CXR. Says that she was admitted to the hospital and required chest tubes. She says she has a rash secondary to a medication that was started recently. Pt is a lifelong nonsmoker. Says she does not use O2 at home. Vital signs stable, 2 LPM NC applied as pt demonstrates decreased SaO2. Improved to 97%. Physical exam demonstrates a left bulge to lateral trochanter without skin breakdown, neurovasc intact. left lower extremity is slightly more edematous which may be due to her injury vs other etiology. Says she has had wood pain since discharge in January. I am concerned about a DVT since she did have a lengthy hospital stay. Morphine 2mg administered for pain. US ordered for leg leg. Negative for DVT. CXR demonstrates Pleural effusions vs pneumonia. Likely effusion. Pt continues to deny SOB. SaO2 stable at 2LPM O2 NC Labs are stable from previous. I spoke with Dr. Tejada who states that he would perform the surgery tomorrow. Patient will be admitted for surgery tomorrow. Admitted to Dr. Burgess. Physician Communication Physician Communication I spoke with Dr. Angelo, orthopedics who stated she should be given a diet and surgery tomorrow. Diagnosis Primary Impression: Trochanteric fracture of left femur Qualified Codes: S72.102A - Unspecified trochanteric fracture of left femur, initial encounter for closed fracture Additional Impressions: Pleural effusion Lung cancer Qualified Codes: C34.82 - Malignant neoplasm of overlapping sites of left bronchus and lung Admitting Information Admitting Physician Requests: Admit Scripts Calcium Carbonate-Vitamin D (Calcium 600+D 200) 600-200 Mg-Unit Tab 1 TAB PO BID for Nutritional Supplement for 30 Days, #60 TAB 0 Refills Prov: Ray Harrington/[employer] PA 04/01/17 Cholecalciferol (Vitamin D3) 2,000 Unit Cap 2000 UNITS PO DAILY for Nutritional Supplement, #60 CAP 0 Refills Prov: Ray Harrington/[employer] PA 04/01/17 Ergocalciferol (Ergocalciferol) 50,000 Unit Cap 56486 UNITS PO Q7D for Nutritional Supplement, #8 CAP Prov: Ray Harrington/[employer] PA 04/01/17 Rivaroxaban (Xarelto) 10 Mg Tab 10 MG PO DAILY for Blood Clot Prevention, #14 TAB 0 Refills Prov: Ray Harrington/[employer] PA 04/01/17 Hydrocodone-Acetaminophen (Hydrocodone-Acetaminophen) 10-325 mg Tab 1 TAB PO Q4H Y for PAIN, #60 TAB 0 Refills Prov: Ray Harrington/[employer] PA 04/01/17 Condition: Stable [place] Mar 31, 2017 18:43
[2017-03-31] MEDS ORDERED: MORPHINE SULFATE 2 MG/ML INJ IV PUSH ONE (18:45)
[2017-03-31 19:29] LABS: AUTOMATED NEUTROPHIL # 7.9 TH/MM3 (1.8-7.7); BASOPHIL % 0.3 % (0.0-2.0); EOSINOPHIL # 1.1 TH/MM3 (0-0.4); EOSINOPHIL % 10.3 % (0.0-4.0); HEMATOCRIT 36.3 % (35.0-46.0); LYMPHOCYTE # 0.7 TH/MM3 (1.0-4.8); MEAN CELL VOLUME 74.6 FL (80.0-100.0); MEAN CORPUSCULAR HEMOGLOBIN 24.7 PG (27.0-34.0); MEAN CORPUSCULAR HGB CONC 33.1 % (32.0-36.0); MEAN PLATELET VOLUME 7.3 FL (7.0-11.0); MONO % 4.5 % (0.0-8.0); MONOCYTE # 0.5 TH/MM3 (0-0.9); NEUT % 77.9 % (16.0-70.0); PLATELET COUNT 198 TH/MM3 (150-450); RED BLOOD COUNT 4.87 MIL/MM3 (4.00-5.30); RED CELL DISTRIBUTION WIDTH 15.4 % (11.6-17.2); WHITE BLOOD COUNT 10.2 TH/MM3 (4.0-11.0)
[2017-03-31 19:41] LABS: PROTHROMBIN TIME - PATIENT 10.3 SEC (9.8-11.6)
[2017-03-31 19:47] LABS: CALCIUM 8.1 MG/DL (8.5-10.1); CREATININE 0.71 MG/DL (0.50-1.00)
--- NOTE | 2017-03-31 21:04 | RADRPT ---
EXAM DATE/TIME: 03/31/2017 19:34 [facility] COMPARISON: CHEST SINGLE AP, February 04, 2017, 11:33. INDICATIONS : Short of breath MEDICAL HISTORY : Carcinoma, lung. Recurrent symptomatic suspected malignant pleural effusion SURGICAL HISTORY : Left chest tube, lung biopsy. ENCOUNTER: Initial ACUITY: 1 day PAIN SCORE: 0/10 LOCATION: chest FINDINGS: There is worsening opacification of the left hemithorax consistent with probable combination of exten sive consolidation and pleural fluid. The right lung is clear. The heart is stable. Scoliosis of the thoracic spine is stable. CONCLUSION: Worsening opacification of the left hemithorax consistent with probable combination of extensive cons olidation and pleural fluid. Eze Bonds MD on March 31, 2017 at 21:00 Board Certified Radiologist. This report was verified electronically.
--- NOTE | 2017-03-31 21:07 | RADRPT ---
EXAM DATE/TIME: 03/31/2017 19:36 [facility] COMPARISON: No previous studies available for comparison. INDICATIONS : Left hip pain, walking and hip poped MEDICAL HISTORY : Large recurrent symptomatic suspected malignant pleural effusion SURGICAL HISTORY : Left chest tube, lung biopsy. ENCOUNTER: Initial ACUITY: 1 day PAIN SCORE: 10/10 LOCATION: Left Hip FINDINGS: There is an acute displaced subtrochanteric fracture involving the left proximal femur. CONCLUSION: Acute displaced subtrochanteric fracture involving the left proximal femur. Eze Bonds MD on March 31, 2017 at 21:03 Board Certified Radiologist. This report was verified electronically.
[2017-03-31 21:17] VITALS: BP 129/70; PULSE 89; RESP 16; O2SAT 96
--- NOTE | 2017-03-31 21:42 | RADRPT ---
EXAM DATE/TIME: 03/31/2017 20:18 [facility] COMPARISON: No previous studies available for comparison. INDICATIONS : Left leg pain. MEDICAL HISTORY : Lung cancer. Chemotherapy. SURGICAL HISTORY : Oral surgery. ENCOUNTER: Initial ACUITY: 2 day PAIN SCORE: 10/10 LOCATION: Left leg. TECHNIQUE: Venous ultrasound of the leg was performed from the inguinal ligament to the proximal calf. Real-lizbeth e, color Doppler and spectral tracing, compression and augmentation techniques were used. FINDINGS: There is normal compressibility of the deep venous system from the inguinal region to the proximal ca lf. No echogenic clot is seen in the lumen of the common femoral, femoral, popliteal, and posterior tibial veins. There is a normal response of the venous system to proximal and distal augmentation an d respiration. CONCLUSION: No evidence of deep venous thrombosis. Eze Bonds MD on March 31, 2017 at 21:39 Board Certified Radiologist. This report was verified electronically.
[2017-03-31] MEDS ORDERED: MORPHINE SULFATE 2 MG/ML INJ IV PUSH PRN (21:45)
[2017-03-31] MEDS ORDERED: ONDANSETRON HCL 4 MG/2 ML VIAL IVP PRN (21:45)
[2017-03-31] MEDS ORDERED: RESP: ALBUTEROL 2.5 MG/IPRATROPIUM 0.5 MG NEB (PRN) NEB (21:45)
[2017-03-31] MEDS ORDERED: ACETAMINOPHEN 325 MG TAB PO PRN (21:45)
[2017-03-31] MEDS ORDERED: MAGNESIUM HYDROXIDE SUSP 30 ML CUP PO PRN (21:45)
[2017-03-31] MEDS ORDERED: SODIUM CHLORIDE 0.9% FLUSH 10 ML FLUSH IV FLUSH PRN (21:45)
[2017-03-31] MEDS ORDERED: BISACODYL 10 MG SUPP RECTAL PRN (21:45)
[2017-03-31] MEDS ORDERED: SENNOSIDES 8.6 MG TAB PO PRN (21:45)
[2017-03-31] MEDS ORDERED: LACTULOSE SYRUP 20 GM/30 ML CUP PO PRN (21:45)
--- NOTE | 2017-03-31 21:45 | HHI.HP ---
[facility] Ame Vizcarra MD Admission Diagnosis Femur fracture, Diagnoses: (1) Trochanteric fracture of left femur Diagnosis: Principal (2) Lung cancer Diagnosis: Principal (3) Pleural effusion Diagnosis: Principal Travel History International Travel<30 Days: No Contact w/Intl Traveler <30 Da: No Traveled to Known Affected Are: No History of Present Illness This is a 56-year-old female with a PMH of Lung CA on Chemotherapy who is brought to the ER by EMS secondary to complaints of severe left hip pain. Patient denies any trauma or injury. States she was standing and went to pivot when she hear sudden "pop" in her left hip, felt immediate pain. Pain is sharp , severe, constant, 10/10, radiates to left knee/wood, worse w/ movement. On arrival, BP 148/76, HR 89, O2 sat 95% on RA, Afebrile. Chemistry at baseline except for GFR 85. INR 1.0. CXR with worsening opacification left hemithorax likely commendation of consolidation and pleural fluid. Hip/Pelvis X-ray acute displaced subtrochanteric fracture of left proximal femur. LE US no evidence of DVT. Dr. Angelo consulted by ER physician, plan is for surgical intervention in am. Review of Systems Except as stated in HPI: all other systems reviewed are Neg ROS: 14 point review of systems otherwise negative. Past Family Social History Past Medical History PMH: Lung CA on Chemotherapy Past Surgical History PAST SURGICAL HISTORY: Dental Extraction Allergies: Coded Allergies: tramadol (Verified Adverse Reaction, Mild, Nausea/Vomiting, 03/31/17) Family History PAST FAMILY HISTORY: Reviewed. No h/o DM or CAD Social History PAST SOCIAL HISTORY: Negative for alcohol or drugs. Positive for tobacco. Physical Exam Vital Signs Vital Signs Date Time Temp Pulse Resp B/P (MAP) Pulse Ox O2 Delivery O2 Flow Rate FiO2 03/31/17 21:17 89 16 129/70 (89) 96 Room Air 03/31/17 18:10 98.6 89 20 148/76 (100) 95 Physical Exam PE: GENERAL: Very pleasant middle-aged white female in moderate distress secondary to hip pain. at bedside. HEENT: PERRLA, EOMI. No scleral icterus or conjunctival pallor. No lid lag or facial droop. CARDIOVASCULAR: Regular rate and rhythm. No obvious murmurs to auscultation. No chest tenderness to palpation. RESPIRATORY: No obvious rhonchi or wheezing. Clear to auscultation. Breath sounds equal bilaterally. GASTROINTESTINAL: Abdomen soft, non-tender, nondistended. BS normal. MUSCULOSKELETAL: Extremities without clubbing, cyanosis, or edema. No obvious deformities. LLE w/ external rotation, decreased ROM due to injury. Pulses intact. NEUROLOGICAL: Awake, alert and oriented x4. No focal neurologic deficits. Moving both upper and lower extremities spontaneously. Laboratory Laboratory Tests Test 03/31/17 19:00 White Blood Count 10.2 Red Blood Count 4.87 Hemoglobin 12.0 Hematocrit 36.3 Mean Corpuscular Volume 74.6 Mean Corpuscular Hemoglobin 24.7 Mean Corpuscular Hemoglobin Concent 33.1 Red Cell Distribution Width 15.4 Platelet Count 198 Mean Platelet Volume 7.3 Neutrophils (%) (Auto) 77.9 Lymphocytes (%) (Auto) 7.0 Monocytes (%) (Auto) 4.5 Eosinophils (%) (Auto) 10.3 Basophils (%) (Auto) 0.3 Neutrophils # (Auto) 7.9 Lymphocytes # (Auto) 0.7 Monocytes # (Auto) 0.5 Eosinophils # (Auto) 1.1 Basophils # (Auto) 0.0 CBC Comment DIFF FINAL Differential Comment Prothrombin Time 10.3 Prothromb Time International Ratio 1.0 Activated Partial Thromboplast Time 22.8 Blood Urea Nitrogen 15 Creatinine 0.71 Random Glucose 137 Calcium Level 8.1 Sodium Level 138 Potassium Level 3.9 Chloride Level 105 Carbon Dioxide Level 27.0 Anion Gap 6 Estimat Glomerular Filtration Rate 85 Result Diagram: 03/31/17189903/31/171899 Caprini VTE Risk Assessment Caprini VTE Risk Assessment: Mod/High Risk (score >= 2) Caprini Risk Assessment Model Point Value = 1 Point Value = 2 Point Value = 3 Point Value = 5 Age 41-60 Minor surgery BMI > 25 kg/m2 Swollen legs Varicose veins or History of unexplained or recurrent spontaneous Oral contraceptives or hormone replacement Sepsis (< 1 month) Serious lung disease, including pneumonia (< 1 month) Abnormal pulmonary function Acute myocardial infarction Congestive heart failure (< 1 month) History of inflammatory bowel disease Medical patient at bed rest Age 61-74 Arthroscopic surgery Major open surgery (> 45 min) Laparoscopic surgery (> 45 min) Malignancy Confined to bed (> 72 hours) Immobilizing plaster cast Central venous access Age >= 75 History of VTE Family history of VTE Factor V Leiden Prothrombin [id number] Lupus anticoagulant Anticardiolipin antibodies Elevated serum homocysteine Heparin-induced thrombocytopenia Other congenital or acquired thrombophilia Stroke (< 1 month) Elective arthroplasty Hip, pelvis, or leg fracture Acute spinal cord injury (< 1 month) Prophylaxis Regimen Total Risk Factor Score Risk Level Prophylaxis Regimen 0-1 Low Early ambulation 2 Moderate Order ONE of the following: *Sequential Compression Device (SCD) *Heparin 5000 units SQ BID 3-4 Higher Order ONE of the following medications: *Heparin 5000 units SQ TID *Enoxaparin/Lovenox 40 mg SQ daily (WT < 150 kg, CrCl > 30 mL/min) *Enoxaparin/Lovenox 30 mg SQ daily (WT < 150 kg, CrCl > 10-29 mL/min) *Enoxaparin/Lovenox 30 mg SQ BID (WT < 150 kg, CrCl > 30 mL/min) AND/OR *Sequential Compression Device (SCD) 5 or more Highest Order ONE of the following medications: *Heparin 5000 units SQ TID (Preferred with Epidurals) *Enoxaparin/Lovenox 40 mg SQ daily (WT < 150 kg, CrCl > 30 mL/min) *Enoxaparin/Lovenox 30 mg SQ daily (WT < 150 kg, CrCl > 10-29 mL/min) *Enoxaparin/Lovenox 30 mg SQ BID (WT < 150 kg, CrCl > 30 mL/min) AND *Sequential Compression Device (SCD) Assessment and Plan Problem List: (1) Trochanteric fracture of left femur ICD Code: S72.102A - Unspecified trochanteric fracture of left femur, initial encounter for closed fracture Status: Acute (2) Pleural effusion ICD Code: J90 - Pleural effusion, not elsewhere classified Status: Acute (3) Lung cancer ICD Code: C34.90 - Malignant neoplasm of unspecified part of unspecified bronchus or lung Assessment and Plan A/P: 1. Left Hip Fx: no fall/injury reported, Hip/Pelvis X-ray w/ acute displaced subtrochanteric fracture of left proximal femur, images reviewed by me. Dr. Tejada consulted by ER physician, plan is for surgical intervention in am. NPO , IVF, analgesics/antiemetics as needed. 2. Left Pleural Effusion: CXR w/ worsening opacification of left hemithorax consistent with likely consolidation/pleural fluid, images reviewed by me. Previous h/o loculated effusion/empyema requiring chest tube/VATS by Dr. Sahni 01/17/17 at time of Lung CA diagnosis. No respiratory compromise, O2 sat normal. Will consult IR for thoracentesis, eval w/ CT Sx as needed for further evaluation. Afebrile, no leukocytosis. Hold antibiotics for now. 3. Lung CA: recent diagnosis 01/2017, started on Chemo approx 10 days ago, follows w/ Dr. Lobo, will consult for further evaluation. 4. DVT Prophylaxis: Anticoagulation postop. 5. Social work for DC planning as needed. 6. Case discussed at length with ER physician, lab/records/imaging reviewed by me. Physician Certification 2 Midnight Certification Type: Admission for Inpatient Services Order for Inpatient Services The services are ordered in accordance with Medicare regulations or non- Medicare payer requirements, as applicable. In the case of services not specified as inpatient-only, they are appropriately provided as inpatient services in accordance with the 2-midnight benchmark. Estimated LOS (days): 2 days is the estimated time the patient will need to remain in the hospital, assuming treatment plan goals are met and no additional complications. Post-Hospital Plan: Not yet determined Problem Qualifiers (1) Trochanteric fracture of left femur: Qualified Codes: S72.102A - Unspecified trochanteric fracture of left femur, initial encounter for closed fracture (2) Lung cancer: Qualified Codes: C34.82 - Malignant neoplasm of overlapping sites of left bronchus and lung Agnieszka Burgess MD Mar 31, 2017 21:45
[2017-03-31] MEDS ORDERED: POVIDONE IODINE 5% (ANTISEPSIS KIT) 4 APPLICATIONS EACH NARE PRN (22:45)
[2017-03-31] MEDS ORDERED: CHLORHEXIDINE GLUCONATE 2 % 1 PACK (2 CLOTHS) TOPICAL PRN (22:45)
[2017-03-31] MEDS ORDERED: INSULIN HUMAN REGULAR 1,000 UNITS/10 ML VIAL SQ PRN (22:45)
[2017-03-31] MEDS ORDERED: METOPROLOL TARTRATE 25 MG TAB PO PRN (22:45)
[2017-03-31] MEDS ORDERED: SODIUM CHLORID 0.9% 500 ML IV PRN (22:45)
[2017-03-31] MEDS ORDERED: LACTATED RINGER'S 1000 ML IV PRN (22:45)
[2017-03-31] MEDS: HYDROmorphone HCL PF 2 MG/ML VIAL IV PRN (23:19)
[2017-03-31] MEDS: ALPRAZolam 0.25 MG TAB PO PRN (23:19)
[2017-04-01] VITALS (8 sets, daily range): BP systolic 95–117; BP diastolic 53–65; PULSE 82–106; RESP 16–18; TEMP 97.5–99; O2SAT 92–95
[2017-04-01] MEDS: ACETAMINOPHEN/HYDROcodone 325 MG/5 MG TAB PO PRN ×4 (00:22→22:03)
[2017-04-01] MEDS: HYDROmorphone HCL PF 2 MG/ML VIAL IV PRN ×4 (03:29→19:59)
[2017-04-01 04:28] LABS: AUTOMATED NEUTROPHIL # 10.5 TH/MM3 (1.8-7.7); BASOPHIL % 0.3 % (0.0-2.0); EOSINOPHIL # 0.3 TH/MM3 (0-0.4); EOSINOPHIL % 2.2 % (0.0-4.0); HEMATOCRIT 35.3 % (35.0-46.0); HEMOGLOBIN 11.7 GM/DL (11.6-15.3); LYMPH % 5.3 % (9.0-44.0); LYMPHOCYTE # 0.6 TH/MM3 (1.0-4.8); MEAN CELL VOLUME 74.4 FL (80.0-100.0); MEAN CORPUSCULAR HEMOGLOBIN 24.6 PG (27.0-34.0); MEAN PLATELET VOLUME 7.1 FL (7.0-11.0); MONO % 4.3 % (0.0-8.0); MONOCYTE # 0.5 TH/MM3 (0-0.9); NEUT % 87.9 % (16.0-70.0); PLATELET COUNT 188 TH/MM3 (150-450); RED BLOOD COUNT 4.74 MIL/MM3 (4.00-5.30); RED CELL DISTRIBUTION WIDTH 14.8 % (11.6-17.2)
[2017-04-01 05:00] LABS: ALBUMIN 2.4 GM/DL (3.4-5.0); AST (GOT) 15 U/L (15-37); BICARBONATE 25.8 MEQ/L (21.0-32.0); BLOOD UREA NITROGEN 13 MG/DL (7-18); CALCIUM 8.2 MG/DL (8.5-10.1); CHLORIDE 104 MEQ/L (98-107); CREATININE 0.57 MG/DL (0.50-1.00); GLOMERULAR FILTRATION RATE 109 ML/MIN (>89); GLUCOSE,RANDOM 120 MG/DL (74-106); SODIUM (NA) 137 MEQ/L (136-145)
[2017-04-01 05:01] LABS: ALT (GPT) 19 U/L (10-53)
[2017-04-01 05:03] LABS: ALKALINE PHOSPHATASE 58 U/L (45-117); TOTAL BILIRUBIN ADULT 0.3 MG/DL (0.2-1.0); TOTAL PROTEIN 5.9 GM/DL (6.4-8.2)
--- NOTE | 2017-04-01 06:31 | PD.ORT.PN ---
Subjective Subjective Remarks s/p fall at home hx of lung cancer. denies any known mets reports went to pivot and bone snapped. left hip pain. Objective Vitals Vital Signs Date Time Temp Pulse Resp B/P (MAP) Pulse Ox O2 Delivery O2 Flow Rate FiO2 03/31/17 23:01 98 Nasal Cannula 3.00 03/31/17 21:17 89 16 129/70 (89) 96 Room Air 03/31/17 18:10 98.6 89 20 148/76 (100) 95 Result Diagram: 04/01/17 0400 04/01/17 0400 Other Results Laboratory Tests Test 03/31/17 19:00 Prothromb Time International Ratio 1.0 RATIO Prothrombin Time 10.3 SEC (9.8-11.6) Objective Remarks LLE: leg shortened. nvi distally with good motion of ankle and toes. Assessment & Plan Assessment and Plan 1) Left Subtroch Femur Fx -npo -consents -surgery today with Ray Morris/[employer] Engineer PA Apr 01, 2017 06:30
[2017-04-01] MEDS ORDERED: XARE10TA PO (06:32)
[2017-04-01] MEDS ORDERED: VITA2000 PO (06:32)
[2017-04-01] MEDS ORDERED: VITA500012 PO (06:32)
[2017-04-01] MEDS ORDERED: CALCTAB19 PO (06:32)
[2017-04-01] MEDS ORDERED: HYDR-3583 PO (06:32)
[2017-04-01] MEDS ORDERED: WALKER/ADULT/FO1 MIS (06:32)
[2017-04-01] MEDS: DOCUSATE SODIUM 50 MG/SENNA 8.6 MG TAB PO SCH ×2 (07:45→20:00)
[2017-04-01] MEDS: FLUoxetine HCL 20 MG CAP PO SCH (09:00)
[2017-04-01] MEDS: SODIUM CHLORIDE 0.9% FLUSH 10 ML FLUSH IV FLUSH SCH ×2 (09:00→20:01)
--- NOTE | 2017-04-01 09:28 | HHI.PR ---
Subjective Remarks f/u for sob, left hip pain Still c/o mild hip pain/discomfort. Per patient, felt her left hip pop. No SOB, dizziness or syncope. Denies any chest pain. She has a chronic cough, not more short of breath than usual, denies any fever or chills, she is aware that she has left pleural effusion since the surgery which hasn't completely gone away. Objective Vitals Vital Signs Date Time Temp Pulse Resp B/P (MAP) Pulse Ox O2 Delivery O2 Flow Rate FiO2 04/01/17 08:00 97.5 82 18 117/62 (80) 94 03/31/17 23:01 98 Nasal Cannula 3.00 03/31/17 21:17 89 16 129/70 (89) 96 Room Air 03/31/17 18:10 98.6 89 20 148/76 (100) 95 Result Diagram: 04/01/17 0400 04/01/17 0400 Objective Remarks GENERAL: Very pleasant middle-aged white female in moderate distress secondary to hip pain. at bedside. CARDIOVASCULAR: Regular rate and rhythm. No obvious murmurs to auscultation. No chest tenderness to palpation. RESPIRATORY: No obvious rhonchi or wheezing. Decreased breath sounds on the left base, occasional crackles. GASTROINTESTINAL: Abdomen soft, non-tender, nondistended. BS normal. MUSCULOSKELETAL: Extremities without clubbing, cyanosis, or edema. No obvious deformities. LLE w/ external rotation, decreased ROM due to injury. Pulses intact. Tenderness with movement. NEUROLOGICAL: Awake, alert and oriented x4. No focal neurologic deficits. Moving both upper and lower extremities spontaneously. A/P Problem List: (1) Trochanteric fracture of left femur ICD Code: S72.102A - Unspecified trochanteric fracture of left femur, initial encounter for closed fracture Status: Acute (2) Pleural effusion ICD Code: J90 - Pleural effusion, not elsewhere classified Status: Acute (3) Lung cancer ICD Code: C34.90 - Malignant neoplasm of unspecified part of unspecified bronchus or lung Assessment and Plan This is a 56-year-old female with recently diagnosed lung cancer status post chemotherapy, presented to the hospital after a fall with left hip fracture. Left Hip Fx: Allegedly felt a pop and then legs gave way. No dizziness or lightheadedness. Hip/Pelvis X-ray w/ acute displaced subtrochanteric fracture of left proximal femur, orthopedics on board. For surgery today. Continue analgesics, antiemetics and bowel regimen. Left Pleural Effusion: CXR w/ worsening opacification of left hemithorax consistent with likely consolidation/pleural fluid, Previous h/o loculated effusion/empyema requiring chest tube/VATS by Dr. Sahni 01/17/17 at time of Lung CA diagnosis. No respiratory compromise, no respiratory symptoms are gone chronic cough, O2 sat normal. IR consulted for thoracentesis after hip surgery , might need evaluation by CT surgery if with component of consolidation and not just effusion. Send pleural fluid for cytology and culture. Afebrile, no leukocytosis. Hold antibiotics for now. Lung CA: recent diagnosis 01/2017, started on Chemo approx 10 days ago, follows w/ Dr. Lobo, he was consulted for evaluation. DVT Prophylaxis: Anticoagulation postop. Disposition: Likely SNF/[facility] rehabilitation versus home health care with physical therapy. Patient lives with her but cannot take care of her. Problem Qualifiers (1) Trochanteric fracture of left femur: Qualified Codes: S72.102A - Unspecified trochanteric fracture of left femur, initial encounter for closed fracture (2) Lung cancer: Qualified Codes: C34.82 - Malignant neoplasm of overlapping sites of left bronchus and lung Pepe Alvarado MD Apr 01, 2017 09:28
[2017-04-01] MEDS ORDERED: GENTAMICIN SULFATE 80 MG/2 ML VIAL ONE (09:37)
--- NOTE | 2017-04-01 12:12 | MB ---
cc: SHA LEVY DATE OF ADMISSION 03/31/2017 DATE OF CONSULTATION 04/01/2017 REASON FOR CONSULTATION Left hip intertrochanteric fracture. CONSULTING PHYSICIAN Dr. Burgess CALIN Sullivan is a 56-year-old female who has a history of lung cancer. She states that she was at home and turned around. She was pivoting on her leg and she felt a pop. She then fell. She states that she felt the femur break before she fell. She had immediate left leg pain. She was unable to stand or ambulate. She presented to the emergency room where x-rays reveal a left hip intertrochanteric fracture. She denies any leg pain prior to her fall. She does not have any known metastatic disease to her long bones or femurs. The pain is worse with movement and is improved with rest. She is currently awake and alert on the orthopedic floor. She denies dizziness, syncope or loss of consciousness. PAST MEDICAL HISTORY ILLNESSES Lung cancer. SURGERIES Dental extraction. ALLERGIES TRAMADOL. MEDICATIONS Please see the EMR for a complete list of inpatient medications. She is on chemotherapy. FAMILY HISTORY Noncontributory. SOCIAL HISTORY The patient denies alcohol or drug use. She does have a history of tobacco use. REVIEW OF SYSTEMS The patient denies headache, visual changes, neck pain, abdominal pain, nausea, vomiting or recent weight loss, fevers or chills, numbness or tingling of extremities or recent weight loss. She has had chronic shortness of breath secondary to lung cancer. She complains of left leg pain from femur fracture. PHYSICAL EXAMINATION GENERAL: The patient is a pleasant 56-year-old female. She is awake and alert. She is alert and oriented x3. She appears well-developed, well-nourished. VITAL SIGNS: Temperature 97.5, pulse 82, respirations 18, blood pressure 117/62, O2 sat 94% on 3 liters nasal cannula. HEAD: The patient is normocephalic. EYES: Pupils are equal. NECK: Soft, nontender. Trachea is midline. ABDOMEN: Soft, nontender, nondistended. EXTREMITIES: Examination of the bilateral upper extremities reveals no pain with shoulder, elbow or wrist motion. She has intact sensation in all fingers. Skin is intact to both hands. Radial pulses are palpable. Examination of the right leg reveals no pain with hip, knee or ankle motion. Skin is intact. Dorsalis pedis pulses palpable. Sensation is intact. Examination of the left leg reveals pain with any hip motion. She is diffusely tender around the proximal femur and hip. She has no tenderness on the knee, tibia or ankle. Sensation is intact in the left foot. Dorsalis pedis pulse is palpable. X-RAYS X-rays of the left femur were reviewed. X-rays reveal a displaced left hip intertrochanteric fracture. There is no obvious bone lesion around the fracture site. The hip was reduced. LABORATORY DATA The patient has a white blood cell count of 12.0, hemoglobin of 11.7, hematocrit of 35.3. INR is 1.0. BUN is 15 and creatinine is 0.71. IMPRESSION 1. Metastatic lung cancer. 2. Large pleural effusion left hemithorax. 3. Displaced left proximal femur fracture. PLAN The treatment options were discussed with the patient. At this point I would recommend left hip reduction with intramedullary nail fixation versus possible open reduction internal fixation with plate and screws. The risks of surgery include bleeding, infection, injury to arteries, nerves or blood vessels, nonunion, malunion, painful hardware, avascular necrosis, need for hip replacement as well as medical complications including blood clot, stroke, heart attack and . The patient will need medical clearance prior to surgery given her pulmonary condition and large pleural effusion. I will continue to follow patient's progress and will plan on surgery when she is medically cleared. A mid-level provider in my office, nurse practitioner or PA, may see this patient on a follow-up basis and continue to implement the objective of this plan including: Starting or adjusting medications, injections of muscle, tendon, bursa or joints, cast application, orthotic or brace application, physical therapy, further radiographic studies including x-ray, MRI, CT, ultrasounds or bone scan, vascular studies, neurologic studies, or other specialist consultations, and proceeding with surgical management as appropriate. MD FLACA Gaitan/ABRIL /11:47 AM /11:54 AM
[2017-04-01] MEDS ORDERED: HYDROmorphone HCL PF 2 MG/ML VIAL IV PUSH ONE (12:15)
[2017-04-01] MEDS ORDERED: MIDAZOLAM HCL 2 MG/2 ML VIAL ONE (14:26)
[2017-04-01] MEDS ORDERED: fentaNYL CITRATE 250 MCG/5 ML AMP ONE (14:28)
--- NOTE | 2017-04-01 16:12 | PD.RAD ---
Post CT Procedure Prog Note Pre Procedure Diagnosis: (1) Pleural effusion Post Procedure Diagnosis: (1) Pleural effusion Procedure Date: Apr 01, 2017 Supervising Radiologist: Solitario Gutierrez Proceduralist/Assist: rubén colunga Estimated blood loss: none Anesthesia: Conscious Sedation Plan of Activity Patient to Unit: ROPU Patient Condition: Good See PACS Report for procedural detail/treatment Solitario Gutierrez MD Apr 01, 2017 16:11
--- NOTE | 2017-04-01 21:48 | MB ---
cc: CHECO GABRIEL M.D. DATE OF CONSULTATION 04/01/17 REASON FOR CONSULTATION A 57 year old female with adenocarcinoma of the lung with a fracture of the left proximal femur, a loculated effusion in the left hemithorax and a EGFR mutation. PATIENT PROFILE The patient is a 56 year old female who is times one. She was born in [place] and has lived in [place] for 20 years. She has a son, age 24. 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 Her is retired. He had worked for a [employer] as a supervisor insulation. She has never smoked and she does not drink alcohol. HISTORY OF PRESENT ILLNESS The patient is a 56 year old female who was well until three months ago when she developed cough and shortness of breath which was progressive to the point where she could not breathe. She went to the emergency room and a chest x-ray on 01/16/09 showed a large left pleural effusion and a left upper lobe mass. A CAT scan confirmed the presence of a 5.7 cm mass in the left upper hemithorax as well as a left pleural effusion. A thoracentesis was negative for malignant cells. It was apparent that the lung was not re-expanding and on January 29, 2017 the patient had a left video-assisted thorascopic drainage of a loculated pleural cavity, mini thoracotomy, decortication of the left lung and biopsies of the diaphragmatic and chest wall lesions. Unfortunately, this provided limited success in re expanding the lung which remained opacified with significant consolidation. The pathology revealed an invasive poorly differentiated non small cell carcinoma. She was found to have a EGFR mutation. PDL1 staining of the tumor was >50%. Once the EGFR mutation was identified, a request was made with the insurance company to provide Tagrisso, the other name is osimertinib. After fighting with the insurance company for three or four weeks, we were finally able to the medication which was started two weeks ago. Yesterday, the patient turned and developed severe left hip pain. She was not able to walk. She went to the emergency room and was found to have an acute displaced subtrochanteric fracture involving the left proximal femur. There was no overt evidence of bone destruction as one sees in the pathologic fracture. She had a chest x-ray that showed worsening opacification of the left hemithorax showing consolidation and fluid. A chest tube has been inserted and approximately 500 mL have drained. She has not yet had surgery for the hip. Surgery was held in the hope that the left lung could be re-expanded. Her previous workup included an MRI of the brain which showed no evidence of metastatic disease. She had a CAT of the abdomen and pelvis on 01/23/17 and this included the hip and slightly below and the bone windows did not show evidence of metastatic disease. She has had recent bone pain but primarily involving the left tibia. She has exertional shortness of breath. PAST SURGICAL HISTORY January 29, 2017 - left video assisted thorascopy, drainage of loculated pleural cavities, mini thoracotomy, decortication of left lung, biopsies of diaphragmatic and chest wall lesions and intercostal nerve block. PAST MEDICAL HISTORY 1. Elevated cholesterol 2. Chronic anxiety 3. Locally advanced non-small lung cancer with Exon 19 deletion. MEDICATIONS 1. Xanax as needed 2. Prozac 3. Lactulose 4. Tagresso 80 mg a day ALLERGIES TRAMADOL - NAUSEA AND VOMITING FAMILY HISTORY Mother at age 57 with staphylococcal infection which occurred in association with surgery. Father is living. The patient has a brother and sister who are living. REVIEW OF SYSTEMS Notable for the acute onset of pain in the left hip with associated fracture. She has exertional shortness but is comfortable at rest. She has had pain in the left tibial area which has been going on for about six months. 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 She has mild discomfort in the left chest area. LABORATORY DATA Hemoglobin 11.7, white count 12,000, platelets 188,000. Lytes, BUN, creatinine and liver function tests notable for albumin 2.4, otherwise, unremarkable. PHYSICAL EXAMINATION GENERAL: The patient is a frail female. She has a left chest tube and immobilization of the left hip. VITAL SIGNS: Blood pressure 110/60, respiratory rate 18, pulse 80, afebrile. O2 saturation 94%. HEENT: Head is normocephalic. Sclerae and conjunctivae are normal. Oropharynx unremarkable. LYMPH: There is no cervical, supraclavicular, axillary or inguinal adenopathy. HEART: Regular rhythm. LUNGS: Decreased sounds left lung. Chest tube in place with about 500 mL of drainage. ABDOMEN: Without hepatosplenomegaly, masses or tenderness. EXTREMITIES: Left leg is immobilized. There is no calf swelling. ASSESSMENT The patient is a 56 year old female who is a non-smoker. She has a locally advanced carcinoma of the left lung with a left lung mass and involvement of the pleura. She has had a loculated effusion which could not be resolved with left posterolateral mini thoracotomy and decortication a month ago. She currently has a chest tube in place. There has been a modest amount of drainage, about 500 mL. It is unclear whether the current fracture is a pathologic fracture, although this is certainly a consideration. RECOMMENDATION 1. If there is no further significant pleural drainage from the chest tube, I would recommend proceeding with surgery as soon as possible. Unfortunately, the fluid in the left lung could not be drained before which included a mini thoracotomy. I have contacted Dr. Mcconnell this evening. He is the patient's orthopedic surgeon and will speak with the anesthesiologist and probably proceed with rodding of the left leg in the AM. At the same time, I would like the patient to have a biopsy to determine if the fracture is due to metastatic lung cancer, which is likely. Shortly after surgery, I would be in favor of anticoagulation to prevent deep venous thrombosis and pulmonary embolus. In the meantime, she will continue the Tagrisso as this is ultimately the medicine which gives her the best chance of long-term survival. It is effective for the specific mutation that she has and responses can be dramatic and durable. She has had treatment for only two weeks. If the fracture is pathologic she may need radiation to the involved area. MD ROGER Vragas/ /8:28 PM /8:47 PM LATASHA
[2017-04-02] VITALS: BP 99/60; PULSE 103; RESP 16; TEMP 98; O2SAT 93
--- NOTE | 2017-04-02 00:41 | EKG ---
Date Performed: 03/31/2017 Time Performed: 22:52:45 PTAGE: 56 years EKG: Sinus rhythm NORMAL ECG PREVIOUS TRACING : 01/16/2017 09.59 Compared to prior tracing, rate decreased DOCTOR: Andre Bejarano Interpretating Date/Time 04/02/2017 00:39:50
[2017-04-02] MEDS: HYDROmorphone HCL PF 2 MG/ML VIAL IV PRN ×4 (01:29→17:52)
[2017-04-02 04:00] VITALS: BP 103/72; PULSE 112; RESP 15; O2SAT 93
--- NOTE | 2017-04-02 06:33 | PD.ORT.PN ---
Subjective Subjective Remarks Resting comfortably. Chest tube in place. Also in Jimenez's traction for left leg Objective Vitals Vital Signs Date Time Temp Pulse Resp B/P (MAP) Pulse Ox O2 Delivery O2 Flow Rate FiO2 04/02/17 00:00 98.0 103 16 99/60 (73) 93 04/01/17 20:00 94 Nasal Cannula 2.00 04/01/17 20:00 99.0 104 16 98/64 (75) 94 04/01/17 17:45 98.6 100 18 95/64 (74) 92 04/01/17 17:15 101 18 110/58 (75) 95 04/01/17 16:45 105 18 109/57 (74) 95 04/01/17 16:15 101 18 107/65 (79) 92 04/01/17 16:00 98.2 106 18 117/65 (82) 95 04/01/17 12:00 97.5 92 18 109/53 (71) 94 04/01/17 08:00 97.5 82 18 117/62 (80) 94 Result Diagram: 04/01/17 0400 04/01/17 0400 Objective Remarks Awake and alert with chest tube in place Left lower extremity: Pain to palpation of hip. Skin is intact. No pain at knee. Distally intact sensation with good capillary refills. Jimenez's traction in place Assessment & Plan Assessment and Plan 1) Left Subtroch Femur Fx -npo -consents -surgery today with Jayesh Maintain Jimenez's traction until surgery Kam Yen Jr. Apr 02, 2017 06:33
--- NOTE | 2017-04-02 07:49 | RADRPT ---
EXAM DATE/TIME: 04/01/2017 14:59 INDICATIONS : Left side fluid SEDATION TIME: 30 minutes MEDICATION(S): 1.) 2 mg midazolam (Versed) IV 2.) 200 mcg fentanyl (Sublimaze) IV DEVICE(S): 1.) 8 Fr [place] Total volume of 100 cc of fernandez fluid was removed. Fluid was discarded. MEDICAL HISTORY : Carcinoma, lung. SURGICAL HISTORY : None. ENCOUNTER: Initial ACUITY: 1 day PAIN SCORE: 0/10 LOCATION: Left chest PROCEDURE: 1. CT guided Left thoracentesis with chest tube placement. 2. Conscious sedation with continuous EKG and oximetry monitoring. The site was prepped in sterile fashion. Full sterile technique was used, including cap, mask, steri le gloves and gown and a large sterile sheet. Hand hygiene and 2% chlorhexidine and/or betadine/alco hol prep was utilized per protocol for cutaneous antisepsis. The skin and subcutaneous tissues were infiltrated with local anesthetic solution. Using automated exposure control and adjustment of the m A and/or kV according to patient size, radiation dose was kept as low as reasonably achievable to obt ain optimal diagnostic quality images. DICOM format image data is available electronically for revie w and comparison. Under CT guidance an 8 Wolof catheter was placed in the left pleural space. 100cc of yellow fluid w as gently aspirated out of the chest. Chest tube was inserted. Post procedural scan show reduction i n the amount of fluid with no evidence of pneumothorax. The patient tolerated the procedure well and there were no complications. EKG and oximetry remained s table throughout the procedure. The patient was sent to recovery in stable condition. CONCLUSION: Uncomplicated CT-guided placement of chest tube. Solitario Gutierrez MD on April 02, 2017 at 7:44 Board Certified Radiologist. This report was verified electronically.
[2017-04-02] MEDS: SODIUM CHLORIDE 0.9% FLUSH 10 ML FLUSH IV FLUSH SCH ×2 (09:00→19:30)
[2017-04-02] MEDS: DOCUSATE SODIUM 50 MG/SENNA 8.6 MG TAB PO SCH ×2 (09:00→19:29)
[2017-04-02] MEDS: FLUoxetine HCL 20 MG CAP PO SCH (09:00)
[2017-04-02] MEDS ORDERED: ceFAZolin INJ 1,000 MG VIAL ONE (09:17)
[2017-04-02] MEDS ORDERED: VANCOMYCIN HCL 1000 MG VIAL ONE (09:17)
[2017-04-02] MEDS ORDERED: GENTAMICIN SULFATE 80 MG/2 ML VIAL ONE (09:18)
--- NOTE | 2017-04-02 09:41 | RADRPT ---
EXAM DATE/TIME: 04/02/2017 08:26 [facility] COMPARISON: CHEST SINGLE AP, March 31, 2017, 19:34. INDICATIONS : Pneumothorax. MEDICAL HISTORY : None. SURGICAL HISTORY : None. ENCOUNTER: Subsequent ACUITY: 3 days PAIN SCORE: 3/10 LOCATION: Left Leg. FINDINGS: A single frontal expiratory view of the chest was performed. Pleural-parenchymal opacity throughout t he left lung is seen. Right lung clear. Small caliber chest tube along the left lower hemithorax. No pneumothorax seen CONCLUSION: Left-sided chest tube in good position with decrease in pleural-parenchymal density throughout the le ft lung. Solitario Gutierrez MD on April 02, 2017 at 9:38 Board Certified Radiologist. This report was verified electronically.
--- NOTE | 2017-04-02 10:58 | PD.OP ---
cc: Tom Hartley MD Operative Report Date of Surgery: Apr 02, 2017 Preoperative Diagnosis: Left hip intertrochanteric fracture Postoperative Diagnosis: Procedure: Left hip reduction and intramedullary nail fixation Anesthesia: Gen. Surgeon: Tom Hartley Laboratory Tester(s): KEZIA Keene PA-C The surgical procedure was assisted by my physician pastoral assistant. My P.A. presence was necessary throughout this case for the manipulation and positioning of the surgical extremity. My P.A. was assisting me throughout the duration of this procedure. The skill set of a physician pastoral assistant was medically necessary to complete this procedure. During the surgical case the surgical nurse practitioner was working at the back table and the physician pastoral assistant was directly assisting me. Operation and Findings: Implants used: [10]mm x [360]mm Synthes TFNA troch nail Plan of activity: Weight-bear as tolerated Patient was seen and evaluated preoperatively. The patient has significant hip pain from proximal femur fracture. The risk and benefits of surgery were discussed in depth with the patient to include bleeding, infection, nonunion, malunion, need for hip replacement, painful hardware, as well as medical competitions including blood clots, stroke, heart attack, and . Informed consent was obtained. Operative site was marked. Patient was brought to the operating room and placed on fracture table. IV sedation was administered by anesthesiologist. Timeout procedure was performed. Hip and leg were prepped with alcohol followed by DuraPrep and draped in the usual sterile fashion. IV antibiotics were given prior to incision. Procedure began with reduction of fracture. Traction was applied. The leg was manipulated to achieve reduction. Excellent reduction was achieved. Fluoroscopy was used to confirm reduction. A three inch incision was made proximal to the trochanter. Subcutaneous tissue was dissected bluntly. Guidepin was placed at the tip of the trochanter and advanced into the femoral canal. Fluoroscopy confirmed appropriate guidepin placement. A opening reamer was placed over the guidepin. A long ball tipped guide pin was now placed down the femoral canal into the center of the distal femur. The nail length was now measured. Fluoroscopy confirmed appropriate guidepin placement. Flexible reamers were now passed over the guidepin to ream the intramedullary canal. The reamings were collected and will be sent to pathology. The Synthes TFNA nail was attached to the insertion handle. Nail was now placed over the guidepin into the femoral canal. Fluoroscopy confirmed appropriate nail placement. A second incision was made over the lateral thigh. Cannulas were placed through the insertion handle down to the femur. Guidepin was now placed through the femoral nail into the center of the femoral head. Fluoroscopy confirmed appropriate guidepin placement. Screw length was measured. Cannulated drill was placed over the guidepin. Appropriate length lag screw was now placed. Traction was released and compression was applied. The set screw was now tightened in dynamic mode. Next, using perfect [place] technique two distal interlocking screws were placed. Screw holes were predrilled and screw lengths were measured. Final fluoroscopy revealed well aligned fracture with well-placed hardware. Incision was closed with 3-0 Vicryl and mariposa. Sterile dressings were applied. Patient was awakened and transferred to recovery room. Tom Hartley MD Apr 02, 2017 10:58
[2017-04-02] MEDS ORDERED: DO NOT ADM ANY ANTICOAGULANT DRUGS PRN (11:13)
[2017-04-02] MEDS ORDERED: *MEPERIDINE 25 MG INJ VIAL PERIprocedural Use ONLY ONE (11:22)
[2017-04-02] MEDS ORDERED: LIDOCAINE HCL 1% PF 5 ML SYRINGE OTHER ONE (12:00)
[2017-04-02] MEDS ORDERED: PHENYLEPH/NS 1000 MCG/10 ML SYR IV ONE (12:00)
[2017-04-02] MEDS ORDERED: PHENYLEPHRINE HCL 10 MG/ML VIAL IV ONE (12:00)
[2017-04-02] MEDS ORDERED: PROPOFOL 200 MG/20 ML AMP IV ONE (12:00)
[2017-04-02 12:55] VITALS: BP 102/65; PULSE 116; RESP 18; TEMP 96.6; O2SAT 92
[2017-04-02] MEDS ORDERED: ERGOCALCIFEROL (VIT D2) 50,000 UNIT CAP PO ONE (13:00)
[2017-04-02] MEDS ORDERED: diphenhydrAMINE HCL 25 MG CAP PO PRN (13:00)
[2017-04-02] MEDS: CALCIUM/VITAMIN D 250 MG/125 U TAB PO SCH ×2 (13:25→17:52)
--- NOTE | 2017-04-02 14:18 | RADRPT ---
EXAM DATE/TIME: 04/02/2017 10:49 [facility] COMPARISON: No previous studies available for comparison. INDICATIONS : ORIF left hip fracture. MEDICAL HISTORY : Carcinoma, lung. SURGICAL HISTORY : None. ENCOUNTER: Subsequent ACUITY: 3 days PAIN SCORE: Non-responsive. LOCATION: Left femur. CONCLUSION: Fluoroscopic images during placement of intramedullary roberto left femur. Solitario Gutierrez MD on April 02, 2017 at 14:15 Board Certified Radiologist. This report was verified electronically.
[2017-04-02 15:04] LABS: HEMATOCRIT 37.6 % (35.0-46.0)
[2017-04-02 16:00] VITALS: BP 100/59; PULSE 111; RESP 18; TEMP 99; O2SAT 96
--- NOTE | 2017-04-02 16:28 | PD.ONC.PN ---
Subjective Subjective Remarks doing well post op stand with walker and help. tire but not sob Objective Data Date Time Temp Pulse Resp B/P (MAP) Pulse Ox O2 Delivery O2 Flow Rate FiO2 04/02/17 12:55 96.6 116 18 102/65 (77) 92 04/02/17 12:45 97.9 112 20 108/60 (76) 93 Nasal Cannula 4 04/02/17 12:30 108 20 121/69 (86) 92 Nasal Cannula 4 04/02/17 12:15 110 20 97/56 (70) 93 Nasal Cannula 4 04/02/17 12:00 108 20 90/50 (63) 93 Nasal Cannula 4 04/02/17 11:45 105 20 89/51 (64) 93 Nasal Cannula 4 04/02/17 11:30 106 20 90/53 (65) 92 Nasal Cannula 4 04/02/17 11:20 97.8 113 20 106/73 (84) 92 Nasal Cannula 4 04/02/17 04:00 112 15 103/72 (82) 93 04/02/17 00:00 98.0 103 16 99/60 (73) 93 04/01/17 20:00 94 Nasal Cannula 2.00 04/01/17 20:00 99.0 104 16 98/64 (75) 94 04/01/17 17:45 98.6 100 18 95/64 (74) 92 04/01/17 17:15 101 18 110/58 (75) 95 04/01/17 16:45 105 18 109/57 (74) 95 04/02/17 04/02/17 04/02/17 07:00 15:00 23:00 Intake Total 0 ml 700 ml Output Total 710 ml 50 ml Balance -710 ml 650 ml Result Diagram: 04/02/17 1435 04/01/17 0400 Laboratory Results Laboratory Tests Test 04/02/17 14:35 Hemoglobin 12.0 GM/DL Hematocrit 37.6 % 25-Hydroxy Vitamin D Total 14.3 ng/ML Imaging Studies Last 24 hours Impressions Femur X-Ray 04/02/17 0000 Signed Impressions: Service Date/Time: Sunday, April 02, 2017 10:49 - CONCLUSION: Fluoroscopic images during placement of intramedullary roberto left femur. Solitario Gutierrez MD Chest X-Ray 04/02/17 0000 Signed Impressions: Service Date/Time: Sunday, April 02, 2017 08:26 - CONCLUSION: Left- sided chest tube in good position with decrease in pleural-parenchymal density throughout the left lung. Solitario Gutierrez MD Administered Medications Medications (Trade) Dose Ordered Sig/Alicia Route PRN Reason Start Time Stop Time Status Last Admin Dose Admin Sodium Chloride (NS Flush) 2 ml BID IV FLUSH 04/01/17 09:00 04/02/17 09:00 Acetaminophen/ Hydrocodone Bitart ([place] 5-325 Mg) 1 tab Q4H PRN PO PAIN SCALE 3 TO 5 03/31/17 21:45 04/01/17 22:03 Senna/Docusate Sodium (Audrey-Colace) 1 tab BID PO 04/01/17 09:00 04/01/17 20:00 Alprazolam (Xanax) 0.25 mg Q4H PRN PO ANXIETY 03/31/17 21:45 03/31/17 23:19 Hydromorphone HCl (Dilaudid Pf Inj) 1 mg Q4H PRN IV PAIN 6-10 03/31/17 22:15 04/02/17 13:21 Lactated Ringer's 1,000 ml @ 30 mls/hr Q24H PRN IV SEE LABEL COMMENTS 03/31/17 22:45 04/03/17 22:44 04/01/17 09:55 Calcium/Vitamin D (Oscal-D 250-125) 250 mg TID PO 04/02/17 13:00 04/02/17 13:25 Objective Remarks GENERAL: slender and tired. gaitan and left chest tube. SKIN: Warm and dry. HEAD: Normocephalic. EYES: No scleral icterus. No injection or drainage. NECK: Supple, trachea midline. No JVD or lymphadenopathy. LYMPHATIC: No adenopathy. CARDIOVASCULAR: Regular rate and rhythm without murmurs. RESPIRATORY: decreased sounds left lung. additional 300 cc of fluid has drained since last night. GASTROINTESTINAL: Abdomen soft, non-tender, nondistended. EXTREMITIES: No cyanosis, or edema. MUSCULOSKELETAL: muscle loss. NEUROLOGICAL: No obvious focal deficit. Awake, alert, and oriented x3. PSYCHIATRIC: Appropriate mood and affect; insight and judgment normal. Assessment/Plan Assessment 1: locally advanced adenocarcinoma of the lung with a left pleural effusion, left lung mass, and ? pathologic fracture of left femur. doing well post op - continue osimertinib (tagrisso) for EGFR mutation - await path and if malignancy found will recommend radiation - continue Lovenox 30 bid. will need anticoagulation until more active -may need rehab center. Danielito Lobo MD Apr 02, 2017 16:27
--- NOTE | 2017-04-02 17:47 | HHI.PR ---
Subjective Remarks Patient seen postop and doing well. She is sitting in the chair when seen. Pain is controlled. She has a dressing at the wound from surgery this morning. She also has chest tube present from chest tube placement yesterday. Objective Vital Signs Date Time Temp Pulse Resp B/P (MAP) Pulse Ox O2 Delivery O2 Flow Rate FiO2 04/02/17 16:00 99.0 111 18 100/59 (73) 96 04/02/17 12:55 96.6 116 18 102/65 (77) 92 04/02/17 12:45 97.9 112 20 108/60 (76) 93 Nasal Cannula 4 04/02/17 12:30 108 20 121/69 (86) 92 Nasal Cannula 4 04/02/17 12:15 110 20 97/56 (70) 93 Nasal Cannula 4 04/02/17 12:00 108 20 90/50 (63) 93 Nasal Cannula 4 04/02/17 11:45 105 20 89/51 (64) 93 Nasal Cannula 4 04/02/17 11:30 106 20 90/53 (65) 92 Nasal Cannula 4 04/02/17 11:20 97.8 113 20 106/73 (84) 92 Nasal Cannula 4 04/02/17 04:00 112 15 103/72 (82) 93 04/02/17 00:00 98.0 103 16 99/60 (73) 93 04/01/17 20:00 94 Nasal Cannula 2.00 04/01/17 20:00 99.0 104 16 98/64 (75) 94 04/01/17 17:45 98.6 100 18 95/64 (74) 92 I/O 04/01/17 04/01/17 04/01/17 04/02/17 04/02/17 04/02/17 07:00 15:00 23:00 07:00 15:00 23:00 Intake Total 0 ml 820 ml Output Total 710 ml 275 ml Balance -710 ml 545 ml Intake Oral 0 ml 120 ml Other 700 ml Output Urine Total 500 ml 225 ml Chest Tube Drainage Total 210 ml Estimated Blood Loss 50 ml Result Diagram: 04/02/17 4895 04/01/17 0400 Objective Remarks GENERAL: NAD, A&Ox3 HEAD: Normocephalic. NECK: Supple, trachea midline. No lymphadenopathy. EYES: No scleral icterus. No injection or drainage. CARDIOVASCULAR: Regular rate and rhythm without murmurs, gallops, or rubs. RESPIRATORY: Breath sounds equal bilaterally. No accessory muscle use. GASTROINTESTINAL: Abdomen soft, non-tender, nondistended. MUSCULOSKELETAL: No cyanosis, or edema. SKIN: Warm and dry. NEURO: No focal neurological deficitis. A/P Problem List: (1) Trochanteric fracture of left femur ICD Code: S72.102A - Unspecified trochanteric fracture of left femur, initial encounter for closed fracture Status: Acute (2) Lung cancer ICD Code: C34.90 - Malignant neoplasm of unspecified part of unspecified bronchus or lung (3) Pleural effusion ICD Code: J90 - Pleural effusion, not elsewhere classified Status: Acute Assessment and Plan 56-year-old female admitted secondary to fall with left hip fracture. Left hip fracture Status post surgical repair of left hip fracture Orthopedic surgeon following Continue physical therapy Pain control treatments in place Lung cancer Left pleural effusion Status post left chest tube placement Follow cytology Effusion May be related to lung cancer Dr. Lobo, oncology, is following DVT Prophylaxis Consider Lovenox tomorrow unless other modality selected by surgery Discharge planning Home versus retirement facility Monitor progress of PT Problem Qualifiers (1) Trochanteric fracture of left femur: Qualified Codes: S72.102A - Unspecified trochanteric fracture of left femur, initial encounter for closed fracture (2) Lung cancer: Qualified Codes: C34.82 - Malignant neoplasm of overlapping sites of left bronchus and lung Arik Marino MD Apr 02, 2017 17:47
[2017-04-02] MEDS: oxyCODONE/ACETAMINOPHEN 10 MG/325 MG TAB PO PRN ×2 (19:29→22:36)
[2017-04-02 20:28] VITALS: BP 91/52; PULSE 108; RESP 18; TEMP 97.6
[2017-04-03] VITALS (7 sets, daily range): BP systolic 90–102; BP diastolic 48–56; PULSE 18–111; RESP 18–20; TEMP 96.2–99.1; O2SAT 92–96
[2017-04-03] MEDS: oxyCODONE/ACETAMINOPHEN 10 MG/325 MG TAB PO PRN ×3 (04:44→13:31)
[2017-04-03 05:41] LABS: AUTOMATED NEUTROPHIL # 7.4 TH/MM3 (1.8-7.7); BASOPHIL % 0.4 % (0.0-2.0); EOSINOPHIL % 10.6 % (0.0-4.0); HEMATOCRIT 34.5 % (35.0-46.0); HEMOGLOBIN 11.3 GM/DL (11.6-15.3); LYMPH % 6.5 % (9.0-44.0); LYMPHOCYTE # 0.6 TH/MM3 (1.0-4.8); MEAN CELL VOLUME 75.2 FL (80.0-100.0); MEAN CORPUSCULAR HEMOGLOBIN 24.7 PG (27.0-34.0); MEAN CORPUSCULAR HGB CONC 32.8 % (32.0-36.0); MEAN PLATELET VOLUME 7.3 FL (7.0-11.0); MONO % 3.9 % (0.0-8.0); MONOCYTE # 0.4 TH/MM3 (0-0.9); NEUT % 78.6 % (16.0-70.0); PLATELET COUNT 150 TH/MM3 (150-450); RED BLOOD COUNT 4.59 MIL/MM3 (4.00-5.30); RED CELL DISTRIBUTION WIDTH 15.2 % (11.6-17.2); WHITE BLOOD COUNT 9.4 TH/MM3 (4.0-11.0)
[2017-04-03 06:02] LABS: ALBUMIN 1.9 GM/DL (3.4-5.0); AST (GOT) 28 U/L (15-37); BICARBONATE 28.5 MEQ/L (21.0-32.0); BLOOD UREA NITROGEN 14 MG/DL (7-18); CALCIUM 8.8 MG/DL (8.5-10.1); CHLORIDE 99 MEQ/L (98-107); CREATININE 0.55 MG/DL (0.50-1.00); GLOMERULAR FILTRATION RATE 114 ML/MIN (>89); GLUCOSE,RANDOM 97 MG/DL (74-106); SODIUM (NA) 133 MEQ/L (136-145)
[2017-04-03 06:03] LABS: ALT (GPT) 20 U/L (10-53)
[2017-04-03 06:05] LABS: ALKALINE PHOSPHATASE 54 U/L (45-117); TOTAL BILIRUBIN ADULT 0.3 MG/DL (0.2-1.0); TOTAL PROTEIN 5.8 GM/DL (6.4-8.2)
--- NOTE | 2017-04-03 06:42 | PD.ORT.PN ---
Subjective Subjective Remarks Resting comfortably. Chest tube in place. Objective Vitals Vital Signs Date Time Temp Pulse Resp B/P (MAP) Pulse Ox O2 Delivery O2 Flow Rate FiO2 04/03/17 03:58 97.2 108 18 102/56 (71) 96 04/03/17 01:10 97.6 107 18 90/50 (63) 95 04/02/17 20:28 97.6 108 18 91/52 (65) 04/02/17 20:00 94 Nasal Cannula 3.00 04/02/17 16:00 99.0 111 18 100/59 (73) 96 04/02/17 12:55 96.6 116 18 102/65 (77) 92 04/02/17 12:45 97.9 112 20 108/60 (76) 93 Nasal Cannula 4 04/02/17 12:30 108 20 121/69 (86) 92 Nasal Cannula 4 04/02/17 12:15 110 20 97/56 (70) 93 Nasal Cannula 4 04/02/17 12:00 108 20 90/50 (63) 93 Nasal Cannula 4 04/02/17 11:45 105 20 89/51 (64) 93 Nasal Cannula 4 04/02/17 11:30 106 20 90/53 (65) 92 Nasal Cannula 4 04/02/17 11:20 97.8 113 20 106/73 (84) 92 Nasal Cannula 4 I/O 04/02/17 04/02/17 04/02/17 04/03/17 04/03/17 04/03/17 07:00 15:00 23:00 07:00 15:00 23:00 Intake Total 0 ml 820 ml 100 ml Output Total 710 ml 605 ml 400 ml Balance -710 ml 215 ml -300 ml Intake Oral 0 ml 120 ml IV Total 100 ml Other 700 ml Output Urine Total 500 ml 225 ml 400 ml Chest Tube Drainage Total 210 ml 330 ml Estimated Blood Loss 50 ml Result Diagram: 04/03/17 0435 04/03/17 0435 Imaging Last 72 hours Impressions Femur X-Ray 04/02/17 0000 Signed Impressions: Service Date/Time: Sunday, April 02, 2017 10:49 - CONCLUSION: Fluoroscopic images during placement of intramedullary roberto left femur. Solitario Gutierrez MD Chest X-Ray 04/02/17 0000 Signed Impressions: Service Date/Time: Sunday, April 02, 2017 08:26 - CONCLUSION: Left- sided chest tube in good position with decrease in pleural-parenchymal density throughout the left lung. Solitario Gutierrez MD Chest Tube Insertion 04/01/17 1446 Signed Impressions: Service Date/Time: Saturday, April 01, 2017 14:59 - CONCLUSION: Uncomplicated CT-guided placement of chest tube. Solitario Gutierrez MD Objective Remarks Awake and alert with chest tube in place Left lower extremity: Pain to palpation of hip. Clean Dry dressings intact. No pain at knee. Distally intact sensation with good capillary refills. Distally neurovascularly intact Assessment & Plan Assessment and Plan 1) Left Subtroch Femur Fx IM nail POD 1 Daily dressing changes beginning POD 2 Physical therapy weightbearing as tolerated left lower extremity Incentive spirometry Follow-up appointment with Dr. Hartley or PA in 2 weeks Kam Yen Jr. Apr 03, 2017 06:42
[2017-04-03] MEDS: CALCIUM/VITAMIN D 250 MG/125 U TAB PO SCH ×3 (08:48→17:38)
[2017-04-03] MEDS: DOCUSATE SODIUM 50 MG/SENNA 8.6 MG TAB PO SCH ×2 (08:49→21:00)
[2017-04-03] MEDS: SODIUM CHLORIDE 0.9% FLUSH 10 ML FLUSH IV FLUSH SCH ×2 (08:49→21:06)
[2017-04-03] MEDS: FLUoxetine HCL 20 MG CAP PO SCH (08:49)
[2017-04-03] MEDS: CHOLECALCIFEROL (VIT D3) 5000 UNIT CAP PO SCH (08:49)
[2017-04-03] MEDS: ENOXAPARIN SODIUM 30 MG/0.3 ML SYRINGE SQ SCH ×2 (11:00→21:06)
--- NOTE | 2017-04-03 11:38 | HHI.PR ---
Subjective Remarks Patient continues to do well postop. Hemoglobin levels 11.3 today. No concerns for bleed or progressive anemia. Chest tube is in place and patient's breathing is stable. Objective Vital Signs Date Time Temp Pulse Resp B/P (MAP) Pulse Ox O2 Delivery O2 Flow Rate FiO2 04/03/17 08:00 99.1 111 18 95/54 (68) 92 04/03/17 04:00 96 Room Air 04/03/17 03:58 97.2 108 18 102/56 (71) 96 04/03/17 01:10 97.6 107 18 90/50 (63) 95 04/02/17 20:28 97.6 108 18 91/52 (65) 04/02/17 20:00 94 Nasal Cannula 3.00 04/02/17 16:00 99.0 111 18 100/59 (73) 96 04/02/17 12:55 96.6 116 18 102/65 (77) 92 04/02/17 12:45 97.9 112 20 108/60 (76) 93 Nasal Cannula 4 04/02/17 12:30 108 20 121/69 (86) 92 Nasal Cannula 4 04/02/17 12:15 110 20 97/56 (70) 93 Nasal Cannula 4 04/02/17 12:00 108 20 90/50 (63) 93 Nasal Cannula 4 04/02/17 11:45 105 20 89/51 (64) 93 Nasal Cannula 4 I/O 04/02/17 04/02/17 04/02/17 04/03/17 04/03/17 04/03/17 07:00 15:00 23:00 07:00 15:00 23:00 Intake Total 0 ml 820 ml 340 ml Output Total 710 ml 605 ml 925 ml Balance -710 ml 215 ml -585 ml Intake Oral 0 ml 120 ml 240 ml IV Total 100 ml Other 700 ml Output Urine Total 500 ml 225 ml 700 ml Chest Tube Drainage Total 210 ml 330 ml 225 ml Estimated Blood Loss 50 ml Result Diagram: 04/03/1743404/03/17434 Objective Remarks GENERAL: NAD, A&Ox3 HEAD: Normocephalic. NECK: Supple, trachea midline. No lymphadenopathy. EYES: No scleral icterus. No injection or drainage. CARDIOVASCULAR: Regular rate and rhythm without murmurs, gallops, or rubs. RESPIRATORY: Breath sounds equal bilaterally. No accessory muscle use. GASTROINTESTINAL: Abdomen soft, non-tender, nondistended. MUSCULOSKELETAL: No cyanosis, or edema. SKIN: Warm and dry. NEURO: No focal neurological deficitis. A/P Problem List: (1) Trochanteric fracture of left femur ICD Code: S72.102A - Unspecified trochanteric fracture of left femur, initial encounter for closed fracture Status: Acute (2) Lung cancer ICD Code: C34.90 - Malignant neoplasm of unspecified part of unspecified bronchus or lung (3) Pleural effusion ICD Code: J90 - Pleural effusion, not elsewhere classified Status: Acute Assessment and Plan 56-year-old female admitted secondary to fall with left hip fracture. Continue chest tube management. Possibly chest tube may be clamped within 1 or 2 days. Labs reviewed and show a slight downward trend in hemoglobin, though this is postop. Continue to monitor labs. Labs ordered for further monitoring. Left hip fracture Status post surgical repair of left hip fracture Orthopedic surgeon following Continue physical therapy Pain control treatments in place Lung cancer Left pleural effusion Status post left chest tube placement Follow cytology Effusion May be related to lung cancer Dr. Lobo, oncology, is following DVT Prophylaxis Consider Lovenox tomorrow unless other modality selected by surgery Discharge planning Home versus retirement facility Monitor progress of PT Problem Qualifiers (1) Trochanteric fracture of left femur: Qualified Codes: S72.102A - Unspecified trochanteric fracture of left femur, initial encounter for closed fracture (2) Lung cancer: Qualified Codes: C34.82 - Malignant neoplasm of overlapping sites of left bronchus and lung Arik Marino MD Apr 03, 2017 11:38
--- NOTE | 2017-04-03 20:39 | PD.ONC.PN ---
Subjective Subjective Remarks feeling better. slow improvement in wt bearing. Objective Data Date Time Temp Pulse Resp B/P (MAP) Pulse Ox O2 Delivery O2 Flow Rate FiO2 04/03/17 19:04 Room Air 04/03/17 18:49 95 04/03/17 16:00 96.2 102 20 98/48 (65) 95 04/03/17 12:00 98.0 100 18 94/55 (68) 95 04/03/17 08:00 99.1 111 18 95/54 (68) 92 04/03/17 04:00 96 Room Air 04/03/17 03:58 97.2 108 18 102/56 (71) 96 04/03/17 01:10 97.6 107 18 90/50 (63) 95 04/03/17 04/03/17 04/03/17 07:00 15:00 23:00 Intake Total 340 ml 480 ml Output Total 925 ml 260 ml Balance -585 ml 220 ml Result Diagram: 04/03/17 0435 04/03/17 0435 Laboratory Results Laboratory Tests Test 04/03/17 04:35 White Blood Count 9.4 TH/MM3 Red Blood Count 4.59 MIL/MM3 Hemoglobin 11.3 GM/DL Hematocrit 34.5 % Mean Corpuscular Volume 75.2 FL Mean Corpuscular Hemoglobin 24.7 PG Mean Corpuscular Hemoglobin Concent 32.8 % Red Cell Distribution Width 15.2 % Platelet Count 150 TH/MM3 Mean Platelet Volume 7.3 FL Neutrophils (%) (Auto) 78.6 % Lymphocytes (%) (Auto) 6.5 % Monocytes (%) (Auto) 3.9 % Eosinophils (%) (Auto) 10.6 % Basophils (%) (Auto) 0.4 % Neutrophils # (Auto) 7.4 TH/MM3 Lymphocytes # (Auto) 0.6 TH/MM3 Monocytes # (Auto) 0.4 TH/MM3 Eosinophils # (Auto) 1.0 TH/MM3 Basophils # (Auto) 0.0 TH/MM3 CBC Comment DIFF FINAL Differential Comment Blood Urea Nitrogen 14 MG/DL Creatinine 0.55 MG/DL Random Glucose 97 MG/DL Total Protein 5.8 GM/DL Albumin 1.9 GM/DL Calcium Level 8.8 MG/DL Alkaline Phosphatase 54 U/L Aspartate Amino Transf (AST/SGOT) 28 U/L Alanine Aminotransferase (ALT/SGPT) 20 U/L Total Bilirubin 0.3 MG/DL Sodium Level 133 MEQ/L Potassium Level 4.2 MEQ/L Chloride Level 99 MEQ/L Carbon Dioxide Level 28.5 MEQ/L Anion Gap 6 MEQ/L Estimat Glomerular Filtration Rate 114 ML/MIN Administered Medications Medications (Trade) Dose Ordered Sig/Alicia Route PRN Reason Start Time Stop Time Status Last Admin Dose Admin Sodium Chloride (NS Flush) 2 ml BID IV FLUSH 04/01/17 09:00 04/03/17 08:49 Senna/Docusate Sodium (Audrey-Colace) 1 tab BID PO 04/01/17 09:00 04/03/17 08:49 Magnesium Hydroxide (Milk Of Magnjaime Liq) 30 ml Q12H PRN PO Mild constipation 03/31/17 21:45 04/03/17 13:30 Alprazolam (Xanax) 0.25 mg Q4H PRN PO ANXIETY 03/31/17 21:45 03/31/17 23:19 Hydromorphone HCl (Dilaudid Pf Inj) 1 mg Q4H PRN IV Breakthrough Pain 03/31/17 22:15 04/02/17 17:52 Lactated Ringer's 1,000 ml @ 30 mls/hr Q24H PRN IV SEE LABEL COMMENTS 03/31/17 22:45 04/03/17 22:44 04/01/17 09:55 Enoxaparin Sodium (Lovenox Inj) 30 mg BID SQ 04/03/17 10:00 04/03/17 11:00 Calcium/Vitamin D (Oscal-D 250-125) 250 mg TID PO 04/02/17 13:00 04/03/17 17:38 Cholecalciferol (Vitamin D3) 5,000 units DAILY PO 04/03/17 09:00 04/03/17 08:49 Oxycodone/ Acetaminophen (Percocet 10-325 Mg) 1 tab Q4H PRN PO Pain 7 to 10 04/02/17 17:45 04/03/17 13:31 Objective Remarks GENERAL: slender and comfortable SKIN: Warm and dry. HEAD: Normocephalic. EYES: No scleral icterus. No injection or drainage. NECK: Supple, trachea midline. No JVD or lymphadenopathy. LYMPHATIC: No adenopathy. CARDIOVASCULAR: Regular rate and rhythm without murmurs. RESPIRATORY: decreased sounds left lung GASTROINTESTINAL: Abdomen soft, non-tender, nondistended. EXTREMITIES: No cyanosis, or edema. MUSCULOSKELETAL: mild tenderness left femur NEUROLOGICAL: moves left leg well. PSYCHIATRIC: Appropriate mood and affect; insight and judgment normal. Assessment/Plan Assessment 1: adenocarcinoma of the lung with a left pleural effusion, left lung mass and now bone mets. pathology shows tumor in femur and therefore this is a pathologic fracture. - continue osimertinib (tagrisso) for EGFR mutation - consult radiation oncology - continue Lovenox 30 bid. - will do bone scan to see if other areas of concern. -may need rehab center. - in future will treat with zometa to help promote bone integrity lessening risk of further fractures. Danielito Lobo MD Apr 03, 2017 20:39
[2017-04-03] MEDS: ALPRAZolam 0.25 MG TAB PO PRN (21:06)
[2017-04-04] VITALS: BP 102/57; PULSE 115; RESP 16; TEMP 98.5; O2SAT 93
[2017-04-04 05:48] LABS: AUTOMATED NEUTROPHIL # 6.9 TH/MM3 (1.8-7.7); BASOPHIL % 0.4 % (0.0-2.0); EOSINOPHIL # 0.9 TH/MM3 (0-0.4); EOSINOPHIL % 10.1 % (0.0-4.0); HEMATOCRIT 30.1 % (35.0-46.0); HEMOGLOBIN 9.8 GM/DL (11.6-15.3); LYMPHOCYTE # 0.6 TH/MM3 (1.0-4.8); MEAN CELL VOLUME 74.4 FL (80.0-100.0); MEAN CORPUSCULAR HEMOGLOBIN 24.1 PG (27.0-34.0); MEAN CORPUSCULAR HGB CONC 32.4 % (32.0-36.0); MEAN PLATELET VOLUME 7.7 FL (7.0-11.0); MONOCYTE # 0.5 TH/MM3 (0-0.9); NEUT % 77.5 % (16.0-70.0); PLATELET COUNT 180 TH/MM3 (150-450); RED BLOOD COUNT 4.05 MIL/MM3 (4.00-5.30); RED CELL DISTRIBUTION WIDTH 15.5 % (11.6-17.2); WHITE BLOOD COUNT 8.9 TH/MM3 (4.0-11.0)
[2017-04-04 06:15] LABS: ALBUMIN 1.7 GM/DL (3.4-5.0); AST (GOT) 20 U/L (15-37); BICARBONATE 27.7 MEQ/L (21.0-32.0); BLOOD UREA NITROGEN 13 MG/DL (7-18); CALCIUM 8.3 MG/DL (8.5-10.1); CHLORIDE 100 MEQ/L (98-107); CREATININE 0.48 MG/DL (0.50-1.00); GLOMERULAR FILTRATION RATE 133 ML/MIN (>89); GLUCOSE,RANDOM 109 MG/DL (74-106); SODIUM (NA) 134 MEQ/L (136-145)
[2017-04-04 06:17] LABS: ALT (GPT) 16 U/L (10-53)
[2017-04-04 06:18] LABS: ALKALINE PHOSPHATASE 52 U/L (45-117); TOTAL BILIRUBIN ADULT 0.3 MG/DL (0.2-1.0); TOTAL PROTEIN 5.3 GM/DL (6.4-8.2)
--- NOTE | 2017-04-04 06:45 | PD.ORT.PN ---
Subjective Subjective Remarks Patient comfortable. Pain improving. She was able to get to the bedside commode with assistance from her . Objective Vitals Vital Signs Date Time Temp Pulse Resp B/P (MAP) Pulse Ox O2 Delivery O2 Flow Rate FiO2 04/03/17 19:04 Room Air 04/03/17 18:49 95 04/03/17 16:00 96.2 102 20 98/48 (65) 95 04/03/17 12:00 98.0 100 18 94/55 (68) 95 04/03/17 08:00 99.1 111 18 95/54 (68) 92 I/O 04/03/17 04/03/17 04/03/17 04/04/17 04/04/17 04/04/17 07:00 15:00 23:00 07:00 15:00 23:00 Intake Total 340 ml 480 ml Output Total 925 ml 260 ml 325 ml Balance -585 ml 220 ml -325 ml Intake Oral 240 ml 480 ml IV Total 100 ml Output Urine Total 700 ml Chest Tube Drainage Total 225 ml 260 ml 325 ml # Voids 3 # Bowel Movements 1 Result Diagram: 04/04/17 0427 04/04/17 0427 Imaging Last 72 hours Impressions Femur X-Ray 04/02/17 0000 Signed Impressions: Service Date/Time: Sunday, April 02, 2017 10:49 - CONCLUSION: Fluoroscopic images during placement of intramedullary roberto left femur. Solitario Gutierrez MD Chest X-Ray 04/02/17 0000 Signed Impressions: Service Date/Time: Sunday, April 02, 2017 08:26 - CONCLUSION: Left- sided chest tube in good position with decrease in pleural-parenchymal density throughout the left lung. Solitario Gutierrez MD Chest Tube Insertion 04/01/17 1446 Signed Impressions: Service Date/Time: Saturday, April 01, 2017 14:59 - CONCLUSION: Uncomplicated CT-guided placement of chest tube. Solitario Gutierrez MD Objective Remarks Awake and alert with chest tube in place Left lower extremity: Clean Dry dressings intact. No pain at knee. Distally intact sensation with good capillary refills. Distally neurovascularly intact Assessment & Plan Assessment and Plan 1) Left Subtroch Femur Fx IM nail POD 2 Daily dressing changes Physical therapy weightbearing as tolerated left lower extremity Incentive spirometry Pathology: Positive for metastatic tumor and left femur Follow-up appointment with Dr. Hartley or [place] in 2 weeks Tom Hartley MD Apr 04, 2017 06:45
[2017-04-04 08:00] VITALS: BP 109/57; PULSE 110; RESP 16; TEMP 96.9; O2SAT 97
[2017-04-04] MEDS: CHOLECALCIFEROL (VIT D3) 5000 UNIT CAP PO SCH (08:58)
[2017-04-04] MEDS: CALCIUM/VITAMIN D 250 MG/125 U TAB PO SCH ×3 (08:58→17:48)
[2017-04-04] MEDS: oxyCODONE/ACETAMINOPHEN 5 MG/325 MG TAB PO PRN ×2 (08:58→12:23)
[2017-04-04] MEDS: FLUoxetine HCL 20 MG CAP PO SCH (08:58)
[2017-04-04] MEDS: DOCUSATE SODIUM 50 MG/SENNA 8.6 MG TAB PO SCH ×2 (09:00→21:00)
[2017-04-04] MEDS: ENOXAPARIN SODIUM 30 MG/0.3 ML SYRINGE SQ SCH ×2 (09:02→21:39)
[2017-04-04] MEDS: SODIUM CHLORIDE 0.9% FLUSH 10 ML FLUSH IV FLUSH SCH ×2 (09:02→21:39)
[2017-04-04 12:00] VITALS: BP 114/56; PULSE 88; RESP 16; TEMP 96.1; O2SAT 97
--- NOTE | 2017-04-04 12:06 | HHI.PR ---
Subjective Remarks Hemoglobin levels 9.8 today, down from 11.3 the previous day. No new complaints from the patient. Chest tube is in place and patient's breathing is stable. Objective Vital Signs Date Time Temp Pulse Resp B/P (MAP) Pulse Ox O2 Delivery O2 Flow Rate FiO2 04/04/17 08:00 96.9 110 16 109/57 (74) 97 04/04/17 00:00 98.5 115 16 102/57 (72) 93 04/03/17 20:00 97.9 111 99/54 (69) 96 04/03/17 19:04 Room Air 04/03/17 18:49 95 04/03/17 16:00 96.2 102 20 98/48 (65) 95 I/O 04/03/17 04/03/17 04/03/17 04/04/17 04/04/17 04/04/17 07:00 15:00 23:00 07:00 15:00 23:00 Intake Total 340 ml 580 ml 500 ml 240 ml Output Total 925 ml 260 ml 925 ml Balance -585 ml 320 ml 500 ml -685 ml Intake Oral 240 ml 480 ml 500 ml 240 ml IV Total 100 ml 100 ml Output Urine Total 700 ml 600 ml Chest Tube Drainage Total 225 ml 260 ml 325 ml # Voids 3 2 # Bowel Movements 1 1 0 Result Diagram: 04/04/1742604/04/17426 Objective Remarks GENERAL: NAD, A&Ox3 HEAD: Normocephalic. NECK: Supple, trachea midline. No lymphadenopathy. EYES: No scleral icterus. No injection or drainage. CARDIOVASCULAR: Regular rate and rhythm without murmurs, gallops, or rubs. RESPIRATORY: Breath sounds equal bilaterally. No accessory muscle use. GASTROINTESTINAL: Abdomen soft, non-tender, nondistended. MUSCULOSKELETAL: No cyanosis, or edema. SKIN: Warm and dry. NEURO: No focal neurological deficitis. A/P Problem List: (1) Trochanteric fracture of left femur ICD Code: S72.102A - Unspecified trochanteric fracture of left femur, initial encounter for closed fracture Status: Acute (2) Lung cancer ICD Code: C34.90 - Malignant neoplasm of unspecified part of unspecified bronchus or lung (3) Pleural effusion ICD Code: J90 - Pleural effusion, not elsewhere classified Status: Acute Assessment and Plan 56-year-old female admitted secondary to fall with left hip fracture. Continue chest tube management. Labs reviewed. Downward trend in hemoglobin. Labs ordered for further monitoring. Plan for bone scan today. Pending plan for radiation therapy. Anemia Follow CBC Avoid anticoagulation for now Left hip fracture Pathologic left hip fracture Status post surgical repair of left hip fracture Orthopedic surgeon following Continue physical therapy Pain control treatments in place Lung cancer Left pleural effusion Status post left chest tube placement Follow cytology Effusion May be related to lung cancer Dr. Lobo, oncology, is following DVT Prophylaxis Anticoagulation deferred based on anemia level Discharge planning Home versus senior care facility Monitor progress of PT Problem Qualifiers (1) Trochanteric fracture of left femur: Qualified Codes: S72.102A - Unspecified trochanteric fracture of left femur, initial encounter for closed fracture (2) Lung cancer: Qualified Codes: C34.82 - Malignant neoplasm of overlapping sites of left bronchus and lung Arik Marino MD Apr 04, 2017 12:06
[2017-04-04] MEDS: ALPRAZolam 0.25 MG TAB PO PRN (12:24)
--- NOTE | 2017-04-04 12:32 | PD.ONC.PN ---
Subjective Subjective Remarks Afebrile overnight. Patient resting in bed in nad. reports she saw the radiation oncologist yesterday. No complaints. at bedside. 585cc drainage CT/24 hours Objective Data Date Time Temp Pulse Resp B/P (MAP) Pulse Ox O2 Delivery O2 Flow Rate FiO2 04/04/17 08:00 96.9 110 16 109/57 (74) 97 04/04/17 00:00 98.5 115 16 102/57 (72) 93 04/03/17 20:00 97.9 111 99/54 (69) 96 04/03/17 19:04 Room Air 04/03/17 18:49 95 04/03/17 16:00 96.2 102 20 98/48 (65) 95 04/04/17 04/04/17 04/04/17 07:00 15:00 23:00 Intake Total 240 ml Output Total 925 ml Balance -685 ml Result Diagram: 04/04/17 0427 04/04/17 0427 Laboratory Results Laboratory Tests Test 04/04/17 04:27 White Blood Count 8.9 TH/MM3 Red Blood Count 4.05 MIL/MM3 Hemoglobin 9.8 GM/DL Hematocrit 30.1 % Mean Corpuscular Volume 74.4 FL Mean Corpuscular Hemoglobin 24.1 PG Mean Corpuscular Hemoglobin Concent 32.4 % Red Cell Distribution Width 15.5 % Platelet Count 180 TH/MM3 Mean Platelet Volume 7.7 FL Neutrophils (%) (Auto) 77.5 % Lymphocytes (%) (Auto) 7.0 % Monocytes (%) (Auto) 5.0 % Eosinophils (%) (Auto) 10.1 % Basophils (%) (Auto) 0.4 % Neutrophils # (Auto) 6.9 TH/MM3 Lymphocytes # (Auto) 0.6 TH/MM3 Monocytes # (Auto) 0.5 TH/MM3 Eosinophils # (Auto) 0.9 TH/MM3 Basophils # (Auto) 0.0 TH/MM3 CBC Comment DIFF FINAL Differential Comment Blood Urea Nitrogen 13 MG/DL Creatinine 0.48 MG/DL Random Glucose 109 MG/DL Total Protein 5.3 GM/DL Albumin 1.7 GM/DL Calcium Level 8.3 MG/DL Alkaline Phosphatase 52 U/L Aspartate Amino Transf (AST/SGOT) 20 U/L Alanine Aminotransferase (ALT/SGPT) 16 U/L Total Bilirubin 0.3 MG/DL Sodium Level 134 MEQ/L Potassium Level 3.9 MEQ/L Chloride Level 100 MEQ/L Carbon Dioxide Level 27.7 MEQ/L Anion Gap 6 MEQ/L Estimat Glomerular Filtration Rate 133 ML/MIN Administered Medications Medications (Trade) Dose Ordered Sig/Alicia Route PRN Reason Start Time Stop Time Status Last Admin Dose Admin Sodium Chloride (NS Flush) 2 ml BID IV FLUSH 04/01/17 09:00 04/04/17 09:02 Senna/Docusate Sodium (Audrey-Colace) 1 tab BID PO 04/01/17 09:00 04/03/17 08:49 Magnesium Hydroxide (Milk Of Adal Liq) 30 ml Q12H PRN PO Mild constipation 03/31/17 21:45 04/03/17 13:30 Alprazolam (Xanax) 0.25 mg Q4H PRN PO ANXIETY 03/31/17 21:45 04/03/17 21:06 Fluoxetine HCl (PROzac) 20 mg DAILY PO 04/01/17 09:00 04/04/17 08:58 Hydromorphone HCl (Dilaudid Pf Inj) 1 mg Q4H PRN IV Breakthrough Pain 03/31/17 22:15 04/02/17 17:52 Enoxaparin Sodium (Lovenox Inj) 30 mg BID SQ 04/03/17 10:00 04/04/17 09:02 Calcium/Vitamin D (Oscal-D 250-125) 250 mg TID PO 04/02/17 13:00 04/04/17 08:58 Cholecalciferol (Vitamin D3) 5,000 units DAILY PO 04/03/17 09:00 04/04/17 08:58 Oxycodone/ Acetaminophen (Percocet 5-325 Mg) 1 tab Q4H PRN PO Pain 3 to 6 04/02/17 17:45 04/04/17 08:58 Oxycodone/ Acetaminophen (Percocet 10-325 Mg) 1 tab Q4H PRN PO Pain 7 to 10 04/02/17 17:45 04/03/17 13:31 Objective Remarks GENERAL: Middle aged female, lying in bed. she appears comfortable in nad. SKIN: Warm and dry. HEAD: Normocephalic. EYES: No injection or drainage. NECK: Supple, trachea midline. CARDIOVASCULAR: Regular rate and rhythm RESPIRATORY: diminished breath sounds in left lung chapa. scattered rhonchi right upper and lower lung chapa. GASTROINTESTINAL: Abdomen soft, non-tender, nondistended. EXTREMITIES: No cyanosis NEUROLOGICAL: awake and alert, normal speech. 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 Plan 1. NSCLC: +EGFR, continue Tagrisso 2. Pleural effusion: continues to put out large amounts of drainage, >500cc/24 hours. would d/c CT when drainage lessens to 50-100cc 3. await bone scan. radiation oncology likely to start XRT next week after bone scan reviewed. 4. continue prophylactic dose Lovenox and recommend continuing anticoagulation once discharged as the patient now has multiple risk factors for thromboembolic event. Louise Bowden Apr 04, 2017 12:32
--- NOTE | 2017-04-04 15:53 | RADRPT ---
EXAM DATE/TIME: 04/04/2017 12:58 [facility] COMPARISON: FEMUR LEFT (AP & LAT/2VWS), April 02, 2017, 10:49. CT THORAX W CONTRAST, January 16, 2017, 11:46. PRIOR BONE SCANS: No correlative bone scan available for comparison. INDICATIONS : Metastatic disease. Lung cancer. DOSE: 31 mCi Tc99m MDP IV MEDICAL HISTORY : Carcinoma, lung. SURGICAL HISTORY : None. ENCOUNTER: Initial ACUITY: 4 - 6 days PAIN SCALE: 0/10 LOCATION: Abdomen. TECHNIQUE: Three hours post intravenous administration of radiotracer, whole body bone scan imaging was performe d. FINDINGS: No blood pool images were obtained. The 3 hour delayed images demonstrate a homogeneous pattern of up take in the soft tissues. Planar bone scan demonstrates a normal pattern of uptake. There are areas of increased uptake in the shoulders, right sternoclavicular joint, knees and hips which are degenera tive in nature. The patient is status post left hip surgery a cold defects. There is normal renal and bladder activity. CONCLUSION: 1. No evidence of metastatic disease. 2. Multiple sites of increased uptake AccuStick of degenerative change. Kam Jerry MD on April 04, 2017 at 15:46 Board Certified Radiologist. This report was verified electronically.
[2017-04-04 16:00] VITALS: BP 104/59; PULSE 101; RESP 16; TEMP 96.8; O2SAT 99
[2017-04-04 17:32] VITALS: O2SAT 97
[2017-04-04] MEDS: oxyCODONE/ACETAMINOPHEN 10 MG/325 MG TAB PO PRN (17:48)
[2017-04-04 20:00] VITALS: BP 96/55; PULSE 66; RESP 20; TEMP 97.6; O2SAT 96
[2017-04-05] VITALS: BP 99/58; PULSE 93; RESP 20; TEMP 97.6; O2SAT 96
[2017-04-05 04:00] VITALS: BP 101/60; PULSE 57; RESP 18; TEMP 97.8; O2SAT 96
[2017-04-05 05:41] LABS: AUTOMATED NEUTROPHIL # 6.6 TH/MM3 (1.8-7.7); BASOPHIL # 0.1 TH/MM3 (0-0.2); BASOPHIL % 0.9 % (0.0-2.0); EOSINOPHIL # 1.1 TH/MM3 (0-0.4); EOSINOPHIL % 12.8 % (0.0-4.0); HEMATOCRIT 29.1 % (35.0-46.0); HEMOGLOBIN 9.6 GM/DL (11.6-15.3); LYMPH % 7.8 % (9.0-44.0); LYMPHOCYTE # 0.7 TH/MM3 (1.0-4.8); MEAN CELL VOLUME 74.1 FL (80.0-100.0); MEAN CORPUSCULAR HEMOGLOBIN 24.4 PG (27.0-34.0); MEAN PLATELET VOLUME 7.3 FL (7.0-11.0); MONO % 5.1 % (0.0-8.0); MONOCYTE # 0.5 TH/MM3 (0-0.9); NEUT % 73.4 % (16.0-70.0); PLATELET COUNT 210 TH/MM3 (150-450); RED BLOOD COUNT 3.93 MIL/MM3 (4.00-5.30); RED CELL DISTRIBUTION WIDTH 15.5 % (11.6-17.2)
[2017-04-05 05:53] LABS: ALBUMIN 1.8 GM/DL (3.4-5.0); ALKALINE PHOSPHATASE 55 U/L (45-117); ALT (GPT) 34 U/L (10-53); AST (GOT) 44 U/L (15-37); BICARBONATE 28.9 MEQ/L (21.0-32.0); BLOOD UREA NITROGEN 17 MG/DL (7-18); CHLORIDE 103 MEQ/L (98-107); CREATININE 0.44 MG/DL (0.50-1.00); GLOMERULAR FILTRATION RATE 147 ML/MIN (>89); GLUCOSE,RANDOM 104 MG/DL (74-106); SODIUM (NA) 138 MEQ/L (136-145); TOTAL BILIRUBIN ADULT 0.2 MG/DL (0.2-1.0); TOTAL PROTEIN 5.6 GM/DL (6.4-8.2)
[2017-04-05] MEDS: CALCIUM/VITAMIN D 250 MG/125 U TAB PO SCH ×3 (07:52→18:00)
[2017-04-05] MEDS: CHOLECALCIFEROL (VIT D3) 5000 UNIT CAP PO SCH (07:52)
[2017-04-05] MEDS: ENOXAPARIN SODIUM 30 MG/0.3 ML SYRINGE SQ SCH ×2 (07:53→21:19)
[2017-04-05] MEDS: oxyCODONE/ACETAMINOPHEN 10 MG/325 MG TAB PO PRN (07:54)
[2017-04-05 08:00] VITALS: BP 94/68; PULSE 109; RESP 17; TEMP 96.3; O2SAT 91
[2017-04-05] MEDS: SODIUM CHLORIDE 0.9% FLUSH 10 ML FLUSH IV FLUSH SCH ×2 (09:00→21:19)
[2017-04-05] MEDS: DOCUSATE SODIUM 50 MG/SENNA 8.6 MG TAB PO SCH ×2 (09:00→21:00)
[2017-04-05] MEDS: FLUoxetine HCL 20 MG CAP PO SCH (09:00)
--- NOTE | 2017-04-05 09:52 | HHI.PR ---
Subjective Remarks Patient seen and examined this morning. Temperature 96.3, pulse 109, respiratory rate 17, blood pressure 90/68, pulse ox 91 on 4 L nasal cannula. Chest tube in place still draining serosanguineous fluid. Bone scan showed no mets. Plan to start radiation on Friday. Hematology is following. Objective Vitals Vital Signs Date Time Temp Pulse Resp B/P (MAP) Pulse Ox O2 Delivery O2 Flow Rate FiO2 04/05/17 08:00 96.3 109 17 94/68 (77) 91 04/05/17 04:00 97.8 57 18 101/60 (74) 96 04/05/17 00:00 97.6 93 20 99/58 (72) 96 04/04/17 20:00 97.6 66 20 96/55 (69) 96 04/04/17 18:46 Nasal Cannula 4.00 04/04/17 17:32 97 21 04/04/17 16:00 96.8 101 16 104/59 (74) 99 04/04/17 12:00 96.1 88 16 114/56 (75) 97 I/O 04/04/17 04/04/17 04/04/17 04/05/17 04/05/17 04/05/17 07:00 15:00 23:00 07:00 15:00 23:00 Intake Total 240 ml 600 ml 600 ml Output Total 925 ml 85 ml 160 ml Balance -685 ml 515 ml 440 ml Intake Oral 240 ml 600 ml 600 ml Output Urine Total 600 ml Chest Tube Drainage Total 325 ml 85 ml 160 ml # Voids 3 4 # Bowel Movements 0 1 Result Diagram: 04/05/17 0404 04/05/17 0404 Imaging Last Impressions Bone Scan Nuclear Medicine 04/04/17 0000 Signed Impressions: Service Date/Time: Tuesday, April 04, 2017 12:58 - CONCLUSION: 1. No evidence of metastatic disease. 2. Multiple sites of increased uptake AccuStick of degenerative change. Kam Jerry MD Femur X-Ray 04/02/17 0000 Signed Impressions: Service Date/Time: Sunday, April 02, 2017 10:49 - CONCLUSION: Fluoroscopic images during placement of intramedullary roberto left femur. Solitario Gutierrez MD Chest X-Ray 04/02/17 0000 Signed Impressions: Service Date/Time: Sunday, April 02, 2017 08:26 - CONCLUSION: Left- sided chest tube in good position with decrease in pleural-parenchymal density throughout the left lung. Solitairo Gutierrez MD Chest Tube Insertion 04/01/17 1446 Signed Impressions: Service Date/Time: Saturday, April 01, 2017 14:59 - CONCLUSION: Uncomplicated CT-guided placement of chest tube. Solitario Gutierrez MD Lower Extremity Ultrasound 03/31/17 0000 Signed Impressions: Service Date/Time: Friday, March 31, 2017 20:18 - CONCLUSION: No evidence of deep venous thrombosis. Eze Bonds MD Hip and Pelvis X-Ray 03/31/17 0000 Signed Impressions: Service Date/Time: Friday, March 31, 2017 19:36 - CONCLUSION: Acute displaced subtrochanteric fracture involving the left proximal femur. Eze Bonds MD Objective Remarks GENERAL: NAD, A&Ox3 HEAD: Normocephalic. NECK: Supple, trachea midline. No lymphadenopathy. EYES: No scleral icterus. No injection or drainage. CARDIOVASCULAR: Regular rate and rhythm without murmurs, gallops, or rubs. RESPIRATORY: Breath sounds equal bilaterally. No accessory muscle use. GASTROINTESTINAL: Abdomen soft, non-tender, nondistended. MUSCULOSKELETAL: No cyanosis, or edema. Chest tube in place draining serosanguineous fluid SKIN: Warm and dry. NEURO: No focal neurological deficitis. Medications and IVs Current Medications Medications (Trade) Dose Ordered Sig/Alicia Route Start Time Stop Time Status Last Admin (NS Flush) 2 ml UNSCH PRN IV FLUSH 03/31/17 21:45 (NS Flush) 2 ml BID IV FLUSH 04/01/17 09:00 04/04/17 21:39 (Zofran Inj) 4 mg Q6H PRN IVP 03/31/17 21:45 (Tylenol) 650 mg Q6H PRN PO 03/31/17 21:45 (Audrey-Colace) 1 tab BID PO 04/01/17 09:00 04/03/17 08:49 (Milk Of Magnesia Liq) 30 ml Q12H PRN PO 03/31/17 21:45 04/03/17 13:30 (Senokot) 17.2 mg Q12H PRN PO 03/31/17 21:45 (Dulcolax Supp) 10 mg DAILY PRN RECTAL 03/31/17 21:45 (Lactulose Liq) 30 ml DAILY PRN PO 03/31/17 21:45 (Xanax) 0.25 mg Q4H PRN PO 03/31/17 21:45 04/04/17 12:24 (PROzac) 20 mg DAILY PO 04/01/17 09:00 04/04/17 08:58 (Duoneb Neb) 1 ampule Q4HR NEB PRN NEB 03/31/17 21:45 (Dilaudid Pf Inj) 1 mg Q4H PRN IV 03/31/17 22:15 04/02/17 17:52 (Lovenox Inj) 30 mg BID SQ 04/03/17 10:00 04/05/17 07:53 (Oscal-D 250-125) 250 mg TID PO 04/02/17 13:00 04/05/17 07:52 (Benadryl) 25 mg Q6H PRN PO 04/02/17 13:00 (Vitamin D3) 5,000 units DAILY PO 04/03/17 09:00 04/05/17 07:52 (Percocet 5-325 Mg) 1 tab Q4H PRN PO 04/02/17 17:45 04/04/17 12:23 (Percocet 10-325 Mg) 1 tab Q4H PRN PO 04/02/17 17:45 04/05/17 07:54 A/P Problem List: (1) Trochanteric fracture of left femur ICD Code: S72.102A - Unspecified trochanteric fracture of left femur, initial encounter for closed fracture Status: Acute (2) Pleural effusion ICD Code: J90 - Pleural effusion, not elsewhere classified Status: Acute (3) Lung cancer ICD Code: C34.90 - Malignant neoplasm of unspecified part of unspecified bronchus or lung Assessment and Plan 56-year-old female admitted secondary to fall with left hip fracture. Continue chest tube management. Labs reviewed. Downward trend in hemoglobin. Labs ordered for further monitoring. Pending plan for radiation therapy, anticipate starting on Friday04/07/17. Anemia Follow CBC Avoid anticoagulation for now Left hip fracture Pathologic left hip fracture Status post surgical repair of left hip fracture Orthopedic surgeon following Continue physical therapy Pain control treatments in place Anticipate starting radiation on Friday04/07/17 Lung cancer Left pleural effusion Status post left chest tube placement Follow cytology Effusion May be related to lung cancer Dr. Lobo, oncology, is following Bone scan showed no metastasis DVT Prophylaxis Anticoagulation deferred based on anemia level Discharge planning Home versus penitentiary facility Monitor progress of PT Problem Qualifiers (1) Trochanteric fracture of left femur: Qualified Codes: S72.102A - Unspecified trochanteric fracture of left femur, initial encounter for closed fracture (2) Lung cancer: Qualified Codes: C34.82 - Malignant neoplasm of overlapping sites of left bronchus and lung Srinivasa Lantigua MD, R3 Apr 05, 2017 09:52
[2017-04-05 12:00] VITALS: BP 93/66; PULSE 94; RESP 17; TEMP 96.2; O2SAT 98
[2017-04-05] MEDS: oxyCODONE/ACETAMINOPHEN 5 MG/325 MG TAB PO PRN ×4 (12:01→22:25)
--- NOTE | 2017-04-05 13:20 | PD.ONC.PN ---
Subjective Subjective Remarks Afebrile overnight. Patient resting in bed in nad.~245cc CT output/24 hours. pain in left hip controlled except with movement. Objective Data Date Time Temp Pulse Resp B/P (MAP) Pulse Ox O2 Delivery O2 Flow Rate FiO2 04/05/17 12:00 96.2 94 17 93/66 (75) 98 04/05/17 08:00 96.3 109 17 94/68 (77) 91 04/05/17 04:00 97.8 57 18 101/60 (74) 96 04/05/17 00:00 97.6 93 20 99/58 (72) 96 04/04/17 20:00 97.6 66 20 96/55 (69) 96 04/04/17 18:46 Nasal Cannula 4.00 04/04/17 17:32 97 21 04/04/17 16:00 96.8 101 16 104/59 (74) 99 04/05/17 04/05/17 04/05/17 07:00 15:00 23:00 Intake Total 600 ml Output Total 160 ml Balance 440 ml Result Diagram: 04/05/17 0404 04/05/17 0404 Laboratory Results Laboratory Tests Test 04/05/17 04:04 White Blood Count 9.0 TH/MM3 Red Blood Count 3.93 MIL/MM3 Hemoglobin 9.6 GM/DL Hematocrit 29.1 % Mean Corpuscular Volume 74.1 FL Mean Corpuscular Hemoglobin 24.4 PG Mean Corpuscular Hemoglobin Concent 33.0 % Red Cell Distribution Width 15.5 % Platelet Count 210 TH/MM3 Mean Platelet Volume 7.3 FL Neutrophils (%) (Auto) 73.4 % Lymphocytes (%) (Auto) 7.8 % Monocytes (%) (Auto) 5.1 % Eosinophils (%) (Auto) 12.8 % Basophils (%) (Auto) 0.9 % Neutrophils # (Auto) 6.6 TH/MM3 Lymphocytes # (Auto) 0.7 TH/MM3 Monocytes # (Auto) 0.5 TH/MM3 Eosinophils # (Auto) 1.1 TH/MM3 Basophils # (Auto) 0.1 TH/MM3 CBC Comment DIFF FINAL Differential Comment Blood Urea Nitrogen 17 MG/DL Creatinine 0.44 MG/DL Random Glucose 104 MG/DL Total Protein 5.6 GM/DL Albumin 1.8 GM/DL Calcium Level 8.0 MG/DL Alkaline Phosphatase 55 U/L Aspartate Amino Transf (AST/SGOT) 44 U/L Alanine Aminotransferase (ALT/SGPT) 34 U/L Total Bilirubin 0.2 MG/DL Sodium Level 138 MEQ/L Potassium Level 4.3 MEQ/L Chloride Level 103 MEQ/L Carbon Dioxide Level 28.9 MEQ/L Anion Gap 6 MEQ/L Estimat Glomerular Filtration Rate 147 ML/MIN Administered Medications Medications (Trade) Dose Ordered Sig/Alicia Route PRN Reason Start Time Stop Time Status Last Admin Dose Admin Sodium Chloride (NS Flush) 2 ml BID IV FLUSH 04/01/17 09:00 04/04/17 21:39 Senna/Docusate Sodium (Audrey-Colace) 1 tab BID PO 04/01/17 09:00 04/03/17 08:49 Magnesium Hydroxide (Milk Of Magnjaime Liq) 30 ml Q12H PRN PO Mild constipation 03/31/17 21:45 04/03/17 13:30 Alprazolam (Xanax) 0.25 mg Q4H PRN PO ANXIETY 03/31/17 21:45 04/04/17 12:24 Fluoxetine HCl (PROzac) 20 mg DAILY PO 04/01/17 09:00 04/04/17 08:58 Hydromorphone HCl (Dilaudid Pf Inj) 1 mg Q4H PRN IV Breakthrough Pain 03/31/17 22:15 04/02/17 17:52 Enoxaparin Sodium (Lovenox Inj) 30 mg BID SQ 04/03/17 10:00 04/05/17 07:53 Calcium/Vitamin D (Oscal-D 250-125) 250 mg TID PO 04/02/17 13:00 04/05/17 12:00 Cholecalciferol (Vitamin D3) 5,000 units DAILY PO 04/03/17 09:00 04/05/17 07:52 Oxycodone/ Acetaminophen (Percocet 5-325 Mg) 1 tab Q4H PRN PO Pain 3 to 6 04/02/17 17:45 04/05/17 12:02 Oxycodone/ Acetaminophen (Percocet 10-325 Mg) 1 tab Q4H PRN PO Pain 7 to 10 04/02/17 17:45 04/05/17 07:54 Objective Remarks GENERAL: Middle aged female, supine in bed, resting. SKIN: Warm and dry. HEAD: Normocephalic. EYES: No injection or drainage. NECK: Supple, trachea midline. CARDIOVASCULAR: Regular rate and rhythm RESPIRATORY: diminished sounds, left lung chapa. CT in place. right lung chapa with good aeroation. GASTROINTESTINAL: Abdomen soft, non-tender, nondistended. EXTREMITIES: No cyanosis NEUROLOGICAL: awake and alert, normal speech. 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 Plan 1. NSCLC: +EGFR, continue Tagrisso. s/p bone scan. Radiation simulation Friday. 2. Pleural effusion: drainage lessening.recommend discontinuing chest tube when drainage lessens to 50-100cc/24 hours period. 3. DVT prophylaxis: on Lovenox 30mg SQ BID. will be discharged on xarelto. Attending Statement The exam, history, and the medical decision-making described in the above note were completed with the assistance of the mid-level provider. I reviewed and agree with the findings presented. I attest that I had a [id number] encounter with the patient on the same day, and personally performed and documented my assessment and findings in the medical record. Complaining off discomfort at the cT site left leg discomfort. Bone scan = neg S/P ORIF XRT to leg next week. Continue Tagrsso d/w pt and family. Louise Bowden Apr 05, 2017 13:20 Ruth Lombardo MD Apr 05, 2017 23:19
[2017-04-05 16:00] VITALS: BP 86/55; PULSE 96; RESP 17; TEMP 96.4; O2SAT 98
[2017-04-05 20:00] VITALS: BP 103/61; PULSE 86; RESP 18; TEMP 97.3; O2SAT 97
[2017-04-06] VITALS (9 sets, daily range): BP systolic 98–116; BP diastolic 52–75; PULSE 78–96; RESP 16–18; TEMP 96–98.9; O2SAT 95–100
[2017-04-06 06:04] LABS: HEMOGLOBIN 9.6 GM/DL (11.6-15.3); MEAN CELL VOLUME 73.2 FL (80.0-100.0); MEAN CORPUSCULAR HEMOGLOBIN 24.3 PG (27.0-34.0); MEAN CORPUSCULAR HGB CONC 33.2 % (32.0-36.0); MEAN PLATELET VOLUME 6.9 FL (7.0-11.0); PLATELET COUNT 247 TH/MM3 (150-450); RED BLOOD COUNT 3.97 MIL/MM3 (4.00-5.30)
[2017-04-06 06:15] LABS: ALBUMIN 1.8 GM/DL (3.4-5.0); AST (GOT) 67 U/L (15-37); BICARBONATE 29.1 MEQ/L (21.0-32.0); BLOOD UREA NITROGEN 14 MG/DL (7-18); CALCIUM 8.3 MG/DL (8.5-10.1); CHLORIDE 104 MEQ/L (98-107); CREATININE 0.44 MG/DL (0.50-1.00); GLOMERULAR FILTRATION RATE 147 ML/MIN (>89); GLUCOSE,RANDOM 96 MG/DL (74-106); SODIUM (NA) 138 MEQ/L (136-145)
[2017-04-06 06:18] LABS: ALKALINE PHOSPHATASE 52 U/L (45-117); ALT (GPT) 69 U/L (10-53); TOTAL BILIRUBIN ADULT 0.3 MG/DL (0.2-1.0); TOTAL PROTEIN 5.6 GM/DL (6.4-8.2)
--- NOTE | 2017-04-06 09:34 | HHI.PR ---
Subjective Remarks She says she is feeling all right today. Denies any chest pain or shortness of breath. Denies nausea or vomiting. Objective Vital Signs Date Time Temp Pulse Resp B/P (MAP) Pulse Ox O2 Delivery O2 Flow Rate FiO2 04/06/17 04:00 97.2 78 17 111/57 (75) 99 04/06/17 00:00 98.9 96 17 98/58 (71) 98 04/05/17 20:00 97.3 86 18 103/61 (75) 97 04/05/17 16:00 96.4 96 17 86/55 (65) 98 04/05/17 12:00 96.2 94 17 93/66 (75) 98 I/O 04/05/17 04/05/17 04/05/17 04/06/17 04/06/17 04/06/17 07:00 15:00 23:00 07:00 15:00 23:00 Intake Total 600 ml 480 ml 480 ml 360 ml Output Total 160 ml 70 ml 120 ml Balance 440 ml 480 ml 410 ml 240 ml Intake Oral 600 ml 480 ml 480 ml 360 ml Chest Tube Drainage Total 160 ml 70 ml 120 ml # Voids 4 6 2 2 # Bowel Movements 1 1 0 1 Result Diagram: 04/06/17 0500 04/06/17 0500 Objective Remarks GENERAL: Patient lying in bed. Appears comfortable. Alert and oriented 3. SKIN: Warm and dry. HEAD: Normocephalic. EYES: No scleral icterus. No injection or drainage. NECK: Supple, trachea midline. No JVD. CARDIOVASCULAR: Regular rate and rhythm without murmurs, gallops, or rubs. RESPIRATORY: Breath sounds initially on the left. No rhonchi. No wheezes.. No accessory muscle use. Left-sided chest tube draining serosanguineous fluid. GASTROINTESTINAL: Abdomen soft, non-tender, nondistended. MUSCULOSKELETAL: No cyanosis, or edema. BACK: Nontender without obvious deformity. No CVA tenderness. A/P Assessment and Plan 56-year-old female admitted secondary to fall with left hip fracture. Continue chest tube management. Labs reviewed. Downward trend in hemoglobin. Labs ordered for further monitoring. Pending plan for radiation therapy, anticipate starting on Friday04/07/17. //Anemia Follow CBC Avoid anticoagulation for now = Hemoglobin 9.6. Stable. //Left hip fracture Pathologic left hip fracture Status post surgical repair of left hip fracture Orthopedic surgeon following Continue physical therapy Pain control treatments in place Anticipate starting radiation on Friday04/07/17 //Lung cancer //Left pleural effusion =Status post left chest tube placement Follow cytology Effusion May be related to lung cancer Dr. Lobo, oncology, is following Bone scan showed no metastasis = We'll consult cardiothoracic surgery due to left sided pleural effusion. We' ll order labs, including cytology for left-sided pleural effusion. Consult cardiothoracic surgery as patient may benefit from pleurodesis versus placement of Pleurx catheter for chronic management. //Hypo-cyanosis deep. This could possibly be due to increased conversion. Will check 1, 25 dihydroxy vitamin D. //DVT Prophylaxis Anticoagulation deferred based on anemia level Discharge Planning Discharge planning = Pending cardiothoracic surgery consult for placement of Pleurx versus pleurodesis. = Planned radiation starting 04/07. Home versus group home facility Monitor progress of PT Shelton Montes MD Apr 06, 2017 09:34
[2017-04-06] MEDS: DOCUSATE SODIUM 50 MG/SENNA 8.6 MG TAB PO SCH ×2 (10:58→21:00)
[2017-04-06] MEDS: FLUoxetine HCL 20 MG CAP PO SCH (10:59)
[2017-04-06] MEDS: CHOLECALCIFEROL (VIT D3) 5000 UNIT CAP PO SCH (10:59)
[2017-04-06] MEDS: CALCIUM/VITAMIN D 250 MG/125 U TAB PO SCH ×3 (10:59→18:43)
[2017-04-06] MEDS: SODIUM CHLORIDE 0.9% FLUSH 10 ML FLUSH IV FLUSH SCH ×2 (11:00→21:16)
[2017-04-06] MEDS: ENOXAPARIN SODIUM 30 MG/0.3 ML SYRINGE SQ SCH ×2 (11:01→21:16)
--- NOTE | 2017-04-06 12:08 | RADRPT ---
EXAM DATE/TIME: 04/06/2017 11:29 [facility] COMPARISON: CHEST EXPIRATION ONLY, April 02, 2017, 8:26. INDICATIONS : Pleural effusion. MEDICAL HISTORY : None. SURGICAL HISTORY : None. ENCOUNTER: Subsequent ACUITY: 1 day PAIN SCORE: 0/10 LOCATION: Bilateral chest FINDINGS: A single view of the chest demonstrates significant decrease in size of pleural-parenchymal opacity t hroughout the left lung with associated volume loss. Small caliber left-sided chest tube again seen. No pneumothorax. Osseous structures are intact. Right lung clear. CONCLUSION: 1. Diffuse pleural-parenchymal density throughout the left chest slightly decreased in prominence wit h volume loss. 2. Left-sided chest tube without pneumothorax. Solitario Gutierrez MD on April 06, 2017 at 12:06 Board Certified Radiologist. This report was verified electronically.
[2017-04-06] MEDS: oxyCODONE/ACETAMINOPHEN 5 MG/325 MG TAB PO PRN ×2 (13:33→19:42)
[2017-04-07] VITALS (7 sets, daily range): BP systolic 93–113; BP diastolic 51–60; PULSE 71–96; RESP 16–19; TEMP 95.3–97.4; O2SAT 96–99
[2017-04-07] MEDS: oxyCODONE/ACETAMINOPHEN 5 MG/325 MG TAB PO PRN ×5 (02:28→20:27)
[2017-04-07] MEDS: FLUoxetine HCL 20 MG CAP PO SCH (08:29)
[2017-04-07] MEDS: DOCUSATE SODIUM 50 MG/SENNA 8.6 MG TAB PO SCH ×2 (08:29→20:26)
[2017-04-07] MEDS: SODIUM CHLORIDE 0.9% FLUSH 10 ML FLUSH IV FLUSH SCH ×2 (08:30→20:26)
[2017-04-07] MEDS: CHOLECALCIFEROL (VIT D3) 5000 UNIT CAP PO SCH (08:30)
[2017-04-07] MEDS: ENOXAPARIN SODIUM 30 MG/0.3 ML SYRINGE SQ SCH ×2 (08:30→20:27)
[2017-04-07] MEDS: CALCIUM/VITAMIN D 250 MG/125 U TAB PO SCH ×3 (08:30→17:31)
[2017-04-07] MEDS: ALPRAZolam 0.25 MG TAB PO PRN (12:24)
--- NOTE | 2017-04-07 12:42 | HHI.PR ---
Subjective Remarks Follow up pathologic Left femur fracture s/p repair/NSCLC/Left pleural effusion s/p chest tube placement 04/07/17-patient seen and examined; denies any significant shortness of breath. Currently Afebrile. Chest tube output this AM 130cc. by the bedside Objective Vitals Vital Signs Date Time Temp Pulse Resp B/P (MAP) Pulse Ox O2 Delivery O2 Flow Rate FiO2 04/07/17 11:27 96.4 91 19 102/54 (70) 99 04/07/17 08:36 Nasal Cannula 3.00 04/07/17 07:42 95.4 84 19 93/51 (65) 97 04/07/17 04:35 97.2 82 17 107/56 (73) 98 04/07/17 00:25 97.4 87 17 113/60 (77) 97 04/06/17 20:35 96.8 91 18 116/68 (84) 97 04/06/17 17:42 95 21 04/06/17 16:00 96.0 92 16 106/52 (70) 100 04/06/17 12:39 95 Nasal Cannula 1.00 I/O 04/06/17 04/06/17 04/06/17 04/07/17 04/07/17 04/07/17 07:00 15:00 23:00 07:00 15:00 23:00 Intake Total 360 ml 480 ml 360 ml Output Total 120 ml 60 ml 70 ml 150 ml Balance 240 ml 420 ml 290 ml -150 ml Intake Oral 360 ml 480 ml 360 ml Chest Tube Drainage Total 120 ml 60 ml 70 ml 150 ml # Voids 2 4 1 # Bowel Movements 1 0 0 Result Diagram: 04/06/17 0500 04/06/17 0500 Imaging Last Impressions Chest X-Ray 04/06/17 0000 Signed Impressions: Service Date/Time: Thursday, April 06, 2017 11:29 - CONCLUSION: 1. Diffuse pleural-parenchymal density throughout the left chest slightly decreased in prominence with volume loss. 2. Left-sided chest tube without pneumothorax. Solitario Gutierrez MD Bone Scan Nuclear Medicine 04/04/17 0000 Signed Impressions: Service Date/Time: Tuesday, April 04, 2017 12:58 - CONCLUSION: 1. No evidence of metastatic disease. 2. Multiple sites of increased uptake AccuStick of degenerative change. Kam Jerry MD Femur X-Ray 04/02/17 0000 Signed Impressions: Service Date/Time: Sunday, April 02, 2017 10:49 - CONCLUSION: Fluoroscopic images during placement of intramedullary roberto left femur. Solitario Gutierrez MD Chest Tube Insertion 04/01/17 1446 Signed Impressions: Service Date/Time: Saturday, April 01, 2017 14:59 - CONCLUSION: Uncomplicated CT-guided placement of chest tube. Solitario Gutierrez MD Lower Extremity Ultrasound 03/31/17 0000 Signed Impressions: Service Date/Time: Friday, March 31, 2017 20:18 - CONCLUSION: No evidence of deep venous thrombosis. Eze Bonds MD Hip and Pelvis X-Ray 03/31/17 0000 Signed Impressions: Service Date/Time: Friday, March 31, 2017 19:36 - CONCLUSION: Acute displaced subtrochanteric fracture involving the left proximal femur. Eze Bonds MD Objective Remarks GENERAL: NAD SKIN: Warm and dry. HEAD: Normocephalic. EYES: No scleral icterus. No injection or drainage. NECK: Supple, trachea midline. No JVD or lymphadenopathy. CARDIOVASCULAR: Regular rate and rhythm without murmurs, gallops, or rubs. RESPIRATORY: Breath sounds decrease L>R. No accessory muscle use.chest tube in place GASTROINTESTINAL: Abdomen soft, non-tender, nondistended. MUSCULOSKELETAL: No cyanosis, or edema. BACK: Nontender without obvious deformity. No CVA tenderness. A/P Problem List: (1) Trochanteric fracture of left femur ICD Code: S72.102A - Unspecified trochanteric fracture of left femur, initial encounter for closed fracture Status: Acute (2) Pleural effusion ICD Code: J90 - Pleural effusion, not elsewhere classified Status: Acute (3) Lung cancer ICD Code: C34.90 - Malignant neoplasm of unspecified part of unspecified bronchus or lung Assessment and Plan 56 years old female with Normochromic normocytic anemia H&H stable, continue to monitor Pathologic Left hip fracture Status post surgical repair of left hip fracture Management per orthopedic surgery PT consult to treat and eval and pain management accordingly Plan for radiation simulation today 04/07/17 NSCLC Continue with Tagrisso Bone scan negative for metastasis disease Appreciate input from oncology Plan for radiation simulation today 04/07/17 Left pleural effusion s/p chest tube placement Consult pulmonary medicine for evaluation for possible pleurodesis versus placement of Pleurx catheter for chronic management Patient with prior surgical h/o VATS, drainage of loculated pleural cavities , decortication of left lung, left posterolateral minithoracotomy 01/29/17 Hypo-cyanosis deep. This could possibly be due to increased conversion. 1, 25 dihydroxy vitamin D pending. DVT Prophylaxis: Lovenox 30mg BID and will likely discharge on Xarelto Problem Qualifiers (1) Trochanteric fracture of left femur: Qualified Codes: S72.102A - Unspecified trochanteric fracture of left femur, initial encounter for closed fracture (2) Lung cancer: Qualified Codes: C34.82 - Malignant neoplasm of overlapping sites of left bronchus and lung Solitario Romo MD Apr 07, 2017 12:42
--- NOTE | 2017-04-07 14:08 | PD.CAR.PN ---
CVT Progress Note Subjective/Hospital Course: Pt well known to me from recent admission in January at which time she underwent thoracotomy with drainage of loculated pleural effusions and biopsy of disseminated chest wall and diaphragmatic tumor lesions. Now admitted with recurrent symptoms, bony mets and left pleural effusion. Underwent CT guided chest tube placement. At this point, I would agree that she likely will benefit from Pleur-X catheter placement by IR to avoid injury to the underlying densely adherent lung. No surgical therapy planned. Thank you. Objective: Vital Signs Date Time Temp Pulse Resp B/P (MAP) Pulse Ox O2 Delivery O2 Flow Rate FiO2 04/07/17 11:27 96.4 91 19 102/54 (70) 99 04/07/17 08:36 Nasal Cannula 3.00 04/07/17 07:42 95.4 84 19 93/51 (65) 97 04/07/17 04:35 97.2 82 17 107/56 (73) 98 04/07/17 00:25 97.4 87 17 113/60 (77) 97 04/06/17 20:35 96.8 91 18 116/68 (84) 97 04/06/17 17:42 95 21 04/06/17 16:00 96.0 92 16 106/52 (70) 100 Result Diagram: 04/06/17 0500 04/06/17 0500 Shiela Sahni MD Apr 07, 2017 14:08
[2017-04-08] VITALS (7 sets, daily range): BP systolic 102–119; BP diastolic 50–76; PULSE 82–94; RESP 16–19; TEMP 96.2–98.1; O2SAT 96–98
[2017-04-08] MEDS: oxyCODONE/ACETAMINOPHEN 5 MG/325 MG TAB PO PRN ×4 (05:13→18:35)
[2017-04-08] MEDS: DOCUSATE SODIUM 50 MG/SENNA 8.6 MG TAB PO SCH ×2 (09:26→21:40)
[2017-04-08] MEDS: FLUoxetine HCL 20 MG CAP PO SCH (09:26)
[2017-04-08] MEDS: CALCIUM/VITAMIN D 250 MG/125 U TAB PO SCH ×3 (09:26→18:04)
[2017-04-08] MEDS: ENOXAPARIN SODIUM 30 MG/0.3 ML SYRINGE SQ SCH ×2 (09:26→21:40)
[2017-04-08] MEDS: CHOLECALCIFEROL (VIT D3) 5000 UNIT CAP PO SCH (09:26)
[2017-04-08] MEDS: SODIUM CHLORIDE 0.9% FLUSH 10 ML FLUSH IV FLUSH SCH ×2 (09:27→21:40)
--- NOTE | 2017-04-08 09:52 | MB ---
cc: CAROLYN NORMAN MD, JOHN DATE OF CONSULTATION 04/07/2017 REASON FOR CONSULTATION Pleural effusion and respiratory insufficiency. HISTORY OF PRESENT ILLNESS This is a 56-year-old lady with a past history of non-small cell lung CA who has been on chemotherapy. She came into the emergency room with left hip pain. The patient had a sudden sharp pain in the left hip a week ago and the pain radiated into the left knee and was worse on movement. She was then brought to the emergency room and was found to have an acute subtrochanteric fracture of the left proximal femur. He was seen by the orthopedic surgical team and underwent ORIF of the hip fracture. She also was found to have a left pleural effusion. She has had previous effusions following her diagnosis of lung CA and has had a thoracentesis done. She has been receiving chemotherapy per Dr. Danielito Lobo. The pleural effusion was drained with chest tube placement by thoracic surgery. She has had a previous VATS thoracotomy and pleurodesis performed. Presently the patient denies any shortness of breath but does have some cough and wheezing. She does have some chest discomfort and denies nausea and vomiting and has no hemoptysis, night sweats or fevers. PAST MEDICAL HISTORY 1. Lung cancer recently diagnosed, status post bronchoscopy and biopsy. 2. History of pleural effusion and thoracentesis. 3. History of pneumonia. HABITS The patient does not smoke. No history of significant alcohol but in the past she has smoked for over 20 years. ALLERGIES TRAMADOL. FAMILY HISTORY Noncontributory. REVIEW OF SYSTEMS The patient has had some recent weight loss. There is loss of appetite. She has epigastric distress and reflux. No abdominal pains. No nausea or vomiting. No urinary symptoms. No leg or calf muscle pains. PHYSICAL EXAMINATION GENERAL: This is an averagely built middle-aged white female in no acute distress. VITAL SIGNS: Blood pressure 138/80, pulse 90, respirations 22, temperature 98.2. HEENT: Head is normocephalic. Pupils reactive. Tongue is moist. Nasal mucosa edematous. Throat is clear. NECK: Supple. No lymphadenopathy. No bruits. No thyroid enlargement. CHEST: Equal movements with decreased excursions. Diminished breath sounds at the left lower chest. Wheezes heard bilaterally. HEART: The heart sounds are regular, S1 and S2. No murmur. ABDOMEN: Soft, protuberant. No mass. No organomegaly. EXTREMITIES: No lesions. No edema. Reflexes are normal. NEUROLOGIC: No gross motor deficits. Cranial nerves grossly intact. RECTAL: Deferred. IMPRESSION 1. Status post ORIF of a left femoral neck fracture. 2. History of non-small cell lung CA, status post radiation and chemotherapy. 3. COPD. 4. Recurrent left pleural effusion status post chest tube placement. PLAN The patient has been placed on O2 at 3 liters, incentive spirometry every 2 hours, nebulized DuoNeb solution four times a da. A follow up chest x-ray to be done this week. Chest tube will be placed to wall suction and hopefully it could be clamped and removed shortly if there is no significant fluid drainage. Thank you Dr. Norman for this consultation. MD BAUTISTA Cramer/CAIO /11:08 PM /9:26 AM
--- NOTE | 2017-04-08 10:48 | HHI.PR ---
Subjective Remarks Follow up pathologic Left femur fracture s/p repair/NSCLC/Left pleural effusion s/p chest tube placement 04/07/17-patient seen and examined; denies any significant shortness of breath. Currently Afebrile. Chest tube output this AM 130cc. by the bedside 04/08/17-at bedtime and examined, she had radiation simulation yesterday. Complaint of biopsy today. Currently afebrile. chest tube with 270 cc output Objective Vitals Vital Signs Date Time Temp Pulse Resp B/P (MAP) Pulse Ox O2 Delivery O2 Flow Rate FiO2 04/08/17 08:00 96.5 85 18 114/50 (71) 97 04/08/17 04:50 97.6 94 16 114/65 (81) 97 04/07/17 23:45 97.1 71 16 98/56 (70) 97 04/07/17 21:00 97.2 83 16 99/56 (70) 96 04/07/17 20:36 Nasal Cannula 4.00 Humidified 04/07/17 15:13 95.3 96 18 103/56 (72) 98 04/07/17 11:27 96.4 91 19 102/54 (70) 99 I/O 04/07/17 04/07/17 04/07/17 04/08/17 04/08/17 04/08/17 07:00 15:00 23:00 07:00 15:00 23:00 Intake Total 360 ml 480 ml 240 ml Output Total 70 ml 270 ml Balance 290 ml 210 ml 240 ml Intake Oral 360 ml 480 ml 240 ml Chest Tube Drainage Total 70 ml 270 ml # Voids 1 1 2 # Bowel Movements 0 0 0 Result Diagram: 04/06/17 0500 04/06/17 0500 Imaging Last Impressions Chest X-Ray 04/06/17 0000 Signed Impressions: Service Date/Time: Thursday, April 06, 2017 11:29 - CONCLUSION: 1. Diffuse pleural-parenchymal density throughout the left chest slightly decreased in prominence with volume loss. 2. Left-sided chest tube without pneumothorax. Solitario Gutierrez MD Bone Scan Nuclear Medicine 04/04/17 0000 Signed Impressions: Service Date/Time: Tuesday, April 04, 2017 12:58 - CONCLUSION: 1. No evidence of metastatic disease. 2. Multiple sites of increased uptake AccuStick of degenerative change. Kam Jerry MD Femur X-Ray 04/02/17 0000 Signed Impressions: Service Date/Time: Sunday, April 02, 2017 10:49 - CONCLUSION: Fluoroscopic images during placement of intramedullary roberto left femur. Solitario Gtuierrez MD Chest Tube Insertion 04/01/17 1446 Signed Impressions: Service Date/Time: Saturday, April 01, 2017 14:59 - CONCLUSION: Uncomplicated CT-guided placement of chest tube. Solitario Gutierrez MD Lower Extremity Ultrasound 03/31/17 0000 Signed Impressions: Service Date/Time: Friday, March 31, 2017 20:18 - CONCLUSION: No evidence of deep venous thrombosis. Eze Bonds MD Hip and Pelvis X-Ray 03/31/17 0000 Signed Impressions: Service Date/Time: Friday, March 31, 2017 19:36 - CONCLUSION: Acute displaced subtrochanteric fracture involving the left proximal femur. Eze Bonds MD Objective Remarks GENERAL: NAD SKIN: Warm and dry. HEAD: Normocephalic. EYES: No scleral icterus. No injection or drainage. NECK: Supple, trachea midline. No JVD or lymphadenopathy. CARDIOVASCULAR: Regular rate and rhythm without murmurs, gallops, or rubs. RESPIRATORY: Breath sounds decrease L>R. No accessory muscle use.chest tube in place GASTROINTESTINAL: Abdomen soft, non-tender, nondistended. MUSCULOSKELETAL: No cyanosis, or edema. BACK: Nontender without obvious deformity. No CVA tenderness. A/P Problem List: (1) Trochanteric fracture of left femur ICD Code: S72.102A - Unspecified trochanteric fracture of left femur, initial encounter for closed fracture Status: Acute (2) Pleural effusion ICD Code: J90 - Pleural effusion, not elsewhere classified Status: Acute (3) Lung cancer ICD Code: C34.90 - Malignant neoplasm of unspecified part of unspecified bronchus or lung Assessment and Plan 56 years old female with Normochromic normocytic anemia H&H stable, continue to monitor Pathologic Left hip fracture Status post surgical repair of left hip fracture Management per orthopedic surgery PT consult to treat and eval and pain management accordingly She had radiation simulation 04/07/17 NSCLC Continue with Tagrisso Bone scan negative for metastasis disease Appreciate input from oncology She had radiation simulation 04/07/17 Left pleural effusion s/p chest tube placement Appreciate input from pulmonary medicine for evaluation for possible pleurodesis versus placement of Pleurx catheter for chronic management Patient with prior surgical h/o VATS, drainage of loculated pleural cavities , decortication of left lung, left posterolateral minithoracotomy 01/29/17 Hypo-cyanosis deep. This could possibly be due to increased conversion. 1, 25 dihydroxy vitamin D pending. DVT Prophylaxis: Lovenox 30mg BID and will likely discharge on Xarelto Problem Qualifiers (1) Trochanteric fracture of left femur: Qualified Codes: S72.102A - Unspecified trochanteric fracture of left femur, initial encounter for closed fracture (2) Lung cancer: Qualified Codes: C34.82 - Malignant neoplasm of overlapping sites of left bronchus and lung Solitario Romo MD Apr 08, 2017 10:48
[2017-04-08 17:09] LABS: BACTERIA, URINE MANY /hpf; BILIRUBIN, URINE NEG (NEG); BLOOD, URINE TRACE (NEG); GLUCOSE,URINE NEG (NEG); KETONE, URINE NEG (NEG); MUCUS URINE FEW /lpf (OCC); NITRITE,URINE NEG (NEG); PH, URINE 5.5 (5.0-8.5); SQUAMOUS EPITHELIAL CELL URINE 1 /hpf (0-5); URINE COLOR YELLOW (YELLW/STRAW); URINE LEUKOCYTE ESTERASE LARGE (NEG); WHITE BLOOD CELL CLUMPS RARE
--- NOTE | 2017-04-08 21:17 | PD.ONC.PN ---
Subjective Subjective Remarks feeling better, stronger, walking short distances and less sob. Objective Data Date Time Temp Pulse Resp B/P (MAP) Pulse Ox O2 Delivery O2 Flow Rate FiO2 04/08/17 17:31 96 Nasal Cannula 1.00 04/08/17 16:00 96.7 82 18 102/56 (71) 96 04/08/17 12:00 97.0 88 18 111/62 (78) 98 04/08/17 10:49 98 Nasal Cannula 2.00 04/08/17 09:32 97 Nasal Cannula 2.00 04/08/17 08:00 96.5 85 18 114/50 (71) 97 04/08/17 04:50 97.6 94 16 114/65 (81) 97 04/07/17 23:45 97.1 71 16 98/56 (70) 97 04/08/17 04/08/17 04/08/17 07:00 15:00 23:00 Intake Total 240 ml 720 ml Output Total 130 ml Balance 240 ml 590 ml Result Diagram: 04/06/17 0500 04/06/17 0500 Laboratory Results Laboratory Tests Test 04/08/17 16:20 Urine Color YELLOW Urine Turbidity HAZY Urine pH 5.5 Urine Specific [place] 1.013 Urine Protein NEG mg/dL Urine Glucose (UA) NEG mg/dL Urine Ketones NEG mg/dL Urine Occult Blood TRACE Urine Nitrite NEG Urine Bilirubin NEG Urine Urobilinogen LESS THAN 2.0 MG/DL Urine Leukocyte Esterase LARGE Urine RBC 5 /hpf Urine WBC 77 /hpf Urine WBC Clumps RARE Urine Squamous Epithelial Cells 1 /hpf Urine Bacteria MANY /hpf Urine Mucus FEW /lpf Microscopic Urinalysis Comment CULTURE INDICATED Culture Results Microbiology Date/Time Source Procedure Growth Status 04/08/17 16:20 Urine Clean Catch Urine Culture Pending Received Administered Medications Medications (Trade) Dose Ordered Sig/Alicia Route PRN Reason Start Time Stop Time Status Last Admin Dose Admin Sodium Chloride (NS Flush) 2 ml BID IV FLUSH 04/01/17 09:00 04/08/17 09:27 Senna/Docusate Sodium (Audrey-Colace) 1 tab BID PO 04/01/17 09:00 04/08/17 09:26 Magnesium Hydroxide (Milk Of Magnesia Liq) 30 ml Q12H PRN PO Mild constipation 03/31/17 21:45 04/03/17 13:30 Alprazolam (Xanax) 0.25 mg Q4H PRN PO ANXIETY 03/31/17 21:45 04/07/17 12:24 Fluoxetine HCl (PROzac) 20 mg DAILY PO 04/01/17 09:00 04/08/17 09:26 Hydromorphone HCl (Dilaudid Pf Inj) 1 mg Q4H PRN IV Breakthrough Pain 03/31/17 22:15 04/02/17 17:52 Enoxaparin Sodium (Lovenox Inj) 30 mg BID SQ 04/03/17 10:00 04/08/17 09:26 Calcium/Vitamin D (Oscal-D 250-125) 250 mg TID PO 04/02/17 13:00 04/08/17 18:04 Cholecalciferol (Vitamin D3) 5,000 units DAILY PO 04/03/17 09:00 04/08/17 09:26 Oxycodone/ Acetaminophen (Percocet 5-325 Mg) 1 tab Q4H PRN PO Pain 3 to 6 04/02/17 17:45 04/08/17 18:35 Oxycodone/ Acetaminophen (Percocet 10-325 Mg) 1 tab Q4H PRN PO Pain 7 to 10 04/02/17 17:45 04/05/17 07:54 Objective Remarks GENERAL: Well-nourished, well-developed patient. SKIN: Warm and dry. HEAD: Normocephalic. EYES: No scleral icterus. No injection or drainage. NECK: Supple, trachea midline. No JVD or lymphadenopathy. LYMPHATIC: No adenopathy. CARDIOVASCULAR: Regular rate and rhythm without murmurs. RESPIRATORY: decreased sounds left lung. chest tube in place GASTROINTESTINAL: Abdomen soft, non-tender, nondistended. EXTREMITIES: No cyanosis, or edema. MUSCULOSKELETAL: Adequate muscle tone. NEUROLOGICAL: No obvious focal deficit. Awake, alert, and oriented x3. PSYCHIATRIC: Appropriate mood and affect; insight and judgment normal. 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 Plan 1. NSCLC: +EGFR mutation- continue Tagrisso. This is a very effective treatment which she has taken for less then three weeks. May be able to avoid pleurex catheter as it is likely that the Tagrisso may be the solution for preventing reaccumulation of the left pleura effusion. Recommend discontinuing chest tube when drainage lessens to 50-100cc/24 hours period. 2: DVT prophylaxis: on Lovenox 30mg SQ BID. At this point can stop Lovenox and begin Xarelto 10 mg a day if okay with orthopedics. 3: It appears that she may be able to go from the hospital to her home with outpatient physical therapy and outpatient radiation to left femur. Danielito Lobo MD Apr 08, 2017 21:17
[2017-04-09] VITALS (7 sets, daily range): BP systolic 92–120; BP diastolic 53–62; PULSE 74–95; RESP 15–18; TEMP 96.2–97.2; O2SAT 96–97
[2017-04-09] MEDS: oxyCODONE/ACETAMINOPHEN 5 MG/325 MG TAB PO PRN ×5 (00:46→21:29)
[2017-04-09] MEDS: DOCUSATE SODIUM 50 MG/SENNA 8.6 MG TAB PO SCH ×2 (09:00→21:00)
[2017-04-09] MEDS: FLUoxetine HCL 20 MG CAP PO SCH (09:00)
[2017-04-09] MEDS: CALCIUM/VITAMIN D 250 MG/125 U TAB PO SCH ×3 (09:16→17:57)
[2017-04-09] MEDS: SODIUM CHLORIDE 0.9% FLUSH 10 ML FLUSH IV FLUSH SCH ×2 (09:16→21:00)
[2017-04-09] MEDS: RIVAROXABAN 10 MG TAB PO SCH (09:16)
[2017-04-09] MEDS: CHOLECALCIFEROL (VIT D3) 5000 UNIT CAP PO SCH (09:16)
--- NOTE | 2017-04-09 11:28 | PD.CAR.PN ---
CVT Progress Note Subjective/Hospital Course: lengthy conversation with the pt and her . CT continues to drain. Agree that she will benefit from Pleur X catheter placement under guidance ( ultrasound or CT) given previous thoracotomy and loculations/scarring. Consult IR for above. I can see her in the outpatient setting in 2-3 weeks to determine if the catheter needs to be removed at that time. Objective: Vital Signs Date Time Temp Pulse Resp B/P (MAP) Pulse Ox O2 Delivery O2 Flow Rate FiO2 04/09/17 07:40 96.3 82 18 101/59 (73) 97 04/09/17 04:28 96 1.00 04/09/17 04:20 96.7 74 16 104/54 (71) 97 04/09/17 00:20 96.7 85 17 120/59 (79) 97 04/08/17 20:30 96.2 90 17 102/57 (72) 97 04/08/17 17:31 96 Nasal Cannula 1.00 04/08/17 16:00 96.7 82 18 102/56 (71) 96 04/08/17 12:00 97.0 88 18 111/62 (78) 98 Result Diagram: 04/06/17 0500 04/06/17 0500 Shiela Sahni MD Apr 09, 2017 11:28
--- NOTE | 2017-04-09 12:28 | MB ---
cc: CHECO GABRIEL,ABRAM BROWN MD, MD DATE OF CONSULTATION 04/09/[address] Montes Recurrent left pleural effusion HISTORY Ms. Ratliff is a very pleasant 54-year-old female who is well-known to me from her recent admission in January with multiple loculated left pleural effusions. The patient at that time underwent left thoracotomy with decortication of the left lung and biopsies of disseminated chest wall and diaphragmatic lesions of which the pathology was consistent with locally advanced lung cancer. Postprocedure, she did fairly well and was discharged home to continue with outpatient chemotherapy with Dr. Gabriel. She now presents with recurrent cough, shortness of breath and difficulty breathing. She was seen in the emergency department again with a chest x-ray demonstrating recurrent left pleural effusion confirmation by CT scan. Underwent a CT-guided left chest tube placement which has drained serous fluid. Following initial placement, the effusion and the amount of fluid evacuated by the chest tube was decreasing, however, over the past 24-48 hours, the output has increased again and I am now being consulted for consideration of a PleurX catheter placement. At present time, she is in bed lying comfortably in no apparent distress. PAST MEDICAL HISTORY Significant for: 1. Locally advanced cpl-[id number] lung cancer as described above 2. Anxiety 3. Hypercholesterolemia PAST SURGICAL HISTORY Remarkable for: 1. Left thoracoscopy with left thoracotomy, drainage of locular pleural effusions and biopsies of the chest wall diaphragmatic lesions. 2. Dental extraction ALLERGIES The patient reports allergies to TRAMADOL. MEDICATIONS Her home medications include: 1. Tagrisso 2. Xarelto 3. Hydrocodone 4. Prozac 5. Xanax 6. Calcium 7. Vitamin D3 8. Ergocalciferol FAMILY HISTORY Significant for staph infection of the mother with no identifiable malignant history or premature cardiovascular disease. SOCIAL HISTORY Denies any history of alcohol use or illicit drug use. She does have a prior history of tobacco use. REVIEW OF SYSTEMS As above. All other parameters are negative. PHYSICAL EXAM Today, she is 157 cm tall, weighs 62 kg, blood pressure is 102/57 with a heart rate of 84 which is regular, respiratory rate is 18 and she is afebrile. HEENT: Normocephalic, atraumatic. Pupils are round and reactive. Extraocular muscles intact. NECK: No cervical lymphadenopathy, carotid bruits or JVD. CARDIOVASCULAR: Regular rate and rhythm. Normal S1-S2 without gallops, rubs or murmurs. LUNGS: Relatively clear to auscultation with decreased breath sounds in the left base and midlung chapa with no crackles or rales. CARDIOVASCULAR: Regular rate and rhythm. Normal S1-S2 without gallops, rubs or murmurs. ABDOMEN: Soft, nontender, nondistended. Normoactive bowel sounds, no hepatosplenomegaly. EXTREMITIES: Bilateral lower extremity pulses are intact without cyanosis, clubbing or edema. No venous varicosities. NEUROLOGIC: Intact with no focal deficits. IMPRESSION 1. Locally advanced non-small cell cancer of the lung. 2. Recurrent left pleural effusion status post previous thoracotomy with drainage of loculated effusions and biopsies of chest wall and diaphragmatic masses 3. Anxiety. PLAN The clinical, chest x-ray, as well as CT findings were discussed in detail with the patient and her today. Should the chest tube output continue to decrease, it would be reasonable to remove the chest tube and see how she does clinically. If the fusion persists/recurs, then certainly a more invasive strategy would be undertaken. This would include PleurX catheter placement. Given her prior history of thoracotomy with decortication and evacuation of loculated effusions, I would favor that the PleurX catheter be placed under some sort of radiographic guidance whether it be CT or ultrasound guided. In that regard, it may be prudent to consult interventional radiology to have the PleurX catheter placed versus open placement in the operative period. We will continue to follow with you and determined if the chest tube is ready to be removed. Thank you for allowing me to participate in the care of this patient. Abram ALFARO /11:51 AM /12:10 PM LATASHA
[2017-04-09] MEDS ORDERED: CHLORHEXIDINE GLUCONATE 4% SOLN 120 ML BTL TOPICAL SCH (15:30)
[2017-04-09] MEDS ORDERED: DEXTROSE 50% IN WATER 50 ML VIAL(D50) IV PUSH PRN (15:30)
--- NOTE | 2017-04-09 16:15 | HHI.PR ---
Subjective Remarks Patient seen today around 2 PM. Says she is feeling all right. Reports pain controlled. Denies any nausea or vomiting. Objective Vital Signs Date Time Temp Pulse Resp B/P (MAP) Pulse Ox O2 Delivery O2 Flow Rate FiO2 04/09/17 12:00 96.2 90 18 118/62 (80) 96 04/09/17 07:40 96.3 82 18 101/59 (73) 97 04/09/17 04:28 96 1.00 04/09/17 04:20 96.7 74 16 104/54 (71) 97 04/09/17 00:20 96.7 85 17 120/59 (79) 97 04/08/17 20:30 96.2 90 17 102/57 (72) 97 04/08/17 17:31 96 Nasal Cannula 1.00 I/O 04/08/17 04/08/17 04/08/17 04/09/17 04/09/17 04/09/17 07:00 15:00 23:00 07:00 15:00 23:00 Intake Total 240 ml 720 ml 480 ml 240 ml Output Total 130 ml 180 ml 170 ml Balance 240 ml 590 ml 300 ml 70 ml Intake Oral 240 ml 720 ml 480 ml 240 ml Chest Tube Drainage Total 130 ml 180 ml 170 ml # Voids 2 3 3 2 # Bowel Movements 0 1 0 0 Result Diagram: 04/06/17 0500 04/06/17 0500 Objective Remarks GENERAL: Patient lying in bed. Appears comfortable. Alert and oriented 3. No appreciable change on exam SKIN: Warm and dry. HEAD: Normocephalic. EYES: No scleral icterus. No injection or drainage. NECK: Supple, trachea midline. No JVD. CARDIOVASCULAR: Regular rate and rhythm without murmurs, gallops, or rubs. RESPIRATORY: Breath sounds initially on the left. No rhonchi. No wheezes.. No accessory muscle use. Left-sided chest tube draining serosanguineous fluid. GASTROINTESTINAL: Abdomen soft, non-tender, nondistended. MUSCULOSKELETAL: No cyanosis, or edema. BACK: Nontender without obvious deformity. No CVA tenderness. A/P Assessment and Plan 04/09: I had a discussion with Dr. Lobo, as well as Dr. Sahni. Still with significant output from chest tube. We'll plan for Pleurx catheter placement with either IR or Dr. Sahni. 56 years old female with //Normochromic normocytic anemia H&H stable, continue to monitor //Pathologic Left hip fracture Status post surgical repair of left hip fracture Management per orthopedic surgery PT consult to treat and eval and pain management accordingly She had radiation simulation 04/07/17 //NSCLC Continue with Tagrisso Bone scan negative for metastasis disease Appreciate input from oncology She had radiation simulation 04/07/17 //Left pleural effusion s/p chest tube placement Appreciate input from pulmonary medicine for evaluation for possible pleurodesis versus placement of Pleurx catheter for chronic management Patient with prior surgical h/o VATS, drainage of loculated pleural cavities , decortication of left lung, left posterolateral minithoracotomy 01/29/17 = 2/7. Discussed with oncology, cardiothoracic surgery. Plan for Pleurx catheter placement. Appreciate assistance. //Hypovitaminosis D. This could possibly be due to increased conversion. 1, 25 dihydroxy vitamin D pending. DVT Prophylaxis: Lovenox 30mg BID and will likely discharge on Xarelto Discharge Planning Discharge planning = Pending Pleurx. = will need rad therapy =on chemo Home versus prison facility Monitor progress of PT Shelton Montes MD Apr 09, 2017 16:15
[2017-04-09] MEDS ORDERED: ceFAZolin 2 GM PREMIX 50 ML IV SCH (17:00)
--- NOTE | 2017-04-09 19:54 | HHI.PR ---
Subjective Remarks Walked with help. Off O2 sat 96. Chest tube is draining still. May need Pleur X catheter. Objective Vital Signs Date Time Temp Pulse Resp B/P (MAP) Pulse Ox O2 Delivery O2 Flow Rate FiO2 04/09/17 17:53 Nasal Cannula 1.00 04/09/17 16:00 97.2 95 18 92/60 (71) 96 04/09/17 12:00 96.2 90 18 118/62 (80) 96 04/09/17 07:40 96.3 82 18 101/59 (73) 97 04/09/17 04:28 96 1.00 04/09/17 04:20 96.7 74 16 104/54 (71) 97 04/09/17 00:20 96.7 85 17 120/59 (79) 97 04/08/17 20:30 96.2 90 17 102/57 (72) 97 I/O 04/08/17 04/08/17 04/08/17 04/09/17 04/09/17 04/09/17 07:00 15:00 23:00 07:00 15:00 23:00 Intake Total 240 ml 720 ml 480 ml 240 ml 960 ml Output Total 130 ml 180 ml 170 ml 210 ml Balance 240 ml 590 ml 300 ml 70 ml 960 ml -210 ml Intake Oral 240 ml 720 ml 480 ml 240 ml 960 ml Chest Tube Drainage Total 130 ml 180 ml 170 ml 210 ml # Voids 2 3 3 2 # Bowel Movements 0 1 0 0 Result Diagram: 04/06/17 0500 04/06/17 0500 Objective Remarks GENERAL: This is an averagely built middle-aged white female in no acute distress. Anxious and depressed HEENT: Head is normocephalic. Pupils reactive. Tongue is moist. Nasal mucosa edematous. Throat is clear. NECK: Supple. No lymphadenopathy. No bruits. No thyroid enlargement. CHEST: Equal movements with decreased excursions. Diminished breath sounds at the left lower chest. Wheezes heard bilaterally. HEART: The heart sounds are regular, S1 and S2. No murmur. ABDOMEN: Soft, protuberant. No mass. No organomegaly. EXTREMITIES: No lesions. No edema. Reflexes are normal. NEUROLOGIC: No gross motor deficits. Cranial nerves grossly intact. RECTAL: Deferred. Assessment and Plan Assessment and Plan IMPRESSION 1. Status post ORIF of a left femoral neck fracture. 2. History of non-small cell lung CA, status post radiation and chemotherapy. 3. COPD. 4. Recurrent left pleural effusion status post chest tube placement. Plan : 1. Chest Tube to wall suction 20 CM 2. Chest Xray in am 3. Nebs qid , duoneb. 4. Cont PT and OT. 5. Pain control with Dilaudid 1 mg prn Beckie Sahu MD Apr 09, 2017 19:54
[2017-04-09] MEDS: ALPRAZolam 0.25 MG TAB PO PRN (21:29)
--- NOTE | 2017-04-09 22:15 | RADRPT ---
EXAM DATE/TIME: 04/09/2017 21:55 [facility] COMPARISON: CHEST SINGLE AP, April 06, 2017, 11:29. INDICATIONS : Left side chest tube fell out. MEDICAL HISTORY : None. SURGICAL HISTORY : None. ENCOUNTER: Initial ACUITY: 1 day PAIN SCORE: 0/10 LOCATION: Left chest FINDINGS: The previously noted small left-sided chest tube is no longer place. There is no evidence of pneumoth orax. However, there continues to be diffuse pleural and parenchymal disease throughout the left lung . There is blunting of the left costophrenic angle suggestive of an effusion. The right lung is clear and well-aerated. The heart size is stable. The bony structures are stable. CONCLUSION: 1. The previously noted small left-sided chest tube is no longer in place. 2. No evidence of pneumothorax. 3. No significant changes with a prominent pleural and parenchymal disease throughout the left lung. Emmanuel Campos MD on April 09, 2017 at 22:06 Board Certified Radiologist. This report was verified electronically.
[2017-04-10] VITALS: BP 89/51; PULSE 78; RESP 15; TEMP 97.3; O2SAT 95
[2017-04-10 04:00] VITALS: BP 111/61; PULSE 90; RESP 15; TEMP 96.5; O2SAT 96
[2017-04-10] MEDS: oxyCODONE/ACETAMINOPHEN 5 MG/325 MG TAB PO PRN ×4 (05:58→20:25)
[2017-04-10 06:35] LABS: AUTOMATED NEUTROPHIL # 9.4 TH/MM3 (1.8-7.7); BASOPHIL # 0.1 TH/MM3 (0-0.2); BASOPHIL % 0.9 % (0.0-2.0); EOSINOPHIL # 1.5 TH/MM3 (0-0.4); EOSINOPHIL % 11.6 % (0.0-4.0); HEMOGLOBIN 10.4 GM/DL (11.6-15.3); LYMPH % 8.6 % (9.0-44.0); LYMPHOCYTE # 1.1 TH/MM3 (1.0-4.8); MEAN CELL VOLUME 74.9 FL (80.0-100.0); MEAN CORPUSCULAR HEMOGLOBIN 23.5 PG (27.0-34.0); MEAN CORPUSCULAR HGB CONC 31.4 % (32.0-36.0); MEAN PLATELET VOLUME 6.8 FL (7.0-11.0); MONO % 5.9 % (0.0-8.0); MONOCYTE # 0.8 TH/MM3 (0-0.9); PLATELET COUNT 333 TH/MM3 (150-450); RED CELL DISTRIBUTION WIDTH 15.9 % (11.6-17.2)
[2017-04-10 07:00] LABS: ALBUMIN 2.3 GM/DL (3.4-5.0); BICARBONATE 29.2 MEQ/L (21.0-32.0); CALCIUM 8.7 MG/DL (8.5-10.1); CREATININE 0.5 MG/DL (0.50-1.00); MAGNESIUM 2.5 MG/DL (1.5-2.5); PHOSPHORUS 3.9 MG/DL (2.5-4.9)
[2017-04-10] MEDS: RIVAROXABAN 10 MG TAB PO SCH (07:00)
[2017-04-10 08:00] VITALS: BP 111/60; PULSE 86; RESP 18; TEMP 95.4; O2SAT 95
[2017-04-10] MEDS: DOCUSATE SODIUM 50 MG/SENNA 8.6 MG TAB PO SCH ×3 (09:00→20:25)
[2017-04-10] MEDS: FLUoxetine HCL 20 MG CAP PO SCH ×2 (09:00→10:44)
[2017-04-10] MEDS: CIPROFLOXACIN 250 MG TAB PO SCH ×2 (10:44→23:35)
[2017-04-10] MEDS: CHOLECALCIFEROL (VIT D3) 5000 UNIT CAP PO SCH (10:44)
[2017-04-10] MEDS: CALCIUM/VITAMIN D 250 MG/125 U TAB PO SCH ×3 (10:44→16:28)
[2017-04-10] MEDS: SODIUM CHLORIDE 0.9% FLUSH 10 ML FLUSH IV FLUSH SCH ×2 (10:45→20:25)
[2017-04-10] MEDS ORDERED: ceFAZolin 2 GM PREMIX 50 ML IV SCH (11:30)
[2017-04-10] MEDS ORDERED: VANCOMYCIN INJ 1,000 MG in SODIUM CHLOR 0.9% 250 ML INJ 250 ML IV SCH (11:30)
[2017-04-10 11:40] VITALS: BP 115/66; PULSE 99; RESP 18; TEMP 97.2; O2SAT 96
--- NOTE | 2017-04-10 12:12 | PD.ONC.PN ---
Subjective Subjective Remarks Afebrile overnight. Patient resting in room. Disappointed that she is not getting pleur-x catheter today. they are holding the procedure until tomorrow as she received xarelto yesterday morning. chest tube fell out last night. but the patient is asymptomatic currently. Objective Data Date Time Temp Pulse Resp B/P (MAP) Pulse Ox O2 Delivery O2 Flow Rate FiO2 04/10/17 11:40 97.2 99 18 115/66 (82) 96 04/10/17 09:45 21 04/10/17 08:00 95.4 86 18 111/60 (77) 95 04/10/17 04:00 96.5 90 15 111/61 (78) 96 04/10/17 00:00 97.3 78 15 89/51 (64) 95 04/09/17 21:20 Room Air 04/09/17 20:00 96.7 81 15 107/53 (71) 96 04/09/17 17:53 Nasal Cannula 1.00 04/09/17 16:00 97.2 95 18 92/60 (71) 96 04/10/17 04/10/17 04/10/17 06:59 14:59 22:59 Intake Total 600 ml Balance 600 ml Result Diagram: 04/10/17 0459 04/10/17 0459 Laboratory Results Laboratory Tests Test 04/10/17 04:59 White Blood Count 13.0 TH/MM3 Red Blood Count 4.40 MIL/MM3 Hemoglobin 10.4 GM/DL Hematocrit 33.0 % Mean Corpuscular Volume 74.9 FL Mean Corpuscular Hemoglobin 23.5 PG Mean Corpuscular Hemoglobin Concent 31.4 % Red Cell Distribution Width 15.9 % Platelet Count 333 TH/MM3 Mean Platelet Volume 6.8 FL Neutrophils (%) (Auto) 73.0 % Lymphocytes (%) (Auto) 8.6 % Monocytes (%) (Auto) 5.9 % Eosinophils (%) (Auto) 11.6 % Basophils (%) (Auto) 0.9 % Neutrophils # (Auto) 9.4 TH/MM3 Lymphocytes # (Auto) 1.1 TH/MM3 Monocytes # (Auto) 0.8 TH/MM3 Eosinophils # (Auto) 1.5 TH/MM3 Basophils # (Auto) 0.1 TH/MM3 CBC Comment DIFF FINAL Differential Comment Blood Urea Nitrogen 14 MG/DL Creatinine 0.50 MG/DL Random Glucose 96 MG/DL Albumin 2.3 GM/DL Calcium Level 8.7 MG/DL Phosphorus Level 3.9 MG/DL Magnesium Level 2.5 MG/DL Sodium Level 139 MEQ/L Potassium Level 3.8 MEQ/L Chloride Level 103 MEQ/L Carbon Dioxide Level 29.2 MEQ/L Anion Gap 7 MEQ/L Estimat Glomerular Filtration Rate 127 ML/MIN Culture Results Microbiology Date/Time Source Procedure Growth Status 04/08/17 16:20 Urine Clean Catch Urine Culture - Final Klebsiella Pneumoniae Complete Imaging Studies Last 24 hours Impressions Chest X-Ray 04/09/172144 Signed Impressions: Service Date/Time: Sunday, April 09, 2017 21:55 - CONCLUSION: 1. The previously noted small left-sided chest tube is no longer in place. 2. No evidence of pneumothorax. 3. No significant changes with a prominent pleural and parenchymal disease throughout the left lung. Emmanuel Campos MD Administered Medications Medications (Trade) Dose Ordered Sig/Alicia Route PRN Reason Start Time Stop Time Status Last Admin Dose Admin Sodium Chloride (NS Flush) 2 ml BID IV FLUSH 04/01/17 09:00 04/10/17 10:45 Senna/Docusate Sodium (Audrey-Colace) 1 tab BID PO 04/01/17 09:00 04/08/17 09:26 Magnesium Hydroxide (Milk Of Magnjaime Liq) 30 ml Q12H PRN PO Mild constipation 03/31/17 21:45 04/03/17 13:30 Alprazolam (Xanax) 0.25 mg Q4H PRN PO ANXIETY 03/31/17 21:45 04/09/17 21:29 Fluoxetine HCl (PROzac) 20 mg DAILY PO 04/01/17 09:00 04/08/17 09:26 Hydromorphone HCl (Dilaudid Pf Inj) 1 mg Q4H PRN IV Breakthrough Pain 03/31/17 22:15 04/02/17 17:52 Calcium/Vitamin D (Oscal-D 250-125) 250 mg TID PO 04/02/17 13:00 04/10/17 10:44 Cholecalciferol (Vitamin D3) 5,000 units DAILY PO 04/03/17 09:00 04/10/17 10:44 Oxycodone/ Acetaminophen (Percocet 5-325 Mg) 1 tab Q4H PRN PO Pain 3 to 6 04/02/17 17:45 04/10/17 10:45 Oxycodone/ Acetaminophen (Percocet 10-325 Mg) 1 tab Q4H PRN PO Pain 7 to 10 04/02/17 17:45 04/05/17 07:54 Rivaroxaban (Xarelto) 10 mg DAILY PO 04/09/17 09:00 Future Hold 04/09/17 09:16 Ciprofloxacin (Cipro) 250 mg Q12H PO 04/10/17 11:00 04/10/17 10:44 Objective Remarks GENERAL: Middle aged female, sitting up in bed in nad. SKIN: Warm and dry. HEAD: Normocephalic. EYES: No injection or drainage. NECK: Supple, trachea midline. CARDIOVASCULAR: Regular rate and rhythm RESPIRATORY: diminished breath sounds left lung chapa, good aeration in right lung chapa. GASTROINTESTINAL: Abdomen soft, non-tender, nondistended. EXTREMITIES: No cyanosis NEUROLOGICAL: awake and alert, normal speech Assessment/Plan Assessment 56y/o female with adenocarcinoma of the lung with bony mets. Plan 1. +EGFR NSCLC with left pleural effusion. chest tube fell out last night. d/w Dr. Montes, will keep her here for placement of pleur-x catheter tomorrow as we have already held anticoagulation, we are coming up on a weekend, and the pleural effusion is likely to reaccumulate. We don't want to send the patient home and then have her come back on Friday or Friday with difficulty breathing. 2. resume xarelto after pleur-x catheter placement. Attending Statement The exam, history, and the medical decision-making described in the above note were completed with the assistance of the mid-level provider. I reviewed and agree with the findings presented. I attest that I had a [id number] encounter with the patient on the same day, and personally performed and documented my assessment and findings in the medical record. met with and patient. will proceed with pleurex catheter ? tomorrow and then could soon go home on xarelto 10 mg daily with visiting nurses, outpatient physical therapy, follow up with me and apt with Dr. Sahni in 2 weeks. I am hopeful that the pleurex catheter will allow for partial or full reexpansion of lung. Once the drainage is minimal it should be removed to avoid infection. She is doing remarkably well and was ambulatory today with minimal discomfort. Her spirits remain excellent and I am hopeful she will soon respond to her targeted therapy (tagrisso). Louise Bowden Apr 10, 2017 12:12 Danielito Lobo MD Apr 10, 2017 20:17
[2017-04-10 16:00] VITALS: BP 100/50; PULSE 87; RESP 18; TEMP 97.1; O2SAT 96
--- NOTE | 2017-04-10 18:07 | HHI.PR ---
Subjective Remarks Patient seen today after radiation therapy. Says she is feeling all right today. Denies any chest pain or shortness of breath. . Discussed with nursing. Chest tube fell out last night. Objective Vital Signs Date Time Temp Pulse Resp B/P (MAP) Pulse Ox O2 Delivery O2 Flow Rate FiO2 04/10/17 16:00 97.1 87 18 100/50 (67) 96 04/10/17 11:40 97.2 99 18 115/66 (82) 96 04/10/17 09:45 21 04/10/17 08:00 95.4 86 18 111/60 (77) 95 04/10/17 04:00 96.5 90 15 111/61 (78) 96 04/10/17 00:00 97.3 78 15 89/51 (64) 95 04/09/17 21:20 Room Air 04/09/17 20:00 96.7 81 15 107/53 (71) 96 04/09/17 17:53 Nasal Cannula 1.00 I/O 04/09/17 04/09/17 04/09/17 04/10/17 04/10/17 04/10/17 07:00 15:00 23:00 07:00 15:00 23:00 Intake Total 240 ml 960 ml 600 ml 0 ml 960 ml Output Total 170 ml 210 ml Balance 70 ml 960 ml 390 ml 0 ml 960 ml Intake Oral 240 ml 960 ml 600 ml 0 ml 960 ml Chest Tube Drainage Total 170 ml 210 ml # Voids 2 2 2 2 # Bowel Movements 0 1 2 Result Diagram: 04/10/17 0459 04/10/17 0459 Objective Remarks GENERAL: Patient lying in bed. Appears comfortable. Alert and oriented 3. SKIN: Warm and dry. HEAD: Normocephalic. EYES: No scleral icterus. No injection or drainage. NECK: Supple, trachea midline. No JVD. CARDIOVASCULAR: Regular rate and rhythm without murmurs, gallops, or rubs. RESPIRATORY: Breath sounds diminished on the left, worse than yesterday. No rhonchi. No wheezes.. No accessory muscle use. GASTROINTESTINAL: Abdomen soft, non-tender, nondistended. MUSCULOSKELETAL: No cyanosis, or edema. BACK: Nontender without obvious deformity. No CVA tenderness. A/P Assessment and Plan 04/10. Had discussion with Louise Bowden of oncology. Patient is asymptomatic, however with increasing size of septated pleural effusion, there is a possibility of atelectasis turning into lung consolidation, infection of this potential space, as well as the possibility of a pleural effusion which may not be able to be drained in the future. I think letting her go home with a collapsed lung and a large pleural effusion, even if asymptomatic, would end up turning into infection and irreversible lung damage. If she had a terminal diagnosis this would be reasonable, however according to oncology she has a good chance at successful treatment of her cancer. Plan for PleurxAnticoagulation held. Appreciate cardiothoracic surgery assistance. //Patient also with UTI which will be started on Cipro. Follow up cultures. 04/09: I had a discussion with Dr. Lobo, as well as Dr. Sahni. Still with significant output from chest tube. We'll plan for Pleurx catheter placement with either IR or Dr. Sahni. 56 years old female with //Normochromic normocytic anemia H&H stable, continue to monitor //Pathologic Left hip fracture Status post surgical repair of left hip fracture Management per orthopedic surgery PT consult to treat and eval and pain management accordingly She had radiation simulation 04/07/17 //NSCLC Continue with Tagrisso Bone scan negative for metastasis disease Appreciate input from oncology She had radiation simulation 04/07/17 // UTI which will be started on Cipro. //Left pleural effusion s/p chest tube placement Appreciate input from pulmonary medicine for evaluation for possible pleurodesis versus placement of Pleurx catheter for chronic management Patient with prior surgical h/o VATS, drainage of loculated pleural cavities , decortication of left lung, left posterolateral minithoracotomy 01/29/17 = 04/09. Discussed with oncology, cardiothoracic surgery. Plan for Pleurx catheter placement. Appreciate assistance. = Chest tube inadvertently removed. Pleurx to be placed. Appreciate cardiothoracic surgery assistance. //Hypovitaminosis D. This could possibly be due to increased conversion. 1, 25 dihydroxy vitamin D WNL -cont replacement. recheck with PCP in 2 mos DVT Prophylaxis: Lovenox 30mg BID (holding for procedure) and will likely discharge on Xarelto Discharge Planning Discharge planning = Pending Pleurx. = will need rad therapy =on chemo Home versus nursing home facility Monitor progress of PT Montes,Shelton D MD Apr 10, 2017 18:07
[2017-04-10 20:00] VITALS: BP 108/59; PULSE 90; RESP 16; TEMP 96.5; O2SAT 99
[2017-04-11] VITALS (7 sets, daily range): BP systolic 95–129; BP diastolic 51–59; PULSE 73–96; RESP 15–18; TEMP 95.1–97.9; O2SAT 95–98
[2017-04-11] MEDS: RIVAROXABAN 10 MG TAB PO SCH (07:11)
[2017-04-11] MEDS: CALCIUM/VITAMIN D 250 MG/125 U TAB PO SCH ×2 (07:27→12:08)
[2017-04-11] MEDS: FLUoxetine HCL 20 MG CAP PO SCH (07:27)
[2017-04-11] MEDS: CHOLECALCIFEROL (VIT D3) 5000 UNIT CAP PO SCH (07:27)
[2017-04-11] MEDS: DOCUSATE SODIUM 50 MG/SENNA 8.6 MG TAB PO SCH (07:27)
[2017-04-11] MEDS: oxyCODONE/ACETAMINOPHEN 5 MG/325 MG TAB PO PRN (08:17)
[2017-04-11] MEDS: SODIUM CHLORIDE 0.9% FLUSH 10 ML FLUSH IV FLUSH SCH (08:19)
[2017-04-11] MEDS ORDERED: CHLORHEXIDINE GLUCONATE 2 % 1 PACK (2 CLOTHS) TOPICAL PRN ×2 (09:30→09:45)
[2017-04-11] MEDS ORDERED: LACTATED RINGER'S 1000 ML IV PRN ×2 (09:30→09:45)
[2017-04-11] MEDS ORDERED: SODIUM CHLORID 0.9% 500 ML IV PRN ×2 (09:30→09:45)
[2017-04-11] MEDS ORDERED: METOPROLOL TARTRATE 25 MG TAB PO PRN ×2 (09:30→09:45)
[2017-04-11] MEDS ORDERED: POVIDONE IODINE 5% (ANTISEPSIS KIT) 4 APPLICATIONS EACH NARE PRN ×2 (09:30→09:45)
--- NOTE | 2017-04-11 10:21 | PD.ONC.PN ---
Subjective Subjective Remarks Afebrile overnight. patient resting in bed in nad. Waiting to go down for pleur-x catheter placement with Dr. Sahni. Denies shortness of breath at present. No pain. Objective Data Date Time Temp Pulse Resp B/P (MAP) Pulse Ox O2 Delivery O2 Flow Rate FiO2 04/11/17 08:20 Room Air 04/11/17 04:00 97.5 88 15 129/59 (82) 95 04/11/17 00:00 95.1 91 16 96/58 (71) 95 04/10/17 20:20 Room Air 04/10/17 20:00 96.5 90 16 108/59 (75) 99 04/10/17 16:00 97.1 87 18 100/50 (67) 96 04/10/17 11:40 97.2 99 18 115/66 (82) 96 Result Diagram: 04/10/17 0459 04/10/17 0459 Culture Results Microbiology Date/Time Source Procedure Growth Status 04/08/17 16:20 Urine Clean Catch Urine Culture - Final Klebsiella Pneumoniae Complete Administered Medications Medications (Trade) Dose Ordered Sig/Alicia Route PRN Reason Start Time Stop Time Status Last Admin Dose Admin Sodium Chloride (NS Flush) 2 ml UNSCH PRN IV FLUSH FLUSH AFTER USING IV ACCESS 03/31/17 21:45 04/11/17 08:18 Sodium Chloride (NS Flush) 2 ml BID IV FLUSH 04/01/17 09:00 04/11/17 08:19 Senna/Docusate Sodium (Audrey-Colace) 1 tab BID PO 04/01/17 09:00 04/08/17 09:26 Magnesium Hydroxide (Milk Of Magnesia Liq) 30 ml Q12H PRN PO Mild constipation 03/31/17 21:45 04/03/17 13:30 Alprazolam (Xanax) 0.25 mg Q4H PRN PO ANXIETY 03/31/17 21:45 04/09/17 21:29 Fluoxetine HCl (PROzac) 20 mg DAILY PO 04/01/17 09:00 04/08/17 09:26 Hydromorphone HCl (Dilaudid Pf Inj) 1 mg Q4H PRN IV Breakthrough Pain 03/31/17 22:15 04/02/17 17:52 Calcium/Vitamin D (Oscal-D 250-125) 250 mg TID PO 04/02/17 13:00 04/10/17 16:28 Cholecalciferol (Vitamin D3) 5,000 units DAILY PO 04/03/17 09:00 04/10/17 10:44 Oxycodone/ Acetaminophen (Percocet 5-325 Mg) 1 tab Q4H PRN PO Pain 3 to 6 04/02/17 17:45 04/11/17 08:17 Oxycodone/ Acetaminophen (Percocet 10-325 Mg) 1 tab Q4H PRN PO Pain 7 to 10 04/02/17 17:45 04/05/17 07:54 Rivaroxaban (Xarelto) 10 mg DAILY PO 04/09/17 09:00 Future Hold 04/09/17 09:16 Ciprofloxacin (Cipro) 250 mg Q12H PO 04/10/17 11:00 04/10/17 23:35 Vancomycin HCl 1000 mg/Sodium Chloride 250 ml @ 250 mls/hr ARTERIAL EMBALMER IV 04/10/17 11:30 04/14/17 11:29 04/11/17 10:08 Objective Remarks GENERAL: Middle aged female, upright in bed in nad. SKIN: Warm and dry. HEAD: Normocephalic. EYES: No injection or drainage. NECK: Supple, trachea midline. CARDIOVASCULAR: Regular rate and rhythm RESPIRATORY: improved aeration, left lung chapa, continues to have good aeration, right lung chapa. GASTROINTESTINAL: Abdomen soft, non-tender, nondistended. 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 Plan 1. pleur-x catheter placement today then discharge home assuming no complications. will need home health care for PT and pleur-x care. 2. resume Xarelto after procedure. 3. continue Tagrisso. 4. follow up with Dr. Lobo next week. Attending Statement The exam, history, and the medical decision-making described in the above note were completed with the assistance of the mid-level provider. I reviewed and agree with the findings presented. I attest that I had a [id number] encounter with the patient on the same day, and personally performed and documented my assessment and findings in the medical record. when seen earlier this am doing well and decision made to place pleurex catheter which has already been done. Following this she can go home and will need visiting nurses, pt, and follow up with me. Loiuse Bowden Apr 11, 2017 10:21 Danielito Lobo MD Apr 11, 2017 20:07
[2017-04-11] MEDS: CIPROFLOXACIN 250 MG TAB PO SCH (11:00)
[2017-04-11] MEDS ORDERED: fentaNYL CITRATE 250 MCG/5 ML AMP ONE (11:03)
[2017-04-11] MEDS ORDERED: MIDAZOLAM HCL 2 MG/2 ML VIAL ONE (11:03)
--- NOTE | 2017-04-11 11:57 | HHI.FF ---
Face to Face Verification Diagnosis: (1) Lung cancer (2) Pleural effusion (3) Trochanteric fracture of left femur Physical Therapy Order: Evaluate and Treat Home Health Nursing Order: Wound care and dressing changes Nursing assessment with vital signs Instructions: Vision as Pleurx catheter. Drain daily as per cardiothoracic surgery instructions. We'll need continued instruction, nursing to monitor. I have seen patient Laurie Ratliff on 04/11/17. My clinical findings support the need for the requested home health care services because: Limited ability to care for self I certify that my clinical findings support that this patient is homebound because: Unsafe to leave home unassisted Shelton Montes MD Apr 11, 2017 11:57
--- NOTE | 2017-04-11 12:06 | HHI.PR ---
Subjective Remarks Patient sitting up in bed. Appears comfortable. Orthopedic is controlled. Denies any nausea or vomiting. She feels like going home tomorrow after Pleurx placement today. Objective Vital Signs Date Time Temp Pulse Resp B/P (MAP) Pulse Ox O2 Delivery O2 Flow Rate FiO2 04/11/17 08:20 Room Air 04/11/17 08:00 96.6 96 16 101/55 (70) 95 04/11/17 04:00 97.5 88 15 129/59 (82) 95 04/11/17 00:00 95.1 91 16 96/58 (71) 95 04/10/17 20:20 Room Air 04/10/17 20:00 96.5 90 16 108/59 (75) 99 04/10/17 16:00 97.1 87 18 100/50 (67) 96 I/O 04/10/17 04/10/17 04/10/17 04/11/17 04/11/17 04/11/17 07:00 15:00 23:00 07:00 15:00 23:00 Intake Total 0 ml 960 ml 800 ml Balance 0 ml 960 ml 800 ml Intake Oral 0 ml 960 ml 800 ml # Voids 2 3 2 2 # Bowel Movements 2 Result Diagram: 04/10/17 0459 04/10/17 0459 Objective Remarks GENERAL: Patient lying in bed. Appears comfortable. Alert and oriented 3. SKIN: Warm and dry. HEAD: Normocephalic. EYES: No scleral icterus. No injection or drainage. NECK: Supple, trachea midline. No JVD. CARDIOVASCULAR: Regular rate and rhythm without murmurs, gallops, or rubs. RESPIRATORY: Breath sounds diminished on the left, about same than yesterday. No rhonchi. No wheezes.. No accessory muscle use. GASTROINTESTINAL: Abdomen soft, non-tender, nondistended. MUSCULOSKELETAL: No cyanosis, or edema. BACK: Nontender without obvious deformity. No CVA tenderness. A/P Assessment and Plan 04/11. Plan for Pleurx placement today. Continue Cipro for UTI. Patient cleared by the surgery for discharge. Plan discharge home tomorrow with Cipro to complete treatment course. 04/10. Had discussion with Louise Bowden of oncology. Patient is asymptomatic, however with increasing size of septated pleural effusion, there is a possibility of atelectasis turning into lung consolidation, infection of this potential space, as well as the possibility of a pleural effusion which may not be able to be drained in the future. I think letting her go home with a collapsed lung and a large pleural effusion, even if asymptomatic, would end up turning into infection and irreversible lung damage. If she had a terminal diagnosis this would be reasonable, however according to oncology she has a good chance at successful treatment of her cancer. Plan for PleurxAnticoagulation held. Appreciate cardiothoracic surgery assistance. //Patient also with UTI which will be started on Cipro. Follow up cultures. 04/09: I had a discussion with Dr. Lobo, as well as Dr. Sahni. Still with significant output from chest tube. We'll plan for Pleurx catheter placement with either IR or Dr. Sahni. 56 years old female with //Normochromic normocytic anemia H&H stable, continue to monitor //Pathologic Left hip fracture Status post surgical repair of left hip fracture Management per orthopedic surgery PT consult to treat and eval and pain management accordingly She had radiation simulation 04/07/17 = Continue radiation therapy. //NSCLC Continue with Tagrisso Bone scan negative for metastasis disease Appreciate input from oncology She had radiation simulation 04/07/17 // UTI which will be started on Cipro. = 04/11. Klebsiella sensitive to Cipro. Continue Cipro. //Left pleural effusion s/p chest tube placement Appreciate input from pulmonary medicine for evaluation for possible pleurodesis versus placement of Pleurx catheter for chronic management Patient with prior surgical h/o VATS, drainage of loculated pleural cavities , decortication of left lung, left posterolateral minithoracotomy 01/29/17 = 04/09. Discussed with oncology, cardiothoracic surgery. Plan for Pleurx catheter placement. Appreciate assistance. = Chest tube inadvertently removed. Pleurx to be placed. Appreciate cardiothoracic surgery assistance. //Hypovitaminosis D. - 1, 25 dihydroxy vitamin D WNL -cont replacement. recheck with PCP in 2 mos DVT Prophylaxis: Lovenox 30mg BID (holding for procedure) and will likely discharge on Xarelto Discharge Planning Discharge planning - possibly tomorrow = Pending Pleurx. = will need rad therapy =on chemo =cipro for uti plan is for HH Monitor progress of PT Shelton Montes MD Apr 11, 2017 12:06
[2017-04-11] MEDS ORDERED: IOHEXOL 350 MG/ML 50 ML BTL (for RAD DIAG) OTHER ONE (12:27)
--- NOTE | 2017-04-11 12:52 | PD.RAD ---
Post Procedure Progress Note Pre Procedure Diagnosis: (1) Pleural effusion (2) Lung cancer Post Procedure Diagnosis: Procedure Date: Apr 11, 2017 Supervising Radiologist: Nahun Frank Proceduralist/Assist: Leesa Whitlock, RT(R)(), Liudmila Weber RT(R) Anesthesia: Local, Analgesia, Conscious Sedation Plan of Activity Patient to Unit: ROPU Patient Condition: Good See PACS Report for procedural detail/treatment Drainage Procedure Procedure 1 Imaging Guidance: Fluoroscopy, Ultrasound Side: Left Procedure Type: Chest Tube Tunneled Procedure: Placement Drainage: Suction Fluid Removal (CCs): 200 Fluid Description: Yellow, Red Nahun Frank MD Apr 11, 2017 12:52
--- NOTE | 2017-04-11 13:07 | RADRPT ---
EXAM DATE/TIME: 04/11/2017 12:44 [facility] COMPARISON: CHEST EXPIRATION ONLY, April 02, 2017, 8:26. INDICATIONS : Chest tube placement MEDICAL HISTORY : None. SURGICAL HISTORY : None. ENCOUNTER: Subsequent ACUITY: 1 day PAIN SCORE: 0/10 LOCATION: Left chest FINDINGS: A single frontal expiratory view of the chest was performed. Extensive airspace disease in the left h emithorax is unchanged. Previously seen cope loop catheter projecting over the lower hemithorax is be en removed. Posterior type drain is seen in the same general vicinity as the previous catheter. No ob vious pneumothorax. Right lung is grossly clear. Dextroscoliosis of the dorsal spine. CONCLUSION: 1. Left-sided Aspira drain in the lower hemithorax without pneumothorax. 2. Stable diffuse airspace disease in the left chest. Right lung remains clear. Nahun Frank MD on April 11, 2017 at 13:02 Board Certified Radiologist. This report was verified electronically.
--- NOTE | 2017-04-11 14:17 | RADRPT ---
EXAM DATE/TIME: 04/11/2017 10:45 [facility] COMPARISON: No previous studies available for comparison. INDICATIONS : Patient with a history of lung cancer with METS to the bone. MEDICAL HISTORY : Lung cancer SURGICAL HISTORY : Left hip surgery Dental extraction ENCOUNTER: Initial ACUITY: 3 days PAIN SCORE: 3/10 LOCATION: Left chest FLUORO TIME: 3.2 minutes IMAGE SERIES: 3 SEDATION TIME: 45 minutes CONTRAST: 30 cc Omnipaque (iohexol) 350 MEDICATION(S): 1.) 3 mg midazolam (Versed) IV 2.) 175 mcg fentanyl (Sublimaze) IV DEVICE(S): 1.) Aspiria catheter PROCEDURE : 1. ultrasound and fluoroscopic guidance 2. Conscious sedation with continuous EKG and Oximetry monitoring. 3. Aspira tunneled chest tube placement The risks, benefits and alternatives to the procedure were explained and verbal and written consent w as obtained. The site was prepped in sterile fashion. Full sterile technique was used, including ca p, mask, sterile gloves and gown and a large sterile sheet. Hand hygiene and 2% chlorhexidine prep w as utilized per protocol for cutaneous antisepsis with appropriate dry time for site. The skin and s ubcutaneous tissues were infiltrated with local anesthetic solution. Left chest was evaluated sonographically demonstrated fluid in the region of the base. After appropri ate local anesthetic, dermatotomy was made and the 11 blade scalpel and the subcutaneous tissues blun tly dissected. Access to the thoracic cavity was obtained with a 21 gauge micropuncture needle. With the return of clear fluid, the 018 wire was advanced through the needle over which the 3-4 dilator wa s placed. Over 35 wire was advanced through the outer 4 Ghanaian dilator and the wire manipulated media lly into the base of the hemithorax with a hockey-stick catheter. Position was confirmed with positiv e contrast. A Glidewire was used to measure the appropriate length of the Aspira drainage catheter. Catheter was cut to the appropriate length. The catheter was then used to determine the appropriate length of the subcutaneous tunneled over the left chest. After appropriate local anesthetic, a second dermatotomy w as made in this location. The subcutaneous tract between the 2 dermatotomies was anesthetized with an additional 7 cc of 1% Xylocaine. Using a [place]ham blunt needle, the tract between the 2 dermatotomies was traversed. The inner stylette was utilized to advance the peel-away sheath through the subcutane ous tunnel through which the Aspira drain was placed. Leaving the peel-away intact, the catheter and catheter cuff were pulled through the tract. The thoracostomy access was then serially dilated to accommodate the same peel-away sheath. Over the wire and through the sheath, the tip of the Aspira drain was advanced into the dural space. The cuff was then pulled back towards the second dermatotomy. Position was confirmed with positive contrast sh owing the side ports all to be appropriately positioned within the pleural space. The initial dermato julian was opposed with 3-0 Vicryl suture and Dermabond adhesive. A cerclage was placed at the second d ermatotomy to secure the catheter cuff. The cerclage have been removed after 10-14 days. Conscious sedation was performed with the prescribed dosages and duration as above in the presence of an independent trained radiology nurse to assist in the monitoring of the patient. EKG and oximetry remained stable throughout the procedure. CONCLUSION: 1. Successful left-sided Aspira thoracostomy tube placement as above. 2. Cerclage of the exiting dermatotomy. This can be removed in ROPU after 10-14 days. Nahun Frank MD on April 11, 2017 at 14:05 Board Certified Radiologist. This report was verified electronically.
[2017-04-11] MEDS: oxyCODONE/ACETAMINOPHEN 10 MG/325 MG TAB PO PRN (14:48)
[2017-04-11] MEDS ORDERED: CIPR250T52 PO (16:27)
--- NOTE | 2017-04-14 06:36 | HHI.DS ---
Discharge Summary Admission Date Mar 31, 2017 at 21:42 Discharge Date: Apr 11, 2017 Admitting Diagnosis Femur fracture, (1) Trochanteric fracture of left femur ICD Code: S72.102A - Unspecified trochanteric fracture of left femur, initial encounter for closed fracture Status: Acute (2) Pleural effusion ICD Code: J90 - Pleural effusion, not elsewhere classified Status: Acute (3) Lung cancer ICD Code: C34.90 - Malignant neoplasm of unspecified part of unspecified bronchus or lung Procedures left hip orif left chest tube placement left chest Pleur-X catheter placement. Brief History - From Admission This is a 56-year-old female with a PMH of Lung CA on Chemotherapy who is brought to the ER by EMS secondary to complaints of severe left hip pain. Patient denies any trauma or injury. States she was standing and went to pivot when she hear sudden "pop" in her left hip, felt immediate pain. Pain is sharp , severe, constant, 10/10, radiates to left knee/wood, worse w/ movement. On arrival, BP 148/76, HR 89, O2 sat 95% on RA, Afebrile. Chemistry at baseline except for GFR 85. INR 1.0. CXR with worsening opacification left hemithorax likely commendation of consolidation and pleural fluid. Hip/Pelvis X-ray acute displaced subtrochanteric fracture of left proximal femur. LE US no evidence of DVT. Dr. Angelo consulted by ER physician, plan is for surgical intervention in am. CBC/BMP: 04/10/17 0459 04/10/17 0459 Imaging Last Impressions Chest X-Ray 04/11/17 0000 Signed Impressions: Service Date/Time: Tuesday, April 11, 2017 12:44 - CONCLUSION: 1. Left- sided Aspira drain in the lower hemithorax without pneumothorax. 2. Stable diffuse airspace disease in the left chest. Right lung remains clear. Nahun Frank MD Catheter Placement X-Ray 04/11/17 0000 Signed Impressions: Service Date/Time: Tuesday, April 11, 2017 10:45 - CONCLUSION: 1. Successful left-sided Aspira thoracostomy tube placement as above. 2. Cerclage of the exiting dermatotomy. This can be removed in ROPU after 10-14 days. Nahun Frank MD Bone Scan Nuclear Medicine 04/04/17 0000 Signed Impressions: Service Date/Time: Tuesday, April 04, 2017 12:58 - CONCLUSION: 1. No evidence of metastatic disease. 2. Multiple sites of increased uptake AccuStick of degenerative change. Kam Jerry MD Femur X-Ray 04/02/17 0000 Signed Impressions: Service Date/Time: Sunday, April 02, 2017 10:49 - CONCLUSION: Fluoroscopic images during placement of intramedullary roberto left femur. Solitario Gutierrez MD Chest Tube Insertion 04/01/17 1446 Signed Impressions: Service Date/Time: Saturday, April 01, 2017 14:59 - CONCLUSION: Uncomplicated CT-guided placement of chest tube. Solitario Gutierrez MD Lower Extremity Ultrasound 03/31/17 0000 Signed Impressions: Service Date/Time: Friday, March 31, 2017 20:18 - CONCLUSION: No evidence of deep venous thrombosis. Eze Bonds MD Hip and Pelvis X-Ray 03/31/17 0000 Signed Impressions: Service Date/Time: Friday, March 31, 2017 19:36 - CONCLUSION: Acute displaced subtrochanteric fracture involving the left proximal femur. Eze Bonds MD PE at Discharge GENERAL: NAD SKIN: Warm and dry. HEAD: Normocephalic. EYES: No scleral icterus. No injection or drainage. NECK: Supple, trachea midline. No JVD or lymphadenopathy. CARDIOVASCULAR: Regular rate and rhythm without murmurs, gallops, or rubs. RESPIRATORY: Breath sounds decrease L>R. No accessory muscle use.chest tube in place GASTROINTESTINAL: Abdomen soft, non-tender, nondistended. MUSCULOSKELETAL: No cyanosis, or edema. BACK: Nontender without obvious deformity. No CVA tenderness. Hospital Course Patient was found to have left hip fracture on imaging, orthopedics was consulted and patient underwent ORIF of left hip. She progressed with physical therapy, and was ultimately able to go home with home health. Patient was also found to have large left pleural effusion, for which chest tube was placed on , with significant output from chest tube. Due to continued output from chest tube, cardiothoracic surgery was consulted, and patient underwent Pleurx catheter placement to left chest on 04/11. Patient was feeling well, was discharged home with home health. Patient did receive radiation therapy. Admission, will need follow-up with radiation oncology, oncology. patient was also found to have vitamin D deficiency and will be started on vitamin D. Patient was also found to have UTI with Klebsiella pneumonia sensitive to Cipro , and will be sent home with prescription for Cipro. Recent QTC 410 on 03/31. For problem-based summary from most recent progress note, please see below. 04/11. Plan for Pleurx placement today. Continue Cipro for UTI. Patient cleared by the surgery for discharge. Plan discharge home tomorrow with Cipro to complete treatment course. 04/10. Had discussion with Louise Bowden of oncology. Patient is asymptomatic, however with increasing size of septated pleural effusion, there is a possibility of atelectasis turning into lung consolidation, infection of this potential space, as well as the possibility of a pleural effusion which may not be able to be drained in the future. I think letting her go home with a collapsed lung and a large pleural effusion, even if asymptomatic, would end up turning into infection and irreversible lung damage. If she had a terminal diagnosis this would be reasonable, however according to oncology she has a good chance at successful treatment of her cancer. Plan for PleurxAnticoagulation held. Appreciate cardiothoracic surgery assistance. //Patient also with UTI which will be started on Cipro. Follow up cultures. 04/09: I had a discussion with Dr. Lobo, as well as Dr. Sahni. Still with significant output from chest tube. We'll plan for Pleurx catheter placement with either IR or Dr. Sahni. 56 years old female with //Normochromic normocytic anemia H&H stable, continue to monitor //Pathologic Left hip fracture Status post surgical repair of left hip fracture Management per orthopedic surgery PT consult to treat and eval and pain management accordingly She had radiation simulation 04/07/17 = Continue radiation therapy. //NSCLC Continue with Tagrisso Bone scan negative for metastasis disease Appreciate input from oncology She had radiation simulation 04/07/17 // UTI which will be started on Cipro. = 04/11. Klebsiella sensitive to Cipro. Continue Cipro. //Left pleural effusion s/p chest tube placement Appreciate input from pulmonary medicine for evaluation for possible pleurodesis versus placement of Pleurx catheter for chronic management Patient with prior surgical h/o VATS, drainage of loculated pleural cavities , decortication of left lung, left posterolateral minithoracotomy 01/29/17 = 2/7. Discussed with oncology, cardiothoracic surgery. Plan for Pleurx catheter placement. Appreciate assistance. = Chest tube inadvertently removed. Pleurx to be placed. Appreciate cardiothoracic surgery assistance. //Hypovitaminosis D. - 1, 25 dihydroxy vitamin D WNL -cont replacement. recheck with PCP in 2 mos DVT Prophylaxis: Lovenox 30mg BID (holding for procedure) and will likely discharge on Xarelto Discharge Planning Discharge planning - possibly tomorrow = Pending Pleurx. = will need rad therapy =on chemo =cipro for uti plan is for HH Monitor progress of PT Pt Condition on Discharge: Good Discharge Disposition: Disch w/ Home Health Serv Discharge Time: > 30 minutes Discharge Instructions DIET: Follow Instructions for: As Tolerated, No Restrictions Activities you can perform: Regular-No Restrictions Follow up Referrals: Oncology - 1 Week with Arnol Lobo M.d. Orthopedics - 2 Weeks [facility] with Tom Mcconnell MD New Medications: Calcium Carbonate-Vitamin D (Calcium 600+D 200) 600-200 Mg-Unit Tab 1 TAB PO BID for Nutritional Supplement for 30 Days, #60 TAB 0 Refills Cholecalciferol (Vitamin D3) 2,000 Unit Cap 2000 UNITS PO DAILY for Nutritional Supplement, #60 CAP 0 Refills Ciprofloxacin (Cipro) 250 Mg Tab 250 MG PO BID for Infection, #14 TAB 0 Refills Ergocalciferol (Ergocalciferol) 50,000 Unit Cap 17937 UNITS PO Q7D for Nutritional Supplement, #8 CAP Hydrocodone-Acetaminophen (Hydrocodone-Acetaminophen) 10-325 mg Tab 1 TAB PO Q4H PRN for PAIN, #60 TAB 0 Refills Rivaroxaban (Xarelto) 10 Mg Tab 10 MG PO DAILY for Blood Clot Prevention, #14 TAB 0 Refills Walker/Adult/Folding (Walker/Adult/Folding) 1 Mis Mis EA .XX DIRECTED, #1 0 Refills Continued Medications: Alprazolam (Xanax) 0.25 Mg Tab 0.25 MG PO Q4H PRN for ANXIETY, TAB 0 Refills Fluoxetine (Prozac) 20 Mg Cap 20 MG PO DAILY, #30 CAP 0 Refills Osimertinib Mesylate (Tagrisso) 80 Mg Tablet Shelton Montes MD Apr 14, 2017 06:36
== END 2017-04-11 18:02 | disposition home or self-care (01) | DRG 478 ==
LOC: NEPC 18:06 → NEDA 21:42 → N06A 22:16
PROVIDERS: ADMIT Internal Medicine; ATTEND Internal Medicine
PROC: 0W9B30Z Drainage of Left Pleural Cavity with Drainage Device, Percutaneous Approach (ICD-10-PCS; 2017-04-01)
PROC: 0QS706Z Reposition Left Upper Femur with Intramedullary Internal Fixation Device, Open Approach (ICD-10-PCS; 2017-04-02)
PROC: 0QB70ZX Excision of Left Upper Femur, Open Approach, Diagnostic (ICD-10-PCS; principal; 2017-04-02 09:48)
PROC: 0W9B30Z Drainage of Left Pleural Cavity with Drainage Device, Percutaneous Approach (ICD-10-PCS; 2017-04-11)
DX: M84.552A Pathological fracture in neoplastic disease, left femur, initial encounter for fracture (principal); C79.51 Secondary malignant neoplasm of bone; J90 Pleural effusion, not elsewhere classified; C34.92 Malignant neoplasm of unspecified part of left bronchus or lung; J44.9 Chronic obstructive pulmonary disease, unspecified; D64.9 Anemia, unspecified; N39.0 Urinary tract infection, site not specified; J98.19 Other pulmonary collapse; E78.00 Pure hypercholesterolemia, unspecified; F41.9 Anxiety disorder, unspecified; W19.XXXA Unspecified fall, initial encounter; Z87.01 Personal history of pneumonia (recurrent)
CPT/HCPCS: 32550; 32557; 71045; 73502; 73552; 75989; 76000; 77263; 77280; 77290; 77295; 77300; 77334; 77412; 78306; 80048; 80053; 80069; 81001; 82306; 82652; 83735; 85014; 85018; 85025; 85027; 85610; 85730; 86850; 86900; 86901; 87077; 87086; 87186; 88305; 88307; 88311; 93005; 93971; 96374; 99152; 99153; 99211; 99221; A9503; C1713; C1729; C1769; C1887; G0463; J0690; J1170; J1580; J1650; J2175; J2250; J2270; J2370; J3010; J3370; J7050; J7120; Q9967

== ENCOUNTER → 2017-04-30 | Day surgery (SDC) | payer OTHER ==
[~2017-04-30] VITALS: Ht 160 cm; Wt 59.5 kg
[~2017-04-30] MED LIST changes: +ACETAMINOPHEN/HYDROcodone 325 MG/5 MG TAB PO PRN; +BUPIVACAINE/EPINEPHRINE 0.5% PF 30 ML VIAL ONE; +CALCTAB19 PO; +CHLORHEXIDINE GLUCONATE 2 % 1 PACK (2 CLOTHS) TOPICAL PRN; +CIPR250T52 PO; -DOCU1CAP39 PO; +HYDR-3583 PO; +LACTATED RINGER'S 1000 ML IV PRN; +METOPROLOL TARTRATE 25 MG TAB PO PRN; +MIDAZOLAM HCL 2 MG/2 ML VIAL ONE; +OSIM80TA; -OXYC1TAB63 PO; +POVIDONE IODINE 5% (ANTISEPSIS KIT) 4 APPLICATIONS EACH NARE PRN; +SODIUM CHLORID 0.9% 500 ML IV PRN; +VITA2000 PO; +VITA500012 PO; +WALKER/ADULT/FO1 MIS; +XARE10TA PO; +ceFAZolin 1,000 MG/NS 100 ML IV SCH; +ceFAZolin 2 GM PREMIX 50 ML ONE
[2017-04-30 09:44] VITALS: BP 98/60; PULSE 96; RESP 20; TEMP 98.1; O2SAT 97
--- NOTE | 2017-04-30 15:44 | MP ---
cc: Shiela Sahni MD, Richard 0 MD Buchanan,Ame Ramirez MD DATE OF OPERATION: 04/30/2017 PREOPERATIVE DIAGNOSES: 1. Locally advanced lung cancer. 2. Left chest wall mass. POSTOPERATIVE DIAGNOSES: 1. Locally advanced lung cancer. 2. Left chest wall mass. SURGICAL PROCEDURE: Excision of chest wall mass. ANESTHESIA: Marcaine 0.5% with epinephrine as well as IV sedation. SURGEON: Shiela Sahni MD SUPERINTENDENT MECHANICAL: Federico Tapia CST MANAGER CORPORATE: LESA Martinez MD NEEDLE, SPONGE AND INSTRUMENT COUNTS: Correct. DRAINS: None. COMPLICATIONS: None. INDICATION: Ms. Ratliff is a very pleasant 56-year-old young lady who was recently diagnosed with locally advanced lung cancer involving the left lung and has been on chemotherapy. She recently was admitted to the hospital with pathologic fracture of the left hip and underwent biopsy at that time. Since that time, she has noticed the gradual progression in appearance of a solid mass in the left lateral chest wall where her percutaneous chest tube was placed during her initial presentation by radiology. She reports that the mass has progressively increased in size and due to concern of another malignancy, she is being brought to the operating room for excisional biopsy. PROCEDURE: The patient was brought to the operating room and placed supine on the OR table. Following the placement of appropriate monitoring devices and induction of IV sedation, the patient was positioned with the left chest elevated and the left arm across the body. The lesion overlying the chest wall, left lateral aspect, was identified. The area and surrounding area were then prepped and draped in a standard sterile fashion. The skin around the lesion was anesthetized with 0.5% Marcaine. A 3 cm incision was then made over the lesion in a bi-convex fashion in order to excise the mass as well as the adherent dermis and epidermis overlying it. Complete excision of the mass was performed. The contents appeared to be cystic with a sebaceous component as well as some solid component. This was cultured as well as sent for pathologic analysis. Strict hemostasis was assured, copious irrigation was performed and no additional lesions were identified. At this point, the closure was undertaken. The subcutaneous tissue was approximated with 2-0 Vicryl in a running fashion and the skin reapproximated with 4-0 Monocryl in a subcuticular fashion. Dermabond was applied and the patient was transferred to recovery unit in stable condition. MD KIMBERLY Galvan/MACY/rh , 02:26 PM , 02:55 PM LATASHA
== END | disposition home or self-care (01) ==
LOC: HCVO 05:59
PROVIDERS: ATTEND Thoracic Surgery (Cardiothoracic Vascular Surgery)
DX: C79.89 Secondary malignant neoplasm of other specified sites (principal); C34.12 Malignant neoplasm of upper lobe, left bronchus or lung; J90 Pleural effusion, not elsewhere classified; M84.452D Pathological fracture, left femur, subsequent encounter for fracture with routine healing; E78.00 Pure hypercholesterolemia, unspecified
CPT/HCPCS: 00400; 21555; 87015; 87070; 87102; 87116; 87205; 87206; 88307; J0690; J2250; J3010; 88305

== ENCOUNTER 2017-05-26 06:33 | Day surgery (SDC) | payer OTHER ==
[~2017-05-26] VITALS: Ht 160 cm; Wt 59.5 kg
[~2017-05-26 06:33] MED LIST changes: -ACETAMINOPHEN/HYDROcodone 325 MG/5 MG TAB PO PRN; -BUPIVACAINE/EPINEPHRINE 0.5% PF 30 ML VIAL ONE; -CHLORHEXIDINE GLUCONATE 2 % 1 PACK (2 CLOTHS) TOPICAL PRN; -CIPR250T52 PO; -LACTATED RINGER'S 1000 ML IV PRN; -METOPROLOL TARTRATE 25 MG TAB PO PRN; -MIDAZOLAM HCL 2 MG/2 ML VIAL ONE; -POVIDONE IODINE 5% (ANTISEPSIS KIT) 4 APPLICATIONS EACH NARE PRN; -PROZ20CA11 PO; -SODIUM CHLORID 0.9% 500 ML IV PRN; -ceFAZolin 1,000 MG/NS 100 ML IV SCH; -ceFAZolin 2 GM PREMIX 50 ML ONE
[2017-05-26] MEDS ORDERED: CHLORHEXIDINE GLUCONATE 2 % 1 PACK (2 CLOTHS) TOPICAL SCH (07:45)
[2017-05-26] MEDS ORDERED: VANCOMYCIN 1000 MG/NS 250 ML - implanted port/tunneled catheter IV SCH ×2 (07:45)
[2017-05-26] MEDS ORDERED: POVIDONE IODINE 5% (ANTISEPSIS KIT) 4 APPLICATIONS EACH NARE SCH (07:45)
[2017-05-26] MEDS ORDERED: SODIUM CHLORIDE 0.9% 1000 ML IV SCH (07:45)
[2017-05-26] MEDS ORDERED: DIPH25CA PO (07:56)
[2017-05-26] MEDS ORDERED: ASPI-516 CHEW (07:56)
[2017-05-26] MEDS ORDERED: PROC10TA PO (07:56)
[2017-05-26] MEDS ORDERED: ONDA8TAB7 PO (07:56)
[2017-05-26] MEDS ORDERED: FLUO20CA12 PO (07:57)
[2017-05-26] MEDS ORDERED: CRANCAP2 PO (07:57)
[2017-05-26] MEDS ORDERED: LOPE-1 PO (07:57)
[2017-05-26] MEDS ORDERED: DOCU100C15 PO (07:57)
[2017-05-26] MEDS ORDERED: CLAR10CA3 PO (07:57)
[2017-05-26] MEDS ORDERED: SIME1CAP17 PO (07:57)
[2017-05-26] MEDS ORDERED: MIDAZOLAM HCL 2 MG/2 ML VIAL ONE (08:27)
[2017-05-26] MEDS ORDERED: LIDOCAINE 1%/EPINEPHrine 1:100,000 SOLN 30 ML VIAL ONE (08:40)
[2017-05-26 09:45] VITALS: BP 105/45; PULSE 97; RESP 18; TEMP 97.7; O2SAT 95
--- NOTE | 2017-05-26 09:49 | PD.RAD ---
Post Procedure Progress Note Pre Procedure Diagnosis: (1) Lung cancer Post Procedure Diagnosis: (1) Lung cancer Procedure Date: May 26, 2017 Supervising Radiologist: Seamus Candelaria JR Proceduralist/Assist: Samuel Hollins, RT(R), Liudimla Weber RT(R) Anesthesia: Conscious Sedation Plan of Activity Patient to Unit: ROPU Patient Condition: Good See PACS Report for procedural detail/treatment Central Venous Access Device Procedure 1 Left Infusaport Placement single lumen [place] Citizen: 8 Findings: Port in good position and functions well. OK to use. Plan F/U with IR or a physician in 10-14 days for a site check Jr. Bari,Seamus Briseno MD May 26, 2017 09:49
[2017-05-26 10:00] VITALS: BP 108/64; PULSE 96; RESP 20; O2SAT 95
[2017-05-26] MEDS ORDERED: SODIUM CHLORIDE 0.9% FLUSH 10 ML FLUSH IVF PRN (10:00)
[2017-05-26 10:30] VITALS: BP 105/60; PULSE 106; RESP 20; O2SAT 97
[2017-05-26 11:00] VITALS: BP 109/66; PULSE 105; RESP 20; O2SAT 97
[2017-05-26 11:30] VITALS: BP 100/70; PULSE 98; RESP 20; O2SAT 96
--- NOTE | 2017-05-26 11:41 | RADRPT ---
EXAM DATE/TIME: 05/26/2017 08:24 [place] COMPARISON: No previous studies available for comparison. INDICATIONS : Patient with non small cell lung cancer in need of [id number] placement. MEDICAL HISTORY : Left lung mass, Liver mets, COPD, HLD, Pleural effusion, Left pneumothorax, Pathologic left hip and f emur fractures, Radiation therapy SURGICAL HISTORY : Pleurex catheter, Thoracentesis, Lung mass biopsy, Left thorascopy, Left femur surgery ENCOUNTER: Initial ACUITY: 4-6 months PAIN SCORE: 0/10 FLUORO TIME: 0.5 minutes IMAGE SERIES: 1 SEDATION TIME: 35 minutes ACCESS: Left internal jugular vein SEDATION: 1.) 4 mg midazolam (Versed) IV 2.) 200 mcg fentanyl (Sublimaze) IV Prophylactic antibiotics were administered with appropriate pre-procedure timing. Vancomycin within 2 hours of procedure, Ancef (or alternative) within 1 hour of procedure. DEVICE: 1. 8 [place] single lumen Xcela plus port PROCEDURE : 1. Continuous pulse oximetry and EKG monitoring. 2. Intravenous conscious sedation. 3. Ultrasound guidance for venous access. 4. Fluoroscopic guided implantable central venous port placement. The patient was placed supine. The neck was prepped in sterile fashion. Full sterile technique was u sed, including cap, mask, sterile gloves and gown, and a large sterile sheet. Hand hygiene and 2% ch lorhexidine Betadine was utilized per protocol for cutaneous antisepsis with appropriate dry time for site. Sterile gel and sterile probe cover were utilized for ultrasound guidance. The skin and sub cutaneous tissues were infiltrated with local anesthetic solution. Under direct ultrasound guidance, central venous access was accomplished in the targeted vessel. The ultrasound images depicting access guidance were stored and saved to PACS for permanent record. A s ubcutaneous pocket was created using blunt dissection. The port was introduced to the pocket. The c atheter tubing was fed through a subcutaneous tunnel to the venotomy site. The catheter tubing was c ut to a suitable length and then was introduced through a valved Peel-Away sheath and positioned with catheter tubing tip at the cavo-atrial junction level. The pocket incision was closed with subcutic ular Vicryl suture. Steri-Strips were applied. The port was flushed and locked with heparin solutio n per protocol. Sterile dressing was applied to the site. The patient tolerated the procedure well. Conscious sedation was performed with the prescribed dosages and duration as above in the presence of an independent trained radiology nurse to assist in the monitoring of the patient. EKG and oximetry remained stable throughout the procedure. The patient tolerated the procedure well and there were no complications. The patient was sent to post anesthesia recovery in stable condition. CONCLUSION: Uncomplicated ultrasound and fluoroscopic guided implanted central venous port catheter placement as described in detail above. An 8 [place] Power port was placed. Seamus Candealria Jr., MD on May 26, 2017 at 11:38 Board Certified Radiologist. This report was verified electronically.
== END 2017-05-26 12:05 | disposition home or self-care (01) ==
LOC: HROP 06:33 → HRIP 06:50 → HROP 12:05
PROVIDERS: ATTEND Internal Medicine Hematology & Oncology
DX: C34.12 Malignant neoplasm of upper lobe, left bronchus or lung (principal); J90 Pleural effusion, not elsewhere classified; E78.5 Hyperlipidemia, unspecified; Z92.3 Personal history of irradiation
CPT/HCPCS: 36561; 76937; 77001; 99152; 99153; C1788; J0690; J1642; J2250; J3010; J3370; J7030; J7050

== ENCOUNTER → 2017-06-03 | Day surgery (SDC) | payer OTHER ==
[~2017-06-03] VITALS: Ht 160 cm; Wt 56.5 kg
[~2017-06-03] MED LIST changes: +ASPI-516 CHEW; +BUPIVACAINE HCL PF 0.5% 30 ML VIAL ONE; +CHLORHEXIDINE GLUCONATE 2 % 1 PACK (2 CLOTHS) TOPICAL PRN; +CLAR10CA3 PO; +CRANCAP2 PO; +DIPH25CA PO; +DOCU100C15 PO; +FLUO20CA12 PO; +LACTATED RINGER'S 1000 ML IV PRN; +LOPE-1 PO; +METOPROLOL TARTRATE 25 MG TAB PO PRN; +MIDAZOLAM HCL 2 MG/2 ML VIAL ONE; +ONDA8TAB7 PO; -OSIM80TA; +PHENYLEPH/NS 1000 MCG/10 ML SYR IV ONE; +POVIDONE IODINE 5% (ANTISEPSIS KIT) 4 APPLICATIONS EACH NARE PRN; +PROC10TA PO; +PROPOFOL 200 MG/20 ML AMP IV ONE; +PROPOFOL 200 MG/20 ML AMP ONE; +SIME1CAP17 PO; +SODIUM CHLORID 0.9% 500 ML IV PRN; -VITA2000 PO; -XARE10TA PO; +ceFAZolin INJ 1,000 MG VIAL ONE
[2017-06-03 08:54] VITALS: BP 108/69; PULSE 82; RESP 20; TEMP 97.6; O2SAT 96
--- NOTE | 2017-06-03 18:45 | MP ---
cc: Shiela Sahni MD, Richard MD DATE OF OPERATION: 06/03/2017 SURGEON: 06/03/2017 POSTOPERATIVE DIAGNOSES: 1. Locally advanced lung cancer. 2. Left PleurX catheter. POSTOPERATIVE DIAGNOSES: 1. Locally advanced lung cancer. 2. Left PleurX catheter. PROCEDURE PERFORMED: Removal of PleurX catheter. SURGEON: Dr. Shiela Sahni. CERTIFIED ALCOHOL COUNSELOR: None. ANESTHESIA: 0.5% Marcaine infiltration with IV sedation. MEASUREMENT AND VERIFICATION ENGINEER: LESA Cortez MD COUNTS: Needle, sponge and instrument counts were correct. DRAINS: None. COMPLICATIONS: None. INDICATIONS FOR PROCEDURE: Ms. Ratliff is a 56-year-old female with locally advanced lung cancer, who is status post previous left PleurX catheter placement, which has stopped draining and she is now being brought to the operating room for removal. DESCRIPTION OF PROCEDURE: The patient was brought to the operating room and placed supine on the OR table. Following induction of IV sedation, the patient was positioned with the left chest slightly elevated. The left chest and surrounding area at the exit site and tunnel site of the PleurX catheter was prepped and draped in a standard sterile fashion. The entry site, as well as a tunnel were anesthetized with 0.5% Marcaine. The anchoring stitch was removed and blunt dissection carried on top and around the catheter to identify the polyester cuff, which was dissected free from the subcutaneous tissue. Following this, the catheter was easily removed intact and an occlusive dressing applied. Prior to that, strict hemostasis was assured and the patient was then transferred to the recovery room in stable condition. MD KIMBERLY Galvan/MICA , 06:18 PM , 06:44 PM LATASHA
== END | disposition home or self-care (01) ==
LOC: HCVO 05:28
PROVIDERS: ATTEND Thoracic Surgery (Cardiothoracic Vascular Surgery)
DX: C34.12 Malignant neoplasm of upper lobe, left bronchus or lung (principal)
CPT/HCPCS: 00520; 32552; J0690; J2250; J2370; J3010; J7120

== ENCOUNTER 2017-11-27 17:06 | Observation (INO) ==
[2017-11-27] MEDS ORDERED: Morphine Inj 4 MG/ML Vial IV.PUSH ONE ×2 (17:47→18:50)
--- NOTE | 2017-11-27 18:04 | ED ---
HPI General Chief Complaint: Abdominal Pain Stated Complaint: Medical Time Seen by Provider: 11/27/17 17:19 Source: patient Mode of arrival: wheelchair Limitations: no limitations History of Present Illness HPI narrative: The patient has been treated with radiation therapy,The patient is a 57-year-old female who presents to the emergency department for intractable right upper quadrant abdominal pain and flank pain. The patient has a history of lung carcinoma with no metastasis to the left femur with pathologic fracture and known metastasis to the liver. The patient has undergone radiation therapy, chemotherapy, and thoracentesis for her symptoms since last January. The patient is followed by her oncologist, Dr. Lobo, who referred the patient to the emergency department for admission to the medical service, consultation to himself, and consultation to hospice for possible end-of-life care and treatment of intractable pain. The patient has been using a fentanyl patch and hydrocodone at home without alleviation of her symptoms. Symptoms are moderate to severe, exacerbated by history of cancer with metastasis, and minimally alleviated with fentanyl and hydrocodone. MD complaint: Reports abdominal pain Onset (ago): week(s) Pain Consistency: intermittent Location: Reports RUQ Severity: moderate Severity scale (1-10): 7 Quality: Reports stabbing and aching Radiation: Reports epigastric Migration to: Reports epigastric Relieving factors: nothing Exacerbating factors: nothing Context: Reports other Associated symptoms: Reports nausea Treatments prior to arrival: Reports prescription analgesics Related Data Home Medications Medication Instructions Recorded Confirmed aspirin [Aspir-81] 81 mg PO DAILY 11/25/17 11/27/17 fluoxetine 20 mg PO DAILY 11/25/17 11/27/17 hydrocodone-acetaminophen [Shamokin] 2 tab PO Q4-6H PRN 11/25/17 11/27/17 ondansetron [Zofran ODT] 8 mg PO BID PRN 11/25/17 11/27/17 alprazolam [Xanax] 0.25 mg PO BID 11/27/17 11/27/17 fentanyl 1 patch TRANSDERMAL Q72H 11/27/17 11/27/17 prochlorperazine maleate 10 mg PO Q6-8H PRN 11/27/17 11/27/17 Allergies Allergy/AdvReac Type Severity Reaction Status Date / Time adhesive tape Allergy Mild Verified 06/03/17 05:57 tramadol AdvReac Mild Nausea/Vomi Verified 05/26/17 07:47 ting Review of Systems ROS: all other systems reviewed are negative [facility] Medical History Medical History Bone cancer (Acute) Depression (Acute) Femur fracture, left (Acute) Liver cancer (Acute) Lung cancer (Acute) Surgical History Surgical History History of chest tube placement (Acute) History of lung surgery (Acute) Social History Social History Substance History: No History of Abuse Second Hand Smoke Exposure: No Smoking Status: Never smoker How Often Do You Have a Drink Containing Alcohol: Never Recent Travel in [facility] within the Last 8 Weeks: No Recent Out of Country Travel within the Last 8 Weeks: No Immunization History Tetanus Immunization: Unsure Hx Influenza Vaccine This Season: No Exam Narrative Exam Narrative: GENERAL: Awake, alert, pleasant 57-year-old female who appears her stated age and is in no acute respiratory distress. SKIN: Focused skin assessment warm/dry. HEAD: Atraumatic. Normocephalic. EYES: Pupils equal and round. Mild pallor noted. ENT: No nasal bleeding or discharge. Mucous membranes pink and moist. NECK: Trachea midline. No JVD. CARDIOVASCULAR: Regular, tachycardic with a heart rate of 115. Port in place left chest wall. RESPIRATORY: Mild tachypnea with a respiratory rate of 22. Diminished breath sounds in the left base with rales. GASTROINTESTINAL: Abdomen soft, tender to palpation right upper quadrant. No guarding or rigidity. MUSCULOSKELETAL: No obvious deformities. No clubbing. No cyanosis. No edema. NEUROLOGICAL: Awake and alert. No obvious cranial nerve deficits. Motor grossly within normal limits. Normal speech. PSYCHIATRIC: Appropriate mood and affect; insight and judgment normal. Course Initial Documented Vital Signs Temperature 97.5 F L 11/27/17 17:16 Pulse Rate 128 H 11/27/17 17:16 Blood Pressure 115/57 L 11/27/17 17:16 Pulse Oximetry 97 11/27/17 17:16 Last Documented Vital Signs Temperature 97.5 F L 11/27/17 17:16 Pulse Rate 118 H 11/27/17 17:38 Respiratory Rate 18 11/27/17 17:38 Blood Pressure 137/81 11/27/17 17:38 Pulse Oximetry 97 11/27/17 17:38 Medical Decision Making MDM Narrative Medical decision making narrative: IV was established, labs were drawn and sent , and the patient was placed on cardiac telemetry monitoring and continuous pulse oximetry monitoring. The patient was administered morphine and Zofran for pain. Chest x-ray was obtained. I discussed the patient with her oncologist, Dr. Lobo, who will try to evaluate the patient in the emergency department approximately 8 PM and have a discussion regarding hospice with the patient and family. He does request 23-hour observation to the medical service , [facility] Medical Screen Exam Complete: Yes Emergency Medical Condition: Yes Differential Diagnosis Differential Diagnosis: Differential diagnosis includes lung cancer with metastasis, liver metastasis, intractable pain, pleural effusion, symptomatic anemia, pneumonia, pulmonary embolism, end-of-life care. Discharge Plan Discharge Disposition Patient Disposition: 30 Still Patient Discharge Condition Condition: Stable Discharge Details Diagnosis: Intractable abdominal pain, Metastatic lung carcinoma Physicians Team ED Provider: Ray Reyes Primary Care Provider: Ame Vizcarra Rxs /Orders / Referrals /Forms Prescriptions: No Action hydrocodone-acetaminophen [Shamokin] 5-325 mg Tablet 2 tab PO Q4-6H PRN (Reason: Pain) RF: 0 aspirin [Aspir-81] 81 mg Tablet,Delayed Release (Dr/Ec) 81 mg PO DAILY RF: 0 ondansetron [Zofran ODT] 8 mg Tablet,Disintegrating 8 mg PO BID PRN (Reason: Nausea) RF: 0 fluoxetine 20 mg Capsule 20 mg PO DAILY RF: 0 prochlorperazine maleate 10 mg Tablet 10 mg PO Q6-8H PRN (Reason: Nausea) RF: 0 alprazolam [Xanax] 0.25 mg Tablet 0.25 mg PO BID RF: 0 fentanyl 25 mcg/hr Patch 72 Hour 1 patch TRANSDERMAL Q72H RF: 0 Discharge Interventions Interventions: Vital Signs Last Done: 11/27/17 17:38 Status ED Status: Pending Admission
[2017-11-27 18:26] LABS: Baso # (Auto) 0.1 th/mm3 (0.0-0.2); Baso % (Auto) 0.5 % (0.0-2.0); Eos # (Auto) 1.4 th/mm3 (0.0-0.4); Eos % (Auto) 7.8 % (0.0-4.0); Hematocrit 29.7 % (35.0-46.0); Hemoglobin 9.2 gm/dL (11.6-15.3); Lymph # (Auto) 0.6 th/mm3 (1.0-4.8); Lymph % (Auto) 3.5 % (9.0-44.0); Mean Corpuscular Volume 83.8 fL (80.0-100.0); Mean Platelet Volume 7.4 fL (7.0-11.0); Mono # (Auto) 0.6 th/mm3 (0.0-0.9); Mono % (Auto) 3.2 % (0.0-8.0); Neut # (Auto) 14.8 th/mm3 (1.8-7.7); Platelet Count 291 th/mm3 (150-450); Red Blood Count 3.55 mil/mm3 (4.00-5.30); Red Cell Distribution Width 18.5 % (11.6-17.2); White Blood Count 17.4 th/mm3 (4.0-11.0)
[2017-11-27 18:27] LABS: Activated Partial Thrombo Time 28.6 sec (24.3-30.1); INR 1.1 Ratio; Prothrombin Time 11.3 sec (9.8-11.6)
[2017-11-27 18:33] LABS: Anion Gap 9 meq/L (5-15); Aspartate Aminotransferase 51 U/L (15-37); Blood Urea Nitrogen 15 mg/dL (7-18); Calcium 8.4 mg/dL (8.5-10.1); Carbon Dioxide 27.2 meq/L (21.0-32.0); Chloride 100 meq/L (98-107); Glomerular Filtration Rate Greater Than 89 mL/min (>89); Glucose,Random 203 mg/dL (74-106); Lipase 31 U/L (73-393); Potassium 4.3 meq/L (3.5-5.1); Sodium 136 meq/L (136-145)
[2017-11-27 18:34] LABS: Alanine Aminotransferase 73 U/L (10-53)
[2017-11-27 18:36] LABS: Alkaline Phosphatase 289 U/L (45-117); Total Protein 6.7 g/dL (6.4-8.2)
--- NOTE | 2017-11-27 18:41 | XR ---
EXAM DATE: 11/27/2017 5:42 PM EDT AGE/SEX: 57 years / Female INDICATIONS: Short of breath and right side chest pain. CLINICAL DATA: This is the patient's initial encounter. Patient reports that signs and symptoms have been present for 1 day and indicates a pain score of 0/10. MEDICAL/SURGICAL HISTORY: Carcinoma, lung. Carcinoma, bone. . [facility] COMPARISON: [facility], CHEST EXPIRATION ONLY, 04/11/2017. [facility], CHEST SINGLE AP, 04/09/2017. [facility], CHEST S ARIES AP, 04/06/2017. [facility], PET/CT TUMOR, 09/23/2017. [facility], CT ABDOMEN & PELVIS W/O CONTRAST, 11/25/2017. . FINDINGS: Left central line in place with tip at the origin of the superior vena cava. There is a collection of gas located at the left lung base correlates with a chronic left lower chest pneumothorax; this is s table in size when compared to prior PET/CT scan in August 2013. No infiltrates seen. The heart is norm al size. Both hemidiaphragms well delineated. CONCLUSION: 1. No infiltrates in either lung. 2. Chronic left lower lung pneumothorax, stable from August 2017. Electronically signed by: Seamus Mcintosh MD 11/27/2017 6:39 PM EDT
[2017-11-27] MEDS ORDERED: Acetaminophen 325 MG Tablet PO PRN (18:50)
[2017-11-27] MEDS ORDERED: Bisacodyl 10 MG Supp RECTAL PRN (18:50)
[2017-11-27] MEDS ORDERED: Morphine Inj 4 MG/ML Vial IV.PUSH PRN ×2 (18:52→20:48)
[2017-11-27] MEDS ORDERED: HYDROmorphone PF Inj 1 MG/ML Ampul IV.PUSH PRN ×3 (20:48)
[2017-11-27] MEDS ORDERED: Naloxone Inj 0.4 MG/ML Vial IV.PUSH PRN (20:48)
--- NOTE | 2017-11-27 21:05 | P.HPIM ---
History of Present Illness Primary Care Physician: Ame Vizcarra MD History of Present Illness: 49-year-old female with a history of metastatic non-small cell lung cancer with metastasis to liver, bone, status post chemotherapy, and currently being treated with immunotherapy by Dr. Lobo. She presents with a 4-day history of progressively worsening intermittent sharp right upper quadrant pain worse with movement, as well as deep breathing. She reports subjective fevers, nausea, vomiting, occasionally with small specks of blood, however no coffee-ground emesis or alaina blood. She reports generalized fatigue, mental fogginess which is worsening over the past several weeks. Patient was started on fentanyl patch on Friday, however this has not taking care of her pain. Review of Systems All other systems reviewed negative except as stated in HPI PMFSH - History History Provided By: Patient - Medical History Medical History: Medical History (Last Updated 11/25/17 @ 16:01 by Sarah Garcia RN) Bone cancer Depression Femur fracture, left Liver cancer Lung cancer - Surgical History Surgical History: Surgical History (Last Updated 11/25/17 @ 16:01 by Sarah Garcia RN) History of chest tube placement History of lung surgery - Family History Family History: Family History (Last Updated 11/27/17 @ 20:58 by Shelton Montes MD) Father Alive and well Mother Heart disease Other No family history of cancer - Tobacco History Second Hand Smoke Exposure: No Smoking Status: Never smoker - Alcohol History How Often Do You Have a Drink Containing Alcohol: Never - Substance Use History Substance History: No History of Abuse - Travel History Recent Travel in the USA Within the Last 8 Weeks: No Recent Travel Out of the Country Within the Last 8 Weeks: No - Immunization History Tetanus Immunization: Unsure Hx Influenza Vaccine This Season: No Medications and Allergies Active Medications: Active Medications Acetaminophen (Tylenol) 650 mg PO Q4H PRN PRN Reason: Headache, fever, pain 1-4 Hydrocodone Bitart/Acetaminophen ([place] 7.5/325) 1 tab PO Q6H PRN PRN Reason: Pain 5-10 Al Hydroxide/Mg Hydroxide (Milk Of Magnesia Liq) 30 ml PO Q12H PRN PRN Reason: Mild Constipation Bisacodyl (Dulcolax Supp) 10 mg RECTAL DAILY PRN PRN Reason: SEVERE CONSITIPATION Lactulose (Lactulose Liq) 30 ml PO DAILY PRN PRN Reason: SEVERE CONSITIPATION Morphine Sulfate (Morphine Inj) 4 mg IV.PUSH Q4H PRN PRN Reason: BREAKTHROUGH PAIN Ondansetron HCl (Zofran Inj) 4 mg IV.PUSH Q6H PRN PRN Reason: NAUSEA OR VOMITING Sennosides (Senokot) 17.2 mg PO Q12H PRN PRN Reason: Moderate Constipation Sodium Chloride (Ns Flush) 2 ml IV.FLUSH PRN PRN PRN Reason: FLUSH AFTER USING IV ACCESS Allergies Allergy/AdvReac Type Severity Reaction Status Date / Time adhesive tape Allergy Mild Verified 06/03/17 05:57 tramadol AdvReac Mild Nausea/Vomi Verified 05/26/17 07:47 ting Home Medications Medication Instructions Recorded Confirmed Type aspirin [Aspir-81] 81 mg PO DAILY 11/25/17 11/27/17 History fluoxetine 20 mg PO DAILY 11/25/17 11/27/17 History hydrocodone-acetaminophen [[place]] 2 tab PO Q4-6H PRN 11/25/17 11/27/17 History ondansetron [Zofran ODT] 8 mg PO BID PRN 11/25/17 11/27/17 History alprazolam [Xanax] 0.25 mg PO BID 11/27/17 11/27/17 History fentanyl 1 patch TRANSDERMAL Q72H 11/27/17 11/27/17 History prochlorperazine maleate 10 mg PO Q6-8H PRN 11/27/17 11/27/17 History Exam Vital signs: Vital Signs 11/27/17 17:16 11/27/17 17:38 11/27/17 19:25 Temperature 97.5 F L Pulse Rate 128 H 118 H 115 H Respiratory Rate 18 16 Blood Pressure 115/57 L 137/81 137/73 Pulse Oximetry 97 97 100 Intake & Output 11/27/17 11/27/17 11/28/17 06:59 18:59 06:59 Weight 56.814 kg Narrative: GENERAL: Patient sitting up in bed. Appears uncomfortable. Oriented x3. SKIN: Warm and dry. HEAD: Atraumatic. Normocephalic. EYES: Pupils equal and round. No scleral icterus. No injection or drainage. ENT: No nasal bleeding or discharge. Mucous membranes pink and moist. NECK: Trachea midline. No JVD. CARDIOVASCULAR: Regular rate and rhythm. RESPIRATORY: No accessory muscle use. Some crackles in the bases. Clear to auscultation. Breath sounds equal bilaterally. GASTROINTESTINAL: Abdomen firm, tenderness to moderate palpation. Positive bowel sounds. MUSCULOSKELETAL: Extremities without clubbing, cyanosis, or edema. No obvious deformities. NEUROLOGICAL: Awake and alert. No obvious cranial nerve deficits. Motor grossly within normal limits. Five out of 5 muscle strength in the arms and legs. Normal speech. PSYCHIATRIC: Appropriate mood and affect; insight and judgment normal. Results - Labs CBC & Chem 7: 11/27/17 17:39 11/27/17 17:39 Labs: Short CBC 11/27/17 Range/Units 17:39 WBC 17.4 H (4.0-11.0) th/mm3 Hgb 9.2 L (11.6-15.3) gm/dL Hct 29.7 L (35.0-46.0) % Plt Count 291 (150-450) th/mm3 BMP 11/27/17 17:39 Sodium 136 Potassium 4.3 Chloride 100 Carbon Dioxide 27.2 BUN 15 Creatinine 0.66 Calcium 8.4 L Liver Function 11/27/17 Range/Units 17:39 Total Bilirubin 0.2 (0.2-1.0) mg/dL AST 51 H (15-37) U/L ALT 73 H (10-53) U/L Alkaline Phosphatase 289 H (45-117) U/L Albumin 2.0 L (3.4-5.0) g/dL - Imaging Impressions Chest X-Ray 11/27/17 17:42 CONCLUSION: 1. No infiltrates in either lung. 2. Chronic left lower lung pneumothorax, stable from August 2017. Caprini VTE Risk Assessment Caprini VTE Risk Assessment: Moderate/High Risk (score >= 2) Caprini Risk Assessment Model: Point Value = 1 Point Value = 2 Point Value = 3 Point Value = 5 Age 41-60 Minor surgery BMI > 25 kg/m2 Swollen legs Varicose veins or History of unexplained or recurrent spontaneous Oral contraceptives or hormone replacement Sepsis (< 1 month) Serious lung disease, including pneumonia (< 1 month) Abnormal pulmonary function Acute myocardial infarction Congestive heart failure (< 1 month) History of inflammatory bowel disease Medical patient at bed rest Age 61-74 Arthroscopic surgery Major open surgery (> 45 min) Laparoscopic surgery (> 45 min) Malignancy Confined to bed (> 72 hours) Immobilizing plaster cast Central venous access Age >= 75 History of VTE Family history of VTE Factor V Leiden Prothrombin [id number] Lupus anticoagulant Anticardiolipin antibodies Elevated serum homocysteine Heparin-induced thrombocytopenia Other congenital or acquired thrombophilia Stroke (< 1 month) Elective arthroplasty Hip, pelvis, or leg fracture Acute spinal cord injury (< 1 month) Prophylaxis Regimen: Total Risk Factor Score Risk Level Prophylaxis Regimen 0-1 Low Early ambulation 2 Moderate Order ONE of the following: *Sequential Compression Device (SCD) *Heparin 5000 units SQ BID 3-4 Higher Order ONE of the following medications: *Heparin 5000 units SQ TID *Enoxaparin/Lovenox 40 mg SQ daily (WT < 150 kg, CrCl > 30 mL/min) *Enoxaparin/Lovenox 30 mg SQ daily (WT < 150 kg, CrCl > 10-29 mL/min) *Enoxaparin/Lovenox 30 mg SQ BID (WT < 150 kg, CrCl > 30 mL/min) AND/OR *Sequential Compression Device (SCD) 5 or more Highest Order ONE of the following medications: *Heparin 5000 units SQ TID (Preferred with Epidurals) *Enoxaparin/Lovenox 40 mg SQ daily (WT < 150 kg, CrCl > 30 mL/min) *Enoxaparin/Lovenox 30 mg SQ daily (WT < 150 kg, CrCl > 10-29 mL/min) *Enoxaparin/Lovenox 30 mg SQ BID (WT < 150 kg, CrCl > 30 mL/min) AND *Sequential Compression Device (SCD) Assessment and Plan - Plan //Stage IV adenocarcinoma 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 Discussed with oncology. Appreciate assistance = Will adjust pain medications. Will discontinue Xanax due to wanting to optimize pain medication. Oncology to discuss further treatment options versus palliative medicine. //Mild encephalopathy =Complained of feeling foggy. No focal signs or symptoms = This could be secondary to pain meds, generalized fatigue. Given liver metastases, low albumin, will check ammonia level. //Nausea, vomiting. Likely secondary to liver inflammation from cancer. Antiemetics as necessary. //History of depression. Continue fluoxetine //History of COPD. Nebs as needed. Discussed Condition With: Patient, nurse, family at bedside, Dr. Lobo H&P: Quality - VTE Deep Vein Thrombosis/Pulmonary Embolism Present on Admission: No
[2017-11-27] MEDS ORDERED: Sodium Chlor 0.9% Inj 500 ML IV.SIG ONE (22:00)
[2017-11-27] MEDS ORDERED: HYDROmorphone PF Inj 2 MG/ML Vial IV.PUSH PRN ×2 (22:30→22:48)
[2017-11-27 23:26] LABS: Bacteria,Urine Rare /hpf; Bilirubin,Urine Negative (Negative); Clarity,Urine Hazy (Clear); Color,Urine Yellow (Yellw/Straw); Glucose,Urine (UA) Negative (Negative); Leukocyte Esterase,Urine Trace (Negative); Mucus,Urine Moderate /lpf (Occasional); Nitrite,Urine Negative (Negative); Specific Gravity,Urine 1.021 (1.002-1.035); Squamous Epithelial Cell,Urine 5 /hpf (0-5); Urobilinogen,Urine 4 or Greater mg/dL (Less than 2)
--- NOTE | 2017-11-27 23:45 | MB ---
cc: Danielito Lobo MD DATE: 11/27/2017 REASON FOR CONSULTATION: Patient with non-small cell lung cancer with uncontrolled pain and deterioration. SOCIAL HISTORY: The patient is . She has never smoked. She does not drink alcohol. She was born in [place] and has lived in [place] for 20 years. She has a son who I believe is age 25. 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 Her is retired. He had worked as a electric repair supervisor in a warehouse. HISTORY OF PRESENT ILLNESS: The patient's history dates back to 01/2017 when she was found to have a left lung mass and extensive involvement of the left pleura. She required an emergency thoracentesis. She was found to have a non-small cell lung cancer with an exon 19 deletion. She had a PD-L1 staining of 90%. She was treated with Tagrisso and did not respond which is unusual as approximately 85% of people have an excellent and durable response with an exon 19 deletion. Subsequent to this, she received carboplatin, Taxol, and Avastin. She developed progressive disease. She also sustained a pathologic fracture of the left proximal femur. She was recently treated with immunotherapy, receiving pembrolizumab. She has received 3 treatments. Over the past week, her pain became excruciating. On 11/25/2017, she went to the emergency room. She had a CAT scan of the abdomen and pelvis, which was compared to the PET scan dated 09/23/2017. I have reviewed the images. There is no bowel obstruction. She has progression of widespread metastatic disease to the liver. She now has a large volume of disease in the liver. She continues to have pain in the right upper quadrant. She has intermittent nausea and vomiting. If she takes oxycodone, it makes her nausea worse. Dilaudid has been helpful. PAST SURGICAL HISTORY: 1. On 01/29/2017, thoracoscopy by Dr. Sahni revealing a high grade non-small cell lung cancer. 2. Unsuccessful attempt to completely expand the left lung. 3. Fracture, left femur, requiring roberto. 4. VATS procedure and pleurodesis. PAST MEDICAL HISTORY: 1. Stage IV non-small cell lung cancer as described above, treated with targeted therapy, immunotherapy, and chemotherapy with progressive disease. 2. Hypercholesterolemia. MEDICATIONS PRIOR TO ADMISSION: 1. Xanax. 2. Prozac 3. Ondansetron. 4. Compazine. ALLERGIES: TRAMADOL. FAMILY HISTORY: Noncontributory. REVIEW OF SYSTEMS: Notable for increasing weakness, fatigue, difficulty focusing. Occasional somnolence. Severe pain, right upper quadrant, with episodes of nausea and occasional vomiting. LABORATORY STUDIES: On 11/27/2017, hemoglobin is 9.2, hematocrit 29, white count 17,000, platelets are 297,000. CMP is notable for AST of 51, ALT 73, alkaline phosphatase 29, and albumin 2.0. Chest x-ray from 11/27/2017 shows no infiltrates. Chronic left lower lung pneumothorax, stable since 08/2017. CT scan of the abdomen and pelvis from 11/25/2017 shows progressive metastatic disease to the liver. PHYSICAL EXAMINATION: GENERAL: A chronically ill appearing female. VITAL SIGNS: Pulse is 120, respiratory rate of 18, afebrile. Blood pressure 130/70, O2 saturation 97%. HEENT: Head is normocephalic. Sclerae and conjunctivae are normal. Oropharynx is unremarkable. No cervical, supraclavicular, axillary, or inguinal adenopathy. HEART: Regular rate and rhythm. LUNGS: Clear. ABDOMEN: Liver massively enlarged. I believe it extends into the pelvic area and there os tender in the right upper quadrant. It has enlarged markedly over the past several weeks. EXTREMITIES: Trace edema. MUSCULOSKELETAL: No bone pain. NEUROLOGIC: No focal weakness. There is global weakness. ASSESSMENT AND PLAN: The patient is a 57-year-old female who has stage IV non-small cell lung cancer. She has failed treatment and has received a targeted treatment with Tagrisso. She has progressed on carboplatin, Taxol, and Avastin. She has progressive disease on pembrolizumab. Her disease is growing rapidly and accounts for her symptoms with pain in the liver, nausea and vomiting, and slowly progressive fatigue and somnolence. RECOMMENDATION: I spoke to the patient, , and friend. She is dying. She does not have much time remaining. I strongly recommended no additional therapy except for comfort measures. There are second line chemotherapies, but their efficacy in this setting is going to be poor. I believe further chemotherapy would worsen her suffering. She tolerates poorly oxycodone. PLAN: 1. I spoke about code status. She agrees to NO CPR. 2. She agrees to hospice. 3. I have written for p.o. Dilaudid as well as IV Dilaudid. 4. Duragesic has been increased to 50 mcg. 5. There is no bowel obstruction. I have written for full liquids. MD ROGER Vargas/dawson , 10:10 PM , 10:25 PM MTDD
[2017-11-28] MEDS: FLUoxetine 20 MG Capsule PO SCH (09:52)
--- NOTE | 2017-11-28 10:07 | P.PN ---
Subjective Interval history: Nursing denies any deterioration since last night. Says she is still in pain when asked her how badly she just waves her hand in the 50/50 fashion. Physical Exam Vital signs: Vital Signs 11/27/17 17:16 11/27/17 17:38 11/27/17 19:25 Temperature 97.5 F L Pulse Rate 128 H 118 H 115 H Respiratory Rate 18 16 Blood Pressure 115/57 L 137/81 137/73 Pulse Oximetry 97 97 100 11/27/17 20:05 11/27/17 20:34 11/27/17 21:00 Temperature 98.6 F Pulse Rate 110 H 107 H 106 H Respiratory Rate 18 Blood Pressure 125/77 Pulse Oximetry 97 11/27/17 22:00 11/27/17 23:00 11/28/17 00:00 Temperature 98.2 F Pulse Rate 122 H 112 H 116 H Respiratory Rate 18 Blood Pressure 96/62 L Pulse Oximetry 94 L 11/28/17 00:38 11/28/17 01:00 11/28/17 02:00 Temperature Pulse Rate 104 H 100 H 94 H Respiratory Rate Blood Pressure Pulse Oximetry 11/28/17 03:00 11/28/17 04:00 Temperature 97.6 F Pulse Rate 90 116 H Respiratory Rate Blood Pressure 150/78 H Pulse Oximetry 94 L Intake & Output 11/27/17 11/28/17 11/28/17 18:59 06:59 18:59 Intake Total 740 / 740 Balance 740 / 740 Weight 56.814 kg Intake: IV 500 / 500 NS Inj 500 ML @ Wide Open IV. 500 / 500 SIG BOLUS ONE Rx#:[id number] Oral 240 / 240 Other: # Voids 3 Date of Last Bowel Movement 11/27/17 Narrative: Lying in bed, appears comfortable, unlabored breathing. Results - Labs CBC & Chem 7: 11/27/17 17:39 11/27/17 17:39 Laboratory Results - last 24 hr 11/27/17 11/27/17 11/27/17 17:39 17:39 17:39 WBC 17.4 H RBC 3.55 L Hgb 9.2 L Hct 29.7 L MCV 83.8 MCH 26.0 L MCHC 31.0 L RDW 18.5 H Plt Count 291 MPV 7.4 Neut % (Auto) 85.0 H Lymph % (Auto) 3.5 L [place] % (Auto) 3.2 Eos % (Auto) 7.8 H Baso % (Auto) 0.5 Neut # (Auto) 14.8 H Lymph # (Auto) 0.6 L [place] # (Auto) 0.6 Eos # (Auto) 1.4 H Baso # (Auto) 0.1 WBC Differential . Differential Comment Auto diff final PT 11.3 INR 1.1 APTT 28.6 Sodium 136 Potassium 4.3 Chloride 100 Carbon Dioxide 27.2 Anion Gap 9 BUN 15 Creatinine 0.66 Estimated GFR Greater than 89 Random Glucose 203 H Calcium 8.4 L Total Bilirubin 0.2 AST 51 H ALT 73 H Alkaline Phosphatase 289 H Ammonia Total Protein 6.7 Albumin 2.0 L Lipase 31 L Urine Color Urine Clarity Urine pH Ur Specific [place] Urine Protein Urine Glucose (UA) Urine Ketones Urine Occult Blood Urine Nitrate Urine Bilirubin Urine Urobilinogen Ur Leukocyte Esterase Urine RBC Urine WBC Ur Squamous Epith Cells Urine Bacteria Urine Mucus Micro UA Comment Ur Microscopic Review Urine Culture Comments 11/27/17 11/28/17 22:15 00:17 WBC RBC Hgb Hct MCV MCH MCHC RDW Plt Count MPV Neut % (Auto) Lymph % (Auto) [place] % (Auto) Eos % (Auto) Baso % (Auto) Neut # (Auto) Lymph # (Auto) [place] # (Auto) Eos # (Auto) Baso # (Auto) WBC Differential Differential Comment PT INR APTT Sodium Potassium Chloride Carbon Dioxide Anion Gap BUN Creatinine Estimated GFR Random Glucose Calcium Total Bilirubin AST ALT Alkaline Phosphatase Ammonia 26 Total Protein Albumin Lipase Urine Color Yellow Urine Clarity Hazy H Urine pH 5.0 Ur Specific [place] 1.021 Urine Protein 30 H Urine Glucose (UA) Negative Urine Ketones Trace H Urine Occult Blood Small H Urine Nitrate Negative Urine Bilirubin Negative Urine Urobilinogen 4 or greater Ur Leukocyte Esterase Trace H Urine RBC 2 Urine WBC 12 H Ur Squamous Epith Cells 5 Urine Bacteria Rare H Urine Mucus Moderate H Micro UA Comment Culture indicated Ur Microscopic Review Not Reportable Urine Culture Comments Culture indicated - Imaging Impressions Chest X-Ray 11/27/17 17:42 CONCLUSION: 1. No infiltrates in either lung. 2. Chronic left lower lung pneumothorax, stable from August 2017. Assessment and Plan - Plan //Stage IV adenocarcinoma of the lung metastatic to pleura, liver, bone //Intractable malignant pain crisis = Oncology has seen the patient and they have made a joint decision to proceed with hospice consultation. Consultation is pending. IV pain medication for now as needed. //Mild encephalopathy =Complained of feeling foggy. No focal signs or symptoms = This could be secondary to pain meds, generalized fatigue. Given liver metastases, low albumin, ammonia level is within normal limits. //Nausea, vomiting. Likely secondary to liver inflammation from cancer. Antiemetics as necessary. //History of depression. Continue fluoxetine //History of COPD. Nebs as needed.
--- NOTE | 2017-11-28 16:17 | MH ---
cc: Charles Maldonado MD DATE OF ADMISSION: 11/27/2017 SUBJECTIVE: Ms. Ratliff is doing very well. She is very happy with her condition. Her pain is much better controlled this morning thanks to the medication ordered by Dr. Lobo consisting mainly of morphine, fentanyl patch and Dilaudid. She is nearly completely pain free this morning and wants to go home soon. She has no new complaints, specifically no headaches or blurring of vision. No nausea or vomiting. No fevers or night sweats. Her pain was mainly in the right lower chest wall and right upper abdominal pain. She had no blood in the stool or black stools. No frequency, urgency or hematuria. REVIEW OF SYSTEMS: As above. MEDICATIONS: Reviewed. PHYSICAL EXAMINATION: VITAL SIGNS: Reviewed. The patient is afebrile, hemodynamically stable. GENERAL: Well appearing, in no apparent distress. Pallor present. No icterus. No palpable adenopathy in the neck or axilla. Alert and oriented x4. CARDIOVASCULAR: S1, S2 with occasional irregularity. No murmurs or gallops. LUNGS: Clear, without crackles or wheeze. ABDOMEN: Tender in the right upper quadrant with diffuse fullness. No guarding, rigidity or rebound. Positive bowel sounds. EXTREMITIES: No evidence of DVTs. LABORATORY DATA: No recent labs after yesterday's lab at 1739 showed a white count of 17.4, hemoglobin 9.2, platelets 291. Chemistries showing glucose of 203, alkaline phosphatase 289, ALT 73, AST 51. Chest x-ray done yesterday showed clear lungs and chronic left lung pneumothorax, stable since 08/2017. ASSESSMENT AND PLAN: A 57-year-old lady with metastatic non-small cell lung cancer to the liver and bones status post several lines of chemotherapy by Dr. Lobo, currently admitted for pain control, doing much better with the pain medication arranged by Dr. Lobo at this time. When I saw her this morning, she was essentially pain free and is wanting to go home. She has chronic anemia from her malignancy as well as chemo-induced anemia and she is asymptomatic without requiring blood transfusion. At this point, I do not have any additional recommendations, but can be followed up by Dr. Lobo once the patient is discharged from the hospital. Please do not hesitate to contact me if you have any further questions during her hospital stay. MD CADY Gilliland/abbey , 03:29 PM , 03:36 PM
[2017-11-28] MEDS: Potassium Chloride Inj 10 MEQ in Sod Chloride 0.9% Inj 1,000 ML IV.CONT SCH ×3 (17:23)
[2017-11-29 10:04] VITALS: RESP 16
[2017-11-29] MEDS: FLUoxetine 20 MG Capsule PO SCH (10:13)
--- NOTE | 2017-11-29 12:22 | P.PNONC ---
Subjective Interval history: The patient has less pain today than she did yesterday. She still has some discomfort in the right upper quadrant where the liver is. Objective Vital Signs/Intake & Output: Vital Signs 11/28/17 12:30 11/28/17 13:00 11/28/17 16:00 Temperature 98.2 F Pulse Rate 107 H 116 H 102 H Respiratory Rate 18 Blood Pressure 109/58 L Pulse Oximetry 11/28/17 17:00 11/28/17 20:00 11/29/17 00:00 Temperature 98 F 99.7 F H 98.3 F Pulse Rate 116 H 105 H 118 H Respiratory Rate 18 18 18 Blood Pressure 118/71 115/72 115/72 Pulse Oximetry 96 94 L 95 11/29/17 04:00 11/29/17 07:00 11/29/17 09:56 Temperature 100.7 F H 98.1 F Pulse Rate 107 H 83 114 H Respiratory Rate 18 16 Blood Pressure 106/71 122/77 Pulse Oximetry 94 L 92 L 11/29/17 11:00 Temperature Pulse Rate 108 H Respiratory Rate Blood Pressure Pulse Oximetry Intake & Output 11/28/17 11/29/17 11/29/17 18:59 06:59 18:59 Intake Total 2610 / 2610 600 / 600 Output Total 625 / 625 400 / 400 Balance 1984 / 1984 200 / 200 Intake: IV 2009 KCl Inj 10 MEQ In NS Inj 1,000 2009 ML @ 60 mls/hr IV.CONT .[id number] [facility] Rx#:[id number] Oral 600 / 600 600 / 600 Output: Urine 625 / 625 400 / 400 Stool 0 / 0 0 / 0 Other: # Voids 3 Date of Last Bowel Movement 11/27/17 Result Diagrams: 11/27/17 17:39 11/27/17 17:39 Culture Results: Microbiology 11/27/17 22:15 Urine Culture - Final Clean Catch Urine 50-100,000 cfu/mL mixed gram positive edilberto (probable contaminants) Medications: Active Medications Generic Name Dose Route Start Last Admin Trade Name Freq PRN Reason Stop Dose Admin Acetaminophen 650 mg 11/27/17 18:50 11/29/17 03:47 Tylenol PO 650 mg Q4H PRN Administration Headache, fever, pain 1-4 Fentanyl 1 patch 11/27/17 23:00 11/27/17 22:42 Duragesic 50 Mcg Patch.72hr T-DERMAL 1 patch Q3D FRANCOISE Administration Fluoxetine HCl 20 mg 11/28/17 09:00 11/29/17 10:13 Prozac PO 20 mg DAILY FRANCOISE Administration Hydromorphone HCl 1 mg 11/27/17 22:30 11/29/17 03:47 Dilaudid Pf Inj IV.PUSH 1 mg Q3H PRN Administration BREAKTHROUGH PAIN Potassium Chloride 10 meq/ 1,005 mls @ 60 mls/hr 11/27/17 23:00 11/28/17 18: 29 Sodium Chloride IV.CONT Infused .[id number] FRANCOISE Infusion Patch Removal 1 each 11/27/17 23:00 11/27/17 22:44 Remove Old Patch T-DERMAL 1 each Q3D FRANCOISE Administration Sennosides 17.2 mg 11/27/17 18:50 11/29/17 10:19 Senokot PO 17.2 mg Q12H PRN Administration Moderate Constipation Objective Remarks: GENERAL: Frail and tired SKIN: Warm and dry. HEAD: Normocephalic. EYES: No scleral icterus. No injection or drainage. NECK: Supple, trachea midline. No JVD or lymphadenopathy. LYMPHATIC: No adenopathy. CARDIOVASCULAR: Regular rate and rhythm without murmurs. RESPIRATORY: Breath sounds equal bilaterally. No accessory muscle use. GASTROINTESTINAL: Liver is markedly enlarged and accounts for her pain EXTREMITIES: No cyanosis, or edema. MUSCULOSKELETAL: Muscle wasting NEUROLOGICAL: No obvious focal deficit. Awake, alert, and oriented x3. PSYCHIATRIC: Appropriate mood and affect; insight and judgment normal. Assessment/Plan - Plan The patient has stage IV non-small cell lung cancer. She is dying. She has rapidly progressive disease involving the liver. At the time of my visit the nurse from hospice was present. I spoke to the patient, , and the nurse addressing the needs. The patient's home was recently sold and she has nowhere to return to. The is trying to make arrangements for her to have a place to stay in the [facility]. The patient was reluctant to accept hospice mostly due to misunderstanding. This has been sorted out and the plan is for her to go to the hospice care center, probably today. The above discussed with hospice as well as the patient's hospitalist, Dr. Marino who is in agreement.
--- NOTE | 2017-11-29 12:32 | P.DS ---
Date of admission: 11/27/17 18:57 Primary care physician: Ame Vizcarra MD Brief History from admission: 49-year-old female with a history of metastatic non-small cell lung cancer with metastasis to liver, bone, status post chemotherapy, and currently being treated with immunotherapy by Dr. Lobo. She presents with a 4-day history of progressively worsening intermittent sharp right upper quadrant pain worse with movement, as well as deep breathing. She reports subjective fevers, nausea, vomiting, occasionally with small specks of blood, however no coffee-ground emesis or alaina blood. She reports generalized fatigue, mental fogginess which is worsening over the past several weeks. Patient was started on fentanyl patch on Friday, however this has not taking care of her pain. DS: Summary Hospital Course: 49-year-old female with history of metastatic non-small cell lung cancer with metastasis of the liver & bone. She was admitted following a 4-day history of sharp right upper quadrant pain that became unbearable with movement or deep breathing. Her pain medication was increased by Dr. Lobo and she was monitored for negative side effects. Today she states her pain is in the 3-5 range and tolerable. Her medical issues are chronic, the pain is acute. She has decided she would like to go to the hospice care center to be stabilized on her pain medications and then will decide where to go from there. I had a discussion with Dr. Lobo who explained that her cancer is extensive and appropriate for hospice at this time. There is no further oncological treatment available to her. Patient has requested to go to hospice care center and I am placing an order to get her there today. - Time Spent with Patient Total time spent providing and/or coordinating discharge services: Less than 30 minutes - Quality: VTE Deep Vein Thrombosis/Pulmonary Embolism Present on Admission: No Exam Vital signs: Vital Signs 11/28/17 12:30 11/28/17 13:00 11/28/17 16:00 Temperature 98.2 F Pulse Rate 107 H 116 H 102 H Respiratory Rate 18 Blood Pressure 109/58 L Pulse Oximetry 11/28/17 17:00 11/28/17 20:00 11/29/17 00:00 Temperature 98 F 99.7 F H 98.3 F Pulse Rate 116 H 105 H 118 H Respiratory Rate 18 18 18 Blood Pressure 118/71 115/72 115/72 Pulse Oximetry 96 94 L 95 11/29/17 04:00 11/29/17 07:00 11/29/17 09:56 Temperature 100.7 F H 98.1 F Pulse Rate 107 H 83 114 H Respiratory Rate 18 16 Blood Pressure 106/71 122/77 Pulse Oximetry 94 L 92 L 11/29/17 11:00 Temperature Pulse Rate 108 H Respiratory Rate Blood Pressure Pulse Oximetry Intake & Output 11/28/17 11/29/17 11/29/17 18:59 06:59 18:59 Intake Total 2610 / 2610 600 / 600 Output Total 625 / 625 400 / 400 Balance 1984 200 / 200 Intake: IV 2009 KCl Inj 10 MEQ In NS Inj 1,000 2009 ML @ 60 mls/hr IV.CONT .[id number] [facility] Rx#:[id number] Oral 600 / 600 600 / 600 Output: Urine 625 / 625 400 / 400 Stool 0 / 0 0 / 0 Other: # Voids 3 Date of Last Bowel Movement 11/27/17 Results Procedures completed during hospitalization: none - Impressions ITS Impressions Chest X-Ray 11/27/17 17:42 CONCLUSION: 1. No infiltrates in either lung. 2. Chronic left lower lung pneumothorax, stable from August 2017. Discharge Plan - Discharge Disposition Patient Disposition: [facility] Hospice/Med Facility - Discharge Condition Condition: Stable - Discharge Order Discharge Orders: Discharge Order (Routine); Ordered 11/29/17 Ordered By: Tru Marino - Physicians Team Primary Care Provider: Ame Vizcarra Attending Provider: Tru Marino Other Providers: [employer]Insurance ; Danielito Lobo MD
[2017-11-29 12:50] VITALS: BP 100/67; PULSE 106; TEMP 98.4; O2SAT 95
== END 2017-11-29 15:00 | disposition hospice, inpatient (51) ==
LOC: NEPC 17:06 → NEDA 17:06 → HCIS 22:23 → HCIN 11-28 06:15
PROVIDERS: ADMIT Family Medicine; ATTEND Family Medicine